=== PATIENT | male | born 1940 | race Caucasian/White ===

== ENCOUNTER 2022-10-16 10:19 | Emergency (ER) | payer MEDICARE, MEDICAID, SELFPAY ==
--- NOTE | ~2022-10-16 | XR_ITS ---
EXAMINATION: XR CHEST CLINICAL INFORMATION: Dyspnea. COMPARISON: 12/01/2019 chest radiograph. TECHNIQUE: 2 views of the chest were obtained. FINDINGS: Low lung volumes limit evaluation. There is mild elevation of the right hemidiaphragm. The lungs appear clear. The heart and mediastinal structures are unremarkable. XR/XR chest 2V IMPRESSION: Limited study without overt CHF or pneumonia.
[2022-10-16 10:31] VITALS: BP 109/81; BP 176/77; PULSE 83; PULSE 93; RESP 24; TEMP 36.8; O2SAT 91; O2SAT 94; BMI 34.2
[2022-10-16 10:36] VITALS: BP 109/61; PULSE 95; RESP 22; TEMP 36.9; O2SAT 93
--- OUTSIDE RECORDS SUMMARY | 2022-10-16 10:42 | XMS_ITS | Continuity of Care Document ---
Author Name Unknown Organization [facility] Gianna Barber [facility] Address [address] [place] [address]- Care Team Providers Care Track Grinder Name Role Phone Zhao AVENDANO, Dena Crews Primary Care Physician [phone] Encounter [facility] Date(s): 10/11/19 - 11/10/19 [facility] Gianna Barber [facility] [address] [place] [address]- [facility] Allergies, Adverse Reactions, Alerts Substance Reaction Severity Status Other Environmental Allergy Active Immunizations Given and Recorded Vaccine Date Status Refusal Reason influenza virus vaccine, inactivated 1 02/16/18 Gi rajinder influenza virus vaccine, inactivated 01/07/17 Give n influenza virus vaccine, inactivated 01/30/16 Give n pneumococcal 13-valent vaccine 05/01/15 Given pneumococcal 23-valent vaccine 2 12/17/13 Given Pneumococcal Poly (PPV23) (oldterm) 06/18/07 Given tetanus-diphtheria toxoids (Td) 06/18/07 Given 1Result Comment: [02/16/2018] [facility] [id number] 2Admin Note: VIS GIVEN Medications Alcohol Wipes See Instructions, 1 box, 8, 8, 07/03/07 16:02:50, use as instructed, Anupama VICKERS N Main Start Date: 07/03/07 Status: Ordered aspirin 81 mg oral enteric coated tablet 81, mg, 1, tablet, By Mouth, Daily, 0, 0, 10/21/05 16:51:52, Print CLADUIA Number, [id number], Constant Indicator Start Date: 10/21/05 Status: Ordered C-Pap Supplies C-Pap Supplies, See Instructions, # 1 each, Refills 11, Tot. Refills 11, Maintenance, C-Pap hose, filters and nose pillows. length of need 99 months DX: ANDRES, 08/12/17 9:05:08 EDT, Compound Start Date: 08/12/17 Status: Ordered Claritin 24 Hour Allergy 10 mg oral tablet 1 tablet = 10 mg, By Mouth, Every other day, # 15 tablet, 0 Refills, Maintenance, 06/30/18 13:39:09EDT, Tablet Start Date: 06/30/18 Status: Ordered doxazosin 8 mg oral tablet 1 tablet = 8 mg, By Mouth, Daily, # 90 tablet, 0 Refills, Maintenance, 08/05/19 13:38:00 EDT, Tablet, [facility]/pharmacy #1230, 183, cm, 04/05/19 13:05:00 EST, Height Start Date: 08/05/19 Status: Ordered enalapril 20 mg oral tablet 1 tablet = 20 mg, By Mouth, 2 times a day, # 180 tablet, 1 Refills, Maintenance, 10/19/19 15:53:00 EDT, [facility], 183, cm, 10/07/19 14:43:00 EDT, Height Start Date: 10/19/19 Status: Ordered Flovent HFA 110 mcg/inh inhalation aerosol 2 puffs, Inhalation, 2 times a day, # 1 each, 3 Refills, Maintenance, 12/17/18 18:36:48 EDT, Aerosol Start Date: 12/17/18 Stop Date: 04/16/19 Status: Ordered folic acid 1 mg oral tablet 1 mg, 1, tablet, By Mouth, Daily, # 90 tablet, Refills 5, Tot. Refills 5, Maintenance, 10/11/19 11:11:00 EDT, Route to Pharmacy Electronically, [facility]/pharmacy #1230, 183, cm, 10/07/19 14:43:00 EDT, Height Start Date: 10/11/19 Status: Ordered Glucose Monitor See Instructions, 0, 0, 07/03/07 16:02:29, use as instructed., Anupama VICKERS N Main Start Date: 07/03/07 Status: Ordered Lancets See Instructions, 1 box, 8, 8, 07/03/07 16:03:17, use as instructed, Anupama VICKERS N Main Start Date: 07/03/07 Status: Ordered loratadine 10 mg oral capsule 1 capsule = 10 mg, By Mouth, Daily, # 90 capsule, 1 Refills, Maintenance, 10/06/19 10:17:00 EDT, Capsule, [facility]/pharmacy #1230, 183, cm, 04/05/19 13:05:00 EST, Height Start Date: 10/06/19 Stop Date: 05/03/20 Status: Ordered metFORMIN 1000 mg oral tablet 1 tablet = 1,000 mg, By Mouth, 2 times a day, # 180 tablet, 1 Refills, Maintenance, 04/27/19 14:24:00 EST, [facility]/pharmacy #1230, 183, cm, 04/05/19 13:05:00 EST, Height Start Date: 04/27/19 Stop Date: 10/24/19 Status: Ordered metoprolol 50 mg oral tablet See Instructions, 0.5 tablet By Mouth 2 times a day, # 30 tablet, Refills 6, Tot. Refills 6, Maintenance, 08/11/17 15:10:38 EDT, Instructions Replace Required Details, Route to Pharmacy Electronically, [id number], [facility]/pharmac... Start Date: 08/11/17 Status: Ordered pravastatin 40 mg oral tablet 1 tablet = 40 mg, By Mouth, Daily, # 90 tablet, 1 Refills, Maintenance, 08/06/19 12:43:00 EDT, Tablet, [facility]/pharmacy #1230, 183, cm, 04/05/19 13:05:00 EST, Height Start Date: 08/06/19 Stop Date: 02/02/20 Status: Ordered ProAir HFA 90 mcg/inh inhalation aerosol with adapter 2, puffs, Inhalation, 4 times a day, PRN, # 2 each, Refills 3, Tot. Refills 3, Maintenance, 08/13/18 20:00:05 EDT, Aerosol, Route to Pharmacy Electronically, [id number], [facility]/pharmacy #1230 Start Date: 08/13/18 Stop Date: 12/11/18 Status: Ordered Test Strips See Instructions, 11, 0, 11, 08/03/07 15:08:40, Test Bid-Tid as advised., [facility] Start Date: 08/03/07 Status: Ordered Vitamin B12 2500 mcg sublingual tablet 1 tablet = 2,500 mcg, Sublingual, Daily, # 30 tablet, 5 Refills, Maintenance, 10/11/19 11:12:00 EDT, Tablet, [facility]/pharmacy #1230, 183, cm, 10/07/19 14:43:00 EDT, Height Start Date: 10/11/19 Status: Ordered Vitamin B12 with Folic Acid sublingual tablet 1 tablet, Sublingual, Daily, # 30 tablet, 5 Refills, Maintenance, 10/10/19 18:46:00 EDT, Tablet, [facility]/pharmacy #1230, 1 tablet Sublingual Daily, 183, cm, 10/07/19 14:43:00 EDT, Height Start Date: 10/10/19 Status: Ordered Vitamin D3 5000 intl units oral capsule 1 capsule = 5,000 International_Units, By Mouth, Daily, with food, # 100 capsule, 0 Refills, Maintenance, 07/18/14 10:26:47, Capsule Start Date: 07/18/14 Status: Ordered Voltaren 1% topical gel = 2 Gm, Topically, 3 times a day, To affected area., # 180 Gm, 4 Refills, Maintenance, 10/04/19 12:26:00 EDT, [facility], 2 Gm Topically 3 times a day,Instr:To affected area., 183, cm, 04/05/19 13:05:00 EST, Height Start Date: 10/04/19 Status: Ordered Problem List Condition Effective Dates Status Health Status Inform ant Administrative encounter(Confirmed) Active Arthritis(Confirmed) Active Hematuria(Confirmed) Active Cancer of prostate(Confirmed) Active CHF, chronic(Confirmed) Active 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
--- OUTSIDE RECORDS SUMMARY | 2022-10-16 10:42 | XMS_ITS | Continuity of Care Document ---
Author Name Unknown Organization [facility] Address [address] [place] [address]- Care Team Providers Care Automotive Software Engineer Name Role Phone Zhao PUBLIC WORKS COMMISSIONER, Dena Crews Primary Care Physician Encounter [facility] Date(s): 11/23/21 - 03/01/22 [facility] [address] [place] [address]- Attending Physician: Maritza Sparks MD Allergies, Adverse Reactions, Alerts No Known Medication Allergies Substance Reaction Severity Status Other Environmental Allergy Active Immunizations Given and Recorded Vaccine Date Status Refusal Reason influenza virus vaccine, inactivated 03/02/21 Jules rded influenza virus vaccine, inactivated 1 02/16/18 Gi rajinder influenza virus vaccine, inactivated 01/07/17 Give n influenza virus vaccine, inactivated 01/30/16 Give n SARS-CoV-2 (COVID-19) mRNA BNT-162b2 vac 03/02/21 Recorded SARS-CoV-2 (COVID-19) mRNA BNT-162b2 vac 05/20/20 Recorded SARS-CoV-2 (COVID-19) mRNA BNT-162b2 vac 04/27/20 Recorded pneumococcal 13-valent vaccine 05/01/15 Given pneumococcal 23-valent vaccine 2 12/17/13 Given Pneumococcal Poly (PPV23) (oldterm) 06/18/07 Given tetanus-diphtheria toxoids (Td) 06/18/07 Given 1Result Comment: [02/16/2018] [facility] [id number] 2Admin Note: VIS GIVEN Medications aspirin 81 mg oral enteric coated tablet 81, mg, 1, tablet, By Mouth, Daily, 0, 0, 10/21/05 16:51:52, Print CLAUDIA Number, [id number], Constant Indicator Start Date: 10/21/05 Status: Ordered C-Pap Supplies C-Pap Supplies, See Instructions, # 1 each, Refills 11, Tot. Refills 11, Maintenance, C-Pap hose, filters and nose pillows. length of need 99 months DX: ANDRES, 08/12/17 9:05:08 EDT, Compound Start Date: 08/12/17 Status: Ordered CPAP SUPPLIES CPAP SUPPLIES, See Instructions, # 1 each, Refills 12, Tot. Refills 12, Maintenance, CPAP Supplies,Mask & Tubing, Filters, Chin Strap, Water Chamber DX ANDRES APRIA, 01/24/22 16:59:00 EDT, Supply Start Date: 01/24/22 Status: Ordered doxazosin 8 mg oral tablet 1 tablet = 8 mg, By Mouth, Daily, # 90 tablet, 1 Refills, Maintenance, 12/18/20 8:03:00 EDT, Tablet, [facility]/pharmacy #1230, 183, cm, 07/05/20 13:14:00 EDT, Height Start Date: 12/18/20 Status: Ordered enalapril 20 mg oral tablet 1 tablet, By Mouth, Daily, # 180 tablet, 0 Refills, 12/19/21 9:26:00 EDT, [facility]/pharmacy #1230, 183, cm, 12/19/21 7:46:00 EDT, Height, 113, kg, 12/16/21 16:29:00 EDT, Dry Weight Start Date: 12/19/21 Status: Ordered Flovent HFA 220 mcg/inh inhalation aerosol 2 puffs, Inhalation, 2 times a day, rinse mouth and throat after use, # 1 each, 6 Refills, Maintenance, 11/07/21 10:56:00 EDT, Aerosol, [facility]/pharmacy #1230, Partial fill upon patient request if the prescription is for a schedule II opioid drug., 183, c... Start Date: 11/07/21 Stop Date: 06/05/22 Status: Ordered folic acid 1 mg oral tablet 1, tablet, By Mouth, Daily, # 90 tablet, Refills 1, Route to Pharmacy Electronically, [facility] STORE 63687, 183, cm, 07/05/20 13:14:00 EDT, Height Start Date: 11/12/20 Status: Ordered furosemide 20 mg oral tablet 1, tablet, By Mouth, Daily, # 90 tablet, Refills 1, Maintenance, 01/04/22 16:08:00 EDT, Route to Pharmacy Electronically, [facility] STORE 47062, 183, cm, 12/26/21 13:25:00 EDT, Height, 113, kg, 12/16/21 16:29:00 EDT, Dry Weight Start Date: 01/04/22 Status: Ordered isosorbide mononitrate 30 mg oral tablet, extended release 1 tablet, By Mouth, Daily in AM, # 90 tablet, 1 Refills, Maintenance, 12/24/21 7:28:00 EDT, [facility]/pharmacy #1230, 183, cm, 12/19/21 11:37:00 EDT, Height, 113, kg, 12/16/21 16:29:00 EDT, Dry Weight Start Date: 12/24/21 Status: Ordered metFORMIN 500 mg oral tablet 1 tablet, By Mouth, 2 times a day, # 180 tablet, 1 Refills, 06/27/21 16:01:00 EDT, [facility]/pharmacy #1230, 183, cm, 06/27/21 14:31:00 EDT, Height Start Date: 06/27/21 Status: Ordered OneTouch Verio Glucose Meter See Instructions, # 1 each, Maintenance, E11.8 Use as directed., 01/03/22 6:52:00 EDT, Supply, 183,cm, 12/26/21 13:25:00 EDT, Height, 113, kg, 12/16/21 16:29:00 EDT, Dry Weight Start Date: 01/03/22 Status: Ordered OneTouch Verio Lancets See Instructions, # 60 each, Refills 11, Tot. Refills 11, Maintenance, E11.8 Test blood glucose twice a day and as needed., 01/03/22 6:52:00 EDT, Supply, 183, cm, 12/26/21 13:25:00 EDT, Height, 113, kg, 12/16/21 16:29:00 EDT, Dry Weight Start Date: 01/03/22 Status: Ordered OneTouch Verio Test Strips See Instructions, # 60 each, Refills 11, Tot. Refills 11, Maintenance, E11.8 Check blood glucose twice a day and as needed., 01/03/22 6:52:00 EDT, Supply, 183, cm, 12/26/21 13:25:00 EDT, Height, 113,kg, 12/16/21 16:29:00 EDT, Dry Weight Start Date: 01/03/22 Status: Ordered POC EVALUATION POC EVALUATION, See Instructions, # 1 each, Refills 0, Tot. Refills 0, Maintenance, Evalualt patient for POC Dx COPD APRIA, 01/24/22 16:59:00 EDT, Supply Start Date: 01/24/22 Status: Ordered pravastatin 40 mg oral tablet 1 tablet, By Mouth, Daily, # 90 tablet, 1 Refills, [facility] STORE 79769, 183, cm, 06/27/21 14:31:00 EDT,Height Start Date: 10/13/21 Status: Ordered ProAir HFA 90 mcg/inh inhalation aerosol with adapter 2, puffs, Inhalation, 4 times a day, PRN, # 2 each, Refills 3, Tot. Refills 3, Maintenance, 11/07/21 10:57:00 EDT, Aerosol, Route to Pharmacy Electronically, [id number], [facility]/pharmacy #1230, 183, cm, 11/07/21 7:16:00 EDT, Height Start Date: 11/07/21 Stop Date: 03/07/22 Status: Ordered Vitamin D3 5000 intl units oral capsule 1 capsule = 5,000 International_Units, By Mouth, Daily, with food, # 100 capsule, 0 Refills, Maintenance, 07/18/14 10:26:47, Capsule Start Date: 07/18/14 Status: Ordered Voltaren 1% topical gel = 2 Gm, Topically, 3 times a day, To affected area., # 180 Gm, 6 Refills, Maintenance, 06/27/21 16:02:00 EDT, [facility], 2 Gm Topically 3 times a day,Instr:To affected area., 183, cm, 06/27/21 14:31:00 EDT, Height Start Date: 06/27/21 Status: Ordered Problem List Condition Confirmation Course Effective Dates Status H ealth Status Informant Administrative encounter Confirmed Active Arthritis Confirmed Active Hematuria Confirmed Active Cancer of prostate Confirmed Active CHF, chronic Confirmed Active CKD (chronic kidney disease) Confirmed Active Osteoarthritis of both shoulders Confirmed Active Diabetes mellitus type 2 in obese Confirmed Active Diverticulitis Confirmed Active Shortness of breath Confirmed Active Hip replacement left Confirmed Active Hyperlipidemia Confirmed Active Hypertension Confirmed Active Knee osteoarthritis Confirmed 07/27/12 Active Polycystic kidney disease Confirmed Active Obese class II Confirmed Active Obesity Confirmed Active Obstructive sleep apnea syndrome Confirmed Active Sinus tachycardia Confirmed Active Vertigo Confirmed Active Social History Social History Type Response Smoking Status Former smoker; Other : Quit 1989; entered on: 01/30/16 Sex Patient Care team information Care Team Personnel Name: Dena Churchill NP Position: S PCO Associate Professional Member Role: PCP Address: Address: [address] [place] [id number]- Care Team Related Persons Name: ZARIA MCKINNEY Address: home [address] [place] [address] Name: ZOHRA MCKINNEY Address: home [address] [place] [address]
--- OUTSIDE RECORDS SUMMARY | 2022-10-16 10:42 | XMS_ITS | Continuity of Care Document ---
Author Name Unknown Organization [facility] Address [address] [place] [address]- Care Team Providers Care Design Leader Name Role Phone Zhao AVENDANO, Dena Crews Primary Care Physician Encounter [facility] Date(s): 11/06/21 - 12/07/21 [facility] [address] [place], [place] [id number]- Attending Physician: Not on Staff, Attending MD Referring Physician: Dena Churchill NP Allergies, Adverse Reactions, Alerts Substance Reaction Severity [...] toxoids (Td) 06/18/07 Given 1Result Comment: [02/16/2018] [facility] [id number] 2Admin Note: VIS GIVEN Medications Alcohol Wipes See Instructions, 1 box, 8, 8, 07/03/07 16:02:50, use as instructed, [facility] Start Date: 07/03/07 Status: Ordered aspirin 81 mg oral enteric coated tablet 81, mg, 1, tablet, By Mouth, Daily, 0, 0, 10/21/05 16:51:52, Print CLAUDIA Number, [id number], Constant Indicator Start Date: 10/21/05 Status: Ordered C-Pap Supplies C-Pap Supplies, See Instructions, # 1 each, Refills 11, Tot. Refills 11, Maintenance, C-Pap hose, filters and nose pillows. length of need 99 months DX: ANDRES, 08/12/17 9:05:08 EDT, Compound Start Date: 08/12/17 Status: Ordered Docusate 0 Refills, Maintenance, 07/05/20 13:17:00 EDT, Partial fill upon patient request if the prescription is for a schedule II opioid drug. Start Date: 07/05/20 Status: Ordered doxazosin 8 mg oral tablet 1 tablet = 8 mg, By Mouth, Daily, # 90 tablet, 1 Refills, Maintenance, 12/18/20 8:03:00 EDT, Tablet, [facility], 183, cm, 07/05/20 13:14:00 EDT, Height Start Date: 12/18/20 Status: Ordered doxazosin 8 mg oral tablet 1 tablet, By Mouth, Daily, # 90 tablet, 1 Refills, [facility], 183, cm, 06/27/21 14:31:00 EDT,Height Start Date: 09/24/21 Status: Ordered enalapril 20 mg oral tablet 1 tablet, By Mouth, 2 times a day, # 180 tablet, 0 Refills, [facility], 183, cm, 10/23/21 15:45:00 EDT, Height Start Date: 10/26/21 Status: Ordered Flovent HFA 220 mcg/inh inhalation aerosol 2 puffs, Inhalation, 2 times a day, rinse mouth and throat after use, # 1 each, 6 Refills, Maintenance, 11/07/21 10:56:00 EDT, Aerosol, [facility], Partial fill upon patient request if the prescription is for a schedule II opioid drug., 183, c... Start Date: 11/07/21 Stop Date: 06/05/22 Status: Ordered folic acid 1 mg oral tablet 1, tablet, By Mouth, Daily, # 90 tablet, Refills 1, Route to Pharmacy Electronically, [facility], 183, cm, 07/05/20 13:14:00 EDT, Height Start Date: 11/12/20 Status: Ordered furosemide 20 mg oral tablet 1, tablet, By Mouth, Daily, # 90 tablet, Refills 1, Route to Pharmacy Electronically, [facility], 183, cm, 06/27/21 14:31:00 EDT, Height Start Date: 07/12/21 Status: Ordered gabapentin 100 mg oral capsule 100 mg, 1, capsule, By Mouth, 3 times a day, # 90 capsule, Refills 1, Tot. Refills 1, Maintenance, 06/27/21 16:05:00 EDT, Route to Pharmacy Electronically, [facility]/pharmacy #1230, Partial fill upon patient request if the prescription is for a schedule II... Start Date: 06/27/21 Stop Date: 08/26/21 Status: Ordered Glucose Monitor See Instructions, 0, 0, 07/03/07 16:02:29, use as instructed., Anupama VICKERS N Main Start Date: 07/03/07 Status: Ordered isosorbide mononitrate 30 mg oral tablet, extended release 1 tablet, By Mouth, Daily in AM, for 90 days, # 90 tablet, 1 Refills, Physician Stop 12/24/21 16:02:00 EDT, 06/27/21 16:02:00 EDT, [facility]/pharmacy #1230, 183, cm, 06/27/21 14:31:00 EDT, Height Start Date: 06/27/21 Stop Date: 12/24/21 Status: Ordered Lancets See Instructions, 1 box, 8, 8, 07/03/07 16:03:17, use as instructed, Anupama VICKERS N Main Start Date: 07/03/07 Status: Ordered loratadine 10 mg oral capsule 1 capsule = 10 mg, By Mouth, Daily, # 90 capsule, 1 Refills, Maintenance, 10/06/19 10:17:00 EDT, Capsule, [facility]/pharmacy #1230, 183, cm, 04/05/19 13:05:00 EST, Height Start Date: 10/06/19 Stop Date: 05/03/20 Status: Ordered magnesium oxide 400 mg oral tablet 1 tablet = 400 mg, By Mouth, Daily, # 14 tablet, 0 Refills, Maintenance, 12/31/19 14:54:00 EDT, Tablet Start Date: 12/31/19 Stop Date: 01/14/20 Status: Ordered metFORMIN 500 mg oral tablet 1 tablet, By Mouth, 2 times a day, # 180 tablet, 1 Refills, 06/27/21 16:01:00 EDT, [facility]/pharmacy #1230, 183, cm, 06/27/21 14:31:00 EDT, Height Start Date: 06/27/21 Status: Ordered metoprolol 50 mg oral tablet See Instructions, 0.5 tablet By Mouth 2 times a day, # 30 tablet, Refills 6, Tot. Refills 6, Maintenance, 08/11/17 15:10:38 EDT, Instructions Replace Required Details, Route to Pharmacy Electronically, [id number], [facility]/pharmac... Start Date: 08/11/17 Status: Ordered MiraLax = 17 Gm, By Mouth, Daily, 0 Refills, Maintenance, 07/05/20 13:17:00 EDT, Partial fill upon patient request if the prescription is for a schedule II opioid drug. Start Date: 07/05/20 Status: Ordered pravastatin 40 mg oral tablet 1 tablet, By Mouth, Daily, # 90 tablet, 1 Refills, [facility] STORE 50391, 183, cm, 06/27/21 14:31:00 EDT,Height Start Date: 10/13/21 Status: Ordered ProAir HFA 90 mcg/inh inhalation aerosol with adapter 2, puffs, Inhalation, 4 times a day, PRN, # 2 each, Refills 3, Tot. Refills 3, Maintenance, 11/07/21 10:57:00 EDT, Aerosol, Route to Pharmacy Electronically, [id number], [facility]/pharmacy #1230, 183, cm, 11/07/21 7:16:00 EDT, Height Start Date: 11/07/21 Stop Date: 03/07/22 Status: Ordered Senna By Mouth, 0 Refills, Maintenance, 12/31/19 14:55:00 EDT Start Date: 12/31/19 Status: Ordered Test Strips See Instructions, 11, 0, 11, 08/03/07 15:08:40, Test Bid-Tid as advised., [facility] Start Date: 08/03/07 Status: Ordered Vitamin B12 2500 mcg sublingual tablet 1 tablet = 2,500 mcg, Sublingual, Daily, # 30 tablet, 5 Refills, Maintenance, 10/11/19 11:12:00 EDT, Tablet, [facility]/pharmacy #1230, 183, cm, 10/07/19 14:43:00 EDT, Height Start Date: 10/11/19 Status: Ordered Vitamin B12 with Folic Acid sublingual tablet 1 tablet, Sublingual, Daily, # 30 tablet, 5 Refills, Maintenance, 10/10/19 18:46:00 EDT, Tablet, [facility]/pharmacy #1230, 1 tablet Sublingual Daily, 183, [...] Date: 06/27/21 Status: Ordered Problem List Condition Effective Dates Status Health Status Inform ant Administrative encounter(Confirmed) Active Arthritis(Confirmed) Active Hematuria(Confirmed) Active Cancer of prostate(Confirmed) Active CHF, chronic(Confirmed) Active CKD (chronic kidney disease)(Confirmed) Active 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) Active Diverticulitis(Confirmed) Active Shortness of breath(Confirmed) Active Hip replacement left(Confirmed) Active Hyperlipidemia(Confirmed) Active Hypertension(Confirmed) Active Knee osteoarthritis(Confirmed) 07/27/12 Active Polycystic kidney disease(Confirmed) Active Obesity(Confirmed) Active Obstructive sleep apnea syndrome(Confirmed) Active Sinus tachycardia(Confirmed) Active Vertigo(Confirmed) Active Vital Signs Most recent to oldest [Reference Range]: 1 Height 183 cm (11/07/21 7:16 AM) Social History Social History Type Response Smoking Status Former smoker; Other : Quit 1989; entered on: 01/30/16 Sex Care Team Personnel Name: Zhao AVENDANO, Dena Crews Address: [address] [place] [id number]
--- OUTSIDE RECORDS SUMMARY | 2022-10-16 10:42 | XMS_ITS | Continuity of Care Document ---
Author Name Unknown Organization [facility] Address [address] [place], [place] [id number]- Care Team Providers Care Project Structural Engineer Name Role Phone Zhao AVENDANO, Dena Crews Primary Care Physician Encounter [facility] NBR [id number] Date(s): 04/12/21 - 06/13/21 [facility] [address] [place], [place] [id number]- Attending Physician: Dena Churchill NP Allergies, Adverse Reactions, [...] toxoids (Td) 06/18/07 Given 1Result Comment: [02/16/2018] [facility] [id number] 2Admin Note: VIS GIVEN Medications Alcohol Wipes See Instructions, 1 box, 8, 8, 07/03/07 16:02:50, use as instructed, RANCHO,Blchrtwn,N Main Start Date: 07/03/07 Status: Ordered aspirin 81 mg oral enteric coated tablet 81, mg, 1, tablet, By Mouth, Daily, 0, 0, 10/21/05 16:51:52, Print CLAUDIA Number, [id number], Constant Indicator Start Date: 10/21/05 Status: Ordered [...] 1 Refills, Maintenance, 12/18/20 8:03:00 EDT, Tablet, [facility]/pharmacy #1230, 183, cm, 07/05/20 13:14:00 EDT, Height Start Date: 12/18/20 Status: Ordered enalapril 20 mg oral tablet 1 tablet, By Mouth, 2 times a day, # 180 tablet, 1 Refills, Maintenance, 04/12/21 12:27:00 EST, [facility]/pharmacy #1230, 183, cm, 07/05/20 13:14:00 EDT, Height Start Date: 04/12/21 Status: Ordered Flovent HFA 110 mcg/inh inhalation aerosol 2 puffs, Inhalation, 2 times a day, # 1 each, 3 Refills, Maintenance, 12/17/18 18:36:48 EDT, Aerosol Start Date: 12/17/18 Stop Date: 04/16/19 Status: Ordered folic acid 1 mg oral tablet 1, tablet, By Mouth, Daily, # 90 tablet, Refills 1, Route to Pharmacy Electronically, [facility] STORE [facility]270, 183, cm, 07/05/20 13:14:00 EDT, Height Start Date: 11/12/20 Status: Ordered furosemide 20 mg oral tablet 20 mg, 1, tablet, By Mouth, Daily, # 90 tablet, Refills 1, Tot. Refills 1, Maintenance, 01/23/21 9:34:00 EDT, Route to Pharmacy Electronically, [facility]/pharmacy #1230, 183, cm, 07/05/20 13:14:00 EDT, Height Start Date: 01/23/21 Stop Date: 07/22/21 Status: Ordered Glucose Monitor See Instructions, 0, 0, 07/03/07 16:02:29, use as instructed., [facility],Anupama,N Main Start Date: 07/03/07 Status: Ordered isosorbide mononitrate 30 mg oral tablet, extended release 1 tablet, By Mouth, Daily in AM, for 90 days, # 90 tablet, 1 Refills, Physician Stop, [facility], 183, cm, 07/05/20 13:14:00 EDT, Height Start Date: 04/12/21 Stop Date: 07/11/21 Status: Ordered Lancets See Instructions, 1 box, 8, 8, 07/03/07 16:03:17, use as instructed, RANCHO,AnupamaN Main Start Date: 07/03/07 Status: Ordered loratadine 10 mg oral capsule 1 capsule = 10 mg, By Mouth, Daily, # 90 capsule, 1 Refills, Maintenance, 10/06/19 10:17:00 EDT, Capsule, [facility]/pharmacy #1230, 183, cm, 04/05/19 13:05:00 EST, Height [...] a day, # 180 tablet, 1 Refills, [facility] 04262, 183, cm, 07/05/20 13:14:00 EDT, Height Start Date: 01/30/21 Status: Ordered metoprolol 50 mg oral tablet See Instructions, 0.5 tablet By Mouth 2 times a day, # 30 tablet, Refills 6, Tot. Refills 6, Maintenance, 08/11/17 15:10:38 EDT, Instructions Replace Required Details, Route to Pharmacy Electronically, [id number], [facility]/pharmac... Start Date: 08/11/17 Status: Ordered MiraLax = 17 Gm, By Mouth, Daily, 0 Refills, Maintenance, 07/05/20 13:17:00 EDT, Partial fill upon patient request if the prescription is for a schedule II opioid drug. Start Date: 07/05/20 Status: Ordered pravastatin 40 mg oral tablet 1 tablet, By Mouth, Daily, # 90 tablet, 1 Refills, Maintenance, 04/12/21 12:27:00 EST, [facility]/pharmacy#1230, 183, cm, 07/05/20 13:14:00 EDT, Height Start Date: 04/12/21 Status: Ordered ProAir HFA 90 mcg/inh inhalation aerosol with adapter 2, puffs, Inhalation, 4 times a day, PRN, # 2 each, Refills 3, Tot. Refills 3, Maintenance, 08/13/18 20:00:05 EDT, Aerosol, Route to Pharmacy Electronically, [id number], [facility]/pharmacy #1230 Start Date: 08/13/18 Stop Date: 12/11/18 Status: Ordered Senna By Mouth, 0 Refills, Maintenance, 12/31/19 14:55:00 EDT Start Date: 12/31/19 Status: Ordered Test Strips See Instructions, 11, 0, 11, 08/03/07 15:08:40, Test Bid-Tid as advised., RANCHO,Anupama,N Main Start Date: 08/03/07 Status: Ordered Vitamin B12 2500 mcg sublingual tablet 1 tablet = 2,500 mcg, Sublingual, Daily, # 30 tablet, 5 Refills, Maintenance, 10/11/19 11:12:00 EDT, Tablet, [facility]/pharmacy #1230, 183, cm, 10/07/19 14:43:00 EDT, Height Start Date: 10/11/19 Status: Ordered Vitamin B12 with Folic Acid sublingual tablet 1 tablet, Sublingual, Daily, # 30 tablet, 5 Refills, Maintenance, 10/10/19 18:46:00 EDT, Tablet, [facility]/pharmacy #1230, 1 tablet Sublingual Daily, 183, cm, 10/07/19 14:43:00 EDT, Height Start Date: 10/10/19 Status: Ordered Vitamin D3 5000 intl units oral capsule 1 capsule = 5,000 International_Units, By Mouth, Daily, with food, # 100 capsule, 0 Refills, Maintenance, 04/27/15 10:26:47, Capsule Start Date: 07/18/14 Status: Ordered Voltaren 1% topical gel = 2 Gm, Topically, 3 times a day, To affected area., # 180 Gm, 0 Refills, Maintenance, 11/22/20 9:19:00 EDT, [facility], 2 Gm Topically 3 times a day,Instr:To affected area., 183, cm, 07/05/20 13:14:00 EDT, Height Start Date: 11/22/20 Status: Ordered Problem List Condition Effective Dates [...] syndrome(Confirmed) Active Sinus tachycardia(Confirmed) Active Vertigo(Confirmed) Active Social History Social History Type Response Smoking Status Former smoker; Other : Quit 1989; entered on: 01/30/16 Sex
--- OUTSIDE RECORDS SUMMARY | 2022-10-16 10:42 | XMS_ITS | Continuity of Care Document ---
Author Name Unknown Organization [facility] Address [address] [place], [place] [id number]- Care Team Providers Care Replanting Machine Operator Name Role Phone Dena Churchill NP Primary Care Physician Encounter [facility] NBR [id number] Date(s): 06/18/22 - 06/25/22 [facility] [address] [place] [id number] [place] Encounter Diagnosis CKD (chronic kidney disease)(Discharge Diagnosis) - 06/24/22 Diabetes mellitus type 2 in obese(Discharge Diagnosis) - 06/24/22 Hypertension(Discharge Diagnosis) - 06/24/22 Knee osteoarthritis(Discharge Diagnosis) - 06/24/22 Attending Physician: Dena Churchill NP Allergies, Adverse Reactions, Alerts No Known Medication Allergies Substance Reaction Severity Status Other Environmental Allergy Active Immunizations Given and Recorded Vaccine Date Status Refusal Reason [id number] 12y+ bivalent booster vax 03/28/22 Recorded influenza virus vaccine, inactivated 03/02/21 Jules rded [...] (Td) 06/18/07 Given 1Result Comment: [02/16/2018] [facility] [id number] 2Admin Note: VIS GIVEN Medications aspirin 81 mg oral enteric coated tablet 81, mg, 1, tablet, By Mouth, Daily, 0, 0, 10/21/05 16:51:52, Print CLAUDIA Number, [id number], Constant Indicator Start Date: 10/21/05 Status: Ordered [...] 1 Refills, Maintenance, 12/18/20 8:03:00 EDT, Tablet, [facility]/pharmacy #1230, 183, cm, 07/05/20 13:14:00 EDT, Height Start Date: 12/18/20 Status: Ordered doxazosin 8 mg oral tablet See Instructions, TAKE 1 TABLET BY MOUTH EVERY DAY, # 90 tablet, 1 Refills, Maintenance, 05/05/22 11:22:00 EST, [facility], 183, cm, 01/24/22 15:29:00 EDT, Height, 113, kg, 12/16/21 16:29:00 EDT, Dry Weight Start Date: 05/05/22 Status: Ordered enalapril 20 mg oral tablet 1 tablet, By Mouth, Daily, # 180 tablet, 0 Refills, 12/19/21 9:26:00 EDT, [facility], 183, cm, 12/19/21 7:46:00 EDT, Height, 113, kg, 12/16/21 16:29:00 EDT, Dry Weight Start Date: 12/19/21 Status: Ordered Flovent HFA 220 mcg/inh inhalation aerosol 2 puffs, Inhalation, 2 times a day, rinse mouth and throat after use, # 1 each, 6 Refills, Maintenance, 11/07/21 10:56:00 EDT, Aerosol, [facility]/pharmacy #1230, Partial fill upon patient request if the prescription is for a schedule II opioid drug., 183, c... Start Date: 11/07/21 Stop Date: 06/05/22 Status: Ordered folic acid 1 mg oral tablet 1, tablet, By Mouth, Daily, # 90 tablet, Refills 1, Route to Pharmacy Electronically, [facility], 183, cm, 07/05/20 13:14:00 EDT, Height Start Date: 11/12/20 Status: Ordered furosemide 20 mg oral tablet 1, tablet, By Mouth, Daily, # 90 tablet, Refills 1, Maintenance, 01/04/22 16:08:00 EDT, Route to Pharmacy Electronically, [facility], 183, cm, 12/26/21 13:25:00 EDT, Height, 113, kg, 12/16/21 16:29:00 EDT, Dry Weight Start Date: 01/04/22 Status: Ordered isosorbide mononitrate 30 mg oral tablet, extended release 1 tablet, By Mouth, Daily in AM, # 90 tablet, 1 Refills, Maintenance, 12/24/21 7:28:00 EDT, [facility]/pharmacy #1230, 183, cm, 12/19/21 11:37:00 EDT, Height, 113, kg, 12/16/21 16:29:00 EDT, Dry Weight Start Date: 12/24/21 Status: Ordered metFORMIN 500 mg oral tablet 1 tablet, By Mouth, 2 times a day, # 180 tablet, 1 Refills, Maintenance, 03/29/22 14:50:00 EST, [facility], 183, cm, 01/24/22 15:29:00 EDT, Height, 113, kg, 12/16/21 16:29:00 EDT, Dry Weight Start Date: 03/29/22 Status: Ordered OneTouch Verio Glucose Meter See [...] Daily, # 90 tablet, 1 Refills, Maintenance, 05/31/22 9:21:00 EST, [facility] STORE 20856, 183, cm, 05/22/22 7:02:00 EST, Height, 113, kg, 12/16/21 16:29:00 EDT, Dry Weight Start Date: 05/31/22 Status: Ordered ProAir HFA 90 mcg/inh inhalation aerosol with adapter 2, puffs, Inhalation, 4 times a day, PRN, # 2 each, Refills 3, Tot. Refills 3, Maintenance, 11/07/21 10:57:00 EDT, Aerosol, Route to Pharmacy Electronically, [id number], [facility], 183, cm, 11/07/21 7:16:00 EDT, Height [...] Sinus tachycardia Confirmed Active Vertigo Confirmed Active Diagnosis Diagnosis Type Effective Dates Health Status Clinical Service Informant CKD (chronic kidney disease) Discharge Diagnosis 06/24/22 Diabetes mellitus type 2 in obese Discharge Diagnosis 06/24/22 Hypertension Discharge Diagnosis 06/24/22 Knee osteoarthritis Discharge Diagnosis 06/24/22 Vital Signs Most recent to oldest [Reference Range]: 1 Height 183 cm (06/18/22 7:54 AM) Oxygen Saturation [94-100 %] 98 % (06/18/22 7:54 AM) Pulse Rate [55-90 bpm] 97 bpm *H* (06/18/22 7:54 AM) Blood Pressure [90-138/55-84 mm Hg] 118/ 74mm Hg (06/18/22 7:54 AM) Temperature [96.8-100.4 DegF] 97.5 DegF (06/18/22 7:54 AM) Mode of Delivery (Oxygen) Room air (06/18/22 7:54 AM) Blood pressure sites Arm, left (06/18/22 7:54 AM) Temperature Route Temporal (06/18/22 7:54 AM) Social History Social History Type Response Smoking Status Former smoker; Other : Quit 1989; entered on: 01/30/16 Sex Note * Jennifer Maradiaga: PERFORM, SIGN, VERIFY Event Display: Patient Education/Instruction Authored Date: [id number] [employer] *[facility] Clinical Summary Name KAZ MCKINNEY Age 82 Years 1940 PCP Zhao AVENDANO, Dena Crews PCP Visit Date 06/18/2022 07:51:00 Additional Instructions: Scheduled Appointments?? Future Appointments ?*[facility] ?[address]??[place],??[address] ?Phone:??--?Fax:??-- ?Appt. Date:??06/25/2022?3:30 PM ?Scheduled Provider:??Feroz Ramos MD ?*[facility] ?[address]??[place],??[place],??[address] ?Phone:??--?Fax:??-- ?Appt. Date:??09/16/2022?10:40 AM ?Scheduled Provider:??Dena Churchill NP Follow-Up Instructions ?? Diagnosis Medications: Please continue your medications until treatment is completed or stopped by your provider. Discuss any questions related to medications with your provider. Medications to Continue with No Changes These medications were not printed or sent to your pharmacy Albuterol (ProAir HFA 90 mcg/inh inhalation aerosol with adapter) 2 puff(s) Inhalation 4 times a day as needed Wheezing/Shortness of Breath for 30 Days. Refills: 3. Next Dose: Aspirin (aspirin 81 mg oral enteric coated tablet) 1 tab(s) Oral Daily. Next Dose: Cholecalciferol (Vitamin D3 5000 intl units oral capsule) 1 capsule Oral Daily. with food. Next Dose: Diclofenac Topical (Voltaren 1% topical gel) 2 gram Topically 3 times a day. To affected area.. Refills: 6. Next Dose: Doxazosin (doxazosin 8 mg oral tablet) 1 tab(s) Oral Daily. Refills: 1. Next Dose: Doxazosin (doxazosin 8 mg oral tablet) TAKE 1 TABLET BY MOUTH EVERY DAY. Refills: 1. Next Dose: Durable Medical Equipment (C-Pap Supplies) C-Pap hose, filters and nose pillows. length of need 99 months DX: ANDRES. Refills: 11. Next Dose: Durable Medical Equipment (CPAP SUPPLIES) CPAP Supplies, Mask & Tubing, Filters, Chin Strap, Water Chamber DX ANDRES APRIA. Refills: 12. Next Dose: Durable Medical Equipment (OneTouch Verio Glucose Meter) E11.8 Use as directed.. Refills: 0. Next Dose: Durable Medical Equipment (OneTouch Verio Lancets) E11.8 Test blood glucose twice a day and as needed.. Refills: 11. Next Dose: Durable Medical Equipment (OneTouch Verio Test Strips) E11.8 Check blood glucose twice a day and as needed.. Refills: 11. Next Dose: Durable Medical Equipment (POC EVALUATION) Evalualt patient for POC Dx COPD APRIA. Refills: 0. Next Dose: Enalapril (enalapril 20 mg oral tablet) 1 tab(s) Oral Daily. Refills: 0. Next Dose: Fluticasone (Flovent HFA 220 mcg/inh inhalation aerosol) 2 puff(s) Inhalation twice a day for 30 Days. rinse mouth and throat after use. Refills: 6. Next Dose: Folic Acid (folic acid 1 mg oral tablet) 1 tab(s) Oral Daily. Refills: 1. Next Dose: Furosemide (furosemide 20 mg oral tablet) 1 tab(s) Oral Daily. Refills: 1. Next Dose: Isosorbide Mononitrate (isosorbide mononitrate 30 mg oral tablet, extended release) 1 tab(s) Oral Daily in the morning. Refills: 1. Next Dose: Metformin (metFORMIN 500 mg oral tablet) 1 tab(s) Oral twice a day. Refills: 1. Next Dose: Pravastatin (pravastatin 40 mg oral tablet) 1 tab(s) Oral Daily. Refills: 1. Next Dose: Allergy Info:?? No Known Medication Allergies; Other Environmental Allergy Medications Given This Visit Future Orders ?No future orders Vital Signs Height 183 cm Weight BMI Blood Pressure 118 mm Hg/74 mm Hg Temperature 97.5 DegF Pulse Rate 97 bpm Respiratory Rate 02 Sat Mode of Delivery 98 %/Room air You can now view a summary of your hospital visit from the comfort of your home through a free online portal called [employer]. [employer] is a website that allows you to securely view your medical information including discharge summary, medications and follow-up visits. ??You can alsosend a secure electronic message to your doctor???s office to request appointments, renew medications or just ask a question. You can enroll at [email or web address] or register during your next office visit. Disclaimer:?? The information provided is of a general nature and is intended to be used in conjunction with the recommendations and advice of your health care practitioner. ??Every effort has been made to ensure that the information provided is accurate and complete at the time it is provided to you however, as your needs change, or, as new ??information becomes available, different or additional instructions may be required. If you have questions, please consult with your primary care provider or pharmacist, as appropriate. ??This information is not intended to serve as substitution for assessment and evaluation by a qualified health care provider. If you do not have a primary care provider, you may find a [facility] provider by calling [facility] [employer] [facility] at [phone]. For information about the plan of care including goals and instructions for your diagnosis, please see the patient education orders section of this document. Patient Education Materials?? The content of this educational material or handout may have been modified, supplemented, or adapted from its original content and format to support your individualized medical care. Patient Care team information Care Team Personnel Name: Dena Churchill NP Position: [facility] PCO Associate Professional Member Role: PCP Address: Address: [address] [place] [address]- Care Team Related Persons Name: ZARIA MCKINNEY Address: home [address] [place] [address] Name: ZOHRA MCKINNEY Address: home [address] [place] [address]
--- OUTSIDE RECORDS SUMMARY | 2022-10-16 10:42 | XMS_ITS | Continuity of Care Document ---
Author Name Unknown Organization [facility] Address [address] [place] [address]- Care Team Providers Care Kardex Clerk Name Role Phone Zhao AVENDANO, Dena Crews Primary Care Physician [phone] Encounter [facility] NBR [id number] Date(s): 12/10/21 - 12/17/21 [facility] [address] [address]- Encounter Diagnosis CHF, chronic(Discharge Diagnosis) - 12/13/21 CKD (chronic kidney disease)(Discharge Diagnosis) - 12/13/21 Diabetes mellitus type 2 in obese(Discharge Diagnosis) - 12/13/21 Hypertension(Discharge Diagnosis) - 12/13/21 Hyperlipidemia(Discharge Diagnosis) - 12/13/21 Knee osteoarthritis(Discharge Diagnosis) - 12/13/21 Obstructive sleep apnea syndrome(Discharge Diagnosis) - 12/13/21 Obesity hypoventilation syndrome(Discharge Diagnosis) - 12/13/21 Attending Physician: Dena Churchill NP Referring Physician: Dena Churchill NP Allergies, Adverse [...] toxoids (Td) 06/18/07 Given 1Result Comment: [02/16/2018] [facility] [id number] 2Admin Note: VIS GIVEN Medications Alcohol Wipes See Instructions, 1 box, 8, 8, 07/03/07 16:02:50, use as instructed, Anupama VICKERS N Main Start Date: 07/03/07 Status: Ordered aspirin 81 mg oral enteric coated tablet 81, mg, 1, tablet, By Mouth, Daily, 0, 0, 10/21/05 16:51:52, Print CLAUDIA Number, [id number], Constant Indicator Start Date: 10/21/05 Status: Ordered C-Pap Supplies C-Pap Supplies, See Instructions, # 1 each, Refills 11, Tot. Refills 11, Maintenance, C-Pap hose, filters and nose pillows. length of need 99 months DX: ANDRES, 08/12/17 9:05:08 EDT, Compound Start Date: 08/12/17 Status: Ordered doxazosin 8 mg oral tablet 1 tablet = 8 mg, By Mouth, Daily, # 90 tablet, 1 Refills, Maintenance, 12/18/20 8:03:00 EDT, Tablet, [facility]/pharmacy #1230, 183, cm, 07/05/20 13:14:00 EDT, Height Start Date: 12/18/20 Status: Ordered enalapril 20 mg oral tablet 1 tablet, By Mouth, 2 times a day, # 180 tablet, 0 Refills, [facility] ST[facility] 06850, 183, cm, 10/23/21 15:45:00 EDT, Height Start Date: 10/26/21 Status: Ordered Flovent HFA 220 mcg/inh inhalation aerosol 2 puffs, Inhalation, 2 times a day, rinse mouth and throat after use, # 1 each, 6 Refills, Maintenance, 11/07/21 10:56:00 EDT, Aerosol, [facility]/pharmacy #1230, Partial fill upon patient request if the prescription is for a schedule II opioid drug., 183, c... Start Date: 11/07/21 Stop Date: 06/05/22 Status: Ordered folic acid 1 mg oral tablet 1, tablet, By Mouth, Daily, # 90 tablet, Refills 1, Route to Pharmacy Electronically, [facility], 183, cm, 07/05/20 13:14:00 EDT, Height Start Date: 11/12/20 Status: Ordered furosemide 20 mg oral tablet 1, tablet, By Mouth, Daily, # 90 tablet, Refills 1, Route to Pharmacy Electronically, [facility], 183, cm, 06/27/21 14:31:00 EDT, Height Start Date: 07/12/21 Status: Ordered Glucose Monitor See Instructions, 0, 0, 07/03/07 16:02:29, use as instructed., Anupama VICKERS N Main Start Date: 07/03/07 Status: Ordered isosorbide mononitrate 30 mg oral tablet, extended release 1 tablet, By Mouth, Daily in AM, for 90 days, # 90 tablet, 1 Refills, Physician Stop 12/24/21 16:02:00 EDT, 06/27/21 16:02:00 EDT, [facility]/pharmacy #1230, 183, cm, 06/27/21 14:31:00 EDT, Height Start Date: 06/27/21 Stop Date: 12/24/21 Status: Ordered Lancets See Instructions, 1 box, 8, 8, 07/03/07 16:03:17, use as instructed, Anupama VICKERS N Main Start Date: 07/03/07 Status: Ordered metFORMIN 500 mg oral tablet 1 tablet, By Mouth, 2 times a day, # 180 tablet, 1 Refills, 06/27/21 16:01:00 EDT, [facility], 183, cm, 06/27/21 14:31:00 EDT, Height Start Date: 06/27/21 Status: Ordered pravastatin 40 mg oral tablet 1 tablet, By Mouth, Daily, # 90 tablet, 1 Refills, [facility], 183, cm, 06/27/21 14:31:00 EDT,Height Start Date: 10/13/21 Status: Ordered ProAir HFA 90 mcg/inh inhalation aerosol with adapter 2, puffs, Inhalation, 4 times a day, PRN, # 2 each, Refills 3, Tot. Refills 3, Maintenance, 11/07/21 10:57:00 EDT, Aerosol, Route to Pharmacy Electronically, [id number], [facility], 183, cm, 11/07/21 7:16:00 EDT, Height Start Date: 11/07/21 Stop Date: 03/07/22 Status: Ordered Test Strips See Instructions, 11, 0, 11, 08/03/07 15:08:40, Test Bid-Tid as advised., RANCHO,Blchrtwn,N Main Start Date: 08/03/07 Status: Ordered Vitamin D3 5000 intl units [...] osteoarthritis(Confirmed) 07/27/12 Active Polycystic kidney disease(Confirmed) Active Obese class I(Confirmed) Active Obesity(Confirmed) Active Obstructive sleep apnea syndrome(Confirmed) Active Sinus tachycardia(Confirmed) Active Vertigo(Confirmed) Active Diagnosis Diagnosis Type Effective Dates Health Status Clinical Service Informant CHF, chronic Discharge Diagnosis 12/13/21 CKD (chronic kidney disease) Discharge Diagnosis 12/13/21 Diabetes mellitus type 2 in obese Discharge Diagnosis 12/13/21 Hypertension Discharge Diagnosis 12/13/21 Hyperlipidemia Discharge Diagnosis 12/13/21 Knee osteoarthritis Discharge Diagnosis 12/13/21 Obstructive sleep apnea syndrome Discharge Diagnosis 12/13/21 Obesity hypoventilation syndrome Discharge Diagnosis 12/13/21 Vital Signs Most recent to oldest [Reference Range]: 1 Height 183 cm (12/10/21 7:41 AM) Oxygen Saturation [94-100 %] 92 % *L* (12/10/21 7:41 AM) Pulse Rate [55-90 bpm] 90 bpm (12/10/21 7:41 AM) Blood Pressure [90-138/55-84 mm Hg] 124/ 72mm Hg (12/10/21 7:41 AM) Temperature [96.8-100.4 DegF] 97.6 DegF (12/10/21 7:41 AM) Mode of Delivery (Oxygen) Room air (12/10/21 7:41 AM) Blood pressure sites Arm, left (12/10/21 7:41 AM) Temperature Route Temporal (12/10/21 7:41 AM) Social History Social History Type Response Smoking Status Former smoker; Other : Quit 1989; entered on: 01/30/16 Sex Care Team Personnel Name: Dena Churchill NP Address: [address] [place] [address]
--- OUTSIDE RECORDS SUMMARY | 2022-10-16 10:42 | XMS_ITS | Continuity of Care Document ---
Author Name Unknown Organization [facility] Address [address] [place] [address]- Care Team Providers Care Range Manager Name Role Phone Zhao OPERATIONS OFFICER, Dena Crews Primary Care Physician Encounter [facility] NBR [id number] Date(s): 06/25/22 - 07/25/22 [facility] [address] [place] [address]- Attending Physician: Candace Wen Admitting Physician: AdmCandace buckley Referring Physician: Admtr, Ar8 Allergies, Adverse Reactions, Alerts No Known Medication Allergies Substance Reaction Severity Status Other Environmental Allergy Active Immunizations Given and Recorded Vaccine Date Status Refusal Reason [id number] 12y+ bivalent booster vax 03/28/22 Recorded influenza [...] toxoids (Td) 06/18/07 Given 1Result Comment: [02/16/2018] [facility][note 3] [id number] 2Admin Note: VIS GIVEN Medications aspirin 81 mg oral enteric coated tablet 81, mg, 1, tablet, By Mouth, Daily, 0, 0, 10/21/05 16:51:52, Print CLAUDIA Number, [id number], Constant Indicator Start Date: 10/21/05 Status: Ordered [...] 1 Refills, Maintenance, 12/18/20 8:03:00 EDT, Tablet, [facility]/pharmacy #1230, 183, cm, 07/05/20 13:14:00 EDT, Height Start Date: 12/18/20 Status: Ordered doxazosin 8 mg oral tablet See Instructions, TAKE 1 TABLET BY MOUTH EVERY DAY, # 90 tablet, 1 Refills, Maintenance, 05/05/22 11:22:00 EST, [facility], 183, cm, 01/24/22 15:29:00 EDT, Height, 113, [...] 6 Refills, Maintenance, 11/07/21 10:56:00 EDT, Aerosol, [facility]/pharmacy #1230, Partial fill upon patient request if the prescription is for a schedule II opioid drug., 183, c... Start Date: 11/07/21 Stop Date: 06/05/22 Status: Ordered folic acid 1 mg oral tablet 1, tablet, By Mouth, Daily, # 90 tablet, Refills 1, Route to Pharmacy Electronically, [facility], 183, cm, 07/05/20 13:14:00 EDT, Height Start Date: 11/12/20 Status: Ordered furosemide 20 mg oral tablet 1, tablet, By Mouth, Daily, # 90 tablet, Refills 1, Maintenance, 01/04/22 16:08:00 EDT, Route to Pharmacy Electronically, [facility], 183, cm, 12/26/21 13:25:00 EDT, Height, 113, kg, 12/16/21 16:29:00 EDT, Dry Weight Start Date: 01/04/22 Status: Ordered isosorbide mononitrate 30 mg oral tablet, extended release 1 tablet, By Mouth, Daily in AM, # 90 tablet, 1 Refills, Maintenance, 12/24/21 7:28:00 EDT, [facility]/pharmacy #1230, 183, cm, 12/19/21 11:37:00 EDT, Height, 113, kg, 12/16/21 16:29:00 EDT, Dry Weight Start Date: 12/24/21 Status: Ordered metFORMIN 500 mg oral tablet 1 tablet, By Mouth, 2 times a day, # 180 tablet, 1 Refills, Maintenance, 03/29/22 14:50:00 EST, [facility], 183, cm, 01/24/22 15:29:00 EDT, Height, 113, [...] tablet, 1 Refills, Maintenance, 05/31/22 9:21:00 EST, [facility], 183, cm, 05/22/22 7:02:00 EST, Height, 113, kg, 12/16/21 16:29:00 EDT, Dry Weight Start Date: 05/31/22 Status: Ordered ProAir HFA 90 mcg/inh inhalation aerosol with adapter 2, puffs, Inhalation, 4 times a day, PRN, # 2 each, Refills 3, Tot. Refills 3, Maintenance, 11/07/21 10:57:00 EDT, Aerosol, Route to Pharmacy Electronically, [id number], [facility]/pharmacy #1230, 183, cm, 11/07/21 7:16:00 EDT, Height [...] Associate Professional Member Role: PCP Address: Address: [address] [place] [address]- Care Team Related Persons Name: ZARIA MCKINNEY Address: home [address] [place] [address] Name: ZOHRA MCKINNEY Address: home [address] [place] [address]
--- OUTSIDE RECORDS SUMMARY | 2022-10-16 10:42 | XMS_ITS | Continuity of Care Document ---
Author Name Unknown Organization [facility] Address [address] [place] [address]- Care Team Providers Care Internal Review And Audit Compliance Name Role Phone Zhao WAREHOUSEMAN, Dena Crews Primary Care Physician Encounter [facility] Date(s): 12/26/21 - 01/02/22 [facility] [address] [place] [address]- [place] Encounter Diagnosis CHF, chronic(Discharge Diagnosis) - 12/26/21 CKD (chronic kidney disease)(Discharge Diagnosis) - 12/26/21 Arthritis(Discharge Diagnosis) - 12/26/21 Diabetes mellitus type 2 in obese(Discharge Diagnosis) - 12/26/21 Pneumonia due to COVID-19 virus(Discharge Diagnosis) - 12/26/21 Obstructive sleep apnea syndrome(Discharge Diagnosis) - 12/26/21 Hypertension(Discharge Diagnosis) - 12/26/21 Hospital discharge follow-up(Discharge Diagnosis) - 12/26/21 Attending Physician: Not on Staff, Attending MD Allergies, Adverse Reactions, Alerts No Known [...] toxoids (Td) 06/18/07 Given 1Result Comment: [02/16/2018] [facility] [place] [id number] 2Admin Note: VIS GIVEN Medications aspirin 81 mg oral enteric coated tablet 81, mg, 1, tablet, By Mouth, Daily, 0, 0, 10/21/05 16:51:52, Print CLAUDIA Number, [id number], Constant Indicator Start Date: 10/21/05 Status: Ordered [...] tablet, Refills 1, Route to Pharmacy Electronically, [facility] 138[facility], 183, cm, 07/05/20 13:14:00 EDT, Height Start Date: 11/12/20 Status: Ordered furosemide 20 mg oral tablet 40 mg, 2, tablet, By Mouth, Daily, for 30 days, # 60 tablet, Refills 1, Tot. Refills 1, Physician Stop 02/17/22 9:26:00 EST, 12/19/21 9:26:00 EDT, [facility], cm, 12/19/21 7:46:00 EDT, Height, 113, kg, 09... Start Date: 12/19/21 Stop Date: 02/17/22 Status: Ordered isosorbide mononitrate 30 mg oral tablet, extended release 1 tablet, By Mouth, Daily in AM, # 90 tablet, 1 Refills, Maintenance, 12/24/21 7:28:00 EDT[facility], cm, 12/19/21 11:37:00 EDT, Height, 113, kg, 12/16/21 16:29:00 EDT, Dry Weight Start Date: 12/24/21 Status: Ordered metFORMIN 500 mg oral tablet 1 tablet, By Mouth, 2 times a day, # 180 tablet, 1 Refills, 06/27/21 16:01:00 EDT[facility], cm, 06/27/21 14:31:00 EDT, Height Start Date: 06/27/21 Status: Ordered OneTouch Verio Glucose Meter See Instructions, # 1 each, Maintenance, E11.8 Use as directed., 12/21/21 20:09:00 EDT, Supply, 183, cm, 12/19/21 11:37:00 EDT, Height, 113, kg, 12/16/21 16:29:00 EDT, Dry Weight Start Date: 12/21/21 Status: Ordered OneTouch Verio Lancets See Instructions, # 60 each, Refills 11, Tot. Refills 11, Maintenance, E11.8 Test blood glucose twice a day and as needed., 12/21/21 20:11:00 EDT, Supply, 183, cm, 12/19/21 11:37:00 EDT, Height, 113,kg, 12/16/21 16:29:00 EDT, Dry Weight Start Date: 12/21/21 Status: Ordered OneTouch Verio Test Strips See Instructions, # 60 each, Refills 11, Tot. Refills 11, Maintenance, E11.8 Check blood glucose twice a day and as needed., 12/21/21 20:09:00 EDT, Supply, 183, cm, 12/19/21 11:37:00 EDT, Height, 113, kg, 12/16/21 16:29:00 EDT, Dry Weight Start Date: 12/21/21 Status: Ordered pravastatin 40 mg oral tablet 1 tablet, By Mouth, Daily, # 90 tablet, 1 Refills, [facility] STORE 69[facility], 183, cm, 06/27/21 14:31:00 EDT,Height Start Date: 10/13/21 Status: Ordered ProAir HFA 90 mcg/inh inhalation aerosol with adapter 2, puffs, Inhalation, 4 times a day, PRN, # 2 each, Refills 3, Tot. Refills 3, Maintenance, 11/07/21 10:57:00 EDT, Aerosol, Route to Pharmacy Electronically, [id number], [facility]/pharmacy #1230, 183, cm, 11/07/21 7:16:00 EDT, [...] Gm, 6 Refills, Maintenance, 06/27/21 16:02:00 EDT, [facility]/pharmacy #1230, 2 Gm Topically 3 times a [...] Clinical Service Informant CHF, chronic Discharge Diagnosis 12/26/21 CKD (chronic kidney disease) Discharge Diagnosis 12/26/21 Arthritis Discharge Diagnosis 12/26/21 Diabetes mellitus type 2 in obese Discharge Diagnosis 12/26/21 Pneumonia due to COVID-19 virus Discharge Diagnosis 12/26/21 Obstructive sleep apnea syndrome Discharge Diagnosis 12/26/21 Hypertension Discharge Diagnosis 12/26/21 Hospital discharge follow-up Discharge Diagnosis 12/26/21 Vital Signs Most recent to oldest [Reference Range]: 1 Height 183 cm (12/26/21 1:25 PM) Social History Social History Type Response Smoking Status Former smoker; Other : Quit 1989; entered on: 01/30/16 Sex Patient Care team information Personnel Name: Dena Churchill NP Address: Address: [address] [place] [address], [place] [address]
--- OUTSIDE RECORDS SUMMARY | 2022-10-16 10:42 | XMS_ITS | Continuity of Care Document ---
Author Name Unknown [facility] Address [address] [place] [address]- Care Team Providers Care Veneer Drier Name Role Phone Zhao FAMILY ADVOCATE, Dena M Primary Care Physician Encounter [facility] Date(s): 05/14/21 - 06/13/[facility] [address] [place] [address]- Attending Physician: Candace Wen Admitting Physician: Candace Wen Referring Physician: AdmtrCandace Allergies, Adverse Reactions, Alerts Substance Reaction Severity [...] toxoids (Td) 06/18/07 Given 1Result Comment: [02/16/2018] [facility] [id number] 2Admin Note: VIS GIVEN Medications Alcohol Wipes See Instructions, 1 box, 8, 8, 07/03/07 16:02:50, use as instructed, Anupama VICKERS N Main Start Date: 07/03/07 Status: Ordered aspirin 81 mg oral enteric coated tablet 81, mg, 1, tablet, By Mouth, Daily, 0, 0, 10/21/05 16:51:52, Print CLAUDIA Number, [id number], Constant Indicator Start Date: 10/21/05 Status: Ordered [...] Maintenance, 12/18/20 8:03:00 EDT, Tablet, [facility]/pharmacy #1230, 183, cm, 07/05/20 13:14:00 EDT, Height Start Date: 12/18/20 Status: Ordered enalapril 20 mg oral tablet 1 tablet, By Mouth, 2 times a day, # 180 tablet, 1 Refills, Maintenance, 04/12/21 12:27:00 EST, [facility]/pharmacy #1230, 183, cm, 07/05/20 13:14:00 EDT, [...] tablet, Refills 1, Route to Pharmacy Electronically, [facility] 74486, 183, cm, 07/05/20 13:14:00 EDT, Height Start Date: 11/12/20 Status: Ordered furosemide 20 mg oral tablet 20 mg, 1, tablet, By Mouth, Daily, # 90 tablet, Refills 1, Tot. Refills 1, Maintenance, 01/23/21 9:34:00 EDT, Route to Pharmacy Electronically, [facility]/pharmacy #1230, 183, cm, 07/05/20 13:14:00 EDT, Height Start Date: 01/23/21 Stop Date: 07/22/21 Status: Ordered Glucose Monitor See Instructions, 0, 0, 07/03/07 16:02:29, use as instructed., Anupama VICKERS N Main Start Date: 07/03/07 Status: Ordered isosorbide mononitrate 30 mg oral tablet, extended release 1 tablet, By Mouth, Daily in AM, for 90 days, # 90 tablet, 1 Refills, Physician Stop, [facility] 61991, 183, cm, 07/05/20 13:14:00 EDT, Height Start Date: 04/12/21 Stop Date: 07/11/21 Status: Ordered Lancets See Instructions, 1 box, 8, 8, 07/03/07 16:03:17, use as instructed, Anupama VICKERS N Main Start Date: 07/03/07 Status: Ordered loratadine 10 mg oral capsule 1 capsule = 10 mg, By Mouth, Daily, # 90 capsule, 1 Refills, Maintenance, 10/06/19 10:17:00 EDT, Capsule, [facility]/pharmacy #1230, 183, cm, 04/05/19 13:05:00 [...] a day, # 180 tablet, 1 Refills, [facility] ST[facility] 80810, 183, cm, 07/05/20 13:14:00 EDT, Height Start Date: 01/30/21 Status: Ordered metoprolol 50 mg oral tablet See Instructions, 0.5 tablet By Mouth 2 times a day, # 30 tablet, Refills 6, Tot. Refills 6, Maintenance, 08/11/17 15:10:38 EDT, Instructions Replace Required Details, Route to Pharmacy Electronically, [id number], [facility]/pharmac... Start Date: 08/11/17 Status: Ordered MiraLax = 17 Gm, By Mouth, Daily, 0 Refills, Maintenance, 07/05/20 13:17:00 EDT, Partial fill upon patient request if the prescription is for a schedule II opioid drug. Start Date: 07/05/20 Status: Ordered pravastatin 40 mg oral tablet 1 tablet, By Mouth, Daily, # 90 tablet, 1 Refills, Maintenance, 04/12/21 12:27:00 EST, [facility]/pharmacy#1230, 183, cm, 07/05/20 13:14:00 EDT, Height Start Date: 04/12/21 Status: Ordered ProAir HFA 90 mcg/inh inhalation aerosol with adapter 2, puffs, Inhalation, 4 times a day, PRN, # 2 each, Refills 3, Tot. Refills 3, Maintenance, 08/13/18 20:00:05 EDT, Aerosol, Route to Pharmacy Electronically, [id number], [facility]/pharmacy #1230 Start Date: 08/13/18 Stop Date: 12/11/18 Status: Ordered Senna By Mouth, 0 Refills, Maintenance, 12/31/19 14:55:00 EDT Start Date: 12/31/19 Status: Ordered Test Strips See Instructions, 11, 0, 11, 08/03/07 15:08:40, Test Bid-Tid as advised., Anupama VICKERS N Main Start Date: 08/03/07 Status: Ordered Vitamin B12 2500 mcg sublingual tablet 1 tablet = 2,500 mcg, Sublingual, Daily, # 30 tablet, 5 Refills, Maintenance, 10/11/19 11:12:00 EDT, Tablet, [facility]/pharmacy #1230, 183, cm, 10/07/19 14:43:00 EDT, Height Start Date: 10/11/19 Status: Ordered Vitamin B12 with Folic Acid sublingual tablet 1 tablet, Sublingual, Daily, # 30 tablet, 5 Refills, Maintenance, 10/10/19 18:46:00 EDT, Tablet, [facility]/pharmacy #1230, 1 tablet Sublingual Daily, [...] Most recent to oldest [Reference Range]: 1 Blood Pressure [90-138/55-84 mm Hg] 146/ 86mm Hg *H* (11/19/17 3:01 PM) Blood pressure sites Arm, left (11/19/17 3:01 PM) Social History Social History Type Response Smoking Status Former smoker; Other : Quit 1989; entered on: 01/30/16 Sex
--- OUTSIDE RECORDS SUMMARY | 2022-10-16 10:42 | XMS_ITS | Continuity of Care Document ---
Author Name Unknown Organization [facility] Address [address] [place] [address]- Care Team Providers Care Lead Esthetician Name Role Phone Zhao LOT ASSOCIATE, Dena Crews Primary Care Physician [phone] Encounter [facility] NBR [id number] Date(s): 07/05/20 - 07/12/20 [facility] [address] [place] [address]- Encounter Diagnosis Abdominal distention(Discharge Diagnosis) - 07/05/20 Constipation in male(Discharge Diagnosis) - 07/05/20 Diabetes mellitus type 2 in obese(Discharge Diagnosis) - 07/05/20 Attending Physician: Mikal Gold MD Allergies, Adverse Reactions, Alerts Substance Reaction Severity [...] 1Result Comment: [02/16/2018] [facility] [id number] 2Admin Note: VIS GIVEN Medications Alcohol Wipes See Instructions, 1 box, 8, 8, 07/03/07 16:02:50, use as instructed, Anupama VICKERS N Main Start Date: 07/03/07 Status: Ordered aspirin 81 mg oral enteric coated tablet 81, mg, 1, tablet, By Mouth, Daily, 0, 0, 10/21/05 16:51:52, Print CLAUDIA Number, [id number], Constant Indicator Start Date: 10/21/05 Status: Ordered [...] Daily, # 90 tablet, 1 Refills, Maintenance, 06/16/20 15:05:00 EDT, Tablet, [facility]/pharmacy #1230, 183, cm, 04/05/20 12:49:00 EST, Height Start Date: 06/16/20 Status: Ordered enalapril 20 mg oral tablet 1 tablet = 20 mg, By Mouth, 2 times a day, # 180 tablet, 1 Refills, Maintenance, 04/05/20 13:52:00 EST, [facility]/pharmacy #1230, 183, cm, 04/05/20 12:49:00 EST, Height Start Date: 04/05/20 Status: Ordered Flovent HFA 110 mcg/inh inhalation aerosol 2 puffs, Inhalation, 2 times a day, # 1 each, 3 Refills, Maintenance, 12/17/18 18:36:48 EDT, Aerosol Start Date: 12/17/18 Stop Date: 04/16/19 Status: Ordered folic acid 1 mg oral tablet 1 mg, 1, tablet, By Mouth, Daily, # 90 tablet, Refills 5, Tot. Refills 5, Maintenance, 10/11/19 11:11:00 EDT, Route to Pharmacy Electronically, [facility]/pharmacy #1230, 183, cm, 10/07/19 14:43:00 EDT, Height Start Date: 10/11/19 Status: Ordered furosemide 20 mg oral tablet 20 mg, 1, tablet, By Mouth, Daily, # 90 tablet, Refills 1, Tot. Refills 1, Maintenance, 02/24/20 12:12:00 EST, Route to Pharmacy Electronically, [facility]/pharmacy #1230, 183, cm, 12/31/19 14:42:00 EDT, Height Start Date: 02/24/20 Stop Date: 08/22/20 Status: Ordered Glucose Monitor See Instructions, 0, 0, 07/03/07 16:02:29, use as instructed., Anupama VICKERS,N Main Start Date: 07/03/07 Status: Ordered isosorbide mononitrate 30 mg oral tablet, extended release 30 mg, 1, tablet, By Mouth, Daily in AM, # 90 tablet, Refills 1, Tot. Refills 1, Maintenance, 12/31/19 15:08:00 EDT, Route to Pharmacy Electronically, [facility]/pharmacy #1230, 183, cm, 12/31/19 14:42:00 EDT, Height Start Date: 12/31/19 Stop Date: 06/28/20 Status: Ordered Lancets See Instructions, 1 box, 8, 8, 07/03/07 16:03:17, use as instructed, Anupama VICKERS,N Main Start Date: 07/03/07 Status: Ordered loratadine 10 mg oral capsule 1 capsule = 10 mg, By Mouth, Daily, # 90 capsule, 1 Refills, Maintenance, 10/06/19 10:17:00 EDT, Capsule, [facility]/pharmacy #1230, 183, cm, 04/05/19 13:05:00 EST, Height Start Date: 10/06/19 Stop Date: 05/03/20 Status: Ordered magnesium oxide 400 mg oral tablet 1 tablet = 400 mg, By Mouth, Daily, # 14 tablet, 0 Refills, Maintenance, 12/31/19 14:54:00 EDT, Tablet Start Date: 12/31/19 Stop Date: 01/14/20 Status: Ordered metFORMIN 500 mg oral tablet 1 tablet = 500 mg, By Mouth, 2 times a day, # 60 tablet, 2 Refills, Maintenance, 05/01/20 10:32:00 EST, Tablet, [facility]/pharmacy #1230, 183, cm, 04/05/20 12:49:00 EST, Height Start Date: 05/01/20 Status: Ordered metoprolol 50 mg oral tablet See Instructions, 0.5 tablet By Mouth 2 times a day, # 30 tablet, Refills 6, Tot. Refills 6, Maintenance, 08/11/17 15:10:38 EDT, Instructions Replace Required Details, Route to Pharmacy Electronically, [id number], [facility]/pharmac... Start Date: 08/11/17 Status: Ordered MiraLax = 17 Gm, By Mouth, Daily, 0 Refills, Maintenance, 07/05/20 13:17:00 EDT, Partial fill upon patient request if the prescription is for a schedule II opioid drug. Start Date: 07/05/20 Status: Ordered pravastatin 40 mg oral tablet 1 tablet = 40 mg, By Mouth, Daily, # 90 tablet, 1 Refills, Maintenance, 04/05/20 13:52:00 EST, Tablet, [facility]/pharmacy #1230, 183, cm, 04/05/20 12:49:00 EST, Height Start Date: 04/05/20 Stop Date: 10/02/20 Status: Ordered ProAir HFA 90 mcg/inh inhalation aerosol with adapter 2, puffs, Inhalation, 4 times a day, PRN, # 2 each, Refills 3, Tot. Refills 3, Maintenance, 08/13/18 20:00:05 EDT, Aerosol, Route to Pharmacy Electronically, [id number], [facility]/pharmacy #1230 Start Date: 08/13/18 Stop Date: 12/11/18 Status: Ordered Senna By Mouth, 0 Refills, Maintenance, 12/31/19 14:55:00 EDT Start Date: 12/31/19 Status: Ordered Test Strips See Instructions, 11, 0, 11, 08/03/07 15:08:40, Test Bid-Tid as advised., RANCHO,AnupamaN Main Start Date: 08/03/07 Status: Ordered Vitamin B12 2500 mcg sublingual tablet 1 tablet = 2,500 mcg, Sublingual, Daily, # 30 tablet, 5 Refills, Maintenance, 10/11/19 11:12:00 EDT, Tablet, [facility], 183, cm, 10/07/19 14:43:00 EDT, Height Start Date: 10/11/19 Status: Ordered Vitamin B12 with Folic Acid sublingual tablet 1 tablet, Sublingual, Daily, # 30 tablet, 5 Refills, Maintenance, 10/10/19 18:46:00 EDT, Tablet, [facility]/pharmacy #1230, 1 tablet Sublingual Daily, [...] Effective Dates Health Status Clinical Service Informant Abdominal distention Discharge Diagnosis 07/05/20 Constipation in male Discharge Diagnosis 07/05/20 Diabetes mellitus type 2 in obese Discharge Diagnosis 07/05/20 Vital Signs Most recent to oldest [Reference Range]: 1 Height 183 cm (07/05/20 1:14 PM) Social History Social History Type Response Smoking Status Former smoker; Other : Quit 1989; entered on: 01/30/16 Sex
--- OUTSIDE RECORDS SUMMARY | 2022-10-16 10:42 | XMS_ITS | Continuity of Care Document ---
Author Name Unknown Organization [facility] Address [address] [place] [phone]- Care Team Providers Care Testing Tech Name Role Phone Zhao ENFORCEMENT OFFICER, Dena M Primary Care Physician Encounter [facility] Date(s): 09/28/21 - 10/28/[facility] [address] [place] [phone]- Attending Physician: Candace Wen Admitting Physician: AdmCandace buckley Referring Physician: AdmtrCandace Allergies, Adverse Reactions, Alerts [...] toxoids (Td) 06/18/07 Given 1Result Comment: [02/16/2018] [facility] [id number] 2Admin Note: VIS GIVEN Medications Alcohol Wipes See Instructions, 1 box, 8, 8, 07/03/07 16:02:50, use as instructed, Anupama VICKERS N Main Start Date: 07/03/07 Status: Ordered aspirin 81 mg oral enteric coated tablet 81, mg, 1, tablet, By Mouth, Daily, 0, 0, 10/21/05 16:51:52, Print CLAUDIA Number, [id number], Constant Indicator Start Date: 10/21/05 Status: Ordered [...] Mouth, Daily, # 90 tablet, 1 Refills, [facility]42, 183, cm, 06/27/21 14:31:00 EDT,Height Start Date: 09/24/21 Status: Ordered enalapril 20 mg oral tablet 1 tablet, By Mouth, 2 times a day, # 180 tablet, 0 Refills, [facility] ST[facility] 49751, 183, cm, 10/23/21 15:45:00 EDT, Height Start Date: 10/26/21 Status: Ordered Flovent HFA 110 mcg/inh inhalation aerosol 2 puffs, Inhalation, 2 times a day, # 1 each, 3 Refills, Maintenance, 12/17/18 18:36:48 EDT, Aerosol Start Date: 12/17/18 Stop Date: 04/16/19 Status: Ordered folic acid 1 mg oral tablet 1, tablet, By Mouth, Daily, # 90 tablet, Refills 1, Route to Pharmacy Electronically, [facility] [address]76, 183, cm, 07/05/20 13:14:00 EDT, Height Start Date: 11/12/20 Status: Ordered furosemide 20 mg oral tablet 1, tablet, By Mouth, Daily, # 90 tablet, Refills 1, Route to Pharmacy Electronically, [facility] 85716, 183, cm, 06/27/21 14:31:00 EDT, Height Start Date: 07/12/21 Status: Ordered gabapentin 100 mg oral capsule 100 mg, 1, capsule, By Mouth, 3 times a day, # 90 capsule, Refills 1, Tot. Refills 1, Maintenance, 06/27/21 16:05:00 EDT, Route to Pharmacy Electronically, [facility]/pharmacy #1230, Partial fill upon patient request [...] Stop 12/24/21 16:02:00 EDT, 06/27/21 16:02:00 EDT, [facility]/pharmacy #1230, 183, cm, 06/27/21 14:31:00 EDT, Height Start Date: 06/27/21 Stop Date: 12/24/21 Status: Ordered Lancets See Instructions, 1 box, 8, 8, 07/03/07 16:03:17, use as instructed, Anupama VICKERS N Main Start Date: 07/03/07 Status: Ordered loratadine 10 mg oral capsule 1 capsule = 10 mg, By Mouth, Daily, # 90 capsule, 1 Refills, Maintenance, 10/06/19 10:17:00 EDT, Capsule, [facility]/pharmacy #1230, 183, cm, 04/05/19 13:05:00 EST, [...] 180 tablet, 1 Refills, 06/27/21 16:01:00 EDT, [facility]/pharmacy #1230, 183, cm, 06/27/21 14:31:00 EDT, Height Start Date: 06/27/21 Status: Ordered metoprolol 50 mg oral tablet See Instructions, 0.5 tablet By Mouth 2 times a day, # 30 tablet, Refills 6, Tot. Refills 6, Maintenance, 08/11/17 15:10:38 EDT, Instructions Replace Required Details, Route to Pharmacy Electronically, [id number], [facility]/pharmac... Start Date: 08/11/17 Status: Ordered MiraLax = 17 Gm, By Mouth, Daily, 0 Refills, Maintenance, 07/05/20 13:17:00 EDT, Partial fill upon patient request if the prescription is for a schedule II opioid drug. Start Date: 07/05/20 Status: Ordered pravastatin 40 mg oral tablet 1 tablet, By Mouth, Daily, # 90 tablet, 1 Refills, [facility] STORE [address]26, 183, cm, 06/27/21 14:31:00 EDT,Height Start Date: 10/13/21 Status: Ordered ProAir HFA 90 mcg/inh inhalation aerosol with adapter 2, puffs, Inhalation, 4 times a day, PRN, # 2 each, Refills 3, Tot. Refills 3, Maintenance, 08/13/18 20:00:05 EDT, Aerosol, Route to Pharmacy Electronically, [id number], [facility]/pharmacy #1230 Start Date: 08/13/18 Stop Date: 12/11/18 Status: Ordered Senna By Mouth, 0 Refills, Maintenance, 12/31/19 14:55:00 EDT Start Date: 12/31/19 Status: Ordered Test Strips See Instructions, 11, 0, 11, 08/03/07 15:08:40, Test Bid-Tid as advised., RANCHO,Chris Altman Main Start Date: 08/03/07 Status: Ordered Vitamin B12 2500 mcg sublingual tablet 1 tablet = 2,500 mcg, Sublingual, Daily, # 30 tablet, 5 Refills, Maintenance, 10/11/19 11:12:00 EDT, Tablet, [facility], 183, cm, 10/07/19 14:43:00 EDT, Height Start Date: 10/11/19 Status: Ordered Vitamin B12 with Folic Acid sublingual tablet 1 tablet, Sublingual, Daily, # 30 tablet, 5 Refills, Maintenance, 10/10/19 18:46:00 EDT, Tablet, [facility]/pharmacy #1230, 1 tablet Sublingual Daily, 183, [...]
--- OUTSIDE RECORDS SUMMARY | 2022-10-16 10:42 | XMS_ITS | Continuity of Care Document ---
Author Name Unknown Organization [facility] [employer] Adult Ms d[facility] Address [address] [place] [address]- Care Team Providers Care Activities Coordinator Name Role Phone Zhao WIRE FRAME LAMP SHADE MAKER, Dena Crews Primary Care Physician [id number] Date(s): 07/23/20 - 08/22/20 [facility] Adult Medicine [address] [place] [address]- Allergies, Adverse Reactions, Alerts Substance Reaction Severity [...] 1Result Comment: [02/16/2018] [facility] [id number] 2Admin Note: VIS GIVEN Medications Alcohol Wipes See Instructions, 1 box, 8, 8, 07/03/07 16:02:50, use as instructed, [facility] Start Date: 07/03/07 Status: Ordered aspirin 81 mg oral enteric coated tablet 81, mg, 1, tablet, By Mouth, Daily, 0, 0, 10/21/05 16:51:52, Print CLAUDIA Number, [id number], Constant Indicator Start Date: 10/21/05 Status: Ordered [...] 1 Refills, Maintenance, 06/16/20 15:05:00 EDT, Tablet, [facility]/pharmacy #1230, 183, cm, 04/05/20 12:49:00 EST, Height Start Date: 06/16/20 Status: Ordered enalapril 20 mg oral tablet 1 tablet = 20 mg, By Mouth, 2 times a day, # 180 tablet, 1 Refills, Maintenance, 04/05/20 13:52:00 EST, [facility]/pharmacy #1230, 183, cm, 04/05/20 12:49:00 [...] 10/11/19 11:11:00 EDT, Route to Pharmacy Electronically, [facility]/pharmacy #1230, 183, cm, 10/07/19 14:43:00 EDT, Height Start Date: 10/11/19 Status: Ordered furosemide 20 mg oral tablet 20 mg, 1, tablet, By Mouth, Daily, # 90 tablet, Refills 1, Tot. Refills 1, Maintenance, 08/22/20 12:12:00 EDT, Route to Pharmacy Electronically, [facility]/pharmacy #1230, 183, cm, 07/05/20 13:14:00 EDT, Height Start Date: 08/22/20 Stop Date: 02/18/21 Status: Ordered Glucose Monitor See Instructions, 0, 0, 07/03/07 16:02:29, use as instructed., Anupama VICKERS N Main Start Date: 07/03/07 Status: Ordered isosorbide mononitrate 30 mg oral tablet, extended release 30 mg, 1, tablet, By Mouth, Daily in AM, # 90 tablet, Refills 1, Tot. Refills 1, Maintenance, 12/31/19 15:08:00 EDT, Route to Pharmacy Electronically, [facility]/pharmacy #1230, 183, cm, 12/31/19 14:42:00 EDT, Height Start Date: 12/31/19 Stop Date: 06/28/20 Status: Ordered Lancets See Instructions, 1 box, 8, 8, 07/03/07 16:03:17, use as instructed, Anupama VICKERS N Main Start Date: 07/03/07 Status: Ordered loratadine 10 mg oral capsule 1 capsule = 10 mg, By Mouth, Daily, # 90 capsule, 1 Refills, Maintenance, 10/06/19 10:17:00 EDT, Capsule, [facility]/pharmacy #1230, 183, cm, 04/05/19 13:05:00 [...] 2 times a day, # 60 tablet, 6 Refills, Maintenance, 07/24/20 10:49:00 EDT, Tablet, [facility]/pharmacy #1230, 183, cm, 07/05/20 13:14:00 EDT, Height Start Date: 07/24/20 Status: Ordered metoprolol 50 mg oral tablet See Instructions, 0.5 tablet By Mouth 2 times a day, # 30 tablet, Refills 6, Tot. Refills 6, Maintenance, 08/11/17 15:10:38 EDT, Instructions Replace Required Details, Route to Pharmacy Electronically, [id number], [facility] Start Date: 08/11/17 Status: Ordered MiraLax = 17 Gm, By Mouth, Daily, 0 Refills, Maintenance, 07/05/20 13:17:00 EDT, Partial fill upon patient request if the prescription is for a schedule II opioid drug. Start Date: 07/05/20 Status: Ordered pravastatin 40 mg oral tablet 1 tablet = 40 mg, By Mouth, Daily, # 90 tablet, 1 Refills, Maintenance, 04/05/20 13:52:00 EST, Tablet, [facility]/pharmacy #1230, 183, cm, 04/05/20 12:49:00 EST, Height Start Date: 04/05/20 Stop Date: 10/02/20 Status: Ordered ProAir HFA 90 mcg/inh inhalation aerosol with adapter 2, puffs, Inhalation, 4 times a day, PRN, # 2 each, Refills 3, Tot. Refills 3, Maintenance, 08/13/18 20:00:05 EDT, Aerosol, Route to Pharmacy Electronically, [id number], [facility]/pharmacy #1230 Start Date: 08/13/18 Stop [...] 5 Refills, Maintenance, 10/11/19 11:12:00 EDT, Tablet, [facility]/pharmacy #1230, 183, cm, 10/07/19 14:43:00 EDT, Height Start Date: 10/11/19 Status: Ordered Vitamin B12 with Folic Acid sublingual tablet 1 tablet, Sublingual, Daily, # 30 tablet, 5 Refills, Maintenance, 10/10/19 18:46:00 EDT, Tablet, [facility]/pharmacy #1230, 1 tablet Sublingual Daily, [...] Gm, 4 Refills, Maintenance, 10/04/19 12:26:00 EDT, [facility]/pharmacy #1230, 2 Gm Topically 3 times [...]
--- OUTSIDE RECORDS SUMMARY | 2022-10-16 10:42 | XMS_ITS | Continuity of Care Document ---
Author Name Unknown Organization [facility] [employer] [facility] Address [address] [place] [address]- Care Team Providers Care Automatic Clipper Name Role Phone Zhao AVENDANO, Dena Crews Primary Care Physician Encounter [facility] Date(s): 10/19/19 - 11/18/19 [facility] [employer] Adult [facility] [address] [place] [address]- Allergies, Adverse Reactions, Alerts Substance Reaction Severity [...] toxoids (Td) 06/18/07 Given 1Result Comment: [02/16/2018] [facility] [id number] 2Admin Note: VIS GIVEN Medications Alcohol Wipes See Instructions, 1 box, 8, 8, 07/03/07 16:02:50, use as instructed, Anupama VICKERS N Main Start Date: 07/03/07 Status: Ordered aspirin 81 mg oral enteric coated tablet 81, mg, 1, tablet, By Mouth, Daily, 0, 0, 10/21/05 16:51:52, Print CLAUDIA Number, [id number], Constant Indicator Start Date: 10/21/05 Status: Ordered [...] Daily, # 90 tablet, 1 Refills, Maintenance, 11/17/19 12:08:00 EDT, Tablet, [facility]/pharmacy #1230, 183, cm, 10/20/19 12:44:00 EDT, Height Start Date: 11/17/19 Status: Ordered enalapril 20 mg oral tablet 1 tablet = 20 mg, By Mouth, 2 times a day, # 180 tablet, 1 Refills, Maintenance, 10/19/19 15:53:00 EDT, [facility]/pharmacy #1230, 183, cm, 10/07/19 14:43:00 [...] 10/11/19 11:11:00 EDT, Route to Pharmacy Electronically, [facility]/pharmacy #1230, 183, cm, 10/07/19 14:43:00 EDT, Height Start Date: 10/11/19 Status: Ordered Glucose Monitor See Instructions, 0, 0, 07/03/07 16:02:29, use as instructed., RANCHO,Anupama,N Main Start Date: 07/03/07 Status: Ordered Lancets See Instructions, 1 box, 8, 8, 07/03/07 16:03:17, use as instructed, RANCHO,[place],N Main Start Date: 07/03/07 Status: Ordered loratadine 10 mg oral capsule 1 capsule = 10 mg, By Mouth, Daily, # 90 capsule, 1 Refills, Maintenance, 10/06/19 10:17:00 EDT, Capsule, [facility]/pharmacy #1230, 183, cm, 04/05/19 13:05:00 EST, Height Start Date: 10/06/19 Stop Date: 05/03/20 Status: Ordered metFORMIN 1000 mg oral tablet 1 tablet = 1,000 mg, By Mouth, 2 times a day, # 180 tablet, 1 Refills, Maintenance, 11/12/19 14:25:00 EDT, [facility]/pharmacy #1230, 183, cm, 10/20/19 12:44:00 EDT, Height Start Date: 11/12/19 Stop Date: 05/10/20 Status: Ordered metoprolol 50 mg oral tablet See Instructions, 0.5 tablet By Mouth 2 times a day, # 30 tablet, Refills 6, Tot. Refills 6, Maintenance, 08/11/17 15:10:38 EDT, Instructions Replace Required Details, Route to Pharmacy Electronically, [id number], [facility]/pharmac... Start Date: 08/11/17 Status: Ordered pravastatin 40 mg oral tablet 1 tablet = 40 mg, By Mouth, Daily, # 90 tablet, 1 Refills, Maintenance, 08/06/19 12:43:00 EDT, Tablet, [facility]/pharmacy #1230, 183, cm, 04/05/19 13:05:00 EST, Height Start Date: 08/06/19 Stop Date: 02/02/20 Status: Ordered ProAir HFA 90 mcg/inh inhalation aerosol with adapter 2, puffs, Inhalation, 4 times a day, PRN, # 2 each, Refills 3, Tot. Refills 3, Maintenance, 08/13/18 20:00:05 EDT, Aerosol, Route to Pharmacy Electronically, [id number], [facility]/pharmacy #1230 Start Date: 08/13/18 Stop Date: 12/11/18 Status: Ordered Test Strips See Instructions, 11, 0, 11, 08/03/07 15:08:40, Test Bid-Tid as advised., [facility],[place] Main Start Date: 08/03/07 Status: Ordered Vitamin B12 2500 mcg sublingual tablet 1 tablet = 2,500 mcg, Sublingual, Daily, # 30 tablet, 5 Refills, Maintenance, 10/11/19 11:12:00 EDT, Tablet, [facility], 183, cm, 10/07/19 14:43:00 EDT, Height Start Date: 10/11/19 Status: Ordered Vitamin B12 with Folic Acid sublingual tablet 1 tablet, Sublingual, Daily, # 30 tablet, 5 Refills, Maintenance, 10/10/19 18:46:00 EDT, Tablet, [facility], 1 tablet Sublingual Daily, 183, cm, [...]
--- OUTSIDE RECORDS SUMMARY | 2022-10-16 10:42 | XMS_ITS | Continuity of Care Document ---
Author Name Unknown Organization [facility] [facility] Address [address] [place] [address]- Care Team Providers Care Stock Unloader Name Role Phone Zhao GRADE FOREMAN, Dena M Primary Care Physician Encounter [facility] Date(s): 12/26/21 - 01/25/22 [facility] [employer] [facility] [address] [place] [id number]- Attending Physician: Candace Wen Admitting Physician: Candace Wen Referring Physician: AdmtrCandace Allergies, Adverse Reactions, Alerts No Known Medication [...] toxoids (Td) 06/18/07 Given 1Result Comment: [02/16/2018] [facility] [id number] 2Admin Note: VIS GIVEN Medications aspirin 81 mg oral enteric coated tablet 81, mg, 1, tablet, By Mouth, Daily, 0, 0, 07/31/06 16:51:52, Print CLAUDIA Number, [id number], Constant Indicator Start Date: 10/21/05 Status: Ordered [...] Refills, Maintenance, 12/18/20 8:03:00 EDT, Tablet, [facility]/pharmacy #1230, 183, cm, 07/05/20 13:14:00 EDT, Height [...] tablet, Refills 1, Route to Pharmacy Electronically, [facility], 183, cm, 07/05/20 13:14:00 EDT, Height Start Date: 11/12/20 Status: Ordered furosemide 20 mg oral tablet 1, tablet, By Mouth, Daily, # 90 tablet, Refills 1, Maintenance, 01/04/22 16:08:00 EDT, Route to Pharmacy Electronically, [facility] STORE 15755, 183, cm, 12/26/21 13:25:00 EDT, Height, 113, kg, 12/16/21 16:29:00 EDT, Dry Weight Start Date: 01/04/22 Status: Ordered isosorbide mononitrate 30 mg oral tablet, extended release 1 tablet, By Mouth, Daily in AM, # 90 tablet, 1 Refills, Maintenance, 12/24/21 7:28:00 EDT, [facility]/pharmacy #1230, 183, cm, 12/19/21 11:37:00 EDT, Height, 113, kg, 12/16/21 16:29:00 EDT, Dry Weight Start Date: 12/24/21 Status: Ordered metFORMIN 500 mg oral tablet 1 tablet, By Mouth, 2 times a day, # 180 tablet, 1 Refills, 06/27/21 16:01:00 EDT, [facility]/pharmacy #1230, 183, cm, 06/27/21 14:31:00 EDT, Height [...] Mouth, Daily, # 90 tablet, 1 Refills, [facility] ST[facility] 94143, 183, cm, 06/27/21 14:31:00 EDT,Height Start Date: 10/13/21 Status: Ordered ProAir HFA 90 mcg/inh inhalation aerosol with adapter 2, puffs, Inhalation, 4 times a day, PRN, # 2 each, Refills 3, Tot. Refills 3, Maintenance, 11/07/21 10:57:00 EDT, Aerosol, Route to Pharmacy Electronically, [id number], [facility]/pharmacy #1230, 183, cm, 11/07/21 7:16:00 EDT, Height [...] Gm, 6 Refills, Maintenance, 06/27/21 16:02:00 EDT, [facility]/pharmacy #1230, 2 Gm Topically 3 times a [...] Sinus tachycardia Confirmed Active Vertigo Confirmed Active Vital Signs Most recent to oldest [Reference Range]: 1 Blood Pressure [90-138/55-84 mm Hg] 146/ 86mm Hg *H* (11/19/17 3:01 PM) Blood pressure sites Arm, left (11/19/17 3:01 PM) Social History Social History Type Response Smoking Status Former smoker; Other : Quit 1989; entered on: 01/30/16 Sex Patient Care team information Personnel Name: Dena Churchill NP Address: Address: [address] [place] [address] [place], [place] [address]
--- OUTSIDE RECORDS SUMMARY | 2022-10-16 10:42 | XMS_ITS | Continuity of Care Document ---
Author Name Unknown Organization [facility] Adult Ar [facility] Address [address] [place] [address]- Care Team Providers Care Business Process Expert Name Role Phone Zhao AVENDANO, Dena Crews Primary Care Physician [phone] Encounter [facility] Date(s): 12/27/19 - 01/26/20 [facility] Adult Medicine [address] [place] [address]- Allergies, Adverse Reactions, Alerts Substance Reaction Severity [...] toxoids (Td) 06/18/07 Given 1Result Comment: [02/16/2018] [facility] [id number] 2Admin Note: VIS GIVEN Medications Alcohol Wipes See Instructions, 1 box, 8, 8, 07/03/07 16:02:50, use as instructed, [facility] Start Date: 07/03/07 Status: Ordered aspirin 81 mg oral enteric coated tablet 81, mg, 1, tablet, By Mouth, Daily, 0, 0, 10/21/05 16:51:52, Print CLAUDIA Number, [id number], Constant Indicator Start Date: 10/21/05 Status: Ordered [...] 13:39:09EDT, Tablet Start Date: 06/30/18 Status: Ordered Colace Liquid By Mouth, 2 times a day, 0 Refills, Maintenance, 12/31/19 14:54:00 EDT Start Date: 12/31/19 Status: Ordered doxazosin 8 mg oral tablet 1 tablet = 8 mg, By Mouth, Daily, # 90 tablet, 1 Refills, Maintenance, 11/17/19 12:08:00 EDT, Tablet, [facility]/pharmacy #1230, 183, cm, 10/20/19 12:44:00 EDT, Height Start Date: 11/17/19 Status: Ordered enalapril 20 mg oral tablet 1 tablet = 20 mg, By Mouth, 2 times a day, # 180 tablet, 1 Refills, Maintenance, 10/19/19 15:53:00 EDT, [facility]/pharmacy #1230, 183, cm, 10/07/19 14:43:00 EDT, Height [...] 10/11/19 11:11:00 EDT, Route to Pharmacy Electronically, [facility]/pharmacy #1230, 183, cm, 10/07/19 14:43:00 EDT, Height Start Date: 10/11/19 Status: Ordered furosemide 20 mg oral tablet 20 mg, 1, tablet, By Mouth, Daily, Refills 0, Maintenance, 12/31/19 14:50:00 EDT Start Date: 12/31/19 Status: Ordered Glucose Monitor See Instructions, 0, 0, 07/03/07 16:02:29, use as instructed., Anupama VICKERS N Main Start Date: 07/03/07 Status: Ordered isosorbide mononitrate 30 mg oral tablet, extended release 30 mg, 1, tablet, By Mouth, Daily in AM, # 90 tablet, Refills 1, Tot. Refills 1, Maintenance, 12/31/19 15:08:00 EDT, Route to Pharmacy Electronically, [facility]/pharmacy #1230, 183, cm, 12/31/19 14:42:00 EDT, Height Start Date: 12/31/19 Stop Date: 06/28/20 Status: Ordered Lancets See Instructions, 1 box, 8, 8, 07/03/07 16:03:17, use as instructed, Anupama VICKERS N Main Start Date: 07/03/07 Status: Ordered loratadine 10 mg oral capsule 1 capsule = 10 mg, By Mouth, Daily, # 90 capsule, 1 Refills, Maintenance, 10/06/19 10:17:00 EDT, Capsule, [facility]/pharmacy #1230, 183, cm, 04/05/19 13:05:00 EST, Height Start Date: 10/06/19 Stop Date: 05/03/20 Status: Ordered magnesium oxide 400 mg oral tablet 1 tablet = 400 mg, By Mouth, Daily, # 14 tablet, 0 Refills, Maintenance, 12/31/19 14:54:00 EDT, Tablet Start Date: 12/31/19 Stop Date: 01/14/20 Status: Ordered metFORMIN 500 mg oral tablet 1 tablet = 500 mg, By Mouth, 2 times a day, 0 Refills, Maintenance, 12/31/19 14:50:00 EDT Start Date: 12/31/19 Status: Ordered metFORMIN 500 mg oral tablet 1 tablet = 500 mg, By Mouth, 2 times a day, # 60 tablet, 0 Refills, Maintenance, 12/31/19 15:06:00 EDT, Tablet Start Date: 12/31/19 Status: Ordered metoprolol 50 mg oral tablet See Instructions, 0.5 tablet By Mouth 2 times a day, # 30 tablet, Refills 6, Tot. Refills 6, Maintenance, 08/11/17 15:10:38 EDT, Instructions Replace Required Details, Route to Pharmacy Electronically, [id number], [facility]/pharmac... Start Date: 08/11/17 Status: Ordered pravastatin 40 mg oral tablet 1 tablet = 40 mg, By Mouth, Daily, # 90 tablet, 1 Refills, Maintenance, 08/06/19 12:43:00 EDT, Tablet, [facility]/pharmacy #1230, 183, cm, 04/05/19 13:05:00 EST, Height Start Date: 08/06/19 Stop Date: 02/02/20 Status: Ordered ProAir HFA 90 mcg/inh inhalation aerosol with adapter 2, puffs, Inhalation, 4 times a day, PRN, # 2 each, Refills 3, Tot. Refills 3, Maintenance, 08/13/18 20:00:05 EDT, Aerosol, Route to Pharmacy Electronically, [id number], [facility]/pharmacy #1230 Start Date: 08/13/18 Stop Date: 12/11/18 Status: Ordered Senna By Mouth, 0 Refills, Maintenance, 12/31/19 14:55:00 EDT Start Date: 12/31/19 Status: Ordered Test Strips See Instructions, 11, 0, 11, 08/03/07 15:08:40, Test Bid-Tid as advised., RANCHO,AnupamaN Main Start Date: 08/03/07 Status: Ordered traMADol 50 mg oral tablet 0.5 tablet = 25 mg, By Mouth, Every 12 hours, PRN Pain , Severe, for 30 days, # 15 tablet, 0 Refills, Acute 01/30/20 15:10:00 EST, 12/31/19 15:10:00 EDT, Tablet, [facility], 183, cm, 12/30/2013:42:00 EDT, Height Start Date: 12/31/19 Stop Date: 01/30/20 Status: Ordered Vitamin B12 2500 mcg sublingual tablet 1 tablet = 2,500 mcg, Sublingual, Daily, # 30 tablet, 5 Refills, Maintenance, 10/11/19 11:12:00 EDT, Tablet, [facility]/pharmacy #1230, 183, cm, 10/07/19 14:43:00 EDT, Height Start Date: 10/11/19 Status: Ordered Vitamin B12 with Folic Acid sublingual tablet 1 tablet, Sublingual, Daily, # 30 tablet, 5 Refills, Maintenance, 10/10/19 18:46:00 EDT, Tablet, [facility]/pharmacy #1230, 1 tablet Sublingual Daily, 183, cm, [...] Gm, 4 Refills, Maintenance, 10/04/19 12:26:00 EDT, [facility]/pharmacy #1230, [...]
--- OUTSIDE RECORDS SUMMARY | 2022-10-16 10:43 | XMS_ITS | Continuity of Care Document ---
Author Name Unknown Organization [facility] Address [address] [place] [address]- Care Team Providers Care Pharmacy Technology Instructor Name Role Phone Dena Churchill NP Primary Care Physician Encounter [facility] Date(s): 04/04/20 - 04/11/20 [facility] [address] [place] [phone]- Attending Physician: Dena Churchill NP Allergies, Adverse [...] Given 1Result Comment: [02/16/2018] [facility] [place] [id number] 2Admin Note: VIS GIVEN Medications Alcohol Wipes See Instructions, 1 box, 8, 8, 07/03/07 16:02:50, use as instructed, Anupama VICKERS N Main Start Date: 07/03/07 Status: Ordered aspirin 81 mg oral enteric coated tablet 81, mg, 1, tablet, By Mouth, Daily, 0, 0, 10/21/05 16:51:52, Print CLAUDIA Number, [id number], Constant Indicator Start Date: 10/21/05 Status: Ordered [...] 1 Refills, Maintenance, 11/17/19 12:08:00 EDT, Tablet, [facility]/pharmacy #1230, 183, cm, 10/20/19 12:44:00 EDT, Height Start Date: 11/17/19 Status: Ordered enalapril 20 mg oral tablet 1 tablet = 20 mg, By Mouth, 2 times a day, # 180 tablet, 1 Refills, Maintenance, 04/05/20 13:52:00 EST, [facility]/pharmacy #1230, 183, cm, 04/05/20 12:49:00 [...] 10/11/19 11:11:00 EDT, Route to Pharmacy Electronically, [facility]/pharmacy #1230, 183, cm, 10/07/19 14:43:00 EDT, Height Start Date: 10/11/19 Status: Ordered furosemide 20 mg oral tablet 20 mg, 1, tablet, By Mouth, Daily, Refills 0, Maintenance, 12/31/19 14:50:00 EDT Start Date: 12/31/19 Status: Ordered furosemide 20 mg oral tablet 20 mg, 1, tablet, By Mouth, Daily, # 90 tablet, Refills 1, Tot. Refills 1, Maintenance, 02/24/20 12:12:00 EST, Route to Pharmacy Electronically, [facility]/pharmacy #1230, 183, cm, 12/31/19 14:42:00 EDT, Height Start Date: 02/24/20 Stop Date: 08/22/20 Status: Ordered Glucose Monitor See Instructions, 0, 0, 07/03/07 16:02:29, use as instructed., Anupama VICKERSN Main Start Date: 07/03/07 Status: Ordered isosorbide mononitrate 30 mg oral tablet, extended release 30 mg, 1, tablet, By Mouth, Daily in AM, # 90 tablet, Refills 1, Tot. Refills 1, Maintenance, 12/31/19 15:08:00 EDT, Route to Pharmacy Electronically, [facility]/pharmacy #1230, 183, cm, 12/31/19 14:42:00 EDT, Height Start Date: 12/31/19 Stop Date: 06/28/20 Status: Ordered Lancets See Instructions, 1 box, 8, 8, 07/03/07 16:03:17, use as instructed, Anupama VICKERS N Main Start Date: 07/03/07 Status: Ordered loratadine 10 mg oral capsule 1 capsule = 10 mg, By Mouth, Daily, # 90 capsule, 1 Refills, Maintenance, 10/06/19 10:17:00 EDT, Capsule, [facility]/pharmacy #1230, 183, cm, 04/05/19 13:05:00 [...] Replace Required Details, Route to Pharmacy Electronically, [id number], [facility]/pharmac... Start Date: 08/11/17 Status: Ordered pravastatin 40 mg oral tablet 1 tablet = 40 mg, By Mouth, Daily, # 90 tablet, 1 Refills, Maintenance, 04/05/20 13:52:00 EST, Tablet, [facility]/pharmacy #1230, 183, cm, 04/05/20 12:49:00 EST, Height Start Date: 04/05/20 Stop Date: 10/02/20 Status: Ordered ProAir HFA 90 mcg/inh inhalation aerosol with adapter 2, puffs, Inhalation, 4 times a day, PRN, # 2 each, Refills 3, Tot. Refills 3, Maintenance, 08/13/18 20:00:05 EDT, Aerosol, Route to Pharmacy Electronically, [id number], [facility]/pharmacy #1230 Start Date: 08/13/18 Stop Date: 12/11/18 Status: Ordered Senna By Mouth, 0 Refills, Maintenance, 12/31/19 14:55:00 EDT Start Date: 12/31/19 Status: Ordered Test Strips See Instructions, 11, 0, 11, 08/03/07 15:08:40, Test Bid-Tid as advised., RANCHO,Chris Altman Main Start Date: 08/03/07 Status: Ordered traMADol 50 mg oral tablet 1 tablet = 50 mg, By Mouth, Every 12 hours, PRN Pain , Moderate, for 14 days, # 30 tablet, 0 Refills, Acute 04/19/20 13:57:00 EST, 04/05/20 13:57:00 EST, Tablet, [facility]/pharmacy #1230, Partial fill uponpatient request if the prescription is for a schedu... Start Date: 04/05/20 Stop Date: 04/19/20 Status: Ordered Vitamin B12 2500 mcg sublingual tablet 1 tablet = 2,500 mcg, Sublingual, Daily, # 30 tablet, 5 Refills, Maintenance, 10/11/19 11:12:00 EDT, Tablet, [facility]/pharmacy #1230, 183, cm, 10/07/19 14:43:00 EDT, Height Start Date: 10/11/19 Status: Ordered Vitamin B12 with Folic Acid sublingual tablet 1 tablet, Sublingual, Daily, # 30 tablet, 5 Refills, Maintenance, 10/10/19 18:46:00 EDT, Tablet, [facility]/pharmacy #1230, 1 tablet Sublingual Daily, [...]
--- OUTSIDE RECORDS SUMMARY | 2022-10-16 10:43 | XMS_ITS | Continuity of Care Document ---
Author Name Unknown Organization [facility] Address [address] [place] [address]- Care Team Providers Care Hip Hop Performers Name Role Phone Zhao CONTINUOUS IMPROVEMENT MANAGER, Dena Crews Primary Care Physician Encounter [facility] Date(s): 10/07/19 - 10/14/19 [facility] [address] [place] [phone]- Attending Physician: Mikal Gold MD Allergies, Adverse [...] toxoids (Td) 06/18/07 Given 1Result Comment: [02/16/2018] [facility] [id number] 2Admin Note: VIS GIVEN Medications Alcohol Wipes See Instructions, 1 box, 8, 8, 07/03/07 16:02:50, use as instructed, [facility] Start Date: 07/03/07 Status: Ordered aspirin 81 mg oral enteric coated tablet 81, mg, 1, tablet, By Mouth, Daily, 0, 0, 10/21/05 16:51:52, Print CLAUDIA Number, [id number], Constant Indicator Start Date: 10/21/05 Status: Ordered [...] 0 Refills, Maintenance, 08/05/19 13:38:00 EDT, Tablet, [facility]/pharmacy #1230, 183, cm, 04/05/19 13:05:00 EST, Height Start Date: 08/05/19 Status: Ordered enalapril 20 mg oral tablet 1 tablet = 20 mg, By Mouth, 2 times a day, # 180 tablet, 1 Refills, Maintenance, 03/30/19 15:53:00 EST, [facility]/pharmacy #1230, 183, cm, 12/16/18 15:25:00 EDT, Height Start Date: 03/30/19 Status: Ordered Flovent HFA 110 mcg/inh inhalation aerosol 2 puffs, Inhalation, 2 times a day, # 1 each, 3 Refills, Maintenance, 12/17/18 18:36:48 EDT, Aerosol Start Date: 12/17/18 Stop Date: 04/16/19 Status: Ordered folic acid 1 mg oral tablet 1 mg, 1, tablet, By Mouth, Daily, # 90 tablet, Refills 5, Tot. Refills 5, Maintenance, 10/11/19 11:11:00 EDT, Route to Pharmacy Electronically, [facility]/pharmacy #1230, 183, cm, 10/07/19 14:43:00 EDT, Height Start Date: 10/11/19 Status: Ordered gabapentin 100 mg oral capsule 100 mg, 1, capsule, By Mouth, 3 times a day, # 90 capsule, Refills 3, Tot. Refills 3, Maintenance, 06/01/18 17:00:30 EDT, Route to Pharmacy Electronically, [id number], [facility]/pharmacy #1230 Start Date: 06/01/18 Status: Ordered Glucose Monitor See Instructions, 0, [...] 1 Refills, Maintenance, 10/06/19 10:17:00 EDT, Capsule, [facility]/pharmacy #1230, 183, cm, 04/05/19 13:05:00 EST, Height Start Date: 10/06/19 Stop Date: 05/03/20 Status: Ordered meclizine 12.5 mg oral tablet 1 tablet = 12.5 mg, By Mouth, 3 times a day, PRN for dizziness, # 30 tablet, 0 Refills, Acute 10/06/20 15:04:00 EDT, 10/07/19 15:04:00 EDT, Tablet, [facility]/pharmacy #1230, 183, cm, 10/07/19 14:43:00 EDT,Height Start Date: 10/07/19 Stop Date: 10/06/20 Status: Ordered metFORMIN 1000 mg oral tablet 1 tablet = 1,000 mg, By Mouth, 2 times a day, # 180 tablet, 1 Refills, Maintenance, 04/27/19 14:24:00 EST, [facility]/pharmacy #1230, 183, cm, 04/05/19 13:05:00 EST, Height Start Date: 04/27/19 Stop Date: 10/24/19 Status: Ordered metoprolol 50 mg oral tablet See Instructions, 0.5 tablet By Mouth 2 times a day, # 30 tablet, Refills 6, Tot. Refills 6, Maintenance, 08/11/17 15:10:38 EDT, Instructions Replace Required Details, Route to Pharmacy Electronically, [id number], [facility]/pharmac... Start Date: 08/11/17 Status: Ordered pravastatin 40 mg oral tablet 1 tablet = 40 mg, By Mouth, Daily, # 90 tablet, 1 Refills, Maintenance, 08/06/19 12:43:00 EDT, Tablet, [facility]/pharmacy #1230, 183, cm, 04/05/19 13:05:00 EST, Height Start Date: 08/06/19 Stop Date: 02/02/20 Status: Ordered ProAir HFA 90 mcg/inh inhalation aerosol with adapter 2, puffs, Inhalation, 4 times a day, PRN, # 2 each, Refills 3, Tot. Refills 3, Maintenance, 08/13/18 20:00:05 EDT, Aerosol, Route to Pharmacy Electronically, [id number], [facility]/pharmacy #1230 Start Date: 08/13/18 Stop Date: 12/11/18 Status: Ordered Test Strips See Instructions, 11, 0, 11, 08/03/07 15:08:40, Test Bid-Tid as advised., RANCHO,AnupamaN Main Start Date: 08/03/07 Status: Ordered Vitamin B12 2500 mcg sublingual tablet 1 tablet = 2,500 mcg, Sublingual, Daily, # 30 tablet, 5 Refills, Maintenance, 10/11/19 11:12:00 EDT, Tablet, [facility]/pharmacy #1230, 183, cm, 10/07/19 14:43:00 EDT, Height Start Date: 10/11/19 Status: Ordered Vitamin B12 with Folic Acid sublingual tablet 1 tablet, Sublingual, Daily, # 30 tablet, 5 Refills, Maintenance, 10/10/19 18:46:00 EDT, Tablet, [facility]/pharmacy #1230, 1 tablet Sublingual Daily, 183, cm, [...] sleep apnea syndrome(Confirmed) Active Sinus tachycardia(Confirmed) Active Vital Signs Most recent to oldest [Reference Range]: 1 Height 183 cm (10/07/19 2:43 PM) Oxygen Saturation [94-100 %] 92 % *L* (10/07/19 2:43 PM) Pulse Rate [55-90 bpm] 50 bpm *L* (10/07/19 2:43 PM) Blood Pressure [90-138/55-84 mm Hg] 134/ 72mm Hg (10/07/19 2:43 PM) Respiratory Rate [16-30 br/min] 16 br/mi n (10/07/19 2:43 PM) Temperature [96.8-100.4 DegF] 97.6 DegF (10/07/19 2:43 PM) Blood pressure sites Arm, left (10/07/19 2:43 PM) Temperature Route Temporal (10/07/19 2:43 PM) Social History Social History Type Response Smoking Status Former smoker; Other : Quit 1989; entered on: 01/30/16 Sex
--- OUTSIDE RECORDS SUMMARY | 2022-10-16 10:43 | XMS_ITS | Continuity of Care Document ---
Author Name Unknown Organization [facility] Address [address] [place], [place] [phone]- Care Team Providers Care Broker Assistant Name Role Phone Zhao BEVERAGE MANAGER, Dena Crews Primary Care Physician [phone] Encounter [facility] [place] [facility] [id number] Date(s): 11/07/21 - 11/14/21 [facility] [address] [place] [phone]- [place] Encounter Diagnosis CHF, chronic(Discharge Diagnosis) - 11/08/21 Diabetes mellitus type 2 in obese(Discharge Diagnosis) - 11/08/21 CKD (chronic kidney disease)(Discharge Diagnosis) - 11/08/21 Obstructive sleep apnea syndrome(Discharge Diagnosis) - 11/08/21 Shortness of breath(Discharge Diagnosis) - 11/08/21 Attending Physician: Not on Staff, Attending MD Allergies, Adverse Reactions, Alerts Substance Reaction [...] toxoids (Td) 06/18/07 Given 1Result Comment: [02/16/2018] [facility] [id number] 2Admin Note: VIS GIVEN Medications Alcohol Wipes See Instructions, 1 box, 8, 8, 07/03/07 16:02:50, use as instructed, [facility] Start Date: 07/03/07 Status: Ordered aspirin 81 mg oral enteric coated tablet 81, mg, 1, tablet, By Mouth, Daily, 0, 0, 10/21/05 16:51:52, Print CLAUDIA Number, [id number], Constant Indicator Start Date: 10/21/05 Status: Ordered [...] # 90 tablet, 1 Refills, [facility], 183, cm, 06/27/21 14:31:00 EDT,Height Start Date: 09/24/21 Status: Ordered enalapril 20 mg oral tablet 1 tablet, By Mouth, 2 times a day, # 180 tablet, 0 Refills, [facility], 183, cm, 10/23/21 15:45:00 EDT, Height Start [...] tablet, Refills 1, Route to Pharmacy Electronically, [facility] 78[facility], 183, cm, 07/05/20 13:14:00 EDT, Height Start Date: 11/12/20 Status: Ordered furosemide 20 mg oral tablet 1, tablet, By Mouth, Daily, # 90 tablet, Refills 1, Route to Pharmacy Electronically, [facility]25, 183, cm, 06/27/21 14:31:00 EDT, Height Start Date: 07/12/21 Status: Ordered gabapentin 100 mg oral capsule 100 mg, 1, capsule, By Mouth, 3 times a day, # 90 capsule, Refills 1, Tot. Refills 1, Maintenance, 06/27/21 16:05:00 EDT, Route to Pharmacy Electronically, [facility]/pharmacy #1230, Partial fill upon patient request if [...] Stop 12/24/21 16:02:00 EDT, 06/27/21 16:02:00 EDT, [facility]/pharmacy #1230, 183, cm, 06/27/21 14:31:00 EDT, Height Start Date: 06/27/21 Stop Date: 12/24/21 Status: Ordered Lancets See Instructions, 1 box, 8, 8, 07/03/07 16:03:17, use as instructed, Anupama VICKERSN Main Start Date: 07/03/07 Status: Ordered loratadine 10 mg oral capsule 1 capsule = 10 mg, By Mouth, Daily, # 90 capsule, 1 Refills, Maintenance, 10/06/19 10:17:00 EDT, Capsule, [facility]/pharmacy #1230, 183, cm, 04/05/19 13:05:00 EST, Height [...] 180 tablet, 1 Refills, 06/27/21 16:01:00 EDT, [facility]/pharmacy #1230, 183, cm, 06/27/21 14:31:00 EDT, Height Start Date: 06/27/21 Status: Ordered metoprolol 50 mg oral tablet See Instructions, 0.5 tablet By Mouth 2 times a day, # 30 tablet, Refills 6, Tot. Refills 6, Maintenance, 08/11/17 15:10:38 EDT, Instructions Replace Required Details, Route to Pharmacy Electronically, [id number], [facility]/pharmac... Start Date: 08/11/17 Status: Ordered MiraLax = 17 Gm, By Mouth, Daily, 0 Refills, Maintenance, 07/05/20 13:17:00 EDT, Partial fill upon patient request if the prescription is for a schedule II opioid drug. Start Date: 07/05/20 Status: Ordered pravastatin 40 mg oral tablet 1 tablet, By Mouth, Daily, # 90 tablet, 1 Refills, [facility] 06279, 183, cm, 06/27/21 14:31:00 EDT,Height Start Date: 10/13/21 Status: Ordered ProAir HFA 90 mcg/inh inhalation aerosol with adapter 2, puffs, Inhalation, 4 times a day, PRN, # 2 each, Refills 3, Tot. Refills 3, Maintenance, 11/07/21 10:57:00 EDT, Aerosol, Route to Pharmacy Electronically, [id number], [facility]/pharmacy #1230, 183, cm, 11/07/21 7:16:00 EDT, Height Start Date: 11/07/21 Stop Date: 03/07/22 Status: Ordered Senna By Mouth, 0 Refills, Maintenance, 12/31/19 14:55:00 EDT Start Date: 12/31/19 Status: Ordered Test Strips See Instructions, 11, 0, 11, 08/03/07 15:08:40, Test Bid-Tid as advised., RANCHO,Irvingchaliyah,N Main Start Date: 08/03/07 Status: Ordered Vitamin B12 2500 mcg sublingual tablet 1 tablet = 2,500 mcg, Sublingual, Daily, # 30 tablet, 5 Refills, Maintenance, 10/11/19 11:12:00 EDT, Tablet, [facility]/pharmacy #1230, 183, cm, 10/07/19 14:43:00 EDT, Height Start Date: 10/11/19 Status: Ordered Vitamin B12 with Folic Acid sublingual tablet 1 tablet, Sublingual, Daily, # 30 tablet, 5 Refills, Maintenance, 10/10/19 18:46:00 EDT, Tablet, [facility]/pharmacy #1230, 1 tablet Sublingual Daily, 183, cm, [...] Clinical Service Informant CHF, chronic Discharge Diagnosis 11/08/21 Diabetes mellitus type 2 in obese Discharge Diagnosis 11/08/21 CKD (chronic kidney disease) Discharge Diagnosis 11/08/21 Obstructive sleep apnea syndrome Discharge Diagnosis 11/08/21 Shortness of breath Discharge Diagnosis 11/08/21 Social History Social History Type Response Smoking Status Former smoker; Other : Quit 1989; entered on: 01/30/16 Sex
--- OUTSIDE RECORDS SUMMARY | 2022-10-16 10:43 | XMS_ITS | Continuity of Care Document ---
Author Name Unknown Organization [facility] Address [address] [place] [address]- Care Team Providers Care Reefer Truck Driver Name Role Phone Zhao PAPER PRODUCTS INSPECTOR, Dena Crews Primary Care Physician [phone] Encounter [facility] Date(s): 02/23/20 - 03/24/20 [facility] [address] [place] [address]- Allergies, Adverse Reactions, Alerts Substance Reaction Severity [...] toxoids (Td) 06/18/07 Given 1Result Comment: [02/16/2018] [facility] [id number] 2Admin Note: VIS GIVEN Medications Alcohol Wipes See Instructions, 1 box, 8, 8, 07/03/07 16:02:50, use as instructed, [facility] Start Date: 07/03/07 Status: Ordered aspirin 81 mg oral enteric coated tablet 81, mg, 1, tablet, By Mouth, Daily, 0, 0, 10/21/05 16:51:52, Print CLAUDIA Number, [id number], Constant Indicator Start Date: 10/21/05 Status: Ordered [...] 1 Refills, Maintenance, 11/17/19 12:08:00 EDT, Tablet, [facility]/pharmacy #1230, 183, cm, 10/20/19 12:44:00 EDT, Height Start Date: 11/17/19 Status: Ordered enalapril 20 mg oral tablet 1 tablet = 20 mg, By Mouth, 2 times a day, # 180 tablet, 1 Refills, Maintenance, 10/19/19 15:53:00 EDT, [facility]/pharmacy #1230, 183, cm, 10/07/19 14:43:00 EDT, Height [...] 11:11:00 EDT, Route to Pharmacy Electronically, [facility]/pharmacy #1230, 183, cm, 10/07/19 14:43:00 EDT, Height Start Date: 10/11/19 Status: Ordered furosemide 20 mg oral tablet 20 mg, 1, tablet, By Mouth, Daily, Refills 0, Maintenance, 12/31/19 14:50:00 EDT Start Date: 12/31/19 Status: Ordered furosemide 20 mg oral tablet 20 mg, 1, tablet, By Mouth, Daily, # 90 tablet, Refills 1, Tot. Refills 1, Maintenance, 02/24/20 12:12:00 EST, Route to Pharmacy Electronically, [facility]/pharmacy #1230, 183, cm, 12/31/19 14:42:00 EDT, Height [...] 12/31/19 15:08:00 EDT, Route to Pharmacy Electronically, [facility]/pharmacy #1230, 183, cm, 12/31/19 14:42:00 EDT, Height Start Date: 12/31/19 Stop Date: 06/28/20 Status: Ordered Lancets See Instructions, 1 box, 8, 8, 07/03/07 16:03:17, use as instructed, Anupama VICKERS N Main Start Date: 07/03/07 Status: Ordered loratadine 10 mg oral capsule 1 capsule = 10 mg, By Mouth, Daily, # 90 capsule, 1 Refills, Maintenance, 10/06/19 10:17:00 EDT, Capsule, [facility]/pharmacy #1230, 183, cm, 04/05/19 13:05:00 EST, Height [...] Replace Required Details, Route to Pharmacy Electronically, [id number], [facility]/pharmac... Start Date: 08/11/17 Status: Ordered pravastatin 40 mg oral tablet 1 tablet = 40 mg, By Mouth, Daily, # 90 tablet, 1 Refills, Maintenance, 02/03/20 15:28:00 EST, Tablet, [facility]/pharmacy #1230, 183, cm, 12/31/19 14:42:00 EDT, Height Start Date: 02/03/20 Stop Date: 08/01/20 Status: Ordered ProAir HFA 90 mcg/inh inhalation aerosol with adapter 2, puffs, Inhalation, 4 times a day, PRN, # 2 each, Refills 3, Tot. Refills 3, Maintenance, 08/13/18 20:00:05 EDT, Aerosol, Route to Pharmacy Electronically, [id number], [facility]/pharmacy #1230 Start Date: 08/13/18 Stop Date: 12/11/18 [...]
--- OUTSIDE RECORDS SUMMARY | 2022-10-16 10:43 | XMS_ITS | Continuity of Care Document ---
Author Name Unknown Organization [facility] Address [address] [place] [address]- Care Team Providers Care Capital Markets Specialist Name Role Phone Zhao AVENDANO, Dena Crews Primary Care Physician Encounter [facility] Date(s): 10/19/19 - 11/18/19 [facility] [address] [place] [address]- Allergies, Adverse Reactions, Alerts Substance Reaction Severity [...] 1Result Comment: [02/16/2018] [facility] [id number] 2Admin Note: VIS GIVEN Medications Alcohol Wipes See Instructions, 1 box, 8, 8, 07/03/07 16:02:50, use as instructed, Anupama VICKERS N Main Start Date: 07/03/07 Status: Ordered aspirin 81 mg oral enteric coated tablet 81, mg, 1, tablet, By Mouth, Daily, 0, 0, 10/21/05 16:51:52, Print CLAUDIA Number, [id number], Constant Indicator Start Date: 10/21/05 Status: Ordered [...] 1 Refills, Maintenance, 11/17/19 12:08:00 EDT, Tablet, [facility]/pharmacy #1230, 183, cm, 10/20/19 12:44:00 EDT, Height Start Date: 11/17/19 Status: Ordered enalapril 20 mg oral tablet 1 tablet = 20 mg, By Mouth, 2 times a day, # 180 tablet, 1 Refills, Maintenance, 10/19/19 15:53:00 EDT, [facility]/pharmacy #1230, 183, cm, 10/07/19 14:43:00 [...] 10/11/19 11:11:00 EDT, Route to Pharmacy Electronically, [facility]/pharmacy #1230, 183, cm, 10/07/19 14:43:00 [...] 1 Refills, Maintenance, 10/06/19 10:17:00 EDT, Capsule, [facility]/pharmacy #1230, 183, cm, 04/05/19 13:05:00 EST, Height Start Date: 10/06/19 Stop Date: 05/03/20 Status: Ordered metFORMIN 1000 mg oral tablet 1 tablet = 1,000 mg, By Mouth, 2 times a day, # 180 tablet, 1 Refills, Maintenance, 11/12/19 14:25:00 EDT, [facility]/pharmacy #1230, 183, cm, 10/20/19 12:44:00 EDT, Height Start Date: 11/12/19 Stop Date: 05/10/20 Status: Ordered metoprolol 50 mg oral tablet See Instructions, 0.5 tablet By Mouth 2 times a day, # 30 tablet, Refills 6, Tot. Refills 6, Maintenance, 08/11/17 15:10:38 EDT, Instructions Replace Required Details, Route to Pharmacy Electronically, [id number], [facility]/pharmac... Start Date: 08/11/17 Status: Ordered pravastatin 40 mg oral tablet 1 tablet = 40 mg, By Mouth, Daily, # 90 tablet, 1 Refills, Maintenance, 08/06/19 12:43:00 EDT, Tablet, [facility]/pharmacy #1230, 183, cm, 04/05/19 13:05:00 EST, Height Start Date: 08/06/19 Stop Date: 02/02/20 Status: Ordered ProAir HFA 90 mcg/inh inhalation aerosol with adapter 2, puffs, Inhalation, 4 times a day, PRN, # 2 each, Refills 3, Tot. Refills 3, Maintenance, 08/13/18 20:00:05 EDT, Aerosol, Route to Pharmacy Electronically, [id number], [facility]/pharmacy #1230 Start Date: 08/13/18 Stop Date: 12/11/18 Status: Ordered Test Strips See Instructions, 11, 0, 11, 08/03/07 15:08:40, Test Bid-Tid as advised., [facility] Start Date: 08/03/07 Status: [...]
--- OUTSIDE RECORDS SUMMARY | 2022-10-16 10:43 | XMS_ITS | Continuity of Care Document ---
Author Name Unknown Organization [facility] Address [address] [place] [address]- Care Team Providers Care Welder Helper Name Role Phone Zhao AVENDANO, Dena Crews Primary Care Physician Encounter [facility] Date(s): 10/10/19 - 11/09/19 [facility] [employer] [facility] [address] [place] [address]- Allergies, Adverse Reactions, Alerts Substance Reaction Severity [...] toxoids (Td) 06/18/07 Given 1Result Comment: [02/16/2018] [facility] [id number] 2Admin Note: VIS GIVEN Medications Alcohol Wipes See Instructions, 1 box, 8, 8, 07/03/07 16:02:50, use as instructed, Anupama VICKERS N Main Start Date: 07/03/07 Status: Ordered aspirin 81 mg oral enteric coated tablet 81, mg, 1, tablet, By Mouth, Daily, 0, 0, 10/21/05 16:51:52, Print CLAUDIA Number, [id number], Constant Indicator Start Date: 10/21/05 Status: Ordered [...] 0 Refills, Maintenance, 08/05/19 13:38:00 EDT, Tablet, [facility]/pharmacy #1230, 183, cm, 04/05/19 13:05:00 EST, Height Start Date: 08/05/19 Status: Ordered enalapril 20 mg oral tablet 1 tablet = 20 mg, By Mouth, 2 times a day, # 180 tablet, 1 Refills, Maintenance, 10/19/19 15:53:00 EDT, [facility]/pharmacy #1230, 183, cm, 10/07/19 14:43:00 EDT, [...] 10/11/19 11:11:00 EDT, Route to Pharmacy Electronically, [facility]/pharmacy #1230, 183, cm, 10/07/19 14:43:00 EDT, Height Start Date: 10/11/19 Status: Ordered Glucose Monitor See Instructions, 0, 0, 07/03/07 16:02:29, use as instructed., Anupama VICKERS,N Main Start Date: 07/03/07 Status: Ordered Lancets See Instructions, 1 box, 8, 8, 07/03/07 16:03:17, use as instructed, Anupama VICKERS,N Main Start Date: 07/03/07 Status: Ordered loratadine 10 mg oral capsule 1 capsule = 10 mg, By Mouth, Daily, # 90 capsule, 1 Refills, Maintenance, 10/06/19 10:17:00 EDT, Capsule, [facility]/pharmacy #1230, 183, cm, 04/05/19 13:05:00 EST, Height Start Date: 10/06/19 Stop Date: 05/03/20 Status: Ordered metFORMIN 1000 mg oral tablet 1 tablet = 1,000 mg, By Mouth, 2 times a day, # 180 tablet, 1 Refills, Maintenance, 04/27/19 14:24:00 EST, [facility]/pharmacy #1230, 183, cm, 04/05/19 13:05:00 EST, Height Start Date: 04/27/19 Stop Date: 10/24/19 Status: Ordered metoprolol 50 mg oral tablet See Instructions, 0.5 tablet By Mouth 2 times a day, # 30 tablet, Refills 6, Tot. Refills 6, Maintenance, 08/11/17 15:10:38 EDT, Instructions Replace Required Details, Route to Pharmacy Electronically, [id number], [facility]/pharmac... Start Date: 08/11/17 Status: Ordered pravastatin 40 mg oral tablet 1 tablet = 40 mg, By Mouth, Daily, # 90 tablet, 1 Refills, Maintenance, 08/06/19 12:43:00 EDT, Tablet, [facility]/pharmacy #1230, 183, cm, 04/05/19 13:05:00 EST, Height Start Date: 08/06/19 Stop Date: 02/02/20 Status: Ordered ProAir HFA 90 mcg/inh inhalation aerosol with adapter 2, puffs, Inhalation, 4 times a day, PRN, # 2 each, Refills 3, Tot. Refills 3, Maintenance, 08/13/18 20:00:05 EDT, Aerosol, Route to Pharmacy Electronically, [id number], [facility]/pharmacy #1230 Start Date: 08/13/18 Stop Date: 12/11/18 Status: Ordered Test Strips See Instructions, 11, 0, 11, 08/03/07 15:08:40, Test Bid-Tid as advised., [facility],[place],N Main Start Date: 08/03/07 Status: Ordered Vitamin [...]
--- OUTSIDE RECORDS SUMMARY | 2022-10-16 10:43 | XMS_ITS | Continuity of Care Document ---
Author Name Unknown Organization [facility] Address [address] [place] [address]- Care Team Providers Care Vp Software Engineering Name Role Phone Zhao CRIME VICTIM SPECIALIST, Dena Crews Primary Care Physician Encounter [facility] Date(s): 02/08/20 - 03/09/20 [facility] [address] [place] [address]- Allergies, Adverse Reactions, Alerts Substance Reaction Severity [...] toxoids (Td) 06/18/07 Given 1Result Comment: [02/16/2018] [facility] [id number] 2Admin Note: VIS GIVEN Medications Alcohol Wipes See Instructions, 1 box, 8, 8, 07/03/07 16:02:50, use as instructed, [facility] Main Start Date: 07/03/07 Status: Ordered aspirin 81 mg oral enteric coated tablet 81, mg, 1, tablet, By Mouth, Daily, 0, 0, 10/21/05 16:51:52, Print CLAUDIA Number, [id number], Constant Indicator Start Date: 10/21/05 Status: Ordered [...] Refills, Maintenance, 11/17/19 12:08:00 EDT, Tablet, [facility]/pharmacy #1230, 183, cm, 10/20/19 12:44:00 EDT, Height Start Date: 11/17/19 Status: Ordered enalapril 20 mg oral tablet 1 tablet = 20 mg, By Mouth, 2 times a day, # 180 tablet, 1 Refills, Maintenance, 10/19/19 15:53:00 EDT, [facility]/pharmacy #1230, 183, cm, 10/07/19 14:43:00 EDT, Height [...] 11:11:00 EDT, Route to Pharmacy Electronically, [facility]/pharmacy #1230, 183, cm, 10/07/19 14:43:00 EDT, Height Start Date: 10/11/19 Status: Ordered furosemide 20 mg oral tablet 20 mg, 1, tablet, By Mouth, Daily, Refills 0, Maintenance, 12/31/19 14:50:00 EDT Start Date: 12/31/19 Status: Ordered furosemide 20 mg oral tablet 20 mg, 1, tablet, By Mouth, Daily, # 90 tablet, Refills 1, Tot. Refills 1, Maintenance, 02/24/20 12:12:00 EST, Route to Pharmacy Electronically, [facility]/pharmacy #1230, 183, cm, 12/31/19 14:42:00 EDT, Height [...] 15:08:00 EDT, Route to Pharmacy Electronically, [facility]/pharmacy #1230, 183, cm, 12/31/19 14:42:00 EDT, Height Start Date: 12/31/19 Stop Date: 06/28/20 Status: Ordered Lancets See Instructions, 1 box, 8, 8, 07/03/07 16:03:17, use as instructed, Anupama VICKERS N Main Start Date: 07/03/07 Status: Ordered loratadine 10 mg oral capsule 1 capsule = 10 mg, By Mouth, Daily, # 90 capsule, 1 Refills, Maintenance, 10/06/19 10:17:00 EDT, Capsule, [facility]/pharmacy #1230, 183, cm, 04/05/19 13:05:00 EST, Height [...] Replace Required Details, Route to Pharmacy Electronically, [id number], [facility]/pharmac... Start Date: 08/11/17 Status: Ordered pravastatin 40 mg oral tablet 1 tablet = 40 mg, By Mouth, Daily, # 90 tablet, 1 Refills, Maintenance, 02/03/20 15:28:00 EST, Tablet, [facility]/pharmacy #1230, 183, cm, 12/31/19 14:42:00 EDT, Height Start Date: 02/03/20 Stop Date: 08/01/20 Status: Ordered ProAir HFA 90 mcg/inh inhalation aerosol with adapter 2, puffs, Inhalation, 4 times a day, PRN, # 2 each, Refills 3, Tot. Refills 3, Maintenance, 08/13/18 20:00:05 EDT, Aerosol, Route to Pharmacy Electronically, [id number], [facility]/pharmacy #1230 Start Date: 08/13/18 Stop Date: 12/11/18 [...]
--- OUTSIDE RECORDS SUMMARY | 2022-10-16 10:43 | XMS_ITS | Continuity of Care Document ---
Author Name Unknown Organization [facility] Address [address] [place] [phone]- Care Team Providers Care Lean Manufacturing Engineer Name Role Phone Dena Churchill NP Primary Care Physician Encounter [facility] [id number] Date(s): 06/27/21 - 07/04/21 [facility] [address] [place] [phone]- [place] Encounter Diagnosis Diabetes mellitus type 2 in obese(Discharge Diagnosis) - 06/27/21 CHF, chronic(Discharge Diagnosis) - 06/27/21 Hypertension(Discharge Diagnosis) - 06/27/21 Knee osteoarthritis(Discharge Diagnosis) - 06/27/21 Obstructive sleep apnea syndrome(Discharge Diagnosis) - 06/27/21 CKD (chronic kidney disease)(Discharge Diagnosis) - 06/27/21 Attending Physician: Dena Churchill NP Allergies, Adverse [...] toxoids (Td) 06/18/07 Given 1Result Comment: [02/16/2018] [facility] [id number] 2Admin Note: VIS GIVEN Medications Alcohol Wipes See Instructions, 1 robert, 8, 8, 07/03/07 16:02:50, use as instructed, Anupama VICKERS N Main Start Date: 4/11/08 Status: Ordered aspirin 81 mg oral enteric coated tablet 81, mg, 1, tablet, By Mouth, Daily, 0, 0, 10/21/05 16:51:52, Print CLAUDIA Number, [id number], Constant Indicator Start Date: 10/21/05 Status: Ordered C-Pap Supplies C-Pap Supplies, See Instructions, # 1 each, Refills 11, Tot. Refills 11, Maintenance, C-Pap hose, filters and nose pillows. length of need 99 months [facility] [id number] DX: ANDRES, 08/12/17 9:05:08 EDT, Compound Start Date: 08/12/17 Status: Ordered Docusate 0 Refills, Maintenance, 07/05/20 13:17:00 EDT, Partial fill upon patient request if the prescription is for a schedule II opioid drug. Start Date: 07/05/20 Status: Ordered doxazosin 8 mg oral tablet 1 tablet, By Mouth, Daily, # 90 tablet, 0 Refills, [facility], 183, cm, 07/05/20 13:14:00 EDT,Height Start Date: 06/18/21 Status: Ordered doxazosin 8 mg oral tablet 1 tablet = 8 mg, By Mouth, Daily, # 90 tablet, 1 Refills, Maintenance, 12/18/20 8:03:00 EDT, Tablet, [facility]/pharmacy #1230, 183, cm, 07/05/20 13:14:00 EDT, Height Start Date: 12/18/20 Status: Ordered enalapril 20 mg oral tablet 1 tablet, By Mouth, 2 times a day, # 180 tablet, 1 Refills, Maintenance, 04/12/21 12:27:00 EST, [facility], 183, cm, 07/05/20 13:14:00 EDT, [...] tablet, Refills 1, Route to Pharmacy Electronically, [facility] STORE [facility], 183, cm, 04/14/21 13:14:00 EDT, Height Start Date: 11/12/20 Status: Ordered furosemide 20 mg oral tablet 20 mg, 1, tablet, By Mouth, Daily, # 90 tablet, Refills 1, Tot. Refills 1, Maintenance, 01/23/21 9:34:00 EDT, Route to Pharmacy Electronically, [facility]/pharmacy #1230, 183, cm, 07/05/20 13:14:00 EDT, Height Start Date: 01/23/21 Stop Date: 07/22/21 Status: Ordered gabapentin 100 mg oral capsule 100 mg, 1, capsule, By Mouth, 3 times a day, # 90 capsule, Refills 1, Tot. Refills 1, Maintenance, 06/27/21 16:05:00 EDT, Route to Pharmacy Electronically, [facility]/pharmacy #1230, Partial fill upon patient request if [...] Stop 12/24/21 16:02:00 EDT, 06/27/21 16:02:00 EDT, [facility]/pharmacy #1230, 183, cm, 06/27/21 14:31:00 EDT, Height Start Date: 06/27/21 Stop Date: 12/24/21 Status: Ordered Lancets See Instructions, 1 box, 8, 8, 07/03/07 16:03:17, use as instructed, [place] VICKERSrtjoryn,N Main Start Date: 07/03/07 Status: Ordered loratadine 10 mg oral capsule 1 capsule = 10 mg, By Mouth, Daily, # 90 capsule, 1 Refills, Maintenance, 10/06/19 10:17:00 EDT, Capsule, [facility]/pharmacy #1230, 183, cm, 04/05/19 13:05:00 EST, Height [...] 180 tablet, 1 Refills, 06/27/21 16:01:00 EDT, [facility]/pharmacy #1230, 183, cm, 06/27/21 14:31:00 EDT, Height Start Date: 06/27/21 Status: Ordered metoprolol 50 mg oral tablet See Instructions, 0.5 tablet By Mouth 2 times a day, # 30 tablet, Refills 6, Tot. Refills 6, Maintenance, 08/11/17 15:10:38 EDT, Instructions Replace Required Details, Route to Pharmacy Electronically, [id number], [facility]/pharmac... Start Date: 08/11/17 Status: Ordered MiraLax = 17 Gm, By Mouth, Daily, 0 Refills, Maintenance, 07/05/20 13:17:00 EDT, Partial fill upon patient request if the prescription is for a schedule II opioid drug. Start Date: 07/05/20 Status: Ordered pravastatin 40 mg oral tablet 1 tablet, By Mouth, Daily, # 90 tablet, 1 Refills, Maintenance, 04/12/21 12:27:00 EST, [facility], 183, cm, 07/05/20 13:14:00 EDT, Height Start Date: 04/12/21 Status: Ordered ProAir HFA 90 mcg/inh inhalation aerosol with adapter 2, puffs, Inhalation, 4 times a day, PRN, # 2 each, Refills 3, Tot. Refills 3, Maintenance, 08/13/18 20:00:05 EDT, Aerosol, Route to Pharmacy Electronically, [id number], [facility]/pharmacy #1230 Start Date: 08/13/18 Stop Date: 12/11/18 [...] 5 Refills, Maintenance, 10/11/19 11:12:00 EDT, Tablet, [facility]/pharmacy #1230, 183, cm, 10/07/19 14:43:00 EDT, Height Start Date: 10/11/19 Status: Ordered Vitamin B12 with Folic Acid sublingual tablet 1 tablet, Sublingual, Daily, # 30 tablet, 5 Refills, Maintenance, 10/10/19 18:46:00 EDT, Tablet, [facility]/pharmacy #1230, 1 tablet Sublingual Daily, 183, cm, [...] Effective Dates Health Status Clinical Service Informant Diabetes mellitus type 2 in obese Discharge Diagnosis 06/27/21 CHF, chronic Discharge Diagnosis 06/27/21 Hypertension Discharge Diagnosis 06/27/21 Knee osteoarthritis Discharge Diagnosis 06/27/21 Obstructive sleep apnea syndrome Discharge Diagnosis 06/27/21 CKD (chronic kidney disease) Discharge Diagnosis 06/27/21 Vital Signs Most recent to oldest [Reference Range]: 1 Height 183 cm (06/27/21 2:31 PM) Social History Social History Type Response Smoking Status Former smoker; Other : Quit 1989; entered on: 01/30/16 Sex
--- OUTSIDE RECORDS SUMMARY | 2022-10-16 10:43 | XMS_ITS | Continuity of Care Document ---
Author Name Unknown Organization [facility] Address [address] [place] [address]- Care Team Providers Care Gold Nib Grinder Name Role Phone Zhao AVENDANO, Dena Crews Primary Care Physician [phone] Encounter [facility] Date(s): 11/17/19 - 12/17/19 [facility] [address] [place] [phone]- Allergies, Adverse Reactions, Alerts Substance Reaction Severity [...] toxoids (Td) 06/18/07 Given 1Result Comment: [02/16/2018] [facility] [id number] 2Admin Note: VIS GIVEN Medications Alcohol Wipes See Instructions, 1 box, 8, 8, 07/03/07 16:02:50, use as instructed, Anupama VICKERS N Main Start Date: 07/03/07 Status: Ordered aspirin 81 mg oral enteric coated tablet 81, mg, 1, tablet, By Mouth, Daily, 0, 0, 10/21/05 16:51:52, Print CLAUDIA Number, [id number], Constant Indicator Start Date: 10/21/05 Status: Ordered [...] 1 Refills, Maintenance, 11/17/19 12:08:00 EDT, Tablet, [facility]/pharmacy #1230, 183, cm, 10/20/19 12:44:00 EDT, Height Start Date: 11/17/19 Status: Ordered enalapril 20 mg oral tablet 1 tablet = 20 mg, By Mouth, 2 times a day, # 180 tablet, 1 Refills, Maintenance, 10/19/19 15:53:00 EDT, [facility]/pharmacy #1230, 183, cm, 10/07/19 14:43:00 EDT, [...] 10/11/19 11:11:00 EDT, Route to Pharmacy Electronically, [facility]/pharmacy #1230, 183, cm, 10/07/19 14:43:00 EDT, [...] 1 Refills, Maintenance, 10/06/19 10:17:00 EDT, Capsule, [facility]/pharmacy #1230, 183, cm, 04/05/19 13:05:00 EST, Height Start Date: 10/06/19 Stop Date: 05/03/20 Status: Ordered metFORMIN 1000 mg oral tablet 1 tablet = 1,000 mg, By Mouth, 2 times a day, # 180 tablet, 1 Refills, Maintenance, 11/12/19 14:25:00 EDT, [facility]/pharmacy #1230, 183, cm, 10/20/19 12:44:00 EDT, Height Start Date: 11/12/19 Stop Date: 05/10/20 Status: Ordered metoprolol 50 mg oral tablet See Instructions, 0.5 tablet By Mouth 2 times a day, # 30 tablet, Refills 6, Tot. Refills 6, Maintenance, 08/11/17 15:10:38 EDT, Instructions Replace Required Details, Route to Pharmacy Electronically, [id number], [facility]/pharmac... Start Date: 08/11/17 Status: Ordered pravastatin 40 mg oral tablet 1 tablet = 40 mg, By Mouth, Daily, # 90 tablet, 1 Refills, Maintenance, 08/06/19 12:43:00 EDT, Tablet, [facility]/pharmacy #1230, 183, cm, 04/05/19 13:05:00 EST, Height Start Date: 08/06/19 Stop Date: 02/02/20 Status: Ordered ProAir HFA 90 mcg/inh inhalation aerosol with adapter 2, puffs, Inhalation, 4 times a day, PRN, # 2 each, Refills 3, Tot. Refills 3, Maintenance, 08/13/18 20:00:05 EDT, Aerosol, Route to Pharmacy Electronically, [id number], [facility]/pharmacy #1230 Start Date: 08/13/18 Stop Date: 12/11/18 Status: Ordered Test Strips See Instructions, 11, 0, 11, 08/03/07 15:08:40, Test Bid-Tid as advised., [facility],[place],N Main Start Date: 08/03/07 Status: Ordered [...]
--- OUTSIDE RECORDS SUMMARY | 2022-10-16 10:43 | XMS_ITS | Continuity of Care Document ---
Author Name Unknown Organization [facility] Address [address] [place] [address]- Care Team Providers Care Wash Plant Operator Name Role Phone Dena Churchill NP Primary Care Physician Encounter [facility] Date(s): 04/05/20 - 04/12/20 [facility] [address] [place] [phone]- Attending Physician: Dena Churchill NP Allergies, Adverse [...] toxoids (Td) 06/18/07 Given 1Result Comment: [02/16/2018] [facility] [id number] 2Admin Note: VIS GIVEN Medications Alcohol Wipes See Instructions, 1 box, 8, 8, 07/03/07 16:02:50, use as instructed, Anupama VICKERS N Main Start Date: 07/03/07 Status: Ordered aspirin 81 mg oral enteric coated tablet 81, mg, 1, tablet, By Mouth, Daily, 0, 0, 10/21/05 16:51:52, Print CLAUDIA Number, [id number], Constant Indicator Start Date: 10/21/05 Status: Ordered [...] 1 Refills, Maintenance, 11/17/19 12:08:00 EDT, Tablet, [facility]/pharmacy #1230, 183, cm, 10/20/19 12:44:00 EDT, Height Start Date: 11/17/19 Status: Ordered enalapril 20 mg oral tablet 1 tablet = 20 mg, By Mouth, 2 times a day, # 180 tablet, 1 Refills, Maintenance, 04/05/20 13:52:00 EST, [facility]/pharmacy #1230, 183, cm, 04/05/20 12:49:00 EST, [...] 10/11/19 11:11:00 EDT, Route to Pharmacy Electronically, [facility]/pharmacy #1230, 183, cm, 10/07/19 14:43:00 [...] 02/24/20 12:12:00 EST, Route to Pharmacy Electronically, [facility]/pharmacy #1230, 183, cm, 12/31/19 14:42:00 EDT, [...] 12/31/19 15:08:00 EDT, Route to Pharmacy Electronically, [facility]/pharmacy #1230, 183, cm, 12/31/19 14:42:00 EDT, Height Start Date: 12/31/19 Stop Date: 06/28/20 Status: Ordered Lancets See Instructions, 1 box, 8, 8, 07/03/07 16:03:17, use as instructed, Anupama VICKERS N Main Start Date: 07/03/07 Status: Ordered loratadine 10 mg oral capsule 1 capsule = 10 mg, By Mouth, Daily, # 90 capsule, 1 Refills, Maintenance, 10/06/19 10:17:00 EDT, Capsule, [facility]/pharmacy #1230, 183, cm, 04/05/19 13:05:00 [...] Replace Required Details, Route to Pharmacy Electronically, [id number], [facility]/pharmac... Start Date: 08/11/17 Status: Ordered pravastatin 40 mg oral tablet 1 tablet = 40 mg, By Mouth, Daily, # 90 tablet, 1 Refills, Maintenance, 04/05/20 13:52:00 EST, Tablet, [facility]/pharmacy #1230, 183, cm, 04/05/20 12:49:00 EST, Height Start Date: 04/05/20 Stop Date: 10/02/20 Status: Ordered ProAir HFA 90 mcg/inh inhalation aerosol with adapter 2, puffs, Inhalation, 4 times a day, PRN, # 2 each, Refills 3, Tot. Refills 3, Maintenance, 08/13/18 20:00:05 EDT, Aerosol, Route to Pharmacy Electronically, [id number], [facility]/pharmacy #1230 Start Date: 08/13/18 Stop [...] 04/19/20 13:57:00 EST, 04/05/20 13:57:00 EST, Tablet, [facility]/pharmacy #1230, Partial fill uponpatient request if [...] 5 Refills, Maintenance, 10/10/19 18:46:00 EDT, Tablet, [facility]/pharmacy #1230, 1 tablet Sublingual Daily, [...] oldest [Reference Range]: 1 Height 183 cm (04/05/20 12:49 PM) Social History Social History Type Response Smoking Status Former smoker; Other : Quit 1989; entered on: 01/30/16 Sex
--- OUTSIDE RECORDS SUMMARY | 2022-10-16 10:43 | XMS_ITS | Continuity of Care Document ---
Author Name Unknown Organization [facility] Address [address] [place] [address]- Care Team Providers Care Oil Laboratory Analyst Name Role Phone Zhao AVENDANO, Dena Crews Primary Care Physician Encounter [facility] Date(s): 11/17/19 - 12/17/19 [facility] [address] [place] [address]- Allergies, Adverse Reactions, Alerts Substance Reaction Severity [...] (Td) 06/18/07 Given 1Result Comment: [02/16/2018] [facility] [id number] 2Admin Note: VIS GIVEN Medications Alcohol Wipes See Instructions, 1 box, 8, 8, 07/03/07 16:02:50, use as instructed, Anupama VICKERS N Main Start Date: 07/03/07 Status: Ordered aspirin 81 mg oral enteric coated tablet 81, mg, 1, tablet, By Mouth, Daily, 0, 0, 10/21/05 16:51:52, Print CLAUDIA Number, [id number], Constant Indicator Start Date: 10/21/05 Status: Ordered [...] Refills, Maintenance, 11/17/19 12:08:00 EDT, Tablet, [facility]/pharmacy #1230, 183, cm, 10/20/19 12:44:00 EDT, Height Start Date: 11/17/19 Status: Ordered enalapril 20 mg oral tablet 1 tablet = 20 mg, By Mouth, 2 times a day, # 180 tablet, 1 Refills, Maintenance, 10/19/19 15:53:00 EDT, [facility]/pharmacy #1230, 183, cm, 10/07/19 14:43:00 EDT, [...] 11:11:00 EDT, Route to Pharmacy Electronically, [facility]/pharmacy #1230, 183, cm, 10/07/19 14:43:00 EDT, [...] Refills, Maintenance, 10/06/19 10:17:00 EDT, Capsule, [facility]/pharmacy #1230, 183, cm, 04/05/19 13:05:00 EST, Height Start Date: 10/06/19 Stop Date: 05/03/20 Status: Ordered metFORMIN 1000 mg oral tablet 1 tablet = 1,000 mg, By Mouth, 2 times a day, # 180 tablet, 1 Refills, Maintenance, 11/12/19 14:25:00 EDT, [facility]/pharmacy #1230, 183, cm, 10/20/19 12:44:00 EDT, Height Start Date: 11/12/19 Stop Date: 05/10/20 Status: Ordered metoprolol 50 mg oral tablet See Instructions, 0.5 tablet By Mouth 2 times a day, # 30 tablet, Refills 6, Tot. Refills 6, Maintenance, 08/11/17 15:10:38 EDT, Instructions Replace Required Details, Route to Pharmacy Electronically, [id number], [facility]/pharmac... Start Date: 08/11/17 Status: Ordered pravastatin 40 mg oral tablet 1 tablet = 40 mg, By Mouth, Daily, # 90 tablet, 1 Refills, Maintenance, 08/06/19 12:43:00 EDT, Tablet, [facility]/pharmacy #1230, 183, cm, 04/05/19 13:05:00 EST, Height Start Date: 08/06/19 Stop Date: 02/02/20 Status: Ordered ProAir HFA 90 mcg/inh inhalation aerosol with adapter 2, puffs, Inhalation, 4 times a day, PRN, # 2 each, Refills 3, Tot. Refills 3, Maintenance, 08/13/18 20:00:05 EDT, Aerosol, Route to Pharmacy Electronically, [id number], [facility]/pharmacy #1230 Start Date: 08/13/18 Stop Date: 12/11/18 Status: Ordered Test Strips See Instructions, 11, 0, 11, 08/03/07 15:08:40, Test Bid-Tid as advised., [facility],N Main Start Date: 08/03/07 Status: Ordered Vitamin [...]
--- OUTSIDE RECORDS SUMMARY | 2022-10-16 10:43 | XMS_ITS | Continuity of Care Document ---
Author Name Unknown Organization [facility] ter Address [address] [place] [address]- Care Team Providers Care User Support Analyst Supervisor Name Role Phone Zhao AVENDANO, Dena Crews Primary Care Physician Encounter [facility] Date(s): 02/04/20 - 03/05/[address] [id number] Attending Physician: AdmCandace buckley Admitting Physician: AdmtrCandace Referring Physician: AdmtrCandace Allergies, Adverse Reactions, Alerts [...] (Td) 06/18/07 Given 1Result Comment: [02/16/2018] [facility] [id number] 2Admin Note: VIS GIVEN Medications Alcohol Wipes See Instructions, 1 box, 8, 8, 07/03/07 16:02:50, use as instructed, Anupama VICKERS N Main Start Date: 07/03/07 Status: Ordered aspirin 81 mg oral enteric coated tablet 81, mg, 1, tablet, By Mouth, Daily, 0, 0, 10/21/05 16:51:52, Print CLAUDIA Number, [id number], Constant Indicator Start Date: 10/21/05 Status: Ordered [...] 1 Refills, Maintenance, 11/17/19 12:08:00 EDT, Tablet, [facility]/pharmacy #1230, 183, cm, 10/20/19 12:44:00 EDT, Height Start Date: 11/17/19 Status: Ordered enalapril 20 mg oral tablet 1 tablet = 20 mg, By Mouth, 2 times a day, # 180 tablet, 1 Refills, Maintenance, 10/19/19 15:53:00 EDT, [facility]/pharmacy #1230, 183, cm, 10/07/19 [...] 10/11/19 11:11:00 EDT, Route to Pharmacy Electronically, [facility]/pharmacy #1230, 183, cm, 10/07/19 [...] 02/24/20 12:12:00 EST, Route to Pharmacy Electronically, [facility]/pharmacy #1230, 183, cm, 12/31/19 14:42:00 EDT, Height [...] 12/31/19 15:08:00 EDT, Route to Pharmacy Electronically, [facility]/pharmacy #1230, 183, cm, 12/31/19 14:42:00 EDT, Height Start Date: 12/31/19 Stop Date: 06/28/20 Status: Ordered Lancets See Instructions, 1 box, 8, 8, 07/03/07 16:03:17, use as instructed, Anupama VICKERS N Main Start Date: 07/03/07 Status: Ordered loratadine 10 mg oral capsule 1 capsule = 10 mg, By Mouth, Daily, # 90 capsule, 1 Refills, Maintenance, 10/06/19 10:17:00 EDT, Capsule, [facility]/pharmacy #1230, 183, cm, 04/05/19 [...] Replace Required Details, Route to Pharmacy Electronically, [id number], [facility]/pharmac... Start Date: 08/11/17 Status: Ordered pravastatin 40 mg oral tablet 1 tablet = 40 mg, By Mouth, Daily, # 90 tablet, 1 Refills, Maintenance, 02/03/20 15:28:00 EST, Tablet, [facility]/pharmacy #1230, 183, cm, 12/31/19 14:42:00 EDT, Height Start Date: 02/03/20 Stop Date: 08/01/20 Status: Ordered ProAir HFA 90 mcg/inh inhalation aerosol with adapter 2, puffs, Inhalation, 4 times a day, PRN, # 2 each, Refills 3, Tot. Refills 3, Maintenance, 08/13/18 20:00:05 EDT, Aerosol, Route to Pharmacy Electronically, [id number], [facility]/pharmacy #1230 Start Date: 08/13/18 [...] 5 Refills, Maintenance, 10/11/19 11:12:00 EDT, Tablet, [facility]/pharmacy #1230, 183, cm, 10/07/19 [...] Gm, 4 Refills, Maintenance, 10/04/19 12:26:00 EDT, [facility]/pharmacy #1230, 2 Gm Topically 3 times a [...]
--- OUTSIDE RECORDS SUMMARY | 2022-10-16 10:43 | XMS_ITS | Continuity of Care Document ---
Author Name Unknown Organization [facility] Address [address] [place] [address]- Care Team Providers Care Dry Box Tender Name Role Phone Zhao AVENDANO, Dena Crews Primary Care Physician Encounter [facility] Date(s): 12/31/19 - 01/07/20 [facility] [address] [place] [address]- Attending Physician: Mikal Gold MD Allergies, Adverse [...] Comment: [02/16/2018] [facility] [id number] 2Admin Note: VIS GIVEN Medications Alcohol Wipes See Instructions, 1 box, 8, 8, 07/03/07 16:02:50, use as instructed, Anupama VICKERS N Main Start Date: 07/03/07 Status: Ordered aspirin 81 mg oral enteric coated tablet 81, mg, 1, tablet, By Mouth, Daily, 0, 0, 10/21/05 16:51:52, Print CLAUDIA Number, [id number], Constant Indicator Start Date: 10/21/05 Status: Ordered [...] Replace Required Details, Route to Pharmacy Electronically, [id number], [facility]/pharmac... Start Date: 08/11/17 Status: Ordered pravastatin 40 mg oral tablet 1 tablet = 40 mg, By Mouth, Daily, # 90 tablet, 1 Refills, Maintenance, 08/06/19 12:43:00 EDT, Tablet, [facility]/pharmacy #1230, 183, cm, 04/05/19 13:05:00 EST, Height Start Date: 08/06/19 Stop Date: 02/02/20 Status: Ordered ProAir HFA 90 mcg/inh inhalation aerosol with adapter 2, puffs, Inhalation, 4 times a day, PRN, # 2 each, Refills 3, Tot. Refills 3, Maintenance, 08/13/18 20:00:05 EDT, Aerosol, Route to Pharmacy Electronically, [id number], [facility]/pharmacy #1230 Start [...] 01/30/20 15:10:00 EST, 12/31/19 15:10:00 EDT, Tablet, [facility]/pharmacy #1230, 183, cm, 12/30/2013:42:00 EDT, Height Start Date: 12/31/19 Stop Date: 01/30/20 Status: Ordered Vitamin B12 2500 mcg sublingual tablet 1 tablet = 2,500 mcg, Sublingual, Daily, # 30 tablet, 5 Refills, Maintenance, 10/11/19 11:12:00 EDT, Tablet, [facility]/pharmacy #1230, 183, cm, 10/07/19 14:43:00 EDT, Height Start Date: 10/11/19 Status: Ordered Vitamin B12 with Folic Acid sublingual tablet 1 tablet, Sublingual, Daily, # 30 tablet, 5 Refills, Maintenance, 10/10/19 18:46:00 EDT, Tablet, [facility]/pharmacy #1230, 1 tablet Sublingual Daily, 183, cm, [...] 4 Refills, Maintenance, 10/04/19 12:26:00 EDT, [facility]/pharmacy #1230, 2 Gm Topically 3 times a [...] oldest [Reference Range]: 1 Height 183 cm (12/31/19 2:42 PM) Oxygen Saturation [94-100 %] 95 % (12/31/19 2:42 PM) Pulse Rate [55-90 bpm] 102 bpm *H* (12/31/19 2:42 PM) Blood Pressure [90-138/55-84 mm Hg] 136/ 84mm Hg (12/31/19 2:42 PM) Temperature [96.8-100.4 DegF] 97.7 DegF (12/31/19 2:42 PM) Mode of Delivery (Oxygen) Room air (12/31/19 2:42 PM) Blood pressure sites Arm, left (12/31/19 2:42 PM) Temperature Route Temporal (12/31/19 2:42 PM) Social History Social History Type Response Smoking Status Former smoker; Other : Quit 1989; entered on: 01/30/16 Sex
--- OUTSIDE RECORDS SUMMARY | 2022-10-16 10:43 | XMS_ITS | Continuity of Care Document ---
Author Name Unknown Organization [facility] Address [address] [place] [address]- Care Team Providers Care Consulting Solution Manager Name Role Phone Zhao CANDLE WICKER, Dena M Primary Care Physician Encounter [facility] Date(s): 11/07/21 - 12/07/21 [facility] [address] [place] [address]- Attending Physician: Candace Wen Admitting Physician: AdmCandace [...] toxoids (Td) 06/18/07 Given 1Result Comment: [02/16/2018] [facility] [id number] 2Admin Note: VIS GIVEN Medications Alcohol Wipes See Instructions, 1 box, 8, 8, 07/03/07 16:02:50, use as instructed, Anupama VICKERS N Main Start Date: 07/03/07 Status: Ordered aspirin 81 mg oral enteric coated tablet 81, mg, 1, tablet, By Mouth, Daily, 0, 0, 10/21/05 16:51:52, Print CLAUDIA Number, [id number], Constant Indicator Start Date: 10/21/05 Status: Ordered [...] # 90 tablet, 1 Refills, [facility], 183, cm, 06/27/21 14:31:00 EDT,Height Start Date: 09/24/21 Status: Ordered enalapril 20 mg oral tablet 1 tablet, By Mouth, 2 times a day, # 180 tablet, 0 Refills, [facility], 183, cm, 10/23/21 15:45:00 EDT, Height Start Date: 10/26/21 Status: Ordered Flovent HFA 220 mcg/inh inhalation aerosol 2 puffs, Inhalation, 2 times a day, rinse mouth and throat after use, # 1 each, 6 Refills, Maintenance, 11/07/21 10:56:00 EDT, Aerosol, [facility]/pharmacy #1230, Partial fill upon patient request if the prescription is for a schedule II opioid drug., 183, c... Start Date: 11/07/21 Stop Date: 06/05/22 Status: Ordered folic acid 1 mg oral tablet 1, tablet, By Mouth, Daily, # 90 tablet, Refills 1, Route to Pharmacy Electronically, [facility], 183, cm, 07/05/20 13:14:00 EDT, Height Start Date: 11/12/20 Status: Ordered furosemide 20 mg oral tablet 1, tablet, By Mouth, Daily, # 90 tablet, Refills 1, Route to Pharmacy Electronically, [facility] 94[facility], 183, cm, 06/27/21 14:31:00 EDT, Height Start Date: 07/12/21 Status: Ordered gabapentin 100 mg oral capsule 100 mg, 1, capsule, By Mouth, 3 times a day, # 90 capsule, Refills 1, Tot. Refills 1, Maintenance, 06/27/21 16:05:00 EDT, Route to Pharmacy Electronically, [facility]/pharmacy #1230, Partial fill upon patient request [...] Stop 12/24/21 16:02:00 EDT, 06/27/21 16:02:00 EDT, [facility]/pharmacy #1230, 183, cm, 06/27/21 14:31:00 EDT, [...] 180 tablet, 1 Refills, 06/27/21 16:01:00 EDT, [facility]/pharmacy #1230, 183, cm, 06/27/21 14:31:00 EDT, Height Start Date: 06/27/21 Status: Ordered metoprolol 50 mg oral tablet See Instructions, 0.5 tablet By Mouth 2 times a day, # 30 tablet, Refills 6, Tot. Refills 6, Maintenance, 08/11/17 15:10:38 EDT, Instructions Replace Required Details, Route to Pharmacy Electronically, [id number], [facility]/pharmac... Start Date: 08/11/17 Status: Ordered MiraLax = 17 Gm, By Mouth, Daily, 0 Refills, Maintenance, 07/05/20 13:17:00 EDT, Partial fill upon patient request if the prescription is for a schedule II opioid drug. Start Date: 07/05/20 Status: Ordered pravastatin 40 mg oral tablet 1 tablet, By Mouth, Daily, # 90 tablet, 1 Refills, [facility] 04159, 183, cm, 06/27/21 14:31:00 EDT,Height Start Date: 10/13/21 Status: Ordered ProAir HFA 90 mcg/inh inhalation aerosol with adapter 2, puffs, Inhalation, 4 times a day, PRN, # 2 each, Refills 3, Tot. Refills 3, Maintenance, 11/07/21 10:57:00 EDT, Aerosol, Route to Pharmacy Electronically, [id number], [facility]/pharmacy #1230, 183, cm, 11/07/21 7:16:00 EDT, Height Start Date: 11/07/21 Stop Date: 03/07/22 Status: Ordered Senna By Mouth, 0 Refills, Maintenance, 12/31/19 14:55:00 EDT Start Date: 12/31/19 Status: Ordered Test Strips See Instructions, 11, 0, 11, 08/03/07 15:08:40, Test Bid-Tid as advised., [facility] Start Date: 08/03/07 Status: Ordered Vitamin [...] Team Personnel Name: Dena Churchill NP Address: [address] [place] [address]
--- OUTSIDE RECORDS SUMMARY | 2022-10-16 10:43 | XMS_ITS | Continuity of Care Document ---
Author Name Unknown Organization [facility] Address [address] [place] [address]- Care Team Providers Care Sleep Medicine Physician Name Role Phone Dena Churchill NP Primary Care Physician Encounter [facility] Date(s): 10/20/19 - 10/27/19 [facility] [address] [place] [address]- Attending Physician: Dena Churchill NP Allergies, Adverse [...] toxoids (Td) 06/18/07 Given 1Result Comment: [02/16/2018] [facility] [id number] 2Admin Note: VIS GIVEN Medications Alcohol Wipes See Instructions, 1 box, 8, 8, 07/03/07 16:02:50, use as instructed, [facility],N Main Start Date: 07/03/07 Status: Ordered aspirin 81 mg oral enteric coated tablet 81, mg, 1, tablet, By Mouth, Daily, 0, 0, 10/21/05 16:51:52, Print CLAUDIA Number, [id number], Constant Indicator Start Date: 10/21/05 Status: Ordered [...] 0 Refills, Maintenance, 08/05/19 13:38:00 EDT, Tablet, [facility]/pharmacy #1230, 183, cm, 04/05/19 13:05:00 EST, [...] 10/11/19 11:11:00 EDT, Route to Pharmacy Electronically, [facility], 183, cm, 10/07/19 14:43:00 EDT, Height Start Date: 10/11/19 Status: Ordered Glucose Monitor See Instructions, 0, 0, 07/03/07 16:02:29, use as instructed., [facility] Start Date: 07/03/07 Status: Ordered Lancets See Instructions, 1 box, 8, 8, 07/03/07 16:03:17, use as instructed, [facility] Start Date: 07/03/07 Status: Ordered loratadine 10 mg oral capsule 1 capsule = 10 mg, By Mouth, Daily, # 90 capsule, 1 Refills, Maintenance, 10/06/19 10:17:00 EDT, Capsule, [facility]/pharmacy #1230, 183, cm, 04/05/19 13:05:00 EST, Height Start Date: 10/06/19 Stop Date: 05/03/20 Status: Ordered metFORMIN 1000 mg oral tablet 1 tablet = 1,000 mg, By Mouth, 2 times a day, # 180 tablet, 1 Refills, Maintenance, 04/27/19 14:24:00 EST, [facility]/pharmacy #1230, 183, cm, 04/05/19 13:05:00 EST, Height Start Date: 04/27/19 Stop Date: 10/24/19 Status: Ordered metoprolol 50 mg oral tablet See Instructions, 0.5 tablet By Mouth 2 times a day, # 30 tablet, Refills 6, Tot. Refills 6, Maintenance, 08/11/17 15:10:38 EDT, Instructions Replace Required Details, Route to Pharmacy Electronically, [id number], [facility]/pharmac... Start Date: 08/11/17 Status: Ordered pravastatin 40 mg oral tablet 1 tablet = 40 mg, By Mouth, Daily, # 90 tablet, 1 Refills, Maintenance, 08/06/19 12:43:00 EDT, Tablet, [facility]/pharmacy #1230, 183, cm, 04/05/19 13:05:00 EST, Height Start Date: 08/06/19 Stop Date: 02/02/20 Status: Ordered ProAir HFA 90 mcg/inh inhalation aerosol with adapter 2, puffs, Inhalation, 4 times a day, PRN, # 2 each, Refills 3, Tot. Refills 3, Maintenance, 08/13/18 20:00:05 EDT, Aerosol, Route to Pharmacy Electronically, [id number], [facility]/pharmacy #1230 Start Date: 08/13/18 Stop Date: [...] oldest [Reference Range]: 1 Height 183 cm (10/20/19 12:44 PM) Social History Social History Type Response Smoking Status Former smoker; Other : Quit 1989; entered on: 01/30/16 Sex
--- OUTSIDE RECORDS SUMMARY | 2022-10-16 10:43 | XMS_ITS | Continuity of Care Document ---
Author Name Unknown Organization [facility] Address [address] [place] [address]- Care Team Providers Care Cell Tender Helper Name Role Phone Zhao ASSISTANT PROFESSOR OF ENGLISH, Dena Crews Primary Care Physician Encounter [facility] [id number] Date(s): 03/27/22 - 07/25/22 [facility] [address] [place] [address]- Attending Physician: Feroz Ramos MD Allergies, Adverse Reactions, Alerts No Known Medication Allergies Substance Reaction Severity Status Other Environmental Allergy Active Immunizations Given and Recorded Vaccine Date Status Refusal Reason [id number] 12y+ bivalent booster vax 03/28/22 Recorded influenza [...] toxoids (Td) 06/18/07 Given 1Result Comment: [02/16/2018] [facility] [id number] 2Admin Note: VIS GIVEN Medications aspirin 81 mg oral enteric coated tablet 81, mg, 1, tablet, By Mouth, Daily, 0, 0, 10/21/05 16:51:52, Print CLAUDIA Number, [id number], Constant Indicator Start Date: 10/21/05 Status: Ordered [...] 1 Refills, Maintenance, 12/18/20 8:03:00 EDT, Tablet, [facility]/pharmacy #1230, 183, cm, 07/05/20 13:14:00 EDT, Height Start Date: 12/18/20 Status: Ordered doxazosin 8 mg oral tablet See Instructions, TAKE 1 TABLET BY MOUTH EVERY DAY, # 90 tablet, 1 Refills, Maintenance, 05/05/22 11:22:00 EST, [facility], 183, cm, 01/24/22 15:29:00 EDT, Height, 113, [...] 6 Refills, Maintenance, 11/07/21 10:56:00 EDT, Aerosol, [facility]/pharmacy #1230, Partial fill upon patient request if the prescription is for a schedule II opioid drug., 183, c... Start Date: 11/07/21 Stop Date: 06/05/22 Status: Ordered folic acid 1 mg oral tablet 1, tablet, By Mouth, Daily, # 90 tablet, Refills 1, Route to Pharmacy Electronically, [facility], 183, cm, 07/05/20 13:14:00 EDT, Height Start Date: 11/12/20 Status: Ordered furosemide 20 mg oral tablet 1, tablet, By Mouth, Daily, # 90 tablet, Refills 1, Maintenance, 01/04/22 16:08:00 EDT, Route to Pharmacy Electronically, [facility], 183, cm, 12/26/21 13:25:00 EDT, Height, 113, kg, 12/16/21 16:29:00 EDT, Dry Weight Start Date: 01/04/22 Status: Ordered isosorbide mononitrate 30 mg oral tablet, extended release 1 tablet, By Mouth, Daily in AM, # 90 tablet, 1 Refills, Maintenance, 12/24/21 7:28:00 EDT, [facility]/pharmacy #1230, 183, cm, 12/19/21 11:37:00 EDT, Height, 113, kg, 12/16/21 16:29:00 EDT, Dry Weight Start Date: 12/24/21 Status: Ordered metFORMIN 500 mg oral tablet 1 tablet, By Mouth, 2 times a day, # 180 tablet, 1 Refills, Maintenance, 03/29/22 14:50:00 EST, [facility], 183, cm, 01/24/22 15:29:00 EDT, Height, 113, [...] tablet, 1 Refills, Maintenance, 05/31/22 9:21:00 EST, [facility], 183, cm, 05/22/22 7:02:00 EST, Height, 113, kg, 12/16/21 16:29:00 EDT, Dry Weight Start Date: 05/31/22 Status: Ordered ProAir HFA 90 mcg/inh inhalation aerosol with adapter 2, puffs, Inhalation, 4 times a day, PRN, # 2 each, Refills 3, Tot. Refills 3, Maintenance, 11/07/21 10:57:00 EDT, Aerosol, Route to Pharmacy Electronically, [id number], [facility]/pharmacy #1230, 183, cm, 11/07/21 7:16:00 EDT, Height [...] Associate Professional Member Role: PCP Address: Address: [address] [place] [address]- Care Team Related Persons Name: ZARIA MCKINNEY Address: home [address] [place] [address] Name: ZOHRA MCKINNEY Address: home [address] [place] [address]
--- OUTSIDE RECORDS SUMMARY | 2022-10-16 10:43 | XMS_ITS | Continuity of Care Document ---
Author Name Unknown Organization [facility] ter Address [address] [place] [address]- Care Team Providers Care Advertising Agency Manager Name Role Phone Zhao AVENDANO, Dena Crews Primary Care Physician [phone] Encounter [facility] Date(s): 12/19/21 - 01/18/[address] [address] Attending Physician: Not on Staff, Attending MD Admitting Physician: Not on Staff, Admitting MD Referring Physician: Not on Staff, Referring MD Allergies, Adverse Reactions, Alerts No Known [...] 1Result Comment: [02/16/2018] [facility] [id number] 2Admin Note: VIS GIVEN Medications aspirin 81 mg oral enteric coated tablet 81, mg, 1, tablet, By Mouth, Daily, 0, 0, 10/21/05 16:51:52, Print CLAUDIA Number, [id number], Constant Indicator Start Date: 10/21/05 Status: Ordered [...] tablet, Refills 1, Route to Pharmacy Electronically, [facility], 183, cm, 07/05/20 13:14:00 EDT, Height Start Date: 11/12/20 Status: Ordered furosemide 20 mg oral tablet 1, tablet, By Mouth, Daily, # 90 tablet, Refills 1, Maintenance, 01/04/22 16:08:00 EDT, Route to Pharmacy Electronically, [facility], 183, cm, 12/26/21 13:25:00 EDT, Height, 113, kg, 12/16/21 16:29:00 EDT, Dry Weight Start Date: 01/04/22 Status: Ordered isosorbide mononitrate 30 mg oral tablet, extended release 1 tablet, By Mouth, Daily in AM, # 90 tablet, 1 Refills, Maintenance, 12/24/21 7:28:00 EDT, [facility]/pharmacy #1230, 183, cm, 12/19/21 11:37:00 EDT, Height, 113, kg, 12/16/21 16:29:00 EDT, Dry Weight Start Date: 12/24/21 Status: Ordered metFORMIN 500 mg oral tablet 1 tablet, By Mouth, 2 times a day, # 180 tablet, 1 Refills, 06/27/21 16:01:00 EDT, [facility]/pharmacy #1230, 183, cm, 06/27/21 [...] Dry Weight Start Date: 01/03/22 Status: Ordered pravastatin 40 mg oral tablet 1 tablet, By Mouth, Daily, # 90 tablet, 1 Refills, [facility] 524[facility], 183, cm, 06/27/21 14:31:00 EDT,Height Start Date: 10/13/21 Status: Ordered ProAir HFA 90 mcg/inh inhalation aerosol with adapter 2, puffs, Inhalation, 4 times a day, PRN, # 2 each, Refills 3, Tot. Refills 3, Maintenance, 11/07/21 10:57:00 EDT, Aerosol, Route to Pharmacy Electronically, [id number], [facility]/pharmacy #1230, 183, cm, 11/07/21 [...] Gm, 6 Refills, Maintenance, 06/27/21 16:02:00 EDT, [facility]/pharmacy #1230, 2 [...] Sex Patient Care team information Personnel Name: Zhao AVENDANO, Dena Crews Address: Address: [address] [place], [place] [address] [address]
--- OUTSIDE RECORDS SUMMARY | 2022-10-16 10:43 | XMS_ITS | Continuity of Care Document ---
Author Name Unknown Organization [facility] Address [address] [place] [address]- Care Team Providers Care Supervisor Major Appliance Assembly Name Role Phone Zhao FILER AND SANDER, Dena Crews Primary Care Physician [phone] Encounter [facility] Date(s): 07/05/20 - 08/04/20 [facility] [address] [place] [address]- Attending Physician: Candace Wen Admitting Physician: AdmCandace [...] toxoids (Td) 06/18/07 Given 1Result Comment: [02/16/2018] [facility] [id number] 2Admin Note: VIS GIVEN Medications Alcohol Wipes See Instructions, 1 box, 8, 8, 07/03/07 16:02:50, use as instructed, Anupama VICKERS N Main Start Date: 07/03/07 Status: Ordered aspirin 81 mg oral enteric coated tablet 81, mg, 1, tablet, By Mouth, Daily, 0, 0, 10/21/05 16:51:52, Print CLAUDIA Number, [id number], Constant Indicator Start Date: 10/21/05 Status: Ordered [...] 1 Refills, Maintenance, 06/16/20 15:05:00 EDT, Tablet, [facility]/pharmacy #1230, 183, cm, 04/05/20 12:49:00 EST, Height Start Date: 06/16/20 Status: Ordered enalapril 20 mg oral tablet 1 tablet = 20 mg, By Mouth, 2 times a day, # 180 tablet, 1 Refills, Maintenance, 04/05/20 13:52:00 EST, [facility], 183, cm, 04/05/20 12:49:00 EST, Height [...] 10/11/19 11:11:00 EDT, Route to Pharmacy Electronically, [facility]/pharmacy #1230, 183, cm, 10/07/19 14:43:00 EDT, Height Start Date: 10/11/19 Status: Ordered furosemide 20 mg oral tablet 20 mg, 1, tablet, By Mouth, Daily, # 90 tablet, Refills 1, Tot. Refills 1, Maintenance, 08/22/20 12:12:00 EDT, Route to Pharmacy Electronically, [facility]/pharmacy #1230, 183, cm, 07/05/20 13:14:00 EDT, Height Start Date: 08/22/20 Stop Date: 02/18/21 Status: Ordered furosemide 20 mg oral tablet 20 mg, 1, tablet, By Mouth, Daily, for 90 days, # 90 tablet, Refills 1, Tot. Refills 1, Hard Stop 08/22/20 12:12:00 EDT, 02/24/20 12:12:00 EST, Route to Pharmacy Electronically, [facility]/pharmacy #1230, 183, cm, 12/31/19 [...] 12/31/19 15:08:00 EDT, Route to Pharmacy Electronically, [facility]/pharmacy #1230, 183, cm, 12/31/19 14:42:00 EDT, Height Start Date: 12/31/19 Stop Date: 06/28/20 Status: Ordered Lancets See Instructions, 1 box, 8, 8, 07/03/07 16:03:17, use as instructed, Anupama VICKERS,N Main Start Date: 07/03/07 Status: Ordered loratadine 10 mg oral capsule 1 capsule = 10 mg, By Mouth, Daily, # 90 capsule, 1 Refills, Maintenance, 10/06/19 10:17:00 EDT, Capsule, [facility]/pharmacy #1230, 183, cm, 04/05/19 [...] 6 Refills, Maintenance, 07/24/20 10:49:00 EDT, Tablet, [facility]/pharmacy #1230, 183, cm, 07/05/20 13:14:00 EDT, Height Start Date: 07/24/20 Status: Ordered metoprolol 50 mg oral tablet See Instructions, 0.5 tablet By Mouth 2 times a day, # 30 tablet, Refills 6, Tot. Refills 6, Maintenance, 08/11/17 15:10:38 EDT, Instructions Replace Required Details, Route to Pharmacy Electronically, [id number], [facility] Start Date: 08/11/17 Status: Ordered MiraLax = 17 Gm, By Mouth, Daily, 0 Refills, Maintenance, 07/05/20 13:17:00 EDT, Partial fill upon patient request if the prescription is for a schedule II opioid drug. Start Date: 07/05/20 Status: Ordered pravastatin 40 mg oral tablet 1 tablet = 40 mg, By Mouth, Daily, # 90 tablet, 1 Refills, Maintenance, 04/05/20 13:52:00 EST, Tablet, [facility]/pharmacy #1230, 183, cm, 04/05/20 12:49:00 EST, Height Start Date: 04/05/20 Stop Date: 10/02/20 Status: Ordered ProAir HFA 90 mcg/inh inhalation aerosol with adapter 2, puffs, Inhalation, 4 times a day, PRN, # 2 each, Refills 3, Tot. Refills 3, Maintenance, 08/13/18 20:00:05 EDT, Aerosol, Route to Pharmacy Electronically, [id number], [facility]/pharmacy #1230 Start Date: 08/13/18 [...] 5 Refills, Maintenance, 10/11/19 11:12:00 EDT, Tablet, [facility]/pharmacy #1230, 183, cm, 10/07/19 14:43:00 EDT, Height Start Date: 10/11/19 Status: Ordered Vitamin B12 with Folic Acid sublingual tablet 1 tablet, Sublingual, Daily, # 30 tablet, 5 Refills, Maintenance, 10/10/19 18:46:00 EDT, Tablet, [facility]/pharmacy #1230, 1 tablet Sublingual [...]
--- OUTSIDE RECORDS SUMMARY | 2022-10-16 10:43 | XMS_ITS | Continuity of Care Document ---
Author Name Unknown Organization [facility] Address [address] [place] [address]- Care Team Providers Care Canal Boat Captain Name Role Phone Zhao PROFESSOR OF COMMUNICATION AND WRITING, Dena Crews Primary Care Physician [phone] Encounter [facility] Date(s): 02/10/20 - 03/11/20 [facility] [address] [place] [address]- Allergies, Adverse Reactions, Alerts Substance Reaction Severity [...] toxoids (Td) 06/18/07 Given 1Result Comment: [02/16/2018] [facility] [id number] 2Admin Note: VIS GIVEN Medications Alcohol Wipes See Instructions, 1 box, 8, 8, 07/03/07 16:02:50, use as instructed, [facility] Start Date: 07/03/07 Status: Ordered aspirin 81 mg oral enteric coated tablet 81, mg, 1, tablet, By Mouth, Daily, 0, 0, 10/21/05 16:51:52, Print CLAUDIA Number, [id number], Constant Indicator Start Date: 10/21/05 Status: Ordered [...] Refills, Maintenance, 11/17/19 12:08:00 EDT, Tablet, [facility]/pharmacy #1230, 183, cm, 10/20/19 12:44:00 EDT, Height Start Date: 11/17/19 Status: Ordered enalapril 20 mg oral tablet 1 tablet = 20 mg, By Mouth, 2 times a day, # 180 tablet, 1 Refills, Maintenance, 10/19/19 15:53:00 EDT, [facility]/pharmacy #1230, 183, cm, 10/07/19 14:43:00 EDT, [...] 11:11:00 EDT, Route to Pharmacy Electronically, [facility]/pharmacy #1230, 183, cm, 10/07/19 14:43:00 EDT, [...] 12:12:00 EST, Route to Pharmacy Electronically, [facility]/pharmacy #1230, 183, cm, 12/31/19 14:42:00 EDT, [...] 15:08:00 EDT, Route to Pharmacy Electronically, [facility]/pharmacy #1230, 183, cm, 12/31/19 14:42:00 EDT, Height Start Date: 12/31/19 Stop Date: 06/28/20 Status: Ordered Lancets See Instructions, 1 box, 8, 8, 07/03/07 16:03:17, use as instructed, Anupama VICKERS N Main Start Date: 07/03/07 Status: Ordered loratadine 10 mg oral capsule 1 capsule = 10 mg, By Mouth, Daily, # 90 capsule, 1 Refills, Maintenance, 10/06/19 10:17:00 EDT, Capsule, [facility]/pharmacy #1230, 183, cm, 04/05/19 13:05:00 EST, [...] Replace Required Details, Route to Pharmacy Electronically, [id number], [facility]/pharmac... Start Date: 08/11/17 Status: Ordered pravastatin 40 mg oral tablet 1 tablet = 40 mg, By Mouth, Daily, # 90 tablet, 1 Refills, Maintenance, 02/03/20 15:28:00 EST, Tablet, [facility]/pharmacy #1230, 183, cm, 12/31/19 14:42:00 EDT, Height Start Date: 02/03/20 Stop Date: 08/01/20 Status: Ordered ProAir HFA 90 mcg/inh inhalation aerosol with adapter 2, puffs, Inhalation, 4 times a day, PRN, # 2 each, Refills 3, Tot. Refills 3, Maintenance, 08/13/18 20:00:05 EDT, Aerosol, Route to Pharmacy Electronically, [id number], [facility]/pharmacy #1230 Start Date: 08/13/18 Stop Date: [...]
--- OUTSIDE RECORDS SUMMARY | 2022-10-16 10:43 | XMS_ITS | Continuity of Care Document ---
Author Name Unknown Organization [facility] Address [address] [place] [address]- Care Team Providers Care Marketing Operations Consultant Name Role Phone Zhao TIP SCOURER, Dena Crews Primary Care Physician Encounter [facility] Date(s): 02/24/20 - 03/25/20 [facility] [facility] [address] [place] [id number]- Allergies, Adverse Reactions, Alerts Substance Reaction Severity [...] (Td) 06/18/07 Given 1Result Comment: [02/16/2018] [facility] [id number] 2Admin Note: VIS GIVEN Medications Alcohol Wipes See Instructions, 1 box, 8, 8, 07/03/07 16:02:50, use as instructed, [facility] Start Date: 07/03/07 Status: Ordered aspirin 81 mg oral enteric coated tablet 81, mg, 1, tablet, By Mouth, Daily, 0, 0, 10/21/05 16:51:52, Print CLAUDIA Number, [id number], Constant Indicator Start Date: 10/21/05 Status: Ordered [...] Replace Required Details, Route to Pharmacy Electronically, [id number], [facility]/pharmac... Start Date: [...] 20:00:05 EDT, Aerosol, Route to Pharmacy Electronically, [id number], [facility]/pharmacy #1230 Start [...]
--- OUTSIDE RECORDS SUMMARY | 2022-10-16 10:43 | XMS_ITS | Continuity of Care Document ---
Author Name Unknown Organization [facility] Address [address] [place] [address]- Care Team Providers Care Monotype Machinist Name Role Phone Zhao ELECTRICAL APPLIANCE MECHANIC, Dena Crews Primary Care Physician Encounter 12/20/21 - 02/12/22 [facility] [address] [place] [address]- Discharge Disposition: GOALS MET Allergies, Adverse Reactions, Alerts No Known Medication [...] (Td) 06/18/07 Given 1Result Comment: [02/16/2018] [facility][note 2] [id number] 2Admin Note: VIS GIVEN Medications aspirin 81 mg oral enteric coated tablet 81, mg, 1, tablet, By Mouth, Daily, 0, 0, 10/21/05 16:51:52, Print CLAUDIA Number, [id number], Constant Indicator Start Date: 10/21/05 Status: Ordered [...] 1 Refills, Maintenance, 12/18/20 8:03:00 EDT, Tablet, [facility]/pharmacy #1230, 183, cm, 07/05/20 13:14:00 EDT, Height Start Date: 12/18/20 Status: Ordered enalapril 20 mg oral tablet 1 tablet, By Mouth, Daily, # 180 tablet, 0 Refills, 12/19/21 9:26:00 EDT, [facility]/pharmacy #1230, 183, cm, 12/19/21 7:46:00 EDT, Height, [...] tablet, Refills 1, Route to Pharmacy Electronically, [id number], 183, cm, 07/05/20 13:14:00 EDT, Height Start Date: 11/12/20 Status: Ordered furosemide 20 mg oral tablet 1, tablet, By Mouth, Daily, # 90 tablet, Refills 1, Maintenance, 01/04/22 16:08:00 EDT, Route to Pharmacy Electronically, [facility], 183, cm, 12/26/21 13:25:00 EDT, Height, 113, [...] 180 tablet, 1 Refills, 06/27/21 16:01:00 EDT, [facility]/pharmacy #1230, 183, cm, 06/27/21 14:31:00 EDT, [...] Mouth, Daily, # 90 tablet, 1 Refills, [facility], 183, cm, 06/27/21 14:31:00 EDT,Height Start Date: 10/13/21 Status: Ordered ProAir HFA 90 mcg/inh inhalation aerosol with adapter 2, puffs, Inhalation, 4 times a day, PRN, # 2 each, Refills 3, Tot. Refills 3, Maintenance, 11/07/21 10:57:00 EDT, Aerosol, Route to Pharmacy Electronically, [id number], [facility]/pharmacy #1230, 183, cm, 11/07/21 7:16:00 EDT, [...] Team Personnel Name: Dena Churchill NP Position: [facility] PCO Associate Professional Member Role: PCP Address: Address: [address] [place] [id number]- Care Team Related Persons Name: ZARIA MCKINNEY Address: home [address] [place] [address] Name: ZOHRA MCKINNEY Address: home [address] [place] [address]
--- OUTSIDE RECORDS SUMMARY | 2022-10-16 10:43 | XMS_ITS | Continuity of Care Document ---
Author Name Unknown Organization [facility] Address [address] [place] [address]- Care Team Providers Care Housekeeping Laundry Worker Name Role Phone Zhao AVENDANO, Dena Crews Primary Care Physician Encounter [facility] Date(s): 04/05/20 - [facility]05/[facility] [address] [place] [id number] Attending Physician: Candace Wen Admitting Physician: Candace [...] (Td) 06/18/07 Given 1Result Comment: [02/16/2018] [facility] [id number] 2Admin Note: VIS GIVEN Medications Alcohol Wipes See Instructions, 1 box, 8, 8, 07/03/07 16:02:50, use as instructed, Anupama VICKERS N Main Start Date: 07/03/07 Status: Ordered aspirin 81 mg oral enteric coated tablet 81, mg, 1, tablet, By Mouth, Daily, 0, 0, 10/21/05 16:51:52, Print CLAUDIA Number, [id number], Constant Indicator Start Date: 10/21/05 Status: Ordered [...] 1 Refills, Maintenance, 11/17/19 12:08:00 EDT, Tablet, [facility]/pharmacy #1230, 183, cm, 10/20/19 12:44:00 EDT, Height Start Date: 11/17/19 Status: Ordered enalapril 20 mg oral tablet 1 tablet = 20 mg, By Mouth, 2 times a day, # 180 tablet, 1 Refills, Maintenance, 04/05/20 13:52:00 EST, [facility]/pharmacy #1230, 183, cm, 04/05/20 12:49:00 [...] 10/11/19 11:11:00 EDT, Route to Pharmacy Electronically, [facility]/pharmacy #1230, 183, cm, 10/07/19 [...] 02/24/20 12:12:00 EST, Route to Pharmacy Electronically, [facility]/pharmacy #1230, 183, cm, 12/31/19 14:42:00 [...] 12/31/19 15:08:00 EDT, Route to Pharmacy Electronically, [facility]/pharmacy #1230, 183, cm, 12/31/19 14:42:00 EDT, Height Start Date: 12/31/19 Stop Date: 06/28/20 Status: Ordered Lancets See Instructions, 1 box, 8, 8, 07/03/07 16:03:17, use as instructed, Anupama VICKERS N Main Start Date: 07/03/07 Status: Ordered loratadine 10 mg oral capsule 1 capsule = 10 mg, By Mouth, Daily, # 90 capsule, 1 Refills, Maintenance, 10/06/19 10:17:00 EDT, Capsule, [facility]/pharmacy #1230, 183, cm, 04/05/19 [...] 2 Refills, Maintenance, 05/01/20 10:32:00 EST, Tablet, [facility]/pharmacy #1230, 183, cm, 04/05/20 12:49:00 EST, Height Start Date: 05/01/20 Status: Ordered metoprolol 50 mg oral tablet See Instructions, 0.5 tablet By Mouth 2 times a day, # 30 tablet, Refills 6, Tot. Refills 6, Maintenance, 08/11/17 15:10:38 EDT, Instructions Replace Required Details, Route to Pharmacy Electronically, [id number], [facility]/pharmac... Start Date: 08/11/17 Status: Ordered pravastatin 40 mg oral tablet 1 tablet = 40 mg, By Mouth, Daily, # 90 tablet, 1 Refills, Maintenance, 04/05/20 13:52:00 EST, Tablet, [facility]/pharmacy #1230, 183, cm, 04/05/20 12:49:00 EST, Height Start Date: 04/05/20 Stop Date: 10/02/20 Status: Ordered ProAir HFA 90 mcg/inh inhalation aerosol with adapter 2, puffs, Inhalation, 4 times a day, PRN, # 2 each, Refills 3, Tot. Refills 3, Maintenance, 08/13/18 20:00:05 EDT, Aerosol, Route to Pharmacy Electronically, [id number], [facility]/pharmacy #1230 Start Date: 08/13/18 [...] 5 Refills, Maintenance, 10/11/19 11:12:00 EDT, Tablet, [facility]/pharmacy #1230, 183, cm, 10/07/19 14:43:00 EDT, Height Start Date: 10/11/19 Status: Ordered Vitamin B12 with Folic Acid sublingual tablet 1 tablet, Sublingual, Daily, # 30 tablet, 5 Refills, Maintenance, 10/10/19 18:46:00 EDT, Tablet, [facility]/pharmacy #1230, 1 tablet Sublingual [...]
--- OUTSIDE RECORDS SUMMARY | 2022-10-16 10:44 | XMS_ITS | Continuity of Care Document ---
Author Name Unknown Organization [facility] Address [address] [place] [address]- Care Team Providers Care Heater Operator Name Role Phone Zhao AVENDANO, Dena Crews Primary Care Physician [phone] Encounter [facility] Date(s): 10/04/19 - 11/03/19 [facility] [address] [place] [address]- Allergies, Adverse Reactions, Alerts Substance Reaction Severity [...] Comment: [02/16/2018] [facility] [id number] 2Admin Note: VIS GIVEN Medications Alcohol Wipes See Instructions, 1 box, 8, 8, 07/03/07 16:02:50, use as instructed, Anupama VICKERS N Main Start Date: 07/03/07 Status: Ordered aspirin 81 mg oral enteric coated tablet 81, mg, 1, tablet, By Mouth, Daily, 0, 0, 10/21/05 16:51:52, Print CLAUDIA Number, [id number], Constant Indicator Start Date: 10/21/05 Status: Ordered [...] 0 Refills, Maintenance, 08/05/19 13:38:00 EDT, Tablet, [facility]/pharmacy #1230, 183, cm, 04/05/19 13:05:00 EST, Height Start Date: 08/05/19 Status: Ordered enalapril 20 mg oral tablet 1 tablet = 20 mg, By Mouth, 2 times a day, # 180 tablet, 1 Refills, Maintenance, 10/19/19 15:53:00 EDT, [facility]/pharmacy #1230, 183, cm, 10/07/19 [...] 11:11:00 EDT, Route to Pharmacy Electronically, [facility]/pharmacy #1230, 183, cm, 10/07/19 [...] Refills, Maintenance, 10/06/19 10:17:00 EDT, Capsule, [facility]/pharmacy #1230, 183, cm, 04/05/19 13:05:00 EST, Height Start Date: 10/06/19 Stop Date: 05/03/20 Status: Ordered metFORMIN 1000 mg oral tablet 1 tablet = 1,000 mg, By Mouth, 2 times a day, # 180 tablet, 1 Refills, Maintenance, 04/27/19 14:24:00 EST, [facility]/pharmacy #1230, 183, cm, 04/05/19 13:05:00 EST, Height Start Date: 04/27/19 Stop Date: 10/24/19 Status: Ordered metoprolol 50 mg oral tablet See Instructions, 0.5 tablet By Mouth 2 times a day, # 30 tablet, Refills 6, Tot. Refills 6, Maintenance, 08/11/17 15:10:38 EDT, Instructions Replace Required Details, Route to Pharmacy Electronically, [id number], [facility]/pharmac... Start Date: 08/11/17 Status: Ordered pravastatin 40 mg oral tablet 1 tablet = 40 mg, By Mouth, Daily, # 90 tablet, 1 Refills, Maintenance, 08/06/19 12:43:00 EDT, Tablet, [facility]/pharmacy #1230, 183, cm, 04/05/19 13:05:00 EST, Height Start Date: 08/06/19 Stop Date: 02/02/20 Status: Ordered ProAir HFA 90 mcg/inh inhalation aerosol with adapter 2, puffs, Inhalation, 4 times a day, PRN, # 2 each, Refills 3, Tot. Refills 3, Maintenance, 08/13/18 20:00:05 EDT, Aerosol, Route to Pharmacy Electronically, [id number], [facility]/pharmacy #1230 Start Date: 08/13/18 Stop Date: 12/11/18 Status: Ordered Test Strips See Instructions, 11, 0, 11, 08/03/07 15:08:40, Test Bid-Tid as advised., [facility],[place] Start Date: 08/03/07 Status: Ordered Vitamin [...]
--- OUTSIDE RECORDS SUMMARY | 2022-10-16 10:44 | XMS_ITS | Continuity of Care Document ---
Author Name Unknown Organization [facility] Address [address] [place] [address]- Care Team Providers Care Electrical Power Engineer Name Role Phone Zhao BULLET MAKER, Dena Crews Primary Care Physician [id number] Date(s): 05/02/20 - 06/01/20 [facility] [address] [place], [place] [address] Attending Physician: Candace Wen Admitting Physician: AdmCandace [...] toxoids (Td) 06/18/07 Given 1Result Comment: [02/16/2018] [facility] [id number] 2Admin Note: VIS GIVEN Medications Alcohol Wipes See Instructions, 1 box, 8, 8, 07/03/07 16:02:50, use as instructed, Anup[facility] VICKERS N Main Start Date: 07/03/07 Status: Ordered aspirin 81 mg oral enteric coated tablet 81, mg, 1, tablet, By Mouth, Daily, 0, 0, 10/21/05 16:51:52, Print CLAUDIA Number, [id number], Constant Indicator Start Date: 7/31/06 Status: Ordered C-Pap Supplies C-Pap Supplies, See [...] 1 Refills, Maintenance, 11/17/19 12:08:00 EDT, Tablet, [facility]/pharmacy #1230, 183, cm, 10/20/19 12:44:00 EDT, Height Start Date: 11/17/19 Status: Ordered enalapril 20 mg oral tablet 1 tablet = 20 mg, By Mouth, 2 times a day, # 180 tablet, 1 Refills, Maintenance, 04/05/20 13:52:00 EST, [facility]/pharmacy #1230, 183, cm, 04/05/20 12:49:00 EST, Height [...] 10/11/19 11:11:00 EDT, Route to Pharmacy Electronically, [facility]/pharmacy #1230, 183, cm, 10/07/19 14:43:00 EDT, Height Start Date: 10/11/19 Status: Ordered furosemide 20 mg oral tablet 20 mg, 1, tablet, By Mouth, Daily, Refills 0, Maintenance, 12/31/19 14:50:00 EDT Start Date: 12/31/19 Status: Ordered furosemide 20 mg oral tablet 20 mg, 1, tablet, By Mouth, Daily, # 90 tablet, Refills 1, Tot. Refills 1, Maintenance, 02/24/20 12:12:00 EST, Route to Pharmacy Electronically, [facility]/pharmacy #1230, 183, cm, 12/31/19 14:42:00 EDT, Height [...] 12/31/19 15:08:00 EDT, Route to Pharmacy Electronically, [facility]/pharmacy #1230, 183, cm, 12/31/19 14:42:00 EDT, Height Start Date: 12/31/19 Stop Date: 06/28/20 Status: Ordered Lancets See Instructions, 1 box, 8, 8, 07/03/07 16:03:17, use as instructed, Anupama VICKERS N Main Start Date: 07/03/07 Status: Ordered loratadine 10 mg oral capsule 1 capsule = 10 mg, By Mouth, Daily, # 90 capsule, 1 Refills, Maintenance, 10/06/19 10:17:00 EDT, Capsule, [facility]/pharmacy #1230, 183, cm, 04/05/19 13:05:00 EST, Height [...] 2 Refills, Maintenance, 05/01/20 10:32:00 EST, Tablet, [facility]/pharmacy #1230, 183, cm, 04/05/20 12:49:00 EST, Height Start Date: 05/01/20 Status: Ordered metoprolol 50 mg oral tablet See Instructions, 0.5 tablet By Mouth 2 times a day, # 30 tablet, Refills 6, Tot. Refills 6, Maintenance, 08/11/17 15:10:38 EDT, Instructions Replace Required Details, Route to Pharmacy Electronically, [id number], [facility]/pharmac... Start Date: 08/11/17 Status: Ordered pravastatin 40 mg oral tablet 1 tablet = 40 mg, By Mouth, Daily, # 90 tablet, 1 Refills, Maintenance, 04/05/20 13:52:00 EST, Tablet, [facility]/pharmacy #1230, 183, cm, 04/05/20 12:49:00 EST, Height Start Date: 04/05/20 Stop Date: 10/02/20 Status: Ordered ProAir HFA 90 mcg/inh inhalation aerosol with adapter 2, puffs, Inhalation, 4 times a day, PRN, # 2 each, Refills 3, Tot. Refills 3, Maintenance, 08/13/18 20:00:05 EDT, Aerosol, Route to Pharmacy Electronically, [id number], [facility]/pharmacy #1230 Start Date: 08/13/18 Stop Date: 12/11/18 [...] 5 Refills, Maintenance, 10/11/19 11:12:00 EDT, Tablet, [facility]/pharmacy #1230, 183, cm, 10/07/19 14:43:00 EDT, Height Start Date: 10/11/19 Status: Ordered Vitamin B12 with Folic Acid sublingual tablet 1 tablet, Sublingual, Daily, # 30 tablet, 5 Refills, Maintenance, 10/10/19 18:46:00 EDT, Tablet, [facility]/pharmacy #1230, 1 tablet Sublingual Daily, 183, cm, [...]
--- OUTSIDE RECORDS SUMMARY | 2022-10-16 10:44 | XMS_ITS | Continuity of Care Document ---
Author Name Unknown Organization [facility] Address [address] [place] [address]- Care Team Providers Care Nuclear Fuels Reclamation Engineer Name Role Phone Zhao DIABETOLOGIST, Dena Crews Primary Care Physician Encounter [facility] Date(s): 10/20/19 [facility] [address] [place] [address]- Attending Physician: Admtr, [id number] Admitting Physician: AdmtrCandace Referring Physician: Admtr, Ar8 Allergies, Adverse Reactions, Alerts Substance Reaction Severity [...] toxoids (Td) 06/18/07 Given 1Result Comment: [02/16/2018] [facility] [id number] 2Admin Note: VIS GIVEN Medications Alcohol Wipes See Instructions, 1 box, 8, 8, 07/03/07 16:02:50, use as instructed, Anupaam VICKERS N Main Start Date: 07/03/07 Status: Ordered aspirin 81 mg oral enteric coated tablet 81, mg, 1, tablet, By Mouth, Daily, 0, 0, 10/21/05 16:51:52, Print CLAUDIA Number, [id number], Constant Indicator Start Date: 10/21/05 Status: Ordered [...] 1 Refills, Maintenance, 11/17/19 12:08:00 EDT, Tablet, [facility]/pharmacy #1230, 183, cm, 10/20/19 12:44:00 EDT, [...] 10/11/19 11:11:00 EDT, Route to Pharmacy Electronically, [facility]/pharmacy #1230, 183, cm, 10/07/19 14:43:00 EDT, Height Start Date: 10/11/19 Status: Ordered Glucose Monitor See Instructions, 0, 0, 07/03/07 16:02:29, use as instructed., [facility],[place],N Main Start Date: 07/03/07 Status: Ordered Lancets See Instructions, 1 box, 8, 8, 07/03/07 16:03:17, use as instructed, [facility],[place],N Main Start Date: 07/03/07 Status: Ordered loratadine 10 mg oral capsule 1 capsule = 10 mg, By Mouth, Daily, # 90 capsule, 1 Refills, Maintenance, 10/06/19 10:17:00 EDT, Capsule, [facility]/pharmacy #1230, 183, cm, 04/05/19 13:05:00 EST, Height Start Date: 10/06/19 Stop Date: 05/03/20 Status: Ordered metFORMIN 1000 mg oral tablet 1 tablet = 1,000 mg, By Mouth, 2 times a day, # 180 tablet, 1 Refills, Maintenance, 11/12/19 14:25:00 EDT, [facility], 183, cm, 10/20/19 12:44:00 EDT, Height Start Date: 11/12/19 Stop Date: 05/10/20 Status: Ordered metoprolol 50 mg oral tablet See Instructions, 0.5 tablet By Mouth 2 times a day, # 30 tablet, Refills 6, Tot. Refills 6, Maintenance, 08/11/17 15:10:38 EDT, Instructions Replace Required Details, Route to Pharmacy Electronically, [id number], [facility]/pharmac... Start Date: 08/11/17 Status: Ordered pravastatin 40 mg oral tablet 1 tablet = 40 mg, By Mouth, Daily, # 90 tablet, 1 Refills, Maintenance, 08/06/19 12:43:00 EDT, Tablet, [facility]/pharmacy #1230, 183, cm, 04/05/19 13:05:00 EST, Height Start Date: 08/06/19 Stop Date: 02/02/20 Status: Ordered ProAir HFA 90 mcg/inh inhalation aerosol with adapter 2, puffs, Inhalation, 4 times a day, PRN, # 2 each, Refills 3, Tot. Refills 3, Maintenance, 08/13/18 20:00:05 EDT, Aerosol, Route to Pharmacy Electronically, [id number], [facility]/pharmacy #1230 Start Date: 08/13/18 Stop Date: 12/11/18 Status: Ordered Test Strips See Instructions, 11, 0, 11, 08/03/07 15:08:40, Test Bid-Tid as advised., [facility],[place]ama,N Main Start Date: 08/03/07 Status: Ordered Vitamin B12 2500 mcg sublingual tablet 1 tablet = 2,500 mcg, Sublingual, Daily, # 30 tablet, 5 Refills, Maintenance, 10/11/19 11:12:00 EDT, Tablet, [facility]/pharmacy #1230, 183, cm, 10/07/19 14:43:00 EDT, Height Start Date: 10/11/19 Status: Ordered Vitamin B12 with Folic Acid sublingual tablet 1 tablet, Sublingual, Daily, # 30 tablet, 5 Refills, Maintenance, 10/10/19 18:46:00 EDT, Tablet, [facility]/pharmacy #1230, 1 tablet Sublingual Daily, 183, [...]
--- OUTSIDE RECORDS SUMMARY | 2022-10-16 10:44 | XMS_ITS | Continuity of Care Document ---
Author Name Unknown Organization [facility] Address [address] [place] [address]- Care Team Providers Care Experimental Preflight Mechanic Name Role Phone Zhao AVENDANO, Dena Crews Primary Care Physician Encounter [facility] Date(s): 06/28/21 - [facility]28/[facility] [address] [place] [address]- [place] Allergies, Adverse Reactions, Alerts Substance Reaction Severity Status Other Environmental Allergy Active Immunizations Given and Recorded Vaccine Date Status Refusal Reason influenza virus vaccine, inactivated 1 02/16/18 Gi rajidner influenza virus vaccine, inactivated 01/07/17 Give n influenza virus vaccine, inactivated 01/30/16 Give n pneumococcal 13-valent vaccine 05/01/15 Given pneumococcal 23-valent vaccine 2 12/17/13 Given Pneumococcal Poly (PPV23) (oldterm) 06/18/07 Given tetanus-diphtheria toxoids (Td) 06/18/07 Given 1Result Comment: [02/16/2018] [facility] [id number] 2Admin Note: VIS GIVEN Medications Alcohol Wipes See Instructions, 1 box, 8, 8, 07/03/07 16:02:50, use as instructed, Anupama VICKERS N Main Start Date: 07/03/07 Status: Ordered aspirin 81 mg oral enteric coated tablet 81, mg, 1, tablet, By Mouth, Daily, 0, 0, 10/21/05 16:51:52, Print CLAUDIA Number, [id number], Constant Indicator Start Date: 10/21/05 Status: Ordered [...] Mouth, Daily, # 90 tablet, 0 Refills, [facility], [facility], cm, 07/05/20 13:14:00 EDT,Height Start Date: 06/18/21 Status: Ordered doxazosin 8 mg oral tablet 1 tablet = 8 mg, By Mouth, Daily, # 90 tablet, 1 Refills, Maintenance, 12/18/20 8:03:00 EDT, Tablet, [facility]/pharmacy #1230, 183, cm, 07/05/20 13:14:00 EDT, [...] tablet, Refills 1, Route to Pharmacy Electronically, [facility], 183, cm, 07/05/20 13:14:00 EDT, Height Start Date: 11/12/20 Status: Ordered furosemide 20 mg oral tablet 1, tablet, By Mouth, Daily, # 90 tablet, Refills 1, Route to Pharmacy Electronically, [facility] 99249, 183, cm, 06/27/21 14:31:00 EDT, Height Start Date: 07/12/21 Status: Ordered gabapentin 100 mg oral capsule 100 mg, 1, capsule, By Mouth, 3 times a day, # 90 capsule, Refills 1, Tot. Refills 1, Maintenance, 06/27/21 16:05:00 EDT, Route to Pharmacy Electronically, [facility]/pharmacy #1230, Partial fill upon patient request [...] Stop 12/24/21 16:02:00 EDT, 06/27/21 16:02:00 EDT, [facility]/pharmacy #1230, 183, cm, 06/27/21 14:31:00 EDT, [...] 180 tablet, 1 Refills, 06/27/21 16:01:00 EDT, [facility]/pharmacy #1230, 183, cm, 06/27/21 14:31:00 EDT, Height Start Date: 06/27/21 Status: Ordered metoprolol 50 mg oral tablet See Instructions, 0.5 tablet By Mouth 2 times a day, # 30 tablet, Refills 6, Tot. Refills 6, Maintenance, 08/11/17 15:10:38 EDT, Instructions Replace Required Details, Route to Pharmacy Electronically, [id number], [facility]/pharmac... Start Date: 08/11/17 Status: Ordered MiraLax = 17 Gm, By Mouth, Daily, 0 Refills, Maintenance, 07/05/20 13:17:00 EDT, Partial fill upon patient request if the prescription is for a schedule II opioid drug. Start Date: 07/05/20 Status: Ordered pravastatin 40 mg oral tablet 1 tablet, By Mouth, Daily, # 90 tablet, 1 Refills, Maintenance, 04/12/21 12:27:00 EST, [facility]/pharmacy#1230, 183, cm, 07/05/20 13:14:00 EDT, Height Start Date: 04/12/21 Status: Ordered ProAir HFA 90 mcg/inh inhalation aerosol with adapter 2, puffs, Inhalation, 4 times a day, PRN, # 2 each, Refills 3, Tot. Refills 3, Maintenance, 08/13/18 20:00:05 EDT, Aerosol, Route to Pharmacy Electronically, [id number], [facility]/pharmacy #1230 Start Date: 08/13/18 [...] 5 Refills, Maintenance, 10/10/19 18:46:00 EDT, Tablet, [facility]/pharmacy #1230, 1 tablet Sublingual Daily, 183, [...]
--- OUTSIDE RECORDS SUMMARY | 2022-10-16 10:44 | XMS_ITS | Continuity of Care Document ---
Author Name Unknown Organization [facility] Address [address] [place] [address]- Care Team Providers Care Auto Body Mechanic Name Role Phone Zhao MANAGER ELIGIBILITY, Dena M Primary Care Physician [phone] [id number] Date(s): 12/16/21 - 12/19/[address] [address] Discharge Disposition: A-Transfer VNA/Home Health Attending Physician: Nati NOBLES, Darien Hardy Admitting Physician: Ashley Lange MD Referring Physician: Dillon Palma MD Allergies, Adverse Reactions, Alerts No Known [...] toxoids (Td) 06/18/07 Given 1Result Comment: [02/16/2018] [facility] [id number] 2Admin Note: VIS GIVEN Medications Alcohol Wipes See Instructions, 1 box, 8, 8, 04/11/08 16:02:50, use as instructed, [facility],[place],N Main Start Date: 07/03/07 Status: Ordered aspirin 81 mg oral enteric coated tablet 81, mg, 1, tablet, By Mouth, Daily, 0, 0, 10/21/05 16:51:52, Print CLAUDIA Number, [id number], Constant Indicator Start Date: 10/21/05 Status: Ordered C-Pap Supplies C-Pap Supplies, See Instructions, # 1 each, Refills 11, Tot. Refills 11, Maintenance, C-Pap hose, filters and nose pillows. length of need 99 months DX: ANDRES, 08/12/17 9:05:08 EDT, Compound Start Date: 08/12/17 Status: Ordered dexamethasone 6 mg oral tablet 1 tablet = 6 mg, By Mouth, Daily, for 7 days, # 7 tablet, 0 Refills, Acute 12/26/21 9:27:00 EDT, 12/19/21 9:27:00 EDT, Tablet, [facility]/pharmacy #1230, Partial fill upon patient request if the prescription is for a schedule II opioid drug., 183, cm, 12/19/... Start Date: 12/19/21 Stop Date: 12/26/21 Status: Ordered doxazosin 8 mg oral tablet 1 tablet = 8 mg, By Mouth, Daily, # 90 tablet, 1 Refills, Maintenance, 12/18/20 8:03:00 EDT, Tablet, [facility]/pharmacy #1230, 183, cm, 07/05/20 13:14:00 EDT, Height Start Date: 12/18/20 Status: Ordered enalapril 20 mg oral tablet 1 tablet, By Mouth, Daily, # 180 tablet, 0 Refills, 12/19/21 9:26:00 EDT, [facility]/pharmacy #1230, 183, cm, 12/19/21 7:46:00 EDT, Height, [...] tablet, Refills 1, Route to Pharmacy Electronically, [facility] STORE [facility]92, 183, cm, 07/05/20 13:14:00 EDT, Height Start Date: 11/12/20 Status: Ordered furosemide 20 mg oral tablet 40 mg, 2, tablet, By Mouth, Daily, for 30 days, # 60 tablet, Refills 1, Tot. Refills 1, Physician Stop 02/17/22 9:26:00 EST, 12/19/21 9:26:00 EDT, Route to Pharmacy Electronically, [facility]/pharmacy #1230, 183, cm, 12/19/21 7:46:00 EDT, Height, 113, kg, 09... Start Date: 12/19/21 Stop Date: 02/17/22 Status: Ordered Glucose Monitor See Instructions, 0, 0, 07/03/07 16:02:29, use as instructed., Anupama VICKERS N Main Start Date: 07/03/07 Status: Ordered isosorbide mononitrate 30 mg oral tablet, extended release 1 tablet, By Mouth, Daily in AM, for 90 days, # 90 tablet, 1 Refills, Physician Stop 12/24/21 16:02:00 EDT, 06/27/21 16:02:00 EDT, [facility]/pharmacy #1230, 183, cm, 06/27/21 14:31:00 EDT, Height [...] Mouth, Daily, # 90 tablet, 1 Refills, [facility] STORE 22895, 183, cm, 06/27/21 14:31:00 EDT,Height Start Date: 10/13/21 Status: Ordered ProAir HFA 90 mcg/inh inhalation aerosol with adapter 2, puffs, Inhalation, 4 times a day, PRN, # 2 each, Refills 3, Tot. Refills 3, Maintenance, 11/07/21 10:57:00 EDT, Aerosol, Route to Pharmacy Electronically, [id number], [facility]/pharmacy #1230, 183, cm, 11/07/21 7:16:00 EDT, Height Start Date: 11/07/21 Stop Date: 03/07/22 Status: Ordered Test Strips See Instructions, 11, 0, 11, 08/03/07 15:08:40, Test Bid-Tid as advised., [facility],[place],N Main Start Date: 08/03/07 Status: Ordered Vitamin D3 5000 intl units oral capsule 1 capsule = 5,000 International_Units, By Mouth, Daily, with food, # 100 capsule, 0 Refills, Maintenance, 07/18/14 10:26:47, Capsule Start Date: 07/18/14 Status: Ordered Voltaren 1% topical gel = 2 Gm, Topically, 3 times a day, To affected area., # 180 Gm, 6 Refills, Maintenance, 06/27/21 16:02:00 EDT, [facility]/pharmacy #1230, 2 Gm Topically 3 times a [...] Sinus tachycardia Confirmed Active Vertigo Confirmed Active Results Orders for Microbiology Reports Name Date Blood Culture 12/16/21 Blood Culture #2 12/16/21 Microbiology Reports TEST:Blood Culture STATUS:Unauthenticated BODY SITE: SOURCE:Blood COLLECTED DATE/TIME:12/16/21 11:54 AM Blood Culture SPECIMEN DESCRIPTION : BLOOD L AC SPECIAL REQUESTS : NONE CULTURE : NO GROWTH 3 DAYS REPORT STATUS : PRELIMINARY REPORT TEST:Blood Culture, Second Order STATUS:Unauthenticated BODY SITE: SOURCE:Blood COLLECTED DATE/TIME:12/16/21 11:54 AM Blood Culture, Second Order SPECIMEN DESCRIPTION : BLOOD R AC SPECIAL REQUESTS : NONE CULTURE : NO GROWTH 3 DAYS REPORT STATUS : PRELIMINARY REPORT Radiology Reports * Exam Date Time Procedure Performing Provider Status 12/16/21 12:15 PM Chest Portable Hernan Velasquez; Aut h (Verified) Notes: (Chest Portable) Reason For Exam: Shortness of Breath RESULT: Chest Portable Chest Portable , portable AP upright view 11:52 AM Reason: Shortness of Breath; Clinical Question(s): CHF COMPARISON: 12/16/2018. FINDINGS: LINES AND TUBES: None. LUNGS AND PLEURA: Low lung volumes with central bronchovascular crowding and bibasilar atelectasis with the low lung volumes, it is difficult to exclude mild bilateral perihilar edema versus bronchovascular crowding. No pleural effusion. No pneumothorax. HEART, MEDIASTINUM AND CHANDLER: Heart is normal in size. Normal mediastinal and hilar contour. BONES AND SOFT TISSUES: No acute abnormality. IMPRESSION: Limited by low lung volumes. Central bronchovascular crowding with basilar atelectasis versus mild pulmonary edema. WSN: [id number] Ordering Physician: Halina Ball Dictated By: Rosalee Siegel MD Dictated Date/Time: 12/16/21 2:34 pm Reviewed By: Rosalee Siegel MD Signed By: Rosalee Siegel MD Signed Date/Time: 12/16/21 2:34 pm Transcribed By: LISA Transcribed Date/Time: 12/16/21 2:32 pm Vital Signs Most recent to oldest [Reference Range]: 1 2 3 Height 183 cm (9/28/22 11:37 AM) 183 cm (12/19/21 7:46 AM) 183 cm (12/19/21 4:40 AM) Weight 130.9 kg (12/19/21 4:40 AM) 131.1 kg (12/18/21 7:29 AM) 113 kg (12/16/21 4:29 PM) Oxygen Saturation [94-100 %] 93 % *L* (12/19/21 11:37 AM) 96 % (12/19/21 7:46 AM) 92 % *L* (12/19/21 4:40 AM) Pulse Rate [55-90 bpm] 81 bpm (12/19/21 11:37 AM) 75 bpm (12/19/21 7:46 AM) 83 bpm (12/19/21 4:40 AM) Body Mass Index [18.5-24.99 kg/m2] 39.09 kg/m2 *>HHI* (12/19/21 4:40 AM) 33.74 kg/m2 *>HHI* (12/16/21 4:29 PM) 33.74 kg/m2 *>HHI* (12/16/21 1:32 PM) Blood Pressure [90-138/55-84 mm Hg] 148/84mm Hg *H* (12/19/21 11:37 AM) 155/71mm Hg *H* (12/19/21 7:46 AM) 147/82mm Hg *H* (12/19/21 4:40 AM) Respiratory Rate [16-30 br/min] 20 br/min (12/19/21 11:37 AM) 18 br/min (12/19/21 7:46 AM) 18 br/min (12/19/21 4:40 AM) Temperature [96.8-100.4 DegF] 98.2 DegF (12/19/21 11:37 AM) 98 DegF (12/19/21 7:46 AM) 97.9 DegF (12/19/21 4:40 AM) Liters per Minute 3 L/min (12/19/21 7:46 AM) 1 L/min (12/18/21 8:26 PM) 2 L/min (12/18/21 4:20 PM) Mode of Delivery (Oxygen) CPAP (12/19/21 11:37 AM) CPAP (12/19/21 7:46 AM) BiPAP (12/19/21 4:40 AM) Blood pressure sites Arm, right (12/19/21 11:37 AM) Arm, right (12/19/21 7:46 AM) Arm, right (12/19/21 4:40 AM) Temperature Route Oral (12/19/21 11:37 AM) Oral (12/19/21 7:46 AM) Oral (12/19/21 4:40 AM) Dry Weight 113 kg (12/16/21 4:29 PM) 113 kg (12/16/21 1:32 PM) 113 kg (12/16/21 12:17 PM) Weight Obtained Via Bed scale (12/19/21 4:40 AM) Bed scale (12/18/21 7:29 AM) Patient/family stated (12/16/21 11:21 AM) Dry Weight Obtained Via Patient/family stated (12/16/21 11:21 AM) Social History Social History Type Response Smoking Status Former smoker; Other : Quit 1989; entered on: 01/30/16 Sex Portable XR Chest Views * BHSPowerscribe , CIS S: TRANSCRIBE Rosalee Siegel MD: VERIFY Event Display: Result: Authored Date: [id number] Chest Portable , portable AP upright view 11:52 AM Reason: Shortness of Breath; Clinical Question(s): CHF COMPARISON: 12/16/2018. FINDINGS: LINES AND TUBES: None. LUNGS AND PLEURA: Low lung volumes with central bronchovascular crowding and bibasilar atelectasis with the low lung volumes, it is difficult to exclude mild bilateral perihilar edema versus bronchovascular crowding. No pleural effusion. No pneumothorax. HEART, MEDIASTINUM AND CHANDLER: Heart is normal in size. Normal mediastinal and hilar contour. BONES AND SOFT TISSUES: No acute abnormality. IMPRESSION: Limited by low lung volumes. Central bronchovascular crowding with basilar atelectasis versus mild pulmonary edema. WSN: [id number] Ordering Physician: Halina Ball Dictated By: Rosalee Siegel MD Dictated Date/Time: 12/16/21 2:34 pm Reviewed By: Rsoalee Siegel MD Signed By: Rosalee Siegel MD Signed Date/Time: 12/16/21 2:34 pm Transcribed By: LISA Transcribed Date/Time: 12/16/21 2:32 pm Patient Care team information Personnel Name: Zhao AVENDANO, Dena Crews Address: Address: [address] [place] [id number]
--- OUTSIDE RECORDS SUMMARY | 2022-10-16 10:44 | XMS_ITS | Continuity of Care Document ---
Author Name Unknown Organization [facility] Address [address] [place] [address]- Care Team Providers Care Groundhand Name Role Phone Zhao AVENDANO, Dena Crews Primary Care Physician [phone] Encounter [facility] Date(s): 04/04/21 - [facility]04[facility] [address] [place], [place] [id number]- [place] Allergies, Adverse Reactions, Alerts Substance Reaction [...] Given 1Result Comment: [02/16/2018] [facility] [id number] 2Admin Note: VIS GIVEN Medications Alcohol Wipes See Instructions, 1 box, 8, 8, 07/03/07 16:02:50, use as instructed, Anupama VICKERS N Main Start Date: 07/03/07 Status: Ordered aspirin 81 mg oral enteric coated tablet 81, mg, 1, tablet, By Mouth, Daily, 0, 0, 10/21/05 16:51:52, Print CLAUDIA Number, [id number], Constant Indicator Start Date: 10/21/05 Status: Ordered [...] tablet, 1 Refills, Maintenance, 04/12/21 12:27:00 EST, [facility]/pharmacy #1230, 183, [...] tablet, Refills 1, Route to Pharmacy Electronically, [facility] STORE 64042, 183, cm, 07/05/20 13:14:00 EDT, Height Start Date: 11/12/20 Status: Ordered furosemide 20 mg oral tablet 20 mg, 1, tablet, By Mouth, Daily, # 90 tablet, Refills 1, Tot. Refills 1, Maintenance, 01/23/21 9:34:00 EDT, Route to Pharmacy Electronically, [facility]/pharmacy #1230, 183, [...] # 90 tablet, 1 Refills, Physician Stop, [facility] ST[facility] 97463, 183, cm, 07/05/20 13:14:00 EDT, Height Start Date: 04/12/21 Stop Date: 07/11/21 Status: Ordered Lancets See Instructions, 1 box, 8, 8, 07/03/07 16:03:17, use as instructed, [facility] Start Date: 07/03/07 Status: Ordered loratadine 10 mg oral capsule 1 capsule = 10 mg, By Mouth, Daily, # 90 capsule, 1 Refills, Maintenance, 10/06/19 10:17:00 EDT, Capsule, [facility]/pharmacy #1230, 183, cm, 04/05/19 13:05:00 [...] a day, # 180 tablet, 1 Refills, [facility] ST[facility] 85779, 183, cm, 07/05/20 13:14:00 EDT, Height Start Date: 01/30/21 Status: Ordered metoprolol 50 mg oral tablet See Instructions, 0.5 tablet By Mouth 2 times a day, # 30 tablet, Refills 6, Tot. Refills 6, Maintenance, 08/11/17 15:10:38 EDT, Instructions Replace Required Details, Route to Pharmacy Electronically, [id number], [facility]/pharmac... Start Date: 08/11/17 Status: Ordered MiraLax = 17 Gm, By Mouth, Daily, 0 Refills, Maintenance, 07/05/20 13:17:00 EDT, Partial fill upon patient request if the prescription is for a schedule II opioid drug. Start Date: 07/05/20 Status: Ordered pravastatin 40 mg oral tablet 1 tablet, By Mouth, Daily, # 90 tablet, 1 Refills, Maintenance, 04/12/21 12:27:00 EST, [facility]/pharmacy#1230, 183, cm, 07/05/20 13:14:00 EDT, Height Start Date: 04/12/21 Status: Ordered ProAir HFA 90 mcg/inh inhalation aerosol with adapter 2, puffs, Inhalation, 4 times a day, PRN, # 2 each, Refills 3, Tot. Refills 3, Maintenance, 08/13/18 20:00:05 EDT, Aerosol, Route to Pharmacy Electronically, [id number], [facility]/pharmacy #1230 Start Date: 08/13/18 Stop [...] 5 Refills, Maintenance, 10/11/19 11:12:00 EDT, Tablet, [facility]/pharmacy #1230, 183, cm, 10/07/19 14:43:00 EDT, Height Start Date: 10/11/19 Status: Ordered Vitamin B12 with Folic Acid sublingual tablet 1 tablet, Sublingual, Daily, # 30 tablet, 5 Refills, Maintenance, 10/10/19 18:46:00 EDT, Tablet, [facility]/pharmacy #1230, 1 tablet Sublingual Daily, 183, [...] Gm, 0 Refills, Maintenance, 11/22/20 9:19:00 EDT, [facility]/pharmacy #1230, 2 Gm Topically 3 times [...]
--- OUTSIDE RECORDS SUMMARY | 2022-10-16 10:44 | XMS_ITS | Continuity of Care Document ---
Author Name [facility] Address [address] [place] [address]- Care Team Providers Care Sandblasting Supervisor Name Role Phone Zhao AVENDANO, Dena Crews Primary Care Physician Encounter [facility] Date(s): 06/30/21 - 10/28/21 [facility] [address] [place], [place] [id number]- Attending Physician: Not on Staff, Attending MD [...] toxoids (Td) 06/18/07 Given 1Result Comment: [02/16/2018] [facility] [id number] 2Admin Note: VIS GIVEN Medications Alcohol Wipes See Instructions, 1 box, 8, 8, 07/03/07 16:02:50, use as instructed, [facility],[place],N Main Start Date: 07/03/07 Status: Ordered aspirin 81 mg oral enteric coated tablet 81, mg, 1, tablet, By Mouth, Daily, 0, 0, 10/21/05 16:51:52, Print CLAUDIA Number, [id number], Constant Indicator Start Date: 10/21/05 Status: Ordered [...] Mouth, Daily, # 90 tablet, 1 Refills, [facility]93, 183, cm, 06/27/21 14:31:00 EDT,Height Start Date: 09/24/21 Status: Ordered enalapril 20 mg oral tablet 1 tablet, By Mouth, 2 times a day, # 180 tablet, 0 Refills, [facility] 90995, 183, cm, 10/23/21 15:45:00 EDT, Height Start Date: 10/26/21 Status: Ordered Flovent HFA 110 mcg/inh inhalation aerosol 2 puffs, Inhalation, 2 times a day, # 1 each, 3 Refills, Maintenance, 12/17/18 18:36:48 EDT, Aerosol Start Date: 12/17/18 Stop Date: 04/16/19 Status: Ordered folic acid 1 mg oral tablet 1, tablet, By Mouth, Daily, # 90 tablet, Refills 1, Route to Pharmacy Electronically, [facility], 183, cm, 07/05/20 13:14:00 EDT, Height Start Date: 11/12/20 Status: Ordered furosemide 20 mg oral tablet 1, tablet, By Mouth, Daily, # 90 tablet, Refills 1, Route to Pharmacy Electronically, [facility] 92284, 183, cm, 06/27/21 14:31:00 EDT, Height Start Date: 07/12/21 Status: Ordered gabapentin 100 mg oral capsule 100 mg, 1, capsule, By Mouth, 3 times a day, # 90 capsule, Refills 1, Tot. Refills 1, Maintenance, 06/27/21 16:05:00 EDT, Route to Pharmacy Electronically, [facility]/pharmacy #1230, Partial fill upon patient request if [...] 12/24/21 16:02:00 EDT, 06/27/21 16:02:00 EDT, [facility]/pharmacy #1230, 183, cm, 06/27/21 14:31:00 EDT, Height Start Date: 06/27/21 Stop Date: 12/24/21 Status: Ordered Lancets See Instructions, 1 box, 8, 8, 07/03/07 16:03:17, use as instructed, Anupama VICKERSN Main Start Date: 07/03/07 Status: Ordered loratadine 10 mg oral capsule 1 capsule = 10 mg, By Mouth, Daily, # 90 capsule, 1 Refills, Maintenance, 10/06/19 10:17:00 EDT, Capsule, [facility]/pharmacy #1230, 183, cm, 04/05/19 13:05:00 EST, Height [...] 1 Refills, 06/27/21 16:01:00 EDT, [facility]/pharmacy #1230, 183, cm, 06/27/21 14:31:00 EDT, Height Start Date: 06/27/21 Status: Ordered metoprolol 50 mg oral tablet See Instructions, 0.5 tablet By Mouth 2 times a day, # 30 tablet, Refills 6, Tot. Refills 6, Maintenance, 08/11/17 15:10:38 EDT, Instructions Replace Required Details, Route to Pharmacy Electronically, [id number], [facility]/pharmac... Start Date: 08/11/17 Status: Ordered MiraLax = 17 Gm, By Mouth, Daily, 0 Refills, Maintenance, 07/05/20 13:17:00 EDT, Partial fill upon patient request if the prescription is for a schedule II opioid drug. Start Date: 07/05/20 Status: Ordered pravastatin 40 mg oral tablet 1 tablet, By Mouth, Daily, # 90 tablet, 1 Refills, [facility] STORE [facility]1129, 183, cm, 06/27/21 14:31:00 EDT,Height Start Date: 10/13/21 Status: Ordered ProAir HFA 90 mcg/inh inhalation aerosol with adapter 2, puffs, Inhalation, 4 times a day, PRN, # 2 each, Refills 3, Tot. Refills 3, Maintenance, 08/13/18 20:00:05 EDT, Aerosol, Route to Pharmacy Electronically, [id number], [facility]/pharmacy #1230 Start Date: 08/13/18 Stop Date: 12/11/18 Status: Ordered Senna By Mouth, 0 Refills, Maintenance, 12/31/19 14:55:00 EDT Start Date: 12/31/19 Status: Ordered Test Strips See Instructions, 11, 0, 11, 08/03/07 15:08:40, Test Bid-Tid as advised., [facility] Main Start Date: 08/03/07 Status: Ordered Vitamin [...] Maintenance, 10/10/19 18:46:00 EDT, Tablet, [facility]/pharmacy #1230, 1 tablet Sublingual Daily, 183, cm, [...]
--- OUTSIDE RECORDS SUMMARY | 2022-10-16 10:44 | XMS_ITS | Continuity of Care Document ---
Author Name Unknown Organization [facility] Address [address] [place] [address]- Care Team Providers Care Market Research Lead Name Role Phone Zhao AVENDANO, Dena Crews Primary Care Physician [phone] Encounter [facility] Date(s): 11/12/19 - 12/12/19 [facility] [address] [place] [address]- Allergies, Adverse Reactions, Alerts Substance Reaction Severity [...] toxoids (Td) 06/18/07 Given 1Result Comment: [02/16/2018] [facility] [id number] 2Admin Note: VIS GIVEN Medications Alcohol Wipes See Instructions, 1 box, 8, 8, 07/03/07 16:02:50, use as instructed, Anupama VICKERS N Main Start Date: 07/03/07 Status: Ordered aspirin 81 mg oral enteric coated tablet 81, mg, 1, tablet, By Mouth, Daily, 0, 0, 10/21/05 16:51:52, Print CLAUDIA Number, [id number], Constant Indicator Start Date: 10/21/05 Status: Ordered [...] 11/17/19 12:08:00 EDT, Tablet, [facility]/pharmacy #1230, 183, cm, 10/20/19 12:44:00 EDT, Height Start Date: 11/17/19 Status: Ordered enalapril 20 mg oral tablet 1 tablet = 20 mg, By Mouth, 2 times a day, # 180 tablet, 1 Refills, Maintenance, 10/19/19 15:53:00 EDT, [facility]/pharmacy #1230, 183, cm, 10/07/19 14:43:00 EDT, Height [...] Route to Pharmacy Electronically, [facility]/pharmacy #1230, 183, cm, 10/07/19 14:43:00 EDT, Height [...] 10/06/19 10:17:00 EDT, Capsule, [facility]/pharmacy #1230, 183, cm, 04/05/19 13:05:00 EST, Height Start Date: 10/06/19 Stop Date: 05/03/20 Status: Ordered metFORMIN 1000 mg oral tablet 1 tablet = 1,000 mg, By Mouth, 2 times a day, # 180 tablet, 1 Refills, Maintenance, 11/12/19 14:25:00 EDT, [facility]/pharmacy #1230, 183, cm, 10/20/19 12:44:00 EDT, Height Start Date: 11/12/19 Stop Date: 05/10/20 Status: Ordered metoprolol 50 mg oral tablet See Instructions, 0.5 tablet By Mouth 2 times a day, # 30 tablet, Refills 6, Tot. Refills 6, Maintenance, 08/11/17 15:10:38 EDT, Instructions Replace Required Details, Route to Pharmacy Electronically, [id number], [facility]/pharmac... Start Date: 08/11/17 Status: Ordered pravastatin 40 mg oral tablet 1 tablet = 40 mg, By Mouth, Daily, # 90 tablet, 1 Refills, Maintenance, 08/06/19 12:43:00 EDT, Tablet, [facility]/pharmacy #1230, 183, cm, 04/05/19 13:05:00 EST, Height Start Date: 08/06/19 Stop Date: 02/02/20 Status: Ordered ProAir HFA 90 mcg/inh inhalation aerosol with adapter 2, puffs, Inhalation, 4 times a day, PRN, # 2 each, Refills 3, Tot. Refills 3, Maintenance, 08/13/18 20:00:05 EDT, Aerosol, Route to Pharmacy Electronically, [id number], [facility]/pharmacy #1230 Start Date: 08/13/18 Stop Date: 12/11/18 Status: Ordered Test Strips See Instructions, 11, 0, 11, 08/03/07 15:08:40, Test Bid-Tid as advised., [facility],[place],N Main Start Date: 08/03/07 Status: Ordered Vitamin [...]
--- OUTSIDE RECORDS SUMMARY | 2022-10-16 10:44 | XMS_ITS | Continuity of Care Document ---
Author Name Unknown Organization [email or web address] Address [address] [place] [address]- Care Team Providers Care Occupational Health And Safety Officer Name Role Phone Zhao AVENDANO, Dena Crews Primary Care Physician Encounter [facility] Date(s): 10/04/19 - 11/03/19 [email or web address] [address] [place] [address]- Allergies, Adverse Reactions, Alerts Substance Reaction Severity [...] (Td) 06/18/07 Given 1Result Comment: [02/16/2018] [facility] [id number] 2Admin Note: VIS GIVEN Medications Alcohol Wipes See Instructions, 1 box, 8, 8, 07/03/07 16:02:50, use as instructed, Anupama VICKERS N Main Start Date: 07/03/07 Status: Ordered aspirin 81 mg oral enteric coated tablet 81, mg, 1, tablet, By Mouth, Daily, 0, 0, 10/21/05 16:51:52, Print CLAUDIA Number, [id number], Constant Indicator Start Date: 10/21/05 Status: Ordered [...] 0 Refills, Maintenance, 08/05/19 13:38:00 EDT, Tablet, [facility]/pharmacy #1230, 183, cm, 04/05/19 13:05:00 EST, Height Start Date: 08/05/19 Status: Ordered enalapril 20 mg oral tablet 1 tablet = 20 mg, By Mouth, 2 times a day, # 180 tablet, 1 Refills, Maintenance, 10/19/19 15:53:00 EDT, [facility]/pharmacy #1230, 183, cm, 10/07/19 14:43:00 EDT, [...] 10/11/19 11:11:00 EDT, Route to Pharmacy Electronically, [facility]/pharmacy #1230, 183, cm, 10/07/19 14:43:00 EDT, [...] 1 Refills, Maintenance, 10/06/19 10:17:00 EDT, Capsule, [facility]/pharmacy #1230, 183, cm, 04/05/19 13:05:00 EST, Height Start Date: 10/06/19 Stop Date: 05/03/20 Status: Ordered metFORMIN 1000 mg oral tablet 1 tablet = 1,000 mg, By Mouth, 2 times a day, # 180 tablet, 1 Refills, Maintenance, 04/27/19 14:24:00 EST, [facility]/pharmacy #1230, 183, cm, 04/05/19 13:05:00 EST, Height Start Date: 04/27/19 Stop Date: 10/24/19 Status: Ordered metoprolol 50 mg oral tablet See Instructions, 0.5 tablet By Mouth 2 times a day, # 30 tablet, Refills 6, Tot. Refills 6, Maintenance, 08/11/17 15:10:38 EDT, Instructions Replace Required Details, Route to Pharmacy Electronically, [id number], [facility]/pharmac... Start Date: 08/11/17 Status: Ordered pravastatin 40 mg oral tablet 1 tablet = 40 mg, By Mouth, Daily, # 90 tablet, 1 Refills, Maintenance, 08/06/19 12:43:00 EDT, Tablet, [facility]/pharmacy #1230, 183, cm, 04/05/19 13:05:00 EST, Height Start Date: 08/06/19 Stop Date: 02/02/20 Status: Ordered ProAir HFA 90 mcg/inh inhalation aerosol with adapter 2, puffs, Inhalation, 4 times a day, PRN, # 2 each, Refills 3, Tot. Refills 3, Maintenance, 08/13/18 20:00:05 EDT, Aerosol, Route to Pharmacy Electronically, [id number], [facility]/pharmacy #1230 Start Date: 08/13/18 Stop Date: 12/11/18 Status: Ordered Test Strips See Instructions, 11, 0, 11, 08/03/07 15:08:40, Test Bid-Tid as advised., [facility],[place],N Main Start Date: 08/03/07 Status: Ordered [...]
--- NOTE | 2022-10-16 11:04 | ED_ITS ---
HPI - General Adult General Chief complaint: Dyspnea Stated complaint: SOB, WT GAIN Time Seen by Provider: 10/16/22 10:33 Source: patient, family (son), EMS and RN notes reviewed Mode of arrival: EMS Limitations: no limitations History of Present Illness HPI narrative: Patient is an 82-year-old male with history of CHF, arthritis presenting the emergency department with complaint of worsening shortness of breath, lower extremity edema and 7 lb weight gain over the past week. Son states they had slightly increased his Lasix dosage with little change. Patient complains of pain to lower extremities. Denies any chest pain. Son reports patient has a CPAP machine with oxygen concentrator at home has been on 2-3 liters/minute with continued shortness of breath. MD complaint: Shortness of breath Onset (ago): day(s) Relieving factors: rest Exacerbating factors: movement Associated symptoms: other (Weight gain, lower extremity edema) Treatments prior to arrival: other (Increase Lasix) Related Data Allergies Allergy/AdvReac Type Severity Reaction Status Date / Time No Known Allergies Allergy Unverified 12/09/19 15:05 [No Known Allergies*] Review of Systems Review of Systems: As per HPI. Yes all other systems are reviewed and are negative Constitutional: Constitutional: Reports as per HPI PMF Social History Social History Smoked in Last 30 Days: No Use of substances other than those prescribed or required for medical reasons: No Advance Directives: No Physical Exam ED Vital Signs: Vital Signs - 24 hr 10/16/22 10:31 10/16/22 10:36 10/16/22 14:28 Temperature 98.3 F 98.5 F Pulse Rate 93 95 82 Respiratory Rate 24 H 22 H 19 Blood Pressure 109/81 109/61 Pulse Oximetry 94 93 Oxygen Delivery Method Nasal Cannula Nasal Cannula Oxygen Flow Rate 2 10/16/22 15:16 Temperature 98.7 F Pulse Rate 87 Respiratory Rate 16 Blood Pressure 126/68 Pulse Oximetry 96 Oxygen Delivery Method Nasal Cannula Oxygen Flow Rate BMI result Body Mass Index 34.2 Vital signs have been reviewed and appear to be correct. Blood pressure normal. Heart rate normal. Respiratory rate slightly elevated. Temperature normal. Oxygen saturation low. Const General: cooperative and no acute distress Orientation/consciousness: oriented to person, oriented to place, oriented to time and patient oriented x3 Limitations: no limitations HENMT Head: Yes normocephalic and Yes atraumatic Ears: external ears normal General nose exam: Normal external nose present Face and sinus: Yes face symmetric Mouth: oropharynx normal and moist mucous membranes Throat: Yes uvula midline Eyes Pupils: Equal, round and reactive pupils present Neck Neck: Yes normal visual inspection and Yes supple Chest Chest palpation & inspection: normal inspection of the chest and normal palpation of entire chest wall Resp Effort & Inspection: normal respiratory effort and able to speak in complete sentences Auscultation: diminished lung sounds diffuse Cardio Rate: regular rate Rhythm: regular rhythm Heart sounds: S1 normal heart sound present and S2 normal heart sound present GI Inspection: Yes normal to inspection and Yes obesity Palpation (GI): Soft to palpation, nontender, no guarding and No Rebound tenderness present Auscultation: normoactive bowel sounds General: Yes no CVA tenderness Back/Spine/Pelvis Back: no CVA tenderness Skin General skin exam: elasticity normal and turgor normal Neuro General: oriented to person, oriented to place, oriented to time, patient oriented x3, moves all extremities, no focal motor deficits and CN's II-XI intact bilaterally Cranial nerves: Yes Equal, round and reactive pupils present Cognition (Neuro): normal cognition Extrem General: Yes full ROM and Yes no calf tenderness Right lower extremity: edema Details: non-pitting Left lower extremity: edema Details: non-pitting Psych Mental Status: mental status grossly normal Affect: normal affect Thought process: Normal thought process present Medications Administered Discontinued Medications Generic Name Dose Route Start Last Admin Trade Name Freq PRN Reason Stop Dose Admin Albuterol/Ipratropium 3 ml 10/16/22 13:29 10/16/22 14:27 Albuterol/Iprat 2.5/0.5mg 3 Ml Ampul.Neb INHALE 10/16/22 13:30 3 ml ONCE ONE Administration Methylprednisolone Sodium Succinate 125 mg 10/16/22 13:29 10/16/22 15:01 Methylprednisolone Sod Succ 125 Mg/2 Ml Vial IVPUSH 10/16/22 13:30 Not Given ONCE ONE Medical Decision Making Medical Decision Making [facility] Narrative: Patient is an 82-year-old male with history of CHF, arthritis presenting the emergency department with complaint of worsening shortness of breath, lower extremity edema and 7 lb weight gain over the past week. On exam patient is awake, A+Ox3, RR elevated with increased WOB, decreased LS throughout, afebrile, normal neurological exam without focal deficits, abdomen soft, nontender, bilateral non-pitting lower extremity edema. Given reported symptoms and physical exam findings, initial differential includes CHF exacerbation, ACS, pneumonia. Less likely pneumothorax. Unlikely PE based on Wells score. 13:30 Labs notable for mild leukocytosis, elevated BUN, lactic WNL, troponin elevated, will obtain repeat troponin. X-ray notable for limited exam, no CHF or pneumonia. My interpretation is in agreement with the radiologist's interpretation. Patient does not meet sepsis criteria at this time. 16:03 No delta on repeat trop. O2 sat 96% on 2lpm, patient has home O2. 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 Will give additional dose here. Son states that patient drinks water continuously throughout the day, so patient advised to monitor fluid intake and attempt to decrease somewhat. Feel patient is stable for discharge home. Instructed patient and son to follow up with PCP this week. Return precautions discussed at bedside with patient and son. All results discussed and questions answered. Differential Diagnosis Differential Diagnoses: The differential diagnosis associated with the presentation includes As per MDM. Admission/Observation Consideration of admission/observation: Escalation of care including admission/observation considered Lab Data [facility] Lab Attestation statement: I reviewed the patient's lab results. As per [facility]. 10/16/22 12:05 10/16/22 12:05 Labs: Lab Results 10/16/22 10/16/22 10/16/22 Range/Units 12:05 12:05 12:05 WBC 11.3 H (4.8-10.8) X10*3/uL RBC 5.87 H (4.60-5.80) X10*6/uL Hgb 16.2 (14.0-18.0) g/dl Hct 51.3 (42.0-52.0) % MCV 87.4 (80.0-98.0) fL MCH 27.6 (27.0-33.0) pg MCHC 31.6 (31.0-36.0) g/dl RDW 15.1 (11.0-16.0) % Plt Count 216 (160-400) X10*3/uL MPV 11.1 (9.4-12.4) fL Immature Gran % (Auto) 0.4 (0.0-0.4) % Neut % (Auto) 81.1 H (45-73) % Lymph % (Auto) 9.5 L (20-40) % Graham % (Auto) 7.6 (2-11) % Eos % (Auto) 1.0 (0-4) % Baso % (Auto) 0.4 (0-2) % Lymph # (Auto) 1.1 L (1.2-4.9) X10*3/uL Graham # (Auto) 0.9 (0.1-1.2) X10*3/uL Eos # (Auto) 0.1 (0.0-0.4) X10*3/uL Baso # (Auto) 0.0 (0.0-0.2) X10*3/uL Abs Immat Gran (auto) 0.05 H (0.00-0.03) X10*3/uL Absolute Neuts (auto) 9.1 H (2.0-8.3) x10*3/uL Absolute Nucleated RBC 0.000 (0.0-0.012) X10*3/uL Nucleated RBC % (auto) 0.0 (0.0-0.2) /100WBC Sodium 140 (135-145) mmol/L Potassium 4.4 (3.3-5.1) mmol/L Chloride 103 (96-108) mmol/L Carbon Dioxide 28 (22-29) mmol/L Anion Gap 13 (12-20) BUN 23 H (9-16) mg/dL Creatinine 1.28 (0.5-1.4) mg/dL Estim Creat Clear Calc 53.2 Estimated GFR 54 Random Glucose 179 H (60-115) mg/dL Lactic Acid (0.5-2.0) mmol/L Calcium 10.3 H (8.4-10.2) mg/dL Total Bilirubin 0.7 (0.0-1.0) mg/dL AST 11 (5-37) U/L ALT 14 (0-40) U/L Alkaline Phosphatase 79 (39-117) U/L Troponin I High Sens 10.3 (<3.5-35.0) ng/L B-Natriuretic Peptide (<100) pg/mL Total Protein 7.1 (6.5-8.0) g/dL Albumin 4.0 (3.5-5.0) g/dL COVID-19 (SILVIA) (Negative) COVID-19 Clin Com Influenza Type A (ZACKARY) (Negative) Influenza Type B (ZACKARY) (Negative) Influenza A & B Note 10/16/22 10/16/22 10/16/22 Range/Units 12:05 12:05 12:41 WBC (4.8-10.8) X10*3/uL RBC (4.60-5.80) X10*6/uL Hgb (14.0-18.0) g/dl Hct (42.0-52.0) % MCV (80.0-98.0) fL MCH (27.0-33.0) pg MCHC (31.0-36.0) g/dl RDW (11.0-16.0) % Plt Count (160-400) X10*3/uL MPV (9.4-12.4) fL Immature Gran % (Auto) (0.0-0.4) % Neut % (Auto) (45-73) % Lymph % (Auto) (20-40) % Graham % (Auto) (2-11) % Eos % (Auto) (0-4) % Baso % (Auto) (0-2) % Lymph # (Auto) (1.2-4.9) X10*3/uL Graham # (Auto) (0.1-1.2) X10*3/uL Eos # (Auto) (0.0-0.4) X10*3/uL Baso # (Auto) (0.0-0.2) X10*3/uL Abs Immat Gran (auto) (0.00-0.03) X10*3/uL Absolute Neuts (auto) (2.0-8.3) x10*3/uL Absolute Nucleated RBC (0.0-0.012) X10*3/uL Nucleated RBC % (auto) (0.0-0.2) /100WBC Sodium (135-145) mmol/L Potassium (3.3-5.1) mmol/L Chloride (96-108) mmol/L Carbon Dioxide (22-29) mmol/L Anion Gap (12-20) BUN (9-16) mg/dL Creatinine (0.5-1.4) mg/dL Estim Creat Clear Calc Estimated GFR Random Glucose (60-115) mg/dL Lactic Acid 1.7 (0.5-2.0) mmol/L Calcium (8.4-10.2) mg/dL Total Bilirubin (0.0-1.0) mg/dL AST (5-37) U/L ALT (0-40) U/L Alkaline Phosphatase (39-117) U/L Troponin I High Sens (<3.5-35.0) ng/L B-Natriuretic Peptide (<100) pg/mL Total Protein (6.5-8.0) g/dL Albumin (3.5-5.0) g/dL COVID-19 (SILVIA) Negative (Negative) COVID-19 Clin Com See Note Influenza Type A (ZACKARY) Negative (Negative) Influenza Type B (ZACKARY) Negative (Negative) Influenza A & B Note See Note 10/16/22 10/16/22 Range/Units 12:42 15:28 WBC (4.8-10.8) X10*3/uL RBC (4.60-5.80) X10*6/uL Hgb (14.0-18.0) g/dl Hct (42.0-52.0) % MCV (80.0-98.0) fL MCH (27.0-33.0) pg MCHC (31.0-36.0) g/dl RDW (11.0-16.0) % Plt Count (160-400) X10*3/uL MPV (9.4-12.4) fL Immature Gran % (Auto) (0.0-0.4) % Neut % (Auto) (45-73) % Lymph % (Auto) (20-40) % Graham % (Auto) (2-11) % Eos % (Auto) (0-4) % Baso % (Auto) (0-2) % Lymph # (Auto) (1.2-4.9) X10*3/uL Graham # (Auto) (0.1-1.2) X10*3/uL Eos # (Auto) (0.0-0.4) X10*3/uL Baso # (Auto) (0.0-0.2) X10*3/uL Abs Immat Gran (auto) (0.00-0.03) X10*3/uL Absolute Neuts (auto) (2.0-8.3) x10*3/uL Absolute Nucleated RBC (0.0-0.012) X10*3/uL Nucleated RBC % (auto) (0.0-0.2) /100WBC Sodium (135-145) mmol/L Potassium (3.3-5.1) mmol/L Chloride (96-108) mmol/L Carbon Dioxide (22-29) mmol/L Anion Gap (12-20) BUN (9-16) mg/dL Creatinine (0.5-1.4) mg/dL Estim Creat Clear Calc Estimated GFR Random Glucose (60-115) mg/dL Lactic Acid (0.5-2.0) mmol/L Calcium (8.4-10.2) mg/dL Total Bilirubin (0.0-1.0) mg/dL AST (5-37) U/L ALT (0-40) U/L Alkaline Phosphatase (39-117) U/L Troponin I High Sens 11.4 (<3.5-35.0) ng/L B-Natriuretic Peptide 128 H (<100) pg/mL Total Protein (6.5-8.0) g/dL Albumin (3.5-5.0) g/dL COVID-19 (SILVIA) (Negative) COVID-19 Clin Com Influenza Type A (ZACKARY) (Negative) Influenza Type B (ZACKARY) (Negative) Influenza A & B Note Independent Interpretation I performed an independent interpretation of an: EKG and Plain X-Ray Interpretation: EKG: sinus rhythm with first degree AV block, RBBB, rate 79 bpm, T wave inversion CXR: limited, no obvious CHF/pna Radiology Impression Discussion of test interpretation with radiology: I have reviewed the radiologist's reading. Radiologist Impression: FINDINGS: Low lung volumes limit evaluation. There is mild elevation of the right hemidiaphragm. The lungs appear clear. The heart and mediastinal structures are unremarkable. XR/XR chest 2V IMPRESSION: Limited study without overt CHF or pneumonia. Independent Historian Clinical information obtained from an independent historian. History obtained from or confirmed by: Other ( son) External Record Review External record reviewed: Inpatient record, Office record and Outpatient record Scores Wells PE Immobilization or surgery within 4 weeks: 1.5 Score: 1.5 2-tier Risk: unlikely risk (5%) 3-tier Risk: low risk (3.4%) Discharge Plan Discharge Clinical Impression: Shortness of breath at rest Patient Disposition: Home, Self-Care Instructions: Heart Failure (DC), Low-Sodium Diet (ED) Additional Instructions: You were evaluated in the emergency department today for shortness of breath. Your chest x-ray did not show evidence of a pneumonia or CHF exacerbation. Your labs were reassuring. Please schedule an appointment for follow-up with your primary care physician within 2 days. Return to the emergency department if you experience worsening cough, fever 100.4? F or greater, recurrent vomiting, chest pain, shortness of breath, or any other concerning symptoms.
--- NOTE | 2022-10-16 11:07 | ECG_ITS ---
Test Reason : DYSPNEA Blood Pressure : / mmHG Vent. 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
[2022-10-16 12:09] LABS: MANUAL DIFF FLAG NO
[2022-10-16 12:14] LABS: Basophils Percent Auto 0.4 % (0-2); Eosinophils Absolute Auto 0.1 X10*3/uL (0.0-0.4); Hematocrit 51.3 % (42.0-52.0); Hemoglobin 16.2 g/dl (14.0-18.0); Imm Gran Abs Auto 0.05 X10*3/uL (0.00-0.03); Imm Gran Pct Auto 0.4 % (0.0-0.4); Lymphocytes Absolute Auto 1.1 X10*3/uL (1.2-4.9); Lymphocytes Percent Auto 9.5 % (20-40); Mean Corpuscular HGB Conc 31.6 g/dl (31.0-36.0); Mean Corpuscular Hemoglobin 27.6 pg (27.0-33.0); Mean Corpuscular Volume 87.4 fL (80.0-98.0); Mean Platelet Volume 11.1 fL (9.4-12.4); Monocytes Absolute Auto 0.9 X10*3/uL (0.1-1.2); Monocytes Percent Auto 7.6 % (2-11); Neutrophils Absolute Auto 9.1 x10*3/uL (2.0-8.3); Neutrophils Percent Auto 81.1 % (45-73); Platelet Count 216 X10*3/uL (160-400); Red Blood Count 5.87 X10*6/uL (4.60-5.80); Red Cell Distribution Width 15.1 % (11.0-16.0); White Blood Count 11.3 X10*3/uL (4.8-10.8)
[2022-10-16 12:24] LABS: Alanine Aminotransferase 14 U/L (0-40); Alkaline Phosphatase 79 U/L (39-117); Anion Gap 13 (12-20); Aspartate Amino Transferase 11 U/L (5-37); Bilirubin Total 0.7 mg/dL (0.0-1.0); Blood Urea Nitrogen 23 mg/dL (9-16); Calcium 10.3 mg/dL (8.4-10.2); Carbon Dioxide 28 mmol/L (22-29); Chloride 103 mmol/L (96-108); Creatinine Clr Calc Pharmacy 53.2; Estimated Glomerular Filt Rate 54; Glucose Random 179 mg/dL (60-115); Potassium 4.4 mmol/L (3.3-5.1); Sodium 140 mmol/L (135-145); Total Protein 7.1 g/dL (6.5-8.0)
[2022-10-16 12:31] LABS: Troponin-I High Sensitivity 10.3 ng/L (<3.5-35.0)
[2022-10-16 12:48] LABS: COVID-19 Test Negative (Negative); IDNOW Serial# BCCEAD1C
[2022-10-16 12:52] LABS: IDNOW Serial# 08D9AD1C; Influenza A Negative (Negative); Influenza B2 Negative (Negative)
[2022-10-16 12:57] LABS: Lactic Acid 1.7 mmol/L (0.5-2.0)
[2022-10-16 13:47] LABS: B Type Natriuretic Peptide 128 pg/mL (<100)
[2022-10-16] MEDS: Albuterol/Iprat 2.5/0.5MG 3 ML AMPUL.NEB INHALE (14:27)
[2022-10-16 14:28] VITALS: PULSE 82; RESP 19; O2SAT 95
[2022-10-16 15:16] VITALS: BP 126/68; PULSE 87; RESP 16; TEMP 37.1; O2SAT 96
[2022-10-16 16:01] LABS: Troponin-I High Sensitivity 11.4 ng/L (<3.5-35.0)
[2022-10-16] MEDS: Furosemide 40 MG TABLET PO (17:09)
== END 2022-10-16 17:14 | disposition home or self-care (01) ==
PROVIDERS: Registered Nurse Emergency; Emergency Provider Emergency Medicine
DX: R06.02 Shortness of breath (principal); R60.0 Localized edema; Z20.822 Contact with and (suspected) exposure to COVID-19; J96.21 Acute and chronic respiratory failure with hypoxia; I50.9 Heart failure, unspecified; Z86.711 Personal history of pulmonary embolism; Z99.81 Dependence on supplemental oxygen; Z99.89 Dependence on other enabling machines and devices; Z87.891 Personal history of nicotine dependence
CPT/HCPCS: 71046; 80053; 83605; 83880; 84484; 85025; 87040; 87502; 87635; 93005; 94640; 99284; 99285

== ENCOUNTER → 2022-10-16 11:07 | Outpatient (BNV) | payer MEDICARE, SELFPAY | PROVIDERS: Emergency Provider Emergency Medicine; Visit Provider Internal Medicine Cardiovascular Disease | DX: R06.00 Dyspnea, unspecified (principal) | CPT/HCPCS: 93010 ==

== ENCOUNTER 2022-10-22 14:28 | Inpatient (IN) | payer MEDICARE, MEDICAID, SELFPAY ==
[2022-10-22] VITALS (10 sets, daily range): BP systolic 74–121; BP diastolic 51–73; PULSE 88–99; RESP 18–30; TEMP 36–36.9; O2SAT 86–95; BMI 42.0
--- NOTE | ~2022-10-22 | US_ITS ---
EXAMINATION: US RETROPERITONEAL LIMITED (RENAL ONLY) CLINICAL INFORMATION: Acute kidney injury. COMPARISON: Renal ultrasound 07/19/2015. TECHNIQUE: Real-time imaging of the kidneys. FINDINGS: Examination is limited secondary to patient body habitus and shadowing from overlying bowel gas. RIGHT KIDNEY: 14.3 x 7 x 6 cm (SAG x AP x TRV). The kidney is normal in size, contour, and echogenicity. Renal cortical thickness is normal. No renal calculi or hydronephrosis. Multiple simple cysts largest measuring 4.6 cm in the mid pole for which no imaging follow-up is recommended. LEFT KIDNEY: 15 x 6.5 x 6.6 cm (SAG x AP x TRV). The kidney is normal in size, contour, and echogenicity. Renal cortical thickness is normal. No renal calculi or hydronephrosis. Multiple simple cysts largest measuring 9 cm in the mid to lower pole, for which no imaging follow-up is recommended. US/US renal BI IMPRESSION: No hydronephrosis or nephrolithiasis.
--- NOTE | ~2022-10-22 | US_ITS ---
EXAMINATION: US VENOUS ULTRASOUND WITH DOPPLER LOWER EXTREMITY, BILATERAL CLINICAL INFORMATION: Elevated d-dimer COMPARISON: None available. TECHNIQUE: Ultrasound of the deep veins is performed from the hip to the calf with compression sonography and color and pulse Doppler assessment. Spectral analysis with color-flow imaging is performed. FINDINGS: RIGHT: There is normal venous compression and respiratory variation and augmented flow. The visualized common femoral vein, superficial femoral vein, profunda femoral vein, and popliteal vein show no evidence of deep venous thrombosis. There is thrombus identified within the mid aspect of the posterior tibial vein, within the calf. There is no significant popliteal fossa cyst. LEFT: There is normal venous compression and respiratory variation and augmented flow. The visualized common femoral vein, superficial femoral vein, profunda femoral vein, popliteal vein, and the trifurcation region shows no evidence of deep venous thrombosis. There is no significant popliteal fossa cyst. US/US venous duplex LE BI IMPRESSION: 1. No DVT demonstrated in the bilateral lower extremity. 2. There is thrombus identified within the mid aspect of the right posterior tibial vein, within the calf.
--- NOTE | ~2022-10-22 | XR_ITS ---
EXAMINATION: XR CHEST CLINICAL INFORMATION: Shortness of breath. COMPARISON: 10/16/2022 chest radiographs. TECHNIQUE: Frontal view of the chest was obtained. FINDINGS: There is mild elevation of the right hemidiaphragm. The lungs are clear. No pleural effusions. The heart and mediastinal structures are unremarkable. Moderate to severe bilateral glenohumeral degenerative joint changes are seen. XR/XR chest 1V IMPRESSION: No acute cardiopulmonary process.
--- NOTE | ~2022-10-22 | CT_ITS ---
EXAMINATION: CT ANGIOGRAM OF THE CHEST WITH AND WITHOUT CONTRAST (CT PULMONARY ANGIOGRAM FOR PE) CLINICAL INFORMATION: Reason for Exam hypoxia, elevated D Dimer COMPARISON: None available. TECHNIQUE: Prior to contrast administration, noncontrast localization images were obtained. Subsequently, multidetector volumetric imaging was performed from the thoracic inlet to below the diaphragms following the administration of 80 mL Omnipaque 350 intravenous contrast. No contrast reaction reported Sagittal, coronal, and MIP oblique sagittal reformatted images were obtained on the CT workstation, uploaded to PACS, and reviewed. This CT examination was performed using dose optimization techniques as appropriate, variously including the following: *Automated exposure control *Adjustment of mA and/or kV according to patient size (this includes techniques or standardized protocols for targeted exams where dose is matched to indication/reason for exam; i.e. extremities or head) *Use of iterative reconstruction technique Total exam dose-length product 340 mGy-cm FINDINGS: QUALITY OF STUDY/CONTRAST BOLUS: Satisfactory. PULMONARY ARTERIES: There are bilateral large emboli in both upper and lower lobes branches. THORACIC AORTA: No aneurysm. LUNG: The lungs are well expanded with right lower lobe patchy atelectasis or infiltrate with air bronchogram. Rest of lungs are expanded and clear. There is a 7 mm focal nodular thickening right superior major fissure. PLEURA: No pleural effusion or pneumothorax. MEDIASTINUM: Normal heart size. No pericardial effusion. No hilar or mediastinal lymphadenopathy. No evidence of septal bowing or right heart strain. CORONARY ARTERY CALCIFICATION: Mild coronary artery calcifications are noted.. CHEST WALL/AXILLA: No aggressive lytic or sclerotic process. OSSEOUS STRUCTURES: No aggressive lytic or sclerotic process seen UPPER ABDOMEN: Visualized liver, spleen and pancreas unremarkable. There are bilateral renal cysts and dystrophic calcification question polycystic kidney disease. No reflux of contrast into the hepatic veins to suggest elevated right heart pressures. CT/CT angio chest PE protocol IMPRESSION: Bilateral PE. No saddle embolus. Right lower lobe infiltrate/atelectasis. Results were immediately called directly by phone to Dr. Dimitrios Nuñez at 4:30 PM. VTE: positive
--- NOTE | 2022-10-22 14:53 | ECG_ITS ---
Test Reason : SOB Blood Pressure : / mmHG Vent. Rate : 097 BPM Atrial Rate : 000 BPM P-R Int : 000 ms QRS Dur : 144 ms QT Int : 398 ms P-R-T Axes : 000 -35 -36 degrees QTc Int : 505 ms Undetermined rhythm sinus with long W[place]? Left axis deviation Right bundle branch block Inferior infarct , age undetermined Anterior infarct , age undetermined T wave abnormality, consider lateral ischemia Abnormal ECG When compared with ECG of 16-OCT-2022 11:28, No significant changes seen Referred By: Sheri Mckinney Electronically Signed By:BARI PARTIDA
--- NOTE | 2022-10-22 14:54 | ED_ITS ---
HPI - SOB/Dyspnea General Chief Complaint: Dyspnea Stated Complaint: DIFF BREATHING,ON CPAP PER EMS Time Seen by Provider: 10/22/22 14:48 Source: patient and EMS Mode of arrival: EMS History of Present Illness HPI Narrative: 82-year-old male with history of COPD, atrial fibrillation, and CHF presents via EMS with shortness of breath and chest tightness patient otherwise denies any GI or symptoms and was recently seen here for same symptoms. Related Data Home Medications Medication Instructions Recorded Confirmed acetaminophen 325 mg tablet 650 mg PO Q6H PRN Pain 10/22/22 10/22/22 doxazosin 8 mg tablet 8 mg PO DAILY 10/22/22 10/22/22 furosemide 40 mg tablet 40 mg PO BID 10/22/22 10/22/22 isosorbide mononitrate 30 mg 30 mg PO QAM 10/22/22 10/22/22 tablet,extended release 24 hr metformin 500 mg tablet 500 mg PO BID 10/22/22 10/22/22 pravastatin 40 mg tablet 40 mg PO DAILY 10/22/22 10/22/22 Allergies Allergy/AdvReac Type Severity Reaction Status Date / Time No Known Allergies Allergy Unverified 12/09/19 15:05 [No Known Allergies*] Review of Systems Review of Systems: Pertinent positives and negatives as stated in HPI PMFSH Past Medical History Source: nursing notes reviewed Social History Social History Alcohol intake: never Smoked in Last 30 Days: No Use of substances other than those prescribed or required for medical reasons: No Advance Directives: No Advance Directives Information Provided: No Physical Exam Vital Signs: Vital Signs: Last Vital Signs Temp 97.2 F 10/22/22 14:35 Pulse 95 10/22/22 16:25 Resp 18 10/22/22 16:25 BP 108/51 L 10/22/22 16:25 Pulse Ox 92 10/22/22 16:25 O2 Del Method Nasal Cannula wit h Capnography 10/22/22 16:25 Oxygen Flow Rate 30 10/22/22 14:35 BMI result Body Mass Index 42.0 VITAL SIGNS: Reviewed. GENERAL: Elevated BMI, Well developed, well nourished, in no acute distress. HEAD: Normocephalic/atraumatic EYES: PERRLA, EOMI EARS: Ext canals without abnormality NOSE: Nares patent bilateral OROPHARYNX: no oral lesions noted, posterior pharynx clear NECK: Supple, no adenopathy LUNGS: Bibasilar rales noted, tachypnea present, no expiratory or wheeze. SpO2<92> on CPAP by EMS CARDIOVASCULAR: Regular rate and rhythm without noted murmurs, no JVD but bilateral 2+ ankle/foot edema ABDOMEN: Soft, non-tender, non-distended with bowel sounds. MUSCULOSKELETAL: No tenderness, deformities, or effusions noted on gross insp ection. EXTREMITIES: No cyanosis, clubbing or edema. SKIN: Inspection of the skin reveals no rashes NEUROLOGIC: Alert and oriented x 3. Strength and sensation to light touch were grossly intact x 4. Medications Administered Discontinued Medications Generic Name Dose Route Start Last Admin Trade Name Freq PRN Reason Stop Dose Admin Furosemide 80 mg 10/22/22 14:53 10/22/22 15:33 Furosemide 100 Mg/10 Ml Vial IVPUSH 10/22/22 14:54 80 mg ONCE ONE Administration Protocol Sodium Chloride 500 mls @ 999 mls/hr 10/22/22 15:15 10/22/22 15:07 Ns IV 10/22/22 15:45 999 mls/hr .Q31M WILBERTO Administration Piperacillin Sod/Tazobactam 50 mls @ 100 mls/hr 10/22/22 15:56 10/22/22 16:28 Sod 3.375 gm/ Sodium Chloride IV 10/22/22 16:25 100 mls/hr ONCE ONE Administration Medical Decision Making Medical Decision Making MDM Narrative: Patient was switched over from CPAP by EMS to BiPAP and based on clinical exam suspect that this is CHF exacerbation as opposed to chronic lung disease. 1445: Notified by nursing that patient was hypotensive in suspect this may be due to PEEP settings on the BiPAP machine, transferred him over to 4 L via nasal cannula, he is on 3 L at home at baseline. Repeat blood pressure appears to have improved. 82-year-old male with history and clinical presentation, DDX: CHF exacerbation, less likely felt to be chronic lung disease/pneumonia/ACS. INTERVENTION: 80 mg Lasix - labs, UA, lactic acid, blood cultures, chest x-ray, EKG, troponin and coagulation studies. 1559: Nursing informed me that BP has improved but appears pt is in CHF so will not give additional IVF and does not meet criteria for sepsis fluids. I reviewed all investigations and hematologic indices are significant for leukocytosis and left shift and taken in to context with the urinalysis results suspect that patient may have a UTI and received antibiotics as well as 500 cc of IV fluid. Coagulation studies are grossly within normal limits. ABG does not demonstrate evidence to suggest exacerbation of underlying chronic lung disease. On review of chemistry indices electrolytes are within normal limits there is an COLETTE and elevated BNP which is consistent with clinical findings that further support CHF exacerbation. Patient received 80 mg of Lasix for this, the noted lactic acidosis of 2.2 is likely secondary to patient's noted hypoxemia home. Troponin is noted to be elevated at 73.3 and once again suspect that this is a type 2 ischemia from the hypoxemia but will trend and there are no gross findings on EKG to suggest acute ischemic etiology. 1710: I discussed case with inpatient hospitalist who accepts admission. Differential Diagnosis Differential Diagnoses: The differential diagnosis associated with the presentation includes Please see discussion above Admission/Observation Consideration of admission/observation: Escalation of care including admission/observation considered Please see the discussion above Consult Healthcare Provider Management of the patient was discussed with: Hospitalist Please see the discussion above Lab Data MDM Lab Attestation statement: I reviewed the patient's lab results. Please see the discussion above 10/22/22 14:57 10/22/22 14:57 Labs: Lab Results 10/22/22 10/22/22 10/22/22 Range/Units 14:57 14:57 14:57 WBC 13.3 H (4.8-10.8) X10*3/uL RBC 5.40 (4.60-5.80) X10*6/uL Hgb 14.8 (14.0-18.0) g/dl Hct 45.8 (42.0-52.0) % MCV 84.8 (80.0-98.0) fL MCH 27.4 (27.0-33.0) pg MCHC 32.3 (31.0-36.0) g/dl RDW 15.2 (11.0-16.0) % Plt Count 178 (160-400) X10*3/uL MPV 11.8 (9.4-12.4) fL Immature Gran % (Auto) 0.5 H (0.0-0.4) % Neut % (Auto) 85.2 H (45-73) % Lymph % (Auto) 7.2 L (20-40) % [place] % (Auto) 6.4 (2-11) % Eos % (Auto) 0.5 (0-4) % Baso % (Auto) 0.2 (0-2) % Lymph # (Auto) 1.0 L (1.2-4.9) X10*3/uL [place] # (Auto) 0.9 (0.1-1.2) X10*3/uL Eos # (Auto) 0.1 (0.0-0.4) X10*3/uL Baso # (Auto) 0.0 (0.0-0.2) X10*3/uL Abs Immat Gran (auto) 0.07 H (0.00-0.03) X10*3/uL Absolute Neuts (auto) 11.4 H (2.0-8.3) x10*3/uL Absolute Nucleated RBC 0.000 (0.0-0.012) X10*3/uL Nucleated RBC % (auto) 0.0 (0.0-0.2) /100WBC PT 13.9 H (11.1-13.3) SEC INR 1.1 (0.9-1.1) VBG pH (7.32-7.43) VBG pCO2 mmHg VBG pO2 mmHg VBG HCO3 (22-26) mmol/L VBG O2 Saturation % VBG Base Excess mmol/L Sodium 138 (135-145) mmol/L Potassium 4.7 (3.3-5.1) mmol/L Chloride 104 (96-108) mmol/L Carbon Dioxide 19 L (22-29) mmol/L Anion Gap 20 (12-20) BUN 45 H (9-16) mg/dL Creatinine 1.97 H (0.5-1.4) mg/dL Estim Creat Clear Calc 43.4 Estimated GFR 33 Random Glucose 228 H (60-115) mg/dL Lactic Acid (0.5-2.0) mmol/L Calcium 9.6 D (8.4-10.2) mg/dL Total Bilirubin 0.9 (0.0-1.0) mg/dL AST 25 (5-37) U/L ALT 28 (0-40) U/L Alkaline Phosphatase 70 (39-117) U/L Troponin I High Sens (<3.5-35.0) ng/L B-Natriuretic Peptide (<100) pg/mL Total Protein 6.9 (6.5-8.0) g/dL Albumin 3.5 (3.5-5.0) g/dL Urine Color Urine Appearance Urine pH (5.0-9.0) Ur Specific [place] (1.005-1.025) Urine Protein (Neg-Trace) mg/dL Urine Glucose (UA) (Negative) mg/dL Urine Ketones (Negative) mg/dL Urine Blood (Negative) Urine Nitrite (Negative) Ur Leukocyte Esterase (Negative) Urine RBC (0-2) /HPF Urine WBC (0-5) /HPF Ur Squamous Epith Cells (0-2) /HPF Urine Bacteria (None Seen) Hyaline Casts (0-2) /LPF RBC Casts 10/22/22 10/22/22 10/22/22 Range/Units 14:57 14:57 14:57 WBC (4.8-10.8) X10*3/uL RBC (4.60-5.80) X10*6/uL Hgb (14.0-18.0) g/dl Hct (42.0-52.0) % MCV (80.0-98.0) fL MCH (27.0-33.0) pg MCHC (31.0-36.0) g/dl RDW (11.0-16.0) % Plt Count (160-400) X10*3/uL MPV (9.4-12.4) fL Immature Gran % (Auto) (0.0-0.4) % Neut % (Auto) (45-73) % Lymph % (Auto) (20-40) % [place] % (Auto) (2-11) % Eos % (Auto) (0-4) % Baso % (Auto) (0-2) % Lymph # (Auto) (1.2-4.9) X10*3/uL [place] # (Auto) (0.1-1.2) X10*3/uL Eos # (Auto) (0.0-0.4) X10*3/uL Baso # (Auto) (0.0-0.2) X10*3/uL Abs Immat Gran (auto) (0.00-0.03) X10*3/uL Absolute Neuts (auto) (2.0-8.3) x10*3/uL Absolute Nucleated RBC (0.0-0.012) X10*3/uL Nucleated RBC % (auto) (0.0-0.2) /100WBC PT (11.1-13.3) SEC INR (0.9-1.1) VBG pH (7.32-7.43) VBG pCO2 mmHg VBG pO2 mmHg VBG HCO3 (22-26) mmol/L VBG O2 Saturation % VBG Base Excess mmol/L Sodium (135-145) mmol/L Potassium (3.3-5.1) mmol/L Chloride (96-108) mmol/L Carbon Dioxide (22-29) mmol/L Anion Gap (12-20) BUN (9-16) mg/dL Creatinine (0.5-1.4) mg/dL Estim Creat Clear Calc Estimated GFR Random Glucose (60-115) mg/dL Lactic Acid 2.2 H* (0.5-2.0) mmol/L Calcium (8.4-10.2) mg/dL Total Bilirubin (0.0-1.0) mg/dL AST (5-37) U/L ALT (0-40) U/L Alkaline Phosphatase (39-117) U/L Troponin I High Sens 73.3 H D (<3.5-35.0) ng/L B-Natriuretic Peptide 523 H (<100) pg/mL Total Protein (6.5-8.0) g/dL Albumin (3.5-5.0) g/dL Urine Color Urine Appearance Urine pH (5.0-9.0) Ur Specific [place] (1.005-1.025) Urine Protein (Neg-Trace) mg/dL Urine Glucose (UA) (Negative) mg/dL Urine Ketones (Negative) mg/dL Urine Blood (Negative) Urine Nitrite (Negative) Ur Leukocyte Esterase (Negative) Urine RBC (0-2) /HPF Urine WBC (0-5) /HPF Ur Squamous Epith Cells (0-2) /HPF Urine Bacteria (None Seen) Hyaline Casts (0-2) /LPF RBC Casts 10/22/22 10/22/22 Range/Units 15:03 16:28 WBC (4.8-10.8) X10*3/uL RBC (4.60-5.80) X10*6/uL Hgb (14.0-18.0) g/dl Hct (42.0-52.0) % MCV (80.0-98.0) fL MCH (27.0-33.0) pg MCHC (31.0-36.0) g/dl RDW (11.0-16.0) % Plt Count (160-400) X10*3/uL MPV (9.4-12.4) fL Immature Gran % (Auto) (0.0-0.4) % Neut % (Auto) (45-73) % Lymph % (Auto) (20-40) % [place] % (Auto) (2-11) % Eos % (Auto) (0-4) % Baso % (Auto) (0-2) % Lymph # (Auto) (1.2-4.9) X10*3/uL [place] # (Auto) (0.1-1.2) X10*3/uL Eos # (Auto) (0.0-0.4) X10*3/uL Baso # (Auto) (0.0-0.2) X10*3/uL Abs Immat Gran (auto) (0.00-0.03) X10*3/uL Absolute Neuts (auto) (2.0-8.3) x10*3/uL Absolute Nucleated RBC (0.0-0.012) X10*3/uL Nucleated RBC % (auto) (0.0-0.2) /100WBC PT (11.1-13.3) SEC INR (0.9-1.1) VBG pH 7.43 (7.32-7.43) VBG pCO2 33 mmHg VBG pO2 69 mmHg VBG HCO3 22 (22-26) mmol/L VBG O2 Saturation 92.0 % VBG Base Excess -0.9 mmol/L Sodium (135-145) mmol/L Potassium (3.3-5.1) mmol/L Chloride (96-108) mmol/L Carbon Dioxide (22-29) mmol/L Anion Gap (12-20) BUN (9-16) mg/dL Creatinine (0.5-1.4) mg/dL Estim Creat Clear Calc Estimated GFR Random Glucose (60-115) mg/dL Lactic Acid (0.5-2.0) mmol/L Calcium (8.4-10.2) mg/dL Total Bilirubin (0.0-1.0) mg/dL AST (5-37) U/L ALT (0-40) U/L Alkaline Phosphatase (39-117) U/L Troponin I High Sens (<3.5-35.0) ng/L B-Natriuretic Peptide (<100) pg/mL Total Protein (6.5-8.0) g/dL Albumin (3.5-5.0) g/dL Urine Color Dark Yellow Urine Appearance Cloudy Urine pH 5.0 (5.0-9.0) Ur Specific [place] 1.020 (1.005-1.025) Urine Protein 100 (2+) H (Neg-Trace) mg/dL Urine Glucose (UA) Negative (Negative) mg/dL Urine Ketones Trace (Negative) mg/dL Urine Blood Large (3+) H (Negative) Urine Nitrite Negative (Negative) Ur Leukocyte Esterase Moderate (2+) H (Negative) Urine RBC >20 H (0-2) /HPF Urine WBC 6-10 H (0-5) /HPF Ur Squamous Epith Cells 11-20 (0-2) /HPF Urine Bacteria None Seen (None Seen) Hyaline Casts 6-10 (0-2) /LPF RBC Casts Present Independent Interpretation I performed an independent interpretation of an: EKG Interpretation: Right bundle branch block at baseline, atrial fibrillation, HR-97, no STEMI, QRS is chronically stable at 144, QTC is noted to be mildly prolonged. I compared the EKG to 10/16/2022 and there are no significant changes. Radiology Impression Radiologist Impression: No pneumonia, otherwise my interpretation is in agreement with radiology's impression. External Record Review External record reviewed: Outpatient record and Prior outpatient labs Chronic Conditions Patient?s care impacted by: Diabetes and Hypertension Critical Care Time Critical Care Time Critical Care Time: Yes Total Critical Care Time: 45 Attestation: I personally attest to this time spent taking care of the patient. Discharge Plan Discharge Clinical Impression: CHF exacerbation, Acute on chronic respiratory failure with hypoxemia, COLETTE (acute kidney injury), Acute UTI Patient Disposition: Admitted As Inpatient
[2022-10-22 15:06] LABS: MANUAL DIFF FLAG NO
[2022-10-22] MEDS: 0.9 % Sodium Chloride 500 ML 999 ML IV (15:07)
[2022-10-22 15:08] LABS: Basophils Percent Auto 0.2 % (0-2); Eosinophils Absolute Auto 0.1 X10*3/uL (0.0-0.4); Eosinophils Percent Auto 0.5 % (0-4); Hematocrit 45.8 % (42.0-52.0); Hemoglobin 14.8 g/dl (14.0-18.0); Imm Gran Abs Auto 0.07 X10*3/uL (0.00-0.03); Imm Gran Pct Auto 0.5 % (0.0-0.4); Lymphocytes Percent Auto 7.2 % (20-40); Mean Corpuscular HGB Conc 32.3 g/dl (31.0-36.0); Mean Corpuscular Hemoglobin 27.4 pg (27.0-33.0); Mean Corpuscular Volume 84.8 fL (80.0-98.0); Mean Platelet Volume 11.8 fL (9.4-12.4); Monocytes Absolute Auto 0.9 X10*3/uL (0.1-1.2); Monocytes Percent Auto 6.4 % (2-11); Neutrophils Absolute Auto 11.4 x10*3/uL (2.0-8.3); Neutrophils Percent Auto 85.2 % (45-73); Platelet Count 178 X10*3/uL (160-400); Red Cell Distribution Width 15.2 % (11.0-16.0); Venous Blood Gas Refer to POC result; White Blood Count 13.3 X10*3/uL (4.8-10.8)
[2022-10-22 15:11] LABS: VBG Base Excess -0.9 mmol/L; VBG HCO3 22 mmol/L (22-26); VBG pCO2 33 mmHg; VBG pH 7.43 (7.32-7.43); VBG pO2 69 mmHg
[2022-10-22 15:23] LABS: Lactic Acid 2.2 mmol/L (0.5-2.0)
[2022-10-22 15:24] LABS: INTERNATIONAL NORM RATIO 1.1 (0.9-1.1); Prothrombin Time 13.9 SEC (11.1-13.3)
[2022-10-22 15:27] LABS: Alanine Aminotransferase 28 U/L (0-40); Albumin Level 3.5 g/dL (3.5-5.0); Alkaline Phosphatase 70 U/L (39-117); Anion Gap 20 (12-20); Aspartate Amino Transferase 25 U/L (5-37); Bilirubin Total 0.9 mg/dL (0.0-1.0); Blood Urea Nitrogen 45 mg/dL (9-16); Calcium 9.6 mg/dL (8.4-10.2); Carbon Dioxide 19 mmol/L (22-29); Chloride 104 mmol/L (96-108); Creatinine Clr Calc Pharmacy 43.4; Estimated Glomerular Filt Rate 33; Glucose Random 228 mg/dL (60-115); Potassium 4.7 mmol/L (3.3-5.1); Sodium 138 mmol/L (135-145); Total Protein 6.9 g/dL (6.5-8.0)
[2022-10-22 15:31] LABS: B Type Natriuretic Peptide 523 pg/mL (<100)
[2022-10-22 15:32] LABS: Troponin-I High Sensitivity 73.3 ng/L (<3.5-35.0)
[2022-10-22] MEDS: Furosemide 100 MG/10 ML VIAL 80 MG IVPUSH (15:33)
--- NOTE | 2022-10-22 16:20 | PC.NURSE ---
pt BIBA from home where pt c/o diff breathing, SOB - brought in on C-PAP for SaO2 86% on room air. pt with hx COPD and CHF, recently admitted to the hospital for same. pt changed to nasal cannula at 4L and improved to 90%. pt A&Ox3, lungs with JAGDISH rales. lips cyanotic, however, pts son at bedside reports this is normal for him. pt with JAGDISH shoulder pain, difficulty with ROM... BP soft with low MAPs, MD Mckinney made aware, due to CHF hx 500cc bolus of fluids ordered.
[2022-10-22] MEDS: Piperacillin Sodium/Tazobactam 3.375 GM in 0.9 % Sodium Chloride 50 ML IV (16:28)
--- NOTE | 2022-10-22 16:31 | PHA.MEDREC ---
Pharmacy Consult ? Medication Reconciliation Pharmacy has completed the medication reconciliation. Patient's son confirmed medications. Reports he has been giving a extra dose for furosemide the past few days. Lavonne Ryder, MichelleD
[2022-10-22 16:58] LABS: Appearance Urine Cloudy; Color Urine Dark Yellow; Glucose Urine UA Negative (Negative); Leukocyte Esterase Urine Moderate (2+) (Negative); Nitrite Urine Negative (Negative); UMIC TRIGGER UACC YES; Urine Blood Large (3+) (Negative); Urine Ketones Trace mg/dL (Negative); Urine Protein 100 (2+) mg/dL (Neg-Trace)
[2022-10-22 17:04] LABS: Reflex Lactate? Lactic Acid Added
[2022-10-22 17:15] LABS: Bacteria Urine None Seen (None Seen); RBC Urine >20 /HPF (0-2); Red Blood Cell Casts Urine Present; UACC Culture Trigger YES
[2022-10-22 18:16] LABS: Troponin-I High Sensitivity 68.8 ng/L (<3.5-35.0)
--- NOTE | 2022-10-22 18:22 | PC.NURSE ---
pt with ?abscess to L upper rib area near axilla. photographed and sent to Md Mckinney
--- NOTE | 2022-10-22 18:44 | PM.IMHP ---
History of Present Illness Date of Service: 10/22/22 Chief Complaint: SOB, edema An 82 years old male with PMH of PAF, chronic resp failure on 2L O2, ANDRES on CPAP, Hx CHF presenting to the hospital with worsening SOB and Edema over the last week. The patient reports that he noticed increase edema over the last few weeks which becaume more concerning the last 7 dsays as he noted not making as much urine as before with increase SOB and dyspnea with exertion until it go to the level of getting dyspneic with standing up from his recliner this morning when he decided to come to the hospital for further evaluation. he had to use O2 supplement everyday for the last week while he was using O2 only at night before. 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 Placed on CPAP in ED with good response. Admitted for further eval and management. Review of Systems Review of Systems: No fever, chills but has generalized weakness No chest pain, palpitation having shortness of breath but no coughing No abdominal pain, nausea or vomiting No urinary symptoms No any rash or wounds PMFSH Social History Alcohol intake: never Smoked in Last 30 Days: No Use of substances other than those prescribed or required for medical reasons: No Advance Directives: No Advance Directives Information Provided: No Meds Allergies Allergy/AdvReac Type Severity Reaction Status Date / Time No Known Allergies Allergy Unverified 12/09/19 15:05 [No Known Allergies*] Home Medications Medication Instructions Recorded Confirmed Last Taken Type acetaminophen 325 mg tablet 650 mg PO Q6H PRN Pain 10/22/22 10/22/22 Unknown History doxazosin 8 mg tablet 8 mg PO DAILY 10/22/22 10/22/22 Unknown History furosemide 40 mg tablet 40 mg PO BID 10/22/22 10/22/22 Unknown History isosorbide mononitrate 30 mg 30 mg PO QAM 10/22/22 10/22/22 Unknown History tablet,extended release 24 hr metformin 500 mg tablet 500 mg PO BID 10/22/22 10/22/22 Unknown History pravastatin 40 mg tablet 40 mg PO DAILY 10/22/22 10/22/22 Unknown History Physical Exam Vital Signs and Narrative: Vital Signs: Last Vital Signs Temp 97.2 F 10/22/22 14:35 Pulse 95 08/01/23 16:25 Resp 18 10/22/22 16:25 BP 108/51 L 10/22/22 16:25 Pulse Ox 92 10/22/22 16:25 O2 Del Method Nasal Cannula wit h Capnography 10/22/22 16:25 Oxygen Flow Rate 30 10/22/22 14:35 BMI result Body Mass Index 42.0 Const: Other: Constitutional : Awake, interactive, not in distress Neck : Normal inspection, Supple Cardiovascular : RRR, no JVP, +1 lower extremity edema Respiratory : good bilateral air entry, basal fine crackles, no wheezes or rhonchi Gastrointestinal: soft, lax, Normal bowel sounds, Non tender Skin : Warm, Dry Neurological : Alert & oriented x3, No focal deficit Results Labs 10/22/22 14:57 10/22/22 14:57 Labs: Laboratory Results - last 24 hr 10/22/22 10/22/22 10/22/22 14:57 14:57 14:57 MCV 84.8 MCH 27.4 MCHC 32.3 RDW 15.2 Plt Count 178 MPV 11.8 Immature Gran % (Auto) 0.5 H Neut % (Auto) 85.2 H Lymph % (Auto) 7.2 L [place] % (Auto) 6.4 Eos % (Auto) 0.5 Baso % (Auto) 0.2 Lymph # (Auto) 1.0 L [place] # (Auto) 0.9 Eos # (Auto) 0.1 Baso # (Auto) 0.0 Abs Immat Gran (auto) 0.07 H Absolute Neuts (auto) 11.4 H Absolute Nucleated RBC 0.000 Nucleated RBC % (auto) 0.0 PT 13.9 H INR 1.1 VBG pH VBG pCO2 VBG pO2 VBG HCO3 VBG O2 Saturation VBG Base Excess Anion Gap 20 Estim Creat Clear Calc 43.4 Estimated GFR 33 Random Glucose 228 H Lactic Acid Calcium 9.6 D Total Bilirubin 0.9 AST 25 ALT 28 Alkaline Phosphatase 70 B-Natriuretic Peptide Total Protein 6.9 Albumin 3.5 Urine Color Urine Appearance Urine pH Ur Specific [place] Urine Protein Urine Glucose (UA) Urine Ketones Urine Blood Urine Nitrite Ur Leukocyte Esterase Urine RBC Urine WBC Ur Squamous Epith Cells Urine Bacteria Hyaline Casts RBC Casts 10/22/22 10/22/22 10/22/22 14:57 14:57 15:03 MCV MCH MCHC RDW Plt Count MPV Immature Gran % (Auto) Neut % (Auto) Lymph % (Auto) [place] % (Auto) Eos % (Auto) Baso % (Auto) Lymph # (Auto) [place] # (Auto) Eos # (Auto) Baso # (Auto) Abs Immat Gran (auto) Absolute Neuts (auto) Absolute Nucleated RBC Nucleated RBC % (auto) PT INR VBG pH 7.43 VBG pCO2 33 VBG pO2 69 VBG HCO3 22 VBG O2 Saturation 92.0 VBG Base Excess -0.9 Anion Gap Estim Creat Clear Calc Estimated GFR Random Glucose Lactic Acid 2.2 H* Calcium Total Bilirubin AST ALT Alkaline Phosphatase B-Natriuretic Peptide 523 H Total Protein Albumin Urine Color Urine Appearance Urine pH Ur Specific [place] Urine Protein Urine Glucose (UA) Urine Ketones Urine Blood Urine Nitrite Ur Leukocyte Esterase Urine RBC Urine WBC Ur Squamous Epith Cells Urine Bacteria Hyaline Casts RBC Casts 10/22/22 16:28 MCV MCH MCHC RDW Plt Count MPV Immature Gran % (Auto) Neut % (Auto) Lymph % (Auto) [place] % (Auto) Eos % (Auto) Baso % (Auto) Lymph # (Auto) [place] # (Auto) Eos # (Auto) Baso # (Auto) Abs Immat Gran (auto) Absolute Neuts (auto) Absolute Nucleated RBC Nucleated RBC % (auto) PT INR VBG pH VBG pCO2 VBG pO2 VBG HCO3 VBG O2 Saturation VBG Base Excess Anion Gap Estim Creat Clear Calc Estimated GFR Random Glucose Lactic Acid Calcium Total Bilirubin AST ALT Alkaline Phosphatase B-Natriuretic Peptide Total Protein Albumin Urine Color Dark Yellow Urine Appearance Cloudy Urine pH 5.0 Ur Specific [place] 1.020 Urine Protein 100 (2+) H Urine Glucose (UA) Negative Urine Ketones Trace Urine Blood Large (3+) H Urine Nitrite Negative Ur Leukocyte Esterase Moderate (2+) H Urine RBC >20 H Urine WBC 6-10 H Ur Squamous Epith Cells 11-20 Urine Bacteria None Seen Hyaline Casts 6-10 RBC Casts Present Imaging Radiologist's Impressions: Impressions Chest X-Ray 10/22/22 15:48 IMPRESSION: No acute cardiopulmonary process. Assessment and Plan (1) CHF exacerbation: Status: Acute (2) Acute on chronic respiratory failure with hypoxemia: Status: Acute (3) COLETTE (acute kidney injury): Status: Acute (4) Acute UTI: Status: Acute Plan An 82 years old male with PMH of chronic resp failure on 2L O2, ANDRES on CPAP, Hx CHF presenting to the hospital with worsening SOB and Edema over the last week. Acute on chronic hypoxic respiratory failure 2/2 CHF exacerbation Needed CPAP in ED On O2 supplement, wean as tolerated Elevated BNP CXR reporting no acute illness but patient might have Pulm HTN Continue Lasix IV Continue Isosorbide follow I\O and BNP ECHO CArdiology eval COLETTE could be cardiorenal given less urine and picture of fluid overload continue with lasix and monitor response now check renal US follow BMP Possible UTI empirical Ceftriaxone Lactic acidosis likely 2/2 Metformin Elevated Trop Trop 73 >> 68 No EKG changes to suggest ACS likely 2/2 hypoxemia repeat EKG for chest pain BPH 'Doxazosin DVT PPx Heparin Patient needs 2 overnight hospital stay for treatment of hypoxic failure pending further testing and specialist opinion Time Spent With Patient Time: Total time managing care of this patient today ____ minutes. Quality Stroke Does the patient have a stroke diagnosis?: No VTE Prior VTE?: No VTE Risk Level:: Medical - moderate - high VTE Device Contraindication: Treatment Not Indicated VTE Drug Contraindication: N/A - Med Ordered
[2022-10-22 19:07] LABS: ~Lactic Acid-LAB USE ONLY 1.7 mmol/L (0.5-2.0)
[2022-10-22] MEDS: Heparin Sodium,Porcine 5,000 UNIT/ML VIAL 5000 UNIT SUBCUT (19:54)
[2022-10-22] MEDS: cefTRIAXone sodium 1 GM in 0.9 % Sodium Chloride 50 ML IV (19:54)
--- NOTE | 2022-10-22 20:08 | PC.NURSE ---
this news writer assumed care of this pt at 1900. Pt a&o to self and place, pt denies pain. pt currently on 2.5 L via NC, Spo2 95, RR 18-20, no apparent distress. 2 oval shaped pressure injuries to coccyx redness noted, pt report pressure to bottom. VSS. wctm
--- NOTE | 2022-10-22 20:40 | PC.NURSE ---
RN to RN report given to Ana M. Pt will be transported to room 459. Pt and son aware of plan.
[2022-10-23] VITALS (7 sets, daily range): BP systolic 115–143; BP diastolic 60–81; PULSE 73–98; RESP 16–20; TEMP 35.8–37; O2SAT 87–95
[2022-10-23] MEDS: 0.9 % Sodium Chloride Flush 3 ML SYRINGE IVFLUSH ×4 (00:27→20:20)
[2022-10-23] MEDS: Heparin Sodium,Porcine 5,000 UNIT/ML VIAL 5000 UNIT SUBCUT ×2 (05:58→17:38)
--- NOTE | 2022-10-23 07:00 | CA_ITS ---
Transthoracic Echocardiogram Patient (Last, First, Middle): Quentin Goodwin L Gender: Male Date of : 1940 Age: 82 Procedure Date: 10/23/2022 Procedure Type: Transthoracic Echocardiogram [place] [facility] [place] Height: 182.88 cm Weight: 140.16 kg BSA: 2.56 m2 Heart Rate: 95 bpm BP: 132 / 63 mmHg Surveillance Monitor: SB Referring MD: Kathy Myles MD Symptoms: Acute CHF exacerbation Study Quality: Technically Difficult/Contrast ECG Rhythm: Undetermined Conclusions: - Difficult to assess LVEF in spite of contrast use; probably > 50%. - There is moderately decreased right ventricular systolic function. - Mild pulmonary hypertension is present. Findings Procedure Information Contrast agent, definity, is being given per protocol without apparent complications. The quality of the study was despite the use of contrast, endocardial definition remains poor, and apical images are suboptimal for definitive comment. The study quality is limited by the patients inability to tolerate the test, patients body habitus, and lung artifact. Left Ventricle Normal left ventricular cavity size. There is moderately increased left ventricular wall thickness. Regional wall motion abnormalities can not be excluded due to suboptimal endocardial definition. Diastolic function is indeterminate on the basis of available data. Difficult to assess LVEF in spite of contrast use; probably > 50%. Right Ventricle The right ventricle was not well visualized. Mildly increased right ventricular cavity size. There is moderately decreased right ventricular systolic function. Atria The left atrium is normal in size. The right atrium was not well visualized. Aortic Valve The aortic valve was not well visualized. There is no aortic valve stenosis. There is trace (trivial) aortic valve regurgitation. Mitral Valve The mitral valve appears normal. There is no mitral valve regurgitation. There is no mitral valve stenosis. Pulmonic Valve The pulmonic valve was not well visualized. Tricuspid Valve Normal tricuspid valve structure. There is mild tricuspid valve regurgitation. Mild pulmonary hypertension is present. Great Vessels The aorta was not well visualized. Venous The inferior vena cava was not well visualized. Pericardium/Pleural There is no evidence of pericardial effusion. Prior Study Comparison No prior study available for comparison. Measurements 2D Linear Measurements IVSd: 1.60 0.6-0.9/0.6-1.0 cm LVIDd: 5.13 3.9-5.3/4.2-5.9 cm LVIDd Index: 2.00 2.4-3.2/2.2-3.1 cm/m2 LVIDs: 3.17 2.0-3.6 cm LVPWd: 1.29 0.7-1.1 cm LA Diam: 4.20 2.7-3.8/3.0-4.0 cm LAIDs Index: 1.64 1.5-2.3 cm/m2 LV Mass: 396.08 67-162/88-224 g LV Mass Index: 154.72 43-95/49-115 g/m2 LVOT Diam: 2.00 3.0+(-)1.3 cm Mitral Valve MV Pk E: 1.28 E'Lateral: 16.30 E/E' Lat: 7.90 Aortic Valve AoV Pk Urban: 1.20 AoV Pk Grad: 6.00 KATLIN: 2.38 LVOT LVOT Pk Urban: 0.91 LVOT Mn Urban: 0.66 LVOT VTI: 0.15 LVOT Pk Grad: 3.00 LVOT Mn Grad: 2.00 LVOT Diam: 2.00 LVOT Area: 3.14 Diastolic Function MV Pk E: 1.28 E' Laterial: 16.30 E/E' Lat: 7.90 Right Ventricle TAPSE (mm): 12.60 TVS' Urban: 9.14 Tricuspid Valve TR Pk Urban: 2.96 TR Pk Grad: 35.00 RA Press: 3.00 RVSP: 38.00 Great Vessels Aorta Sinus of Valsalva: 3.90 2.0-3.5 cm Pulmonary Valve PV Pk Urban: 1.13 Peak PV Grad: 5.00 Updated in Other Vendor System with Status of Final Pranav Fragoso MD electronically signed on 10/23/2022 10:54:25 AM with status of Final
[2022-10-23 07:37] LABS: Anion Gap 19 (12-20); Blood Urea Nitrogen 41 mg/dL (9-16); Calcium 9.5 mg/dL (8.4-10.2); Carbon Dioxide 21 mmol/L (22-29); Chloride 105 mmol/L (96-108); Creatinine Clr Calc Pharmacy 52.5; Estimated Glomerular Filt Rate 41; Glucose Random 149 mg/dL (60-115); Potassium 4.1 mmol/L (3.3-5.1); Sodium 141 mmol/L (135-145)
[2022-10-23 07:44] LABS: B Type Natriuretic Peptide 494 pg/mL (<100)
[2022-10-23 07:54] LABS: Glucose, Whole Blood 156 mg/dL (60-115)
[2022-10-23] MEDS: Insulin Lispro 100 UNIT/ML 3 ML VIAL SUBCUT ×4 (09:33→20:18)
[2022-10-23] MEDS: Isosorbide Mononitrate 30 MG TAB.ER.24H PO (09:34)
[2022-10-23] MEDS: Furosemide 40 MG/4 ML VIAL IVPUSH (09:34)
[2022-10-23] MEDS: Doxazosin Mesylate 2 MG TABLET 8 MG PO (09:34)
[2022-10-23] MEDS: Pravastatin Sodium 40 MG TABLET PO (09:34)
--- NOTE | 2022-10-23 09:45 | P.CONCA_ITS ---
History of Present Illness History of Present Illness Date of Service: 10/23/22 Chief complaint: SOB, edema Narrative: This is a cardiology consultation regarding congestive heart failure. Patient goes to [facility]. Multiple comorbidities. Essentially, some combination of congestive heart failure/COPD and obstructive sleep apnea on CPAP. Last office note reviewed. Reported to have poor quality echo images but normal LV but no further information. There is mention of coronary disease as well with a history of LAD 50-60% stenosis but no further information on that regard. Otherwise, hypertension, varicose veins, lower extremity vein ablation. He has minimal ambulation at baseline and gets frequently short of breath. He is also on supplemental oxygen. Apparently recently getting worse from symptoms standpoint including shortness of breath and leg swelling. Then diuretic dosing has been increased as an outpatient but that did not help and hence he is ad mitted. Review of Systems Review of Systems: Yes all other systems are reviewed and are negative Constitutional: Constitutional: Reports as per HPI and Reports no additional constitutional complaints Eyes: Eyes: Reports as per HPI and Denies no additional eye complaints ENT: Denies system reviewed and no additional complaints, except as documented and Reports as per HPI Cardiovascular: Cardiovascular: Reports as per HPI, Reports no additional cardiovascular complaints, Denies acrocyanosis, Denies cool extremities, Denies chest pain, Reports leg edema, Denies lightheadedness, Denies palpitations and Reports dyspnea Respiratory: Respiratory: Reports as per HPI, Denies no additional respiratory complaints and Reports dyspnea Gastrointestinal: Gastrointestinal: Reports as per HPI and Denies no additional gastrointestinal complaints Genitourinary: Genitourinary: Reports no additional male genitourinary complaints and Reports as per HPI Musculoskeletal: Musculoskeletal: Reports no additional musculoskeletal complaints and Reports as per HPI Integumentary/Breasts: Skin/Breast: Reports system reviewed and no additional complaints, except as docu Neurologic: Reports system reviewed and no additional complaints, except as documented and Reports as per HPI Psychiatric: Psychiatric: Reports no additional psychiatric complaints and Reports as per HPI Endocrine: Endocrine: Reports no additional endocrine complaints, Reports as per HPI and Denies palpitations Hematologic/Lymphatic: Hematologic/Lymphatic: Reports no additional hematologic/lymphatic complaints and Reports as per HPI Allergic/Immunologic: Allergic/Immunologic: Reports no additional allergic/immunologic complaints and Reports as per HPI [facility] Past Medical History Medical History (Updated 10/23/22 @ 09:51 by Pranav Fragoso MD) Chronic respiratory failure Congestive heart failure Morbid obesity ANDRES on CPAP Family History Family History Unknown No problems noted. Social History Social History Household Members: Family Household Members Other:: 3 Housing: House Do you presently have visiting nurse or other home services: No Alcohol intake: never Patient Tobacco Use Status: Former Tobacco user Tobacco use type: Cigarette Second Hand Smoke Exposure: No Meds Allergies Allergy/AdvReac Type Severity Reaction Status Date / Time No Known Allergies Allergy Unverified 12/09/19 15:05 [No Known Allergies*] Active Medications: Current Medications Acetaminophen (Acetaminophen 325 Mg Tablet) 650 mg PO Q6H PRN PRN Reason: Pain, Mild (Pain Scale 1-3) Doxazosin Mesylate (Doxazosin Mesylate 2 Mg Tablet) 8 mg PO DAILY [facility]; Protocol Last Admin: 10/23/22 09:34 Dose: 8 mg Furosemide (Furosemide 40 Mg/4 Ml Vial) 40 mg IVPUSH BID@0900,1800 [facility]; Protocol Last Admin: 10/23/22 09:34 Dose: 40 mg Heparin Sodium (Porcine) (Heparin Sodium,Porcine 5,000 Unit/Ml Vial) 5,000 unit SUBCUT Q12H [facility] Last Admin: 10/23/22 05:58 Dose: 5,000 unit Ceftriaxone Sodium 1 gm/ (Sodium Chloride) 50 mls @ 100 mls/hr IV Q24H [facility] Last Infusion: 10/22/22 21:57 Dose: Infused Insulin Human Lispro (Insulin Lispro 100 Unit/Ml 3 Ml Vial) 0 unit SUBCUT QIDACHS [facility]; Protocol Last Admin: 10/23/22 09:33 Dose: 2 unit Isosorbide Mononitrate (Isosorbide Mononitrate 30 Mg Tab.Er.24h) 30 mg PO DAILY [facility]; Protocol Last Admin: 10/23/22 09:34 Dose: 30 mg Ondansetron HCl (Ondansetron Hcl 4 Mg/2 Ml Vial) 4 mg IVPUSH Q8H PRN PRN Reason: Nausea and Vomiting Pravastatin Sodium (Pravastatin Sodium 40 Mg Tablet) 40 mg PO DAILY [facility] Last Admin: 10/23/22 09:34 Dose: 40 mg Sodium Chloride (0.9 % Sodium Chloride Flush 3 Ml Syringe) 3 ml IVFLUSH QSHIFT [facility] Last Admin: 10/23/22 09:33 Dose: 3 ml Home Medications Medication Instructions Recorded Confirmed Last Taken Type acetaminophen 325 mg tablet 650 mg PO Q6H PRN Pain 10/22/22 10/22/22 Unknown History doxazosin 8 mg tablet 8 mg PO DAILY 10/22/22 10/22/22 Unknown History furosemide 40 mg tablet 40 mg PO BID 10/22/22 10/22/22 Unknown History isosorbide mononitrate 30 mg 30 mg PO QAM 10/22/22 10/22/22 Unknown History tablet,extended release 24 hr metformin 500 mg tablet 500 mg PO BID 10/22/22 10/22/22 Unknown History pravastatin 40 mg tablet 40 mg PO DAILY 10/22/22 10/22/22 Unknown History Physical Exam Vital Signs: Vital Signs: Last Vital Signs Temp 97.8 F 10/23/22 07:47 Pulse 86 10/23/22 07:47 Resp 18 10/23/22 07:47 BP 132/69 10/23/22 07:47 Pulse Ox 91 L 10/23/22 07:47 O2 Del Method Nasal Cannula 10/23/22 07:47 O2 Flow Rate 2 10/23/22 07:47 Oxygen Flow Rate 30 10/22/22 14:35 BMI result Body Mass Index 42.0 Const: General: comfortable, no acute distress, ill appearing and tired appearing Orientation/consciousness: patient oriented x3 HEENT: Other: Unremarkable Head: Yes normal to inspection Neck: Neck: Yes normal visual inspection Chest: Chest palpation & inspection: normal inspection of the chest Resp: Auscultation: crackles and diminished lung sounds Cardio: Palpation: normal PMI Heart sounds: S1 normal heart sound present, S2 normal heart sound present, no gallops, no murmurs and no rubs GI: Palpation (GI): Soft to palpation Back/Spine/Pelvis: Other: unremarkable Skin: General skin exam: no rashes or lesions noted Neuro: General: patient oriented x3 Extrem: Other: 1+ edema. General: Yes normal to inspection Psych: Mental Status: mental status grossly normal Objective Labs and Meds 10/22/22 14:57 10/23/22 07:07 Lab results: Laboratory Results - last 24 hr 10/22/22 10/22/22 10/22/22 14:57 14:57 14:57 WBC 13.3 H RBC 5.40 Hgb 14.8 Hct 45.8 MCV 84.8 MCH 27.4 MCHC 32.3 RDW 15.2 Plt Count 178 MPV 11.8 Immature Gran % (Auto) 0.5 H Neut % (Auto) 85.2 H Lymph % (Auto) 7.2 L Bland % (Auto) 6.4 Eos % (Auto) 0.5 Baso % (Auto) 0.2 Lymph # (Auto) 1.0 L Bland # (Auto) 0.9 Eos # (Auto) 0.1 Baso # (Auto) 0.0 Abs Immat Gran (auto) 0.07 H Absolute Neuts (auto) 11.4 H Absolute Nucleated RBC 0.000 Nucleated RBC % (auto) 0.0 PT 13.9 H INR 1.1 VBG pH VBG pCO2 VBG pO2 VBG HCO3 VBG O2 Saturation VBG Base Excess Sodium 138 Potassium 4.7 Chloride 104 Carbon Dioxide 19 L Anion Gap 20 BUN 45 H Creatinine 1.97 H Estim Creat Clear Calc 43.4 Estimated GFR 33 POC Glucose Random Glucose 228 H Lactic Acid Lactic Acid F/U @ 2Hr Calcium 9.6 D Total Bilirubin 0.9 AST 25 ALT 28 Alkaline Phosphatase 70 Troponin I High Sens B-Natriuretic Peptide Total Protein 6.9 Albumin 3.5 Urine Color Urine Appearance Urine pH Ur Specific [place] Urine Protein Urine Glucose (UA) Urine Ketones Urine Blood Urine Nitrite Ur Leukocyte Esterase Urine RBC Urine WBC Ur Squamous Epith Cells Urine Bacteria Hyaline Casts RBC Casts 10/22/22 10/22/22 10/22/22 14:57 14:57 14:57 WBC RBC Hgb Hct MCV MCH MCHC RDW Plt Count MPV Immature Gran % (Auto) Neut % (Auto) Lymph % (Auto) Bland % (Auto) Eos % (Auto) Baso % (Auto) Lymph # (Auto) Bland # (Auto) Eos # (Auto) Baso # (Auto) Abs Immat Gran (auto) Absolute Neuts (auto) Absolute Nucleated RBC Nucleated RBC % (auto) PT INR VBG pH VBG pCO2 VBG pO2 VBG HCO3 VBG O2 Saturation VBG Base Excess Sodium Potassium Chloride Carbon Dioxide Anion Gap BUN Creatinine Estim Creat Clear Calc Estimated GFR POC Glucose Random Glucose Lactic Acid 2.2 H* Lactic Acid F/U @ 2Hr Calcium Total Bilirubin AST ALT Alkaline Phosphatase Troponin I High Sens 73.3 H D B-Natriuretic Peptide 523 H Total Protein Albumin Urine Color Urine Appearance Urine pH Ur Specific [place] Urine Protein Urine Glucose (UA) Urine Ketones Urine Blood Urine Nitrite Ur Leukocyte Esterase Urine RBC Urine WBC Ur Squamous Epith Cells Urine Bacteria Hyaline Casts RBC Casts 10/22/22 10/22/22 10/22/22 15:03 16:28 17:52 WBC RBC Hgb Hct MCV MCH MCHC RDW Plt Count MPV Immature Gran % (Auto) Neut % (Auto) Lymph % (Auto) Bland % (Auto) Eos % (Auto) Baso % (Auto) Lymph # (Auto) Bland # (Auto) Eos # (Auto) Baso # (Auto) Abs Immat Gran (auto) Absolute Neuts (auto) Absolute Nucleated RBC Nucleated RBC % (auto) PT INR VBG pH 7.43 VBG pCO2 33 VBG pO2 69 VBG HCO3 22 VBG O2 Saturation 92.0 VBG Base Excess -0.9 Sodium Potassium Chloride Carbon Dioxide Anion Gap BUN Creatinine Estim Creat Clear Calc Estimated GFR POC Glucose Random Glucose Lactic Acid Lactic Acid F/U @ 2Hr Calcium Total Bilirubin AST ALT Alkaline Phosphatase Troponin I High Sens 68.8 H B-Natriuretic Peptide Total Protein Albumin Urine Color Dark Yellow Urine Appearance Cloudy Urine pH 5.0 Ur Specific [place] 1.020 Urine Protein 100 (2+) H Urine Glucose (UA) Negative Urine Ketones Trace Urine Blood Large (3+) H Urine Nitrite Negative Ur Leukocyte Esterase Moderate (2+) H Urine RBC >20 H Urine WBC 6-10 H Ur Squamous Epith Cells 11-20 Urine Bacteria None Seen Hyaline Casts 6-10 RBC Casts Present 10/22/22 10/23/22 10/23/22 18:38 07:07 07:07 WBC RBC Hgb Hct MCV MCH MCHC RDW Plt Count MPV Immature Gran % (Auto) Neut % (Auto) Lymph % (Auto) Bland % (Auto) Eos % (Auto) Baso % (Auto) Lymph # (Auto) Bland # (Auto) Eos # (Auto) Baso # (Auto) Abs Immat Gran (auto) Absolute Neuts (auto) Absolute Nucleated RBC Nucleated RBC % (auto) PT INR VBG pH VBG pCO2 VBG pO2 VBG HCO3 VBG O2 Saturation VBG Base Excess Sodium 141 Potassium 4.1 Chloride 105 Carbon Dioxide 21 L Anion Gap 19 BUN 41 H Creatinine 1.63 H Estim Creat Clear Calc 52.5 Estimated GFR 41 POC Glucose Random Glucose 149 H Lactic Acid Lactic Acid F/U @ 2Hr 1.7 Calcium 9.5 Total Bilirubin AST ALT Alkaline Phosphatase Troponin I High Sens B-Natriuretic Peptide 494 H Total Protein Albumin Urine Color Urine Appearance Urine pH Ur Specific [place] Urine Protein Urine Glucose (UA) Urine Ketones Urine Blood Urine Nitrite Ur Leukocyte Esterase Urine RBC Urine WBC Ur Squamous Epith Cells Urine Bacteria Hyaline Casts RBC Casts 10/23/22 07:51 WBC RBC Hgb Hct MCV MCH MCHC RDW Plt Count MPV Immature Gran % (Auto) Neut % (Auto) Lymph % (Auto) Bland % (Auto) Eos % (Auto) Baso % (Auto) Lymph # (Auto) Bland # (Auto) Eos # (Auto) Baso # (Auto) Abs Immat Gran (auto) Absolute Neuts (auto) Absolute Nucleated RBC Nucleated RBC % (auto) PT INR VBG pH VBG pCO2 VBG pO2 VBG HCO3 VBG O2 Saturation VBG Base Excess Sodium Potassium Chloride Carbon Dioxide Anion Gap BUN Creatinine Estim Creat Clear Calc Estimated GFR POC Glucose 156 H Random Glucose Lactic Acid Lactic Acid F/U @ 2Hr Calcium Total Bilirubin AST ALT Alkaline Phosphatase Troponin I High Sens B-Natriuretic Peptide Total Protein Albumin Urine Color Urine Appearance Urine pH Ur Specific [place] Urine Protein Urine Glucose (UA) Urine Ketones Urine Blood Urine Nitrite Ur Leukocyte Esterase Urine RBC Urine WBC Ur Squamous Epith Cells Urine Bacteria Hyaline Casts RBC Casts ECG Interpretation: EKG with wide complex rhythm at 97/Min. Could be sinus with a very long WI interval. Less likely junctional. Imaging Radiologist's impression: Impressions Chest X-Ray 10/22/22 15:48 IMPRESSION: No acute cardiopulmonary process. Renal Ultrasound 10/22/22 19:33 IMPRESSION: No hydronephrosis or nephrolithiasis. Assessment and Plan (1) Acute on chronic respiratory failure with hypoxemia: Status: Acute (2) CHF exacerbation: Status: Acute Plan High sensitivity troponins are 73 and 68. Last month, they were 10 and 11. Cardiac BNP 523 and 494. Last month, 128. In 2020, 627. Chest x-ray with no acute process. Not clear how much cardiac component is in this. This could all be primarily from obesity, obstructive sleep apnea/hypoventilation leading to secondary right heart failure. Empiric diuretics as tolerated. Monitor renal function. With regard to the EKG, probably rate long first-degree heart block and that will need to be monitored. If it gets worse, will need to be considered for permanent pacemaker. Echocardiogram. Discussed with son at the bedside. He agrees with plan. Overall, guarded prognosis. Time Spent With Patient Time: Total time managing care of this patient today ____ minutes. Procedures Date of Service Date of Service: 10/23/22
--- NOTE | 2022-10-23 11:03 | MHC.CM.PN ---
CM met with Patient at bedside and addressed IMM with him, providing Patient with the original and a copy has been placed on the chart. Patient lives in a house with his Granddaughter and he uses a w/c and walker to assist with mobility. Patient is working with [facility] toward securing a AUTOMATION TECH and Patient is open to new VNA ([facility] OR [facility]). Patient may benefit from a PT eval to assist with disposition(2 assist). CM has initiated and will follow for dc planning. Patient is abby mondragon and his PCP is presently Dr. Dena Churchill, who is retiring. New PCP is trough [facility] in [place] on 11/11/2022.Patient's Father is the HCP.
[2022-10-23 11:35] LABS: Glucose, Whole Blood 171 mg/dL (60-115)
--- NOTE | 2022-10-23 11:55 | P.PNIM_ITS ---
Subjective Subjective Date of Service: 10/23/22 Interval History: sob Physical Exam Vital Signs: Vital Signs: Last Vital Signs Temp 97.6 F 10/23/22 11:27 Pulse 92 10/23/22 11:27 Resp 18 10/23/22 11:27 BP 143/64 H 10/23/22 11:27 Pulse Ox 91 L 10/23/22 11:27 O2 Del Method Nasal Cannula 10/23/22 11:27 O2 Flow Rate 2 10/23/22 11:27 Oxygen Flow Rate 30 10/22/22 14:35 BMI result Body Mass Index 42.0 General: AO X 3,dyspneic, ill appearing Resp: diminished bilateral, no accessory muscles used CVS: S1,S2,RRR GI: soft, non tender, non distended Neuro: motor grossly intact, alert Psych: appropriate affect, appropriate insight Objective Data Active Medications Acetaminophen (Acetaminophen 325 Mg Tablet) 650 mg PO Q6H PRN PRN Reason: Pain, Mild (Pain Scale 1-3) Bumetanide (Bumetanide 1 Mg/4 Ml Vial) 1 mg IVPUSH BID@0900,1700 [facility]; Protocol Doxazosin Mesylate (Doxazosin Mesylate 2 Mg Tablet) 8 mg PO DAILY [facility]; Protocol Last Admin: 10/23/22 09:34 Dose: 8 mg Documented By: DERICK Heparin Sodium (Porcine) (Heparin Sodium,Porcine 5,000 Unit/Ml Vial) 5,000 unit SUBCUT Q12H [facility] Last Admin: 10/23/22 05:58 Dose: 5,000 unit Documented By: MARJORIE Ceftriaxone Sodium 1 gm/ (Sodium Chloride) 50 mls @ 100 mls/hr IV Q24H [facility] Last Infusion: 10/22/22 21:57 Dose: 0 mls/hr Documented By: JENS Insulin Human Lispro (Insulin Lispro 100 Unit/Ml 3 Ml Vial) 0 unit SUBCUT QIDACHS [facility]; Protocol Last Admin: 10/23/22 09:33 Dose: 2 unit Documented By: DERICK Isosorbide Mononitrate (Isosorbide Mononitrate 30 Mg Tab.Er.24h) 30 mg PO DAILY [facility]; Protocol Last Admin: 10/23/22 09:34 Dose: 30 mg Documented By: DERICK Ondansetron HCl (Ondansetron Hcl 4 Mg/2 Ml Vial) 4 mg IVPUSH Q8H PRN PRN Reason: Nausea and Vomiting Pravastatin Sodium (Pravastatin Sodium 40 Mg Tablet) 40 mg PO DAILY [facility] Last Admin: 10/23/22 09:34 Dose: 40 mg Documented By: DERICK Sodium Chloride (0.9 % Sodium Chloride Flush 3 Ml Syringe) 3 ml IVFLUSH QSHIFT [facility] Last Admin: 10/23/22 09:33 Dose: 3 ml Documented By: DERICK Labs 10/22/22 14:57 10/23/22 07:07 Labs: Laboratory Results - last 24 hr 10/22/22 10/22/22 10/22/22 14:57 14:57 14:57 MCV 84.8 MCH 27.4 MCHC 32.3 RDW 15.2 Plt Count 178 MPV 11.8 Immature Gran % (Auto) 0.5 H Neut % (Auto) 85.2 H Lymph % (Auto) 7.2 L [place] % (Auto) 6.4 Eos % (Auto) 0.5 Baso % (Auto) 0.2 Lymph # (Auto) 1.0 L [place] # (Auto) 0.9 Eos # (Auto) 0.1 Baso # (Auto) 0.0 Abs Immat Gran (auto) 0.07 H Absolute Neuts (auto) 11.4 H Absolute Nucleated RBC 0.000 Nucleated RBC % (auto) 0.0 PT 13.9 H INR 1.1 VBG pH VBG pCO2 VBG pO2 VBG HCO3 VBG O2 Saturation VBG Base Excess Anion Gap 20 Estim Creat Clear Calc 43.4 Estimated GFR 33 POC Glucose Random Glucose 228 H Lactic Acid Lactic Acid F/U @ 2Hr Calcium 9.6 D Total Bilirubin 0.9 AST 25 ALT 28 Alkaline Phosphatase 70 B-Natriuretic Peptide Total Protein 6.9 Albumin 3.5 Urine Color Urine Appearance Urine pH Ur Specific [place] Urine Protein Urine Glucose (UA) Urine Ketones Urine Blood Urine Nitrite Ur Leukocyte Esterase Urine RBC Urine WBC Ur Squamous Epith Cells Urine Bacteria Hyaline Casts RBC Casts 10/22/22 10/22/22 10/22/22 14:57 14:57 15:03 MCV MCH MCHC RDW Plt Count MPV Immature Gran % (Auto) Neut % (Auto) Lymph % (Auto) [place] % (Auto) Eos % (Auto) Baso % (Auto) Lymph # (Auto) [place] # (Auto) Eos # (Auto) Baso # (Auto) Abs Immat Gran (auto) Absolute Neuts (auto) Absolute Nucleated RBC Nucleated RBC % (auto) PT INR VBG pH 7.43 VBG pCO2 33 VBG pO2 69 VBG HCO3 22 VBG O2 Saturation 92.0 VBG Base Excess -0.9 Anion Gap Estim Creat Clear Calc Estimated GFR POC Glucose Random Glucose Lactic Acid 2.2 H* Lactic Acid F/U @ 2Hr Calcium Total Bilirubin AST ALT Alkaline Phosphatase B-Natriuretic Peptide 523 H Total Protein Albumin Urine Color Urine Appearance Urine pH Ur Specific [place] Urine Protein Urine Glucose (UA) Urine Ketones Urine Blood Urine Nitrite Ur Leukocyte Esterase Urine RBC Urine WBC Ur Squamous Epith Cells Urine Bacteria Hyaline Casts RBC Casts 10/22/22 10/22/22 10/23/22 16:28 18:38 07:07 MCV MCH MCHC RDW Plt Count MPV Immature Gran % (Auto) Neut % (Auto) Lymph % (Auto) [place] % (Auto) Eos % (Auto) Baso % (Auto) Lymph # (Auto) [place] # (Auto) Eos # (Auto) Baso # (Auto) Abs Immat Gran (auto) Absolute Neuts (auto) Absolute Nucleated RBC Nucleated RBC % (auto) PT INR VBG pH VBG pCO2 VBG pO2 VBG HCO3 VBG O2 Saturation VBG Base Excess Anion Gap Estim Creat Clear Calc Estimated GFR POC Glucose Random Glucose Lactic Acid Lactic Acid F/U @ 2Hr 1.7 Calcium Total Bilirubin AST ALT Alkaline Phosphatase B-Natriuretic Peptide 494 H Total Protein Albumin Urine Color Dark Yellow Urine Appearance Cloudy Urine pH 5.0 Ur Specific [place] 1.020 Urine Protein 100 (2+) H Urine Glucose (UA) Negative Urine Ketones Trace Urine Blood Large (3+) H Urine Nitrite Negative Ur Leukocyte Esterase Moderate (2+) H Urine RBC >20 H Urine WBC 6-10 H Ur Squamous Epith Cells 11-20 Urine Bacteria None Seen Hyaline Casts 6-10 RBC Casts Present 10/23/22 10/23/22 10/23/22 07:07 07:51 11:31 MCV MCH MCHC RDW Plt Count MPV Immature Gran % (Auto) Neut % (Auto) Lymph % (Auto) [place] % (Auto) Eos % (Auto) Baso % (Auto) Lymph # (Auto) [place] # (Auto) Eos # (Auto) Baso # (Auto) Abs Immat Gran (auto) Absolute Neuts (auto) Absolute Nucleated RBC Nucleated RBC % (auto) PT INR VBG pH VBG pCO2 VBG pO2 VBG HCO3 VBG O2 Saturation VBG Base Excess Anion Gap 19 Estim Creat Clear Calc 52.5 Estimated GFR 41 POC Glucose 156 H 171 H Random Glucose 149 H Lactic Acid Lactic Acid F/U @ 2Hr Calcium 9.5 Total Bilirubin AST ALT Alkaline Phosphatase B-Natriuretic Peptide Total Protein Albumin Urine Color Urine Appearance Urine pH Ur Specific [place] Urine Protein Urine Glucose (UA) Urine Ketones Urine Blood Urine Nitrite Ur Leukocyte Esterase Urine RBC Urine WBC Ur Squamous Epith Cells Urine Bacteria Hyaline Casts RBC Casts Microbiology Microbiology Results: Microbiology 10/22/22 Unknown Urine Culture - Preliminary Urine Catheterized - Pitts Catheter No growth to date. Assessment and Plan (1) CHF exacerbation: Status: Acute Plan 82M PMH of chronic resp failure on 2L O2, ANDRES on CPAP, DM, 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, chronic CHF with preserved EF, presented with sob and worsening SOB and Edema Acute on chronic hypoxic respiratory failure 2/2 acute on chronic CHF with preserved EF changed to iv bumex Continue Imdur ECHO - poor imaging, showing right sided dysfunction Cardio appreciated 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 weight loss COLETTE on CKD III baseline creatinine around 1.3 cardirenal monitor no evidence of UTI dc Ceftriaxone Lactic acidosis likely 2/2 Metformin, no sepsis DM insulin BPH Doxazosin ANDRES cpap at night DVT PPx Heparin full code reason for continued hospitalization:hypoxia, sob ongoing, iv diuresis Time Spent With Patient Time: Total time managing care of this patient today ____ minutes. Quality Stroke Does the patient have a stroke diagnosis?: No VTE Prior VTE?: No VTE Risk Level:: Medical - moderate - high VTE Device Contraindication: Treatment Not Indicated VTE Drug Contraindication: N/A - Med Ordered
[2022-10-23 16:33] LABS: Glucose, Whole Blood 200 mg/dL (60-115)
[2022-10-23] MEDS: Bumetanide 1 MG/4 ML VIAL IVPUSH (17:38)
[2022-10-23 20:15] LABS: Glucose, Whole Blood 155 mg/dL (60-115)
[2022-10-24] VITALS (7 sets, daily range): BP systolic 138–166; BP diastolic 66–74; PULSE 75–97; RESP 18–22; TEMP 36.1–36.7; O2SAT 92–95; BMI 42.3
[2022-10-24] MEDS: Heparin Sodium,Porcine 5,000 UNIT/ML VIAL 5000 UNIT SUBCUT (06:05)
[2022-10-24 07:18] LABS: Glucose, Whole Blood 151 mg/dL (60-115)
[2022-10-24] MEDS: 0.9 % Sodium Chloride Flush 3 ML SYRINGE IVFLUSH ×2 (08:40→17:11)
[2022-10-24] MEDS: Insulin Lispro 100 UNIT/ML 3 ML VIAL SUBCUT ×4 (08:40→20:48)
[2022-10-24] MEDS: Pravastatin Sodium 40 MG TABLET PO (08:41)
[2022-10-24] MEDS: Bumetanide 1 MG/4 ML VIAL IVPUSH (08:41)
[2022-10-24] MEDS: Doxazosin Mesylate 2 MG TABLET 8 MG PO (08:41)
[2022-10-24] MEDS: Isosorbide Mononitrate 30 MG TAB.ER.24H PO (08:41)
[2022-10-24 09:23] LABS: Hematocrit 47.1 % (42.0-52.0); Hemoglobin 14.9 g/dl (14.0-18.0); Mean Corpuscular HGB Conc 31.6 g/dl (31.0-36.0); Mean Corpuscular Hemoglobin 27.3 pg (27.0-33.0); Mean Corpuscular Volume 86.4 fL (80.0-98.0); Mean Platelet Volume 12.1 fL (9.4-12.4); Platelet Count 182 X10*3/uL (160-400); Red Blood Count 5.45 X10*6/uL (4.60-5.80); Red Cell Distribution Width 15.2 % (11.0-16.0); White Blood Count 10.5 X10*3/uL (4.8-10.8)
[2022-10-24 09:41] LABS: D Dimer High Sensitivity 5527 NG/ML
[2022-10-24 09:42] LABS: Anion Gap 19 (12-20); Blood Urea Nitrogen 47 mg/dL (9-16); Calcium 9.8 mg/dL (8.4-10.2); Carbon Dioxide 23 mmol/L (22-29); Chloride 102 mmol/L (96-108); Creatinine Clr Calc Pharmacy 56.3; Estimated Glomerular Filt Rate 44; Glucose Fasting 184 mg/dL (60-99); Potassium 4.5 mmol/L (3.3-5.1); Sodium 139 mmol/L (135-145)
[2022-10-24] MEDS: Bumetanide 25 MG in Container,Empty 0 ML IVCONT (11:14)
[2022-10-24 11:19] LABS: Glucose, Whole Blood 190 mg/dL (60-115)
--- NOTE | 2022-10-24 12:05 | HO.PM.IMPN ---
Subjective Subjective Date of Service: 10/24/22 Interval History: unchanged Physical Exam Vital Signs: Vital Signs: Last Vital Signs Temp 97.4 F 10/24/22 11:08 Pulse 97 10/24/22 11:08 Resp 22 H 10/24/22 11:08 BP 143/71 H 10/24/22 11:08 Pulse Ox 92 10/24/22 11:08 O2 Del Method Nasal Cannula 10/24/22 11:08 O2 Flow Rate 2 10/24/22 11:08 Oxygen Flow Rate 30 10/22/22 14:35 BMI result Body Mass Index 42.0 General: AO X 3,dyspneic, ill appearing (cyanotic appearing - chronic per family) Resp: diminished bilateral, no accessory muscles used CVS: S1,S2,RRR GI: soft, non tender, non distended Neuro: motor grossly intact, alert Psych: appropriate affect, appropriate insight Objective Data Active Medications Acetaminophen (Acetaminophen 325 Mg Tablet) 650 mg PO Q6H PRN PRN Reason: Pain, Mild (Pain Scale 1-3) Doxazosin Mesylate (Doxazosin Mesylate 2 Mg Tablet) 8 mg PO DAILY [facility]; Protocol Last Admin: 10/24/22 08:41 Dose: 8 mg Documented By: DERICK Heparin Sodium (Porcine) (Heparin Sodium,Porcine 5,000 Unit/Ml Vial) 5,000 unit SUBCUT Q12H [facility] Last Admin: 10/24/22 06:05 Dose: 5,000 unit Documented By: DEBO Bumetanide 25 mg/ IV (Miscellaneous Supplies) 100 mls @ 2 mls/hr IVCONT .Q24H [facility] Last Admin: 10/24/22 11:14 Dose: 0.5 mg/hr, 2 mls/hr Documented By: DERICK Insulin Human Lispro (Insulin Lispro 100 Unit/Ml 3 Ml Vial) 0 unit SUBCUT QIDACHS [facility]; Protocol Last Admin: 10/24/22 11:49 Dose: 2 unit Documented By: DERICK Isosorbide Mononitrate (Isosorbide Mononitrate 30 Mg Tab.Er.24h) 30 mg PO DAILY [facility]; Protocol Last Admin: 10/24/22 08:41 Dose: 30 mg Documented By: DERICK Ondansetron HCl (Ondansetron Hcl 4 Mg/2 Ml Vial) 4 mg IVPUSH Q8H PRN PRN Reason: Nausea and Vomiting Pravastatin Sodium (Pravastatin Sodium 40 Mg Tablet) 40 mg PO DAILY [facility] Last Admin: 10/24/22 08:41 Dose: 40 mg Documented By: DERICK Sodium Chloride (0.9 % Sodium Chloride Flush 3 Ml Syringe) 3 ml IVFLUSH QSHIFT [facility] Last Admin: 10/24/22 08:40 Dose: 3 ml Documented By: DERICK Labs 10/24/22 08:55 10/24/22 08:55 Labs: Laboratory Results - last 24 hr 10/23/22 10/23/22 10/24/22 16:26 20:10 07:14 MCV MCH MCHC RDW Plt Count MPV Absolute Nucleated RBC Nucleated RBC % (auto) D-Dimer High Sensitivty Anion Gap Estim Creat Clear Calc Estimated GFR POC Glucose 200 H 155 H 151 H Fasting Glucose Calcium 10/24/22 10/24/22 10/24/22 08:55 08:55 08:55 MCV 86.4 MCH 27.3 MCHC 31.6 RDW 15.2 Plt Count 182 MPV 12.1 Absolute Nucleated RBC 0.000 Nucleated RBC % (auto) 0.0 D-Dimer High Sensitivty 5527 Anion Gap 19 Estim Creat Clear Calc 56.3 Estimated GFR 44 POC Glucose Fasting Glucose 184 H Calcium 9.8 10/24/22 11:09 MCV MCH MCHC RDW Plt Count MPV Absolute Nucleated RBC Nucleated RBC % (auto) D-Dimer High Sensitivty Anion Gap Estim Creat Clear Calc Estimated GFR POC Glucose 190 H Fasting Glucose Calcium Microbiology Microbiology Results: Microbiology 10/22/22 Unknown Urine Culture - Final Urine Catheterized - Pitts Catheter No growth. 10/22/22 15:02 Blood Culture - Preliminary Blood - Venous No growth after 24 hours. 10/22/22 15:00 Blood Culture - Preliminary Blood - Venous No growth after 24 hours. Assessment and Plan (1) CHF exacerbation: Status: Acute Plan 82M PMH of chronic resp failure on 2L O2, ANDRES on CPAP, DM, 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, chronic CHF with preserved EF, presented with sob and worsening SOB and Edema Acute on chronic hypoxic respiratory failure 2/2 acute on chronic CHF with preserved EF changed to iv bumex drip Continue Imdur ECHO - poor imaging, showing right sided dysfunction Cardio appreciated elevated ddimer CTPA 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 weight loss COLETTE on CKD III baseline creatinine around 1.3 cardirenal monitor improving, close to baseline no evidence of UTI dc Ceftriaxone Lactic acidosis likely 2/2 Metformin, no sepsis DM insulin BPH Doxazosin ANDRES cpap at night DVT PPx Heparin full code reason for continued hospitalization:hypoxia, sob ongoing, iv diuresis Time Spent With Patient Time: Total time managing care of this patient today ____ minutes. Quality Stroke Does the patient have a stroke diagnosis?: No VTE Prior VTE?: No VTE Risk Level:: Medical - moderate - high VTE Device Contraindication: Treatment Not Indicated VTE Drug Contraindication: N/A - Med Ordered
--- NOTE | 2022-10-24 12:16 | P.PNCA_ITS ---
Subjective Subjective Date of Service: 10/24/22 Interval history: He states that he is feeling slightly better. Review of Systems Review of Systems Yes all other systems are reviewed and are negative Constitutional: Reports as per HPI and Reports no additional constitutional complaints Eyes: Reports as per HPI and Denies no additional eye complaints Denies system reviewed and no additional complaints, except as documented and Reports as per HPI Cardiovascular: Reports as per HPI, Reports no additional cardiovascular complaints, Denies acrocyanosis, Denies cool extremities, Denies chest pain, Denies leg edema, Denies lightheadedness, Denies palpitations and Reports dyspnea Respiratory: Reports as per HPI, Denies no additional respiratory complaints and Reports dyspnea Gastrointestinal: Reports as per HPI and Denies no additional gastrointestinal complaints Genitourinary: Reports no additional male genitourinary complaints and Reports as per HPI Musculoskeletal: Reports no additional musculoskeletal complaints and Reports as per HPI Skin/Breast: Reports system reviewed and no additional complaints, except as docu Reports system reviewed and no additional complaints, except as documented and Reports as per HPI Psychiatric: Reports no additional psychiatric complaints and Reports as per HPI Endocrine: Reports no additional endocrine complaints, Reports as per HPI and Denies palpitations Hematologic/Lymphatic: Reports no additional hematologic/lymphatic complaints and Reports as per HPI Allergic/Immunologic: Reports no additional allergic/immunologic complaints and Reports as per HPI Physical Exam Vital Signs: Last Vital Signs Temp 97.4 F 10/24/22 11:08 Pulse 97 10/24/22 11:08 Resp 22 H 10/24/22 11:08 BP 143/71 H 10/24/22 11:08 Pulse Ox 92 10/24/22 11:08 O2 Del Method Nasal Cannula 10/24/22 11:08 O2 Flow Rate 2 10/24/22 11:08 Oxygen Flow Rate 30 10/22/22 14:35 BMI result Body Mass Index 42.0 Const General: comfortable, no acute distress, ill appearing and tired appearing Orientation/consciousness: patient oriented x3 HEENT Other: Unremarkable Head: Yes normal to inspection Neck Neck: Yes normal visual inspection Chest Chest palpation & inspection: normal inspection of the chest Resp Auscultation: crackles and diminished lung sounds Cardio Palpation: normal PMI Heart sounds: S1 normal heart sound present, S2 normal heart sound present, no gallops, no murmurs and no rubs GI Palpation (GI): Soft to palpation Back/Spine/Pelvis Other: unremarkable Skin General skin exam: no rashes or lesions noted Neuro General: patient oriented x3 Extrem Other: 1+ edema. General: Yes normal to inspection Psych Mental Status: mental status grossly normal Objective Labs and Meds 10/24/22 08:55 10/24/22 08:55 Lab results: Laboratory Results - last 24 hr 10/23/22 10/23/22 10/24/22 16:26 20:10 07:14 WBC RBC Hgb Hct MCV MCH MCHC RDW Plt Count MPV Absolute Nucleated RBC Nucleated RBC % (auto) D-Dimer High Sensitivty Sodium Potassium Chloride Carbon Dioxide Anion Gap BUN Creatinine Estim Creat Clear Calc Estimated GFR POC Glucose 200 H 155 H 151 H Fasting Glucose Calcium 10/24/22 10/24/22 10/24/22 08:55 08:55 08:55 WBC 10.5 RBC 5.45 Hgb 14.9 Hct 47.1 MCV 86.4 MCH 27.3 MCHC 31.6 RDW 15.2 Plt Count 182 MPV 12.1 Absolute Nucleated RBC 0.000 Nucleated RBC % (auto) 0.0 D-Dimer High Sensitivty 5527 Sodium 139 Potassium 4.5 Chloride 102 Carbon Dioxide 23 Anion Gap 19 BUN 47 H Creatinine 1.52 H Estim Creat Clear Calc 56.3 Estimated GFR 44 POC Glucose Fasting Glucose 184 H Calcium 9.8 10/24/22 11:09 WBC RBC Hgb Hct MCV MCH MCHC RDW Plt Count MPV Absolute Nucleated RBC Nucleated RBC % (auto) D-Dimer High Sensitivty Sodium Potassium Chloride Carbon Dioxide Anion Gap BUN Creatinine Estim Creat Clear Calc Estimated GFR POC Glucose 190 H Fasting Glucose Calcium Progress Note: A&P Assessment and plan (1) Acute on chronic respiratory failure with hypoxemia: Status: Acute (2) CHF exacerbation: Status: Acute Plan High sensitivity troponins are 73 and 68. Last month, they were 10 and 11. Cardiac BNP 523 and 494. Last month, 128. In 2020, 627. Chest x-ray with no acute process. Echo is a very difficult quality. Probably preserved LVEF but difficult to say. Wall motion could not be assessed. Decreased right ventricular function. Mild pulmonary hypertension. Overall, limited study. Difficult to say how much is cardiac and how much is noncardiac including obesity/ANDRES/hypoventilation. Can just treat conservatively with diuretics as much tolerated. He also has elevated creatinine and hence will need to monitor that. With regard to the EKG, probably rate long first-degree heart block and that will need to be monitored. Do not see any obvious high-grade heart block on telemetry. Of note, there is a prior EKG from [facility] in 2021 and that also looks very similar. Hence that change seems chronic. Will need to be monitored for progressive heart blocks. Discussed with son as today at the bedside. Discussed with Dr. Plunkett today. Time Spent With Patient Time: Total time managing care of this patient today ____ minutes. Progress Note: Quality Stroke Does the patient have a stroke diagnosis?: No Procedures Date of Service Date of Service: 10/24/22
--- NOTE | 2022-10-24 12:18 | HO.SKINPHOTO ---
Location: left axilla Category: Stage: Length: Width: Depth: cm Location: Buttocks Category: Stage: Length: Width: Depth: cm Location: Category: Stage: Length: Width: Depth: cm Location: Category: Stage: Length: Width: Depth: cm Location: Category: Stage: Length: Width: Depth: cm Location: Category: Stage: Length: Width: Depth: cm
--- NOTE | 2022-10-24 15:49 | HO.WOUND ---
Wound Care Consult Reason for consult: open wounds to axilla and coccyx Patient was in the bed at the time of consult. Patient was complaining of a lot of soreness all over and did not want to be turned at this time. He had stated he was turned all day and didn't want to be turned again. There was a photo taken of the buttocks and that was looked at. Discussed with the family in the room regarding the areas on the buttocks. From the picture, there was a couple very small superficial areas on either side of the buttocks. The way the skin presented, looked like shear/friction causing these recurrent areas. Family had agreed. Stated that little tears open every once in a while and they apply barrier cream or dressings depending. They heal and come back. Discussed incontinence issues, but the patient and according to the family, this doesn't seem to be an issue. Patient does wear depends while at home and also uses the urinal. Patient also is in his chair most of the time when at home. His recliner is one that raises for him to stand. This could be what is giving him an issue when he slides out of the recliner. Family seems very on top of these issues. There is also an open area on his left lateral chest/torso. Area was open to air when consulted. Moderate purulent drainage on the skin. No odor. Tender when cleansed. Wound bed appearance was large pink with some slough/fibrin. Wound edges were not attached. There was some undermining from 4 to 6 o'clock of 0.3cm. Wound measured 0.4cm x 1.5cm x 0.2cm. Patient unsure of when or how this occurred. There is a lot of air in this area, could of been an abscess. Wound cleansed with normal saline, cut alginate ag to wound size and applied to wound bed. Skin prepped periwound. Covered with gauze and tape. Recommendation: For the buttock area, would just use a barrier cream daily and prn. Avoid shearing of the skin when moving or boosting patient. Frequent repositioning if patient is unable to do so on his own and make sure nutrition is adequate. For the left lateral chest, cleanse wound with normal saline or sea cleanse wound cleanser. Cut alginate ag to wound size and apply to wound bed. Skin prep periwound. Cover with gauze and secure with tape. Change daily. If wound seems to be dry, may change it every other day. If there are any questions or concerns regarding these areas, please feel free and reconsult wound care.
[2022-10-24] MEDS: iohexoL 350 MG/ML 100 ML INFUS..BTL 98 ML IV (15:50)
[2022-10-24 16:14] LABS: Glucose, Whole Blood 197 mg/dL (60-115)
[2022-10-24] MEDS: Furosemide 40 MG TABLET PO (17:12)
[2022-10-24 17:34] LABS: INTERNATIONAL NORM RATIO 1.1 (0.9-1.1); Prothrombin Time 13.6 SEC (11.1-13.3)
[2022-10-24 17:37] LABS: PTT Heparin Drip 30.1 SEC (53-77.9)
[2022-10-24] MEDS: Heparin Sodium,Porcine/1/2NS 25,000 UNIT/250 ML IV.SOLN 19.82 UNIT IVCONT (18:04)
[2022-10-24 18:23] LABS: Hematocrit 47.2 % (42.0-52.0); Mean Corpuscular HGB Conc 31.8 g/dl (31.0-36.0); Mean Corpuscular Hemoglobin 27.6 pg (27.0-33.0); Mean Corpuscular Volume 86.8 fL (80.0-98.0); Mean Platelet Volume 12.3 fL (9.4-12.4); Platelet Count 164 X10*3/uL (160-400); Red Blood Count 5.44 X10*6/uL (4.60-5.80); Red Cell Distribution Width 15.1 % (11.0-16.0); White Blood Count 10.9 X10*3/uL (4.8-10.8)
[2022-10-24 20:06] LABS: Glucose, Whole Blood 168 mg/dL (60-115)
--- NOTE | 2022-10-24 23:52 | PC.NURSE ---
nelson cath was removed by previous RN at 19:30 today
[2022-10-25] VITALS (8 sets, daily range): BP systolic 107–142; BP diastolic 64–82; PULSE 67–97; RESP 15–22; TEMP 35.9–36.6; O2SAT 89–97; BMI 42.0
[2022-10-25 00:34] LABS: PTT Heparin Drip 79.6 SEC (53-77.9)
[2022-10-25 07:07] LABS: Hemoglobin 14.3 g/dl (14.0-18.0); Mean Corpuscular HGB Conc 32.5 g/dl (31.0-36.0); Mean Corpuscular Hemoglobin 27.6 pg (27.0-33.0); Mean Corpuscular Volume 84.8 fL (80.0-98.0); Mean Platelet Volume 11.9 fL (9.4-12.4); Platelet Count 187 X10*3/uL (160-400); Red Blood Count 5.19 X10*6/uL (4.60-5.80); Red Cell Distribution Width 14.8 % (11.0-16.0); White Blood Count 10.4 X10*3/uL (4.8-10.8)
[2022-10-25 07:11] LABS: INTERNATIONAL NORM RATIO 1.1 (0.9-1.1); Prothrombin Time 13.6 SEC (11.1-13.3)
[2022-10-25 07:14] LABS: PTT Heparin Drip 62.6 SEC (53-77.9)
[2022-10-25 07:27] LABS: Anion Gap 17 (12-20); Blood Urea Nitrogen 41 mg/dL (9-16); Calcium 9.3 mg/dL (8.4-10.2); Carbon Dioxide 24 mmol/L (22-29); Chloride 102 mmol/L (96-108); Creatinine Clr Calc Pharmacy 61.1; Estimated Glomerular Filt Rate 49; Glucose Fasting 146 mg/dL (60-99); Sodium 139 mmol/L (135-145)
[2022-10-25 07:28] LABS: Glucose, Whole Blood 155 mg/dL (60-115)
[2022-10-25] MEDS: Heparin Sodium,Porcine/1/2NS 25,000 UNIT/250 ML IV.SOLN 16.99 UNIT IVCONT ×2 (07:38→21:34)
[2022-10-25] MEDS: 0.9 % Sodium Chloride Flush 3 ML SYRINGE IVFLUSH ×2 (07:42→20:08)
[2022-10-25] MEDS: Insulin Lispro 100 UNIT/ML 3 ML VIAL SUBCUT ×4 (07:42→20:04)
[2022-10-25] MEDS: Isosorbide Mononitrate 30 MG TAB.ER.24H PO (08:10)
[2022-10-25] MEDS: Pravastatin Sodium 40 MG TABLET PO (08:11)
[2022-10-25] MEDS: Furosemide 40 MG TABLET PO ×2 (08:11→17:11)
[2022-10-25] MEDS: Doxazosin Mesylate 2 MG TABLET 8 MG PO (08:11)
--- NOTE | 2022-10-25 09:16 | P.CDIM_ITS ---
PROVIDER RESPONSE TEXT: To clarify, the appropriate diagnosis supported by the clinical indicators: Acute QUERY TEXT: PHYSICIAN'S DOCUMENTATION REQUEST Date of Query: 10/25/2022 09:07 AM EDT Patient Name: Quentin Goodwin Admit Date: 10/22/2022 Dear Joaquin Plunkett, A review of the medical record indicates additional documentation may be needed. Please review below and update the documentation accordingly. Clinical Indicators: PN: lactic acidosis likely 2/2 Metformin LA: 2.2 H Clarify which of the following accurately represents the acuity of the lactic acidosis: Acute Acute on chronic Chronic stable condition Other Other (explain)Clinically unable to determine (explain)Thank you, Deidre Brooks, CCS, CDIS Use of terms such as suspected, likely, concern for, or probable (associated with a specific diagnosi s that is being evaluated, monitored, or treated as if it exists) are acceptable and can be coded in the inpatient se tting, when documented at the time of discharge. Please use your independent medical judgment in providing your response. THIS QUERY IS PART OF THE PERMANENT MEDICAL RECORD
--- NOTE | 2022-10-25 09:34 | P.PNIM_ITS ---
Subjective Subjective Date of Service: 10/25/22 Interval History: a little better Physical Exam Vital Signs: Vital Signs: Last Vital Signs Temp 97.3 F 10/25/22 07:27 Pulse 71 10/25/22 07:27 Resp 22 H 10/25/22 07:27 BP 142/71 H 10/25/22 07:27 Pulse Ox 93 10/25/22 07:27 O2 Del Method CPAP 10/25/22 07:27 O2 Flow Rate 2 10/24/22 19:26 Oxygen Flow Rate 30 10/22/22 14:35 BMI result Body Mass Index 42.0 Const: General: comfortable, no acute distress, ill appearing and tired appearing Orientation/consciousness: patient oriented x3 HEENT: Other: Unremarkable Head: Yes normal to inspection Neck: Neck: Yes normal visual inspection Chest: Chest palpation & inspection: normal inspection of the chest Resp: Auscultation: crackles and diminished lung sounds Cardio: Palpation: normal PMI Heart sounds: S1 normal heart sound present, S2 normal heart sound present, no gallops, no murmurs and no rubs GI: Palpation (GI): Soft to palpation Back/Spine/Pelvis: Other: unremarkable Skin: General skin exam: no rashes or lesions noted Neuro: General: patient oriented x3 Extrem: Other: 1+ edema. General: Yes normal to inspection Psych: Mental Status: mental status grossly normal Objective Data Active Medications Acetaminophen (Acetaminophen 325 Mg Tablet) 650 mg PO Q6H PRN PRN Reason: Pain, Mild (Pain Scale 1-3) Doxazosin Mesylate (Doxazosin Mesylate 2 Mg Tablet) 8 mg PO DAILY [facility]; Protocol Last Admin: 10/25/22 08:11 Dose: 8 mg Documented By: KIERAN Furosemide (Furosemide 40 Mg Tablet) 40 mg PO BID@0900,1800 [facility]; Protocol Last Admin: 10/25/22 08:11 Dose: 40 mg Documented By: KIERAN Heparin Sodium (Porcine) (Heparin Sodium,Porcine 5,000 Unit/Ml Vial) 5,700 unit 40 unit/kg (5700 unit) IVPUSH PROTOCOL BOLUS PRN; Protocol PRN Reason: 40 unit/kg - Heparin Protocol Heparin Sodium (Porcine) (Heparin Sodium,Porcine 5,000 Unit/Ml Vial) 10,000 unit IVPUSH PROTOCOL BOLUS PRN; Protocol PRN Reason: 80 unit/kg - Heparin Protocol Heparin Sodium/Sodium Chloride (Heparin Sodium,Porcine/1/2ns) 25,000 unit in 250 mls @ 0 mls/hr IVCONT .Q0M [facility]; Protocol Last Admin: 10/25/22 07:38 Dose: 12 units/kg/hr, 16.99 mls/hr Documented By: KIERAN Co-signed By: KYRA Insulin Human Lispro (Insulin Lispro 100 Unit/Ml 3 Ml Vial) 0 unit SUBCUT QIDACHS [facility]; Protocol Last Admin: 10/25/22 07:42 Dose: 2 unit Documented By: KIERAN Isosorbide Mononitrate (Isosorbide Mononitrate 30 Mg Tab.Er.24h) 30 mg PO DAILY [facility]; Protocol Last Admin: 10/25/22 08:10 Dose: 30 mg Documented By: KIERAN Ondansetron HCl (Ondansetron Hcl 4 Mg/2 Ml Vial) 4 mg IVPUSH Q8H PRN PRN Reason: Nausea and Vomiting Pravastatin Sodium (Pravastatin Sodium 40 Mg Tablet) 40 mg PO DAILY [facility] Last Admin: 10/25/22 08:11 Dose: 40 mg Documented By: KIERAN Sodium Chloride (0.9 % Sodium Chloride Flush 3 Ml Syringe) 3 ml IVFLUSH QSHIFT [facility] Last Admin: 10/25/22 07:42 Dose: 3 ml Documented By: KIERAN Labs 10/25/22 06:54 10/25/22 06:54 Labs: Laboratory Results - last 24 hr 10/24/22 10/24/22 10/24/22 08:55 08:55 11:09 MCV MCH MCHC RDW Plt Count MPV Absolute Nucleated RBC Nucleated RBC % (auto) PT INR aPTT Heparin Protocol D-Dimer High Sensitivty 5527 Anion Gap 19 Estim Creat Clear Calc 56.3 Estimated GFR 44 POC Glucose 190 H Fasting Glucose 184 H Calcium 9.8 Magnesium 10/24/22 10/24/22 10/24/22 16:06 17:20 17:20 MCV 86.8 MCH 27.6 MCHC 31.8 RDW 15.1 Plt Count 164 MPV 12.3 Absolute Nucleated RBC 0.000 Nucleated RBC % (auto) 0.0 PT 13.6 H INR 1.1 aPTT Heparin Protocol 30.1 L D-Dimer High Sensitivty Anion Gap Estim Creat Clear Calc Estimated GFR POC Glucose 197 H Fasting Glucose Calcium Magnesium 10/24/22 10/25/22 10/25/22 19:59 00:20 06:54 MCV MCH MCHC RDW Plt Count MPV Absolute Nucleated RBC Nucleated RBC % (auto) PT INR aPTT Heparin Protocol 79.6 H D D-Dimer High Sensitivty Anion Gap 17 Estim Creat Clear Calc 61.1 Estimated GFR 49 POC Glucose 168 H Fasting Glucose 146 H Calcium 9.3 Magnesium 2.0 10/25/22 10/25/22 10/25/22 06:54 06:54 07:24 MCV 84.8 MCH 27.6 MCHC 32.5 RDW 14.8 Plt Count 187 MPV 11.9 Absolute Nucleated RBC 0.000 Nucleated RBC % (auto) 0.0 PT 13.6 H INR 1.1 aPTT Heparin Protocol 62.6 D D-Dimer High Sensitivty Anion Gap Estim Creat Clear Calc Estimated GFR POC Glucose 155 H Fasting Glucose Calcium Magnesium Microbiology Microbiology Results: Microbiology 10/22/22 15:02 Blood Culture - Preliminary Blood - Venous No growth after 48 hours. 10/22/22 15:00 Blood Culture - Preliminary Blood - Venous No growth after 48 hours. 10/22/22 Unknown Urine Culture - Final Urine Catheterized - Pitts Catheter No growth. Assessment and Plan (1) CHF exacerbation: Status: Acute Plan 82M PMH of chronic resp failure on 2L O2, ANDRES on CPAP, DM, 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, chronic CHF with preserved EF, presented with sob and worsening SOB and Edema Acute on chronic hypoxic respiratory failure due to acute bilateral massive pulmonary embolism with right heart strain and acute on chronic chf with preserved EF changed to po lasix started on IV heparin, LE doppler with small superficial clot ECHO - poor imaging, showing right sided dysfunction 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 weight loss COLETTE on CKD III baseline creatinine around 1.3 cardirenal monitor improving, close to baseline acute Lactic acidosis likely 2/2 Metformin, no sepsis DM insulin BPH Doxazosin ANDRES cpap at night DVT PPx Heparin full code reason for continued hospitalization:hypoxia, sob ongoing Time Spent With Patient Time: Total time managing care of this patient today ____ minutes. Quality Stroke Does the patient have a stroke diagnosis?: No VTE Prior VTE?: No VTE Risk Level:: Medical - moderate - high VTE Device Contraindication: Treatment Not Indicated VTE Drug Contraindication: N/A - Med Ordered
[2022-10-25 10:55] LABS: Glucose, Whole Blood 176 mg/dL (60-115)
[2022-10-25 13:03] LABS: PTT Heparin Drip 58.9 SEC (53-77.9)
[2022-10-25] MEDS: Acetaminophen 325 MG TABLET 650 MG PO ×2 (15:53→20:03)
[2022-10-25 16:43] LABS: Glucose, Whole Blood 170 mg/dL (60-115)
--- NOTE | 2022-10-25 18:50 | PC.NURSE ---
Patient had 2 episodes of v-tach,13 beats and 12 beats.Patient states he did not feel any different from previous,BP 135/79 pulse 95, notified,will monitor
[2022-10-25 19:58] LABS: Glucose, Whole Blood 200 mg/dL (60-115)
[2022-10-26 04:00] VITALS: BP 156/73; PULSE 63; RESP 16; TEMP 36.6; O2SAT 94
[2022-10-26 06:00] VITALS: BMI 42.0
[2022-10-26 06:27] LABS: Hematocrit 45.2 % (42.0-52.0); Hemoglobin 14.3 g/dl (14.0-18.0); Mean Corpuscular HGB Conc 31.6 g/dl (31.0-36.0); Mean Corpuscular Hemoglobin 27.6 pg (27.0-33.0); Mean Corpuscular Volume 87.3 fL (80.0-98.0); Mean Platelet Volume 11.9 fL (9.4-12.4); Platelet Count 164 X10*3/uL (160-400); Red Blood Count 5.18 X10*6/uL (4.60-5.80); Red Cell Distribution Width 14.8 % (11.0-16.0); White Blood Count 8.4 X10*3/uL (4.8-10.8)
[2022-10-26 06:35] LABS: PTT Heparin Drip 60.3 SEC (53-77.9)
[2022-10-26 06:50] LABS: Anion Gap 17 (12-20); Blood Urea Nitrogen 41 mg/dL (9-16); Calcium 9.3 mg/dL (8.4-10.2); Carbon Dioxide 22 mmol/L (22-29); Chloride 103 mmol/L (96-108); Estimated Glomerular Filt Rate 45; Glucose Fasting 132 mg/dL (60-99); Magnesium 2.2 mg/dL (1.6-2.6); Potassium 3.9 mmol/L (3.3-5.1); Sodium 138 mmol/L (135-145)
[2022-10-26 07:27] VITALS: BP 164/75; PULSE 65; RESP 18; TEMP 36.3; O2SAT 95
[2022-10-26 07:47] LABS: Glucose, Whole Blood 135 mg/dL (60-115)
[2022-10-26] MEDS: Acetaminophen 325 MG TABLET 650 MG PO ×2 (08:32→20:20)
[2022-10-26] MEDS: Doxazosin Mesylate 2 MG TABLET 8 MG PO (08:34)
[2022-10-26] MEDS: Isosorbide Mononitrate 30 MG TAB.ER.24H PO (08:34)
[2022-10-26] MEDS: Heparin Sodium,Porcine/1/2NS 25,000 UNIT/250 ML IV.SOLN 16.99 UNIT IVCONT (08:35)
[2022-10-26] MEDS: Furosemide 40 MG TABLET PO ×2 (08:35→16:38)
[2022-10-26] MEDS: Pravastatin Sodium 40 MG TABLET PO (08:35)
[2022-10-26] MEDS: 0.9 % Sodium Chloride Flush 3 ML SYRINGE IVFLUSH ×3 (08:37→20:08)
[2022-10-26] MEDS: Apixaban 5 MG TABLET 10 MG PO ×2 (10:08→20:07)
--- NOTE | 2022-10-26 10:19 | P.PNIM_ITS ---
Subjective Subjective Date of Service: 10/26/22 Interval History: weakness Physical Exam Vital Signs: Vital Signs: Last Vital Signs Temp 97.3 F 10/26/22 07:27 Pulse 65 10/26/22 07:27 Resp 18 10/26/22 07:27 BP 164/75 H 10/26/22 07:27 Pulse Ox 95 10/26/22 07:27 O2 Del Method Nasal Cannula 10/26/22 07:27 O2 Flow Rate 2 10/26/22 07:27 Oxygen Flow Rate 30 10/22/22 14:35 BMI result Body Mass Index 42.0 Const: General: comfortable, no acute distress, ill appearing and tired appearing Orientation/consciousness: patient oriented x3 HEENT: Other: Unremarkable Head: Yes normal to inspection Neck: Neck: Yes normal visual inspection Chest: Chest palpation & inspection: normal inspection of the chest Resp: Auscultation: crackles and diminished lung sounds Cardio: Palpation: normal PMI Heart sounds: S1 normal heart sound present, S2 normal heart sound present, no gallops, no murmurs and no rubs GI: Palpation (GI): Soft to palpation Back/Spine/Pelvis: Other: unremarkable Skin: General skin exam: no rashes or lesions noted Neuro: General: patient oriented x3 Extrem: Other: 1+ edema. General: Yes normal to inspection Psych: Mental Status: mental status grossly normal Objective Data Active Medications Acetaminophen (Acetaminophen 325 Mg Tablet) 650 mg PO Q4H PRN PRN Reason: Pain, Mild (Pain Scale 1-3) Last Admin: 10/26/22 08:32 Dose: 650 mg Documented By: MICA Apixaban (Apixaban 5 Mg Tablet) 10 mg PO BID [facility] Stop: 11/01/22 21:01 Last Admin: 10/26/22 10:08 Dose: 10 mg Documented By: MICA Doxazosin Mesylate (Doxazosin Mesylate 2 Mg Tablet) 8 mg PO DAILY [facility]; Protocol Last Admin: 10/26/22 08:34 Dose: 8 mg Documented By: MICA Furosemide (Furosemide 40 Mg Tablet) 40 mg PO BID@0900,1800 [facility]; Protocol Last Admin: 10/26/22 08:35 Dose: 40 mg Documented By: MICA Insulin Human Lispro (Insulin Lispro 100 Unit/Ml 3 Ml Vial) 0 unit SUBCUT QIDACHS [facility]; Protocol Last Admin: 10/26/22 07:51 Dose: Not Given Documented By: MICA Non-Admin Reason: No Insulin Coverage Isosorbide Mononitrate (Isosorbide Mononitrate 30 Mg Tab.Er.24h) 30 mg PO DAILY [facility]; Protocol Last Admin: 10/26/22 08:34 Dose: 30 mg Documented By: MICA Ondansetron HCl (Ondansetron Hcl 4 Mg/2 Ml Vial) 4 mg IVPUSH Q8H PRN PRN Reason: Nausea and Vomiting Pravastatin Sodium (Pravastatin Sodium 40 Mg Tablet) 40 mg PO DAILY [facility] Last Admin: 10/26/22 08:35 Dose: 40 mg Documented By: MICA Sodium Chloride (0.9 % Sodium Chloride Flush 3 Ml Syringe) 3 ml IVFLUSH QSHIFT [facility] Last Admin: 10/26/22 08:37 Dose: 3 ml Documented By: MICA Labs 10/26/22 06:13 10/26/22 06:13 Labs: Laboratory Results - last 24 hr 10/25/22 10/25/22 10/25/22 10:52 12:44 16:34 MCV MCH MCHC RDW Plt Count MPV Absolute Nucleated RBC Nucleated RBC % (auto) aPTT Heparin Protocol 58.9 Anion Gap Estim Creat Clear Calc Estimated GFR POC Glucose 176 H 170 H Fasting Glucose Calcium Magnesium 10/25/22 10/26/22 10/26/22 19:50 06:13 06:13 MCV 87.3 MCH 27.6 MCHC 31.6 RDW 14.8 Plt Count 164 MPV 11.9 Absolute Nucleated RBC 0.000 Nucleated RBC % (auto) 0.0 aPTT Heparin Protocol Anion Gap 17 Estim Creat Clear Calc 57.0 Estimated GFR 45 POC Glucose 200 H Fasting Glucose 132 H Calcium 9.3 Magnesium 2.2 10/26/22 10/26/22 06:13 07:30 MCV MCH MCHC RDW Plt Count MPV Absolute Nucleated RBC Nucleated RBC % (auto) aPTT Heparin Protocol 60.3 Anion Gap Estim Creat Clear Calc Estimated GFR POC Glucose 135 H Fasting Glucose Calcium Magnesium Assessment and Plan (1) CHF exacerbation: Status: Acute Plan 82M PMH of chronic resp failure on 2L O2, ANDRES on CPAP, DM, 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, 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, presented with sob and worsening SOB and Edema Acute on chronic hypoxic respiratory failure due to acute bilateral massive pulmonary embolism with right heart strain and acute on chronic chf with preserved EF changed to po lasix started on IV heparin, LE doppler with small superficial clot will change to po eliquis 10mg bid for 5 more days, then decrease to 5mg bid ECHO - poor imaging, showing right sided dysfunction 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 weight loss COLETTE on CKD III baseline creatinine around 1.3 cardirenal monitor close to baseline acute Lactic acidosis likely 2/2 Metformin, no sepsis DM insulin BPH Doxazosin ANDRES cpap at night DVT PPx Heparin full code reason for continued hospitalization:hypoxia, sob ongoing Time Spent With Patient Time: Total time managing care of this patient today ____ minutes. Quality Stroke Does the patient have a stroke diagnosis?: No VTE Prior VTE?: No VTE Risk Level:: Medical - moderate - high VTE Device Contraindication: Treatment Not Indicated VTE Drug Contraindication: N/A - Med Ordered
[2022-10-26 11:05] VITALS: BP 129/60; PULSE 97; RESP 18; TEMP 36.4; O2SAT 92
[2022-10-26 11:31] LABS: Glucose, Whole Blood 180 mg/dL (60-115)
[2022-10-26] MEDS: Insulin Lispro 100 UNIT/ML 3 ML VIAL SUBCUT ×3 (11:40→20:07)
[2022-10-26 15:42] VITALS: BP 142/80; PULSE 82; RESP 15; TEMP 35.9; O2SAT 92
[2022-10-26 16:04] LABS: Glucose, Whole Blood 157 mg/dL (60-115)
[2022-10-26 19:28] VITALS: BP 138/89; PULSE 81; RESP 14; TEMP 35.9; O2SAT 93
[2022-10-26 19:36] LABS: Glucose, Whole Blood 181 mg/dL (60-115)
[2022-10-26 23:42] VITALS: BP 142/70; PULSE 76; RESP 20; TEMP 36.1; O2SAT 96
[2022-10-27 03:38] VITALS: BP 148/70; PULSE 85; RESP 18; TEMP 35.8; O2SAT 95
[2022-10-27 05:40] VITALS: BMI 42.4
[2022-10-27 06:25] LABS: Hematocrit 44.5 % (42.0-52.0); Hemoglobin 14.3 g/dl (14.0-18.0); Mean Corpuscular HGB Conc 32.1 g/dl (31.0-36.0); Mean Corpuscular Hemoglobin 27.9 pg (27.0-33.0); Mean Corpuscular Volume 86.7 fL (80.0-98.0); Mean Platelet Volume 11.4 fL (9.4-12.4); Platelet Count 203 X10*3/uL (160-400); Red Blood Count 5.13 X10*6/uL (4.60-5.80); Red Cell Distribution Width 14.8 % (11.0-16.0); White Blood Count 9.1 X10*3/uL (4.8-10.8)
[2022-10-27 06:34] LABS: PTT Heparin Drip 32.7 SEC (53-77.9)
[2022-10-27 06:37] LABS: Anion Gap 18 (12-20); Blood Urea Nitrogen 35 mg/dL (9-16); Calcium 9.5 mg/dL (8.4-10.2); Carbon Dioxide 23 mmol/L (22-29); Chloride 103 mmol/L (96-108); Creatinine Clr Calc Pharmacy 60.1; Estimated Glomerular Filt Rate 48; Glucose Fasting 137 mg/dL (60-99); Potassium 4.2 mmol/L (3.3-5.1); Sodium 140 mmol/L (135-145)
[2022-10-27 07:10] VITALS: BP 179/78; PULSE 65; RESP 18; TEMP 36.2; O2SAT 98
--- NOTE | 2022-10-27 07:44 | PC.NURSE ---
pt reporting pain to coccyx/buttocks r/t pressure. skin assessed and there are no open wounds noted at this time, but there is nonblanchable redness to coccyx and blanchable redness to bilateral buttocks. barrier cream has been applied to all reddened areas and a foam dsg has been applied to coccx. Patient was repositioned onto L side to relieve pressure areas. Will continue to monitor skin integrity and reposition patient.
[2022-10-27 07:49] LABS: Glucose, Whole Blood 139 mg/dL (60-115)
--- NOTE | 2022-10-27 08:08 | HO.PM.IMPN ---
Subjective Subjective Date of Service: 10/27/22 Interval History: arthralgias sob improved Physical Exam Vital Signs: Vital Signs: Last Vital Signs Temp 97.1 F 10/27/22 07:10 Pulse 65 10/27/22 07:10 Resp 18 10/27/22 07:10 BP 179/78 H 10/27/22 07:10 Pulse Ox 98 10/27/22 07:10 O2 Del Method CPAP 10/27/22 07:10 O2 Flow Rate 2 10/27/22 03:38 Oxygen Flow Rate 30 10/22/22 14:35 BMI result Body Mass Index 42.4 Const: General: comfortable, no acute distress, ill appearing and tired appearing Orientation/consciousness: patient oriented x3 HEENT: Other: Unremarkable Head: Yes normal to inspection Neck: Neck: Yes normal visual inspection Chest: Chest palpation & inspection: normal inspection of the chest Resp: Auscultation: crackles and diminished lung sounds Cardio: Palpation: normal PMI Heart sounds: S1 normal heart sound present, S2 normal heart sound present, no gallops, no murmurs and no rubs GI: Palpation (GI): Soft to palpation Back/Spine/Pelvis: Other: unremarkable Skin: General skin exam: no rashes or lesions noted Neuro: General: patient oriented x3 Extrem: Other: 1+ edema. General: Yes normal to inspection Psych: Mental Status: mental status grossly normal Objective Data Active Medications Acetaminophen (Acetaminophen 325 Mg Tablet) 650 mg PO Q4H PRN PRN Reason: Pain, Mild (Pain Scale 1-3) Last Admin: 10/26/22 20:20 Dose: 650 mg Documented By: ROCIO Apixaban (Apixaban 5 Mg Tablet) 10 mg PO BID [facility] Stop: 11/01/22 21:01 Last Admin: 10/26/22 20:07 Dose: 10 mg Documented By: ROCIO Doxazosin Mesylate (Doxazosin Mesylate 2 Mg Tablet) 8 mg PO DAILY [facility]; Protocol Last Admin: 10/26/22 08:34 Dose: 8 mg Documented By: MICA Furosemide (Furosemide 40 Mg Tablet) 40 mg PO BID@0900,1800 [facility]; Protocol Last Admin: 10/26/22 16:38 Dose: 40 mg Documented By: MICA Insulin Human Lispro (Insulin Lispro 100 Unit/Ml 3 Ml Vial) 0 unit SUBCUT QIDACHS [facility]; Protocol Last Admin: 10/27/22 07:42 Dose: Not Given Documented By: MICA Non-Admin Reason: Medication Discontinued Isosorbide Mononitrate (Isosorbide Mononitrate 30 Mg Tab.Er.24h) 30 mg PO DAILY [facility]; Protocol Last Admin: 10/26/22 08:34 Dose: 30 mg Documented By: MICA Ondansetron HCl (Ondansetron Hcl 4 Mg/2 Ml Vial) 4 mg IVPUSH Q8H PRN PRN Reason: Nausea and Vomiting Pravastatin Sodium (Pravastatin Sodium 40 Mg Tablet) 40 mg PO DAILY [facility] Last Admin: 10/26/22 08:35 Dose: 40 mg Documented By: MICA Sodium Chloride (0.9 % Sodium Chloride Flush 3 Ml Syringe) 3 ml IVFLUSH QSHIFT [facility] Last Admin: 10/26/22 20:08 Dose: 3 ml Documented By: ROCIO Labs 10/27/22 05:49 10/27/22 05:49 Labs: Laboratory Results - last 24 hr 10/26/22 10/26/22 10/26/22 11:07 16:00 19:30 MCV MCH MCHC RDW Plt Count MPV Absolute Nucleated RBC Nucleated RBC % (auto) aPTT Heparin Protocol Anion Gap Estim Creat Clear Calc Estimated GFR POC Glucose 180 H 157 H 181 H Fasting Glucose Calcium 10/27/22 10/27/22 10/27/22 05:49 05:49 05:49 MCV 86.7 MCH 27.9 MCHC 32.1 RDW 14.8 Plt Count 203 MPV 11.4 Absolute Nucleated RBC 0.000 Nucleated RBC % (auto) 0.0 aPTT Heparin Protocol 32.7 L D Anion Gap 18 Estim Creat Clear Calc 60.1 Estimated GFR 48 POC Glucose Fasting Glucose 137 H Calcium 9.5 10/27/22 07:14 MCV MCH MCHC RDW Plt Count MPV Absolute Nucleated RBC Nucleated RBC % (auto) aPTT Heparin Protocol Anion Gap Estim Creat Clear Calc Estimated GFR POC Glucose 139 H Fasting Glucose Calcium Assessment and Plan (1) CHF exacerbation: Status: Acute Plan 82M PMH of chronic resp failure on 2L O2, ANDRES on CPAP, DM, 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, chronic CHF with preserved EF, presented with sob and worsening SOB and Edema Acute on chronic hypoxic respiratory failure due to acute bilateral massive pulmonary embolism with right heart strain and acute on chronic chf with preserved EF changed to po lasix eliquis 10mg bid, then decrease to 5mg bid on 10/31/22 ECHO - poor imaging, showing right sided dysfunction 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 weight loss COLETTE on CKD III baseline creatinine around 1.3 cardirenal monitor close to baseline acute Lactic acidosis likely 2/2 Metformin, no sepsis DM insulin BPH Doxazosin ANDRES cpap at night full code reason for continued hospitalization:sob ongoing Time Spent With Patient Time: Total time managing care of this patient today ____ minutes. Quality Stroke Does the patient have a stroke diagnosis?: No VTE Prior VTE?: No VTE Risk Level:: Medical - moderate - high VTE Device Contraindication: Treatment Not Indicated VTE Drug Contraindication: N/A - Med Ordered
[2022-10-27] MEDS: Doxazosin Mesylate 2 MG TABLET 8 MG PO (09:55)
[2022-10-27] MEDS: Apixaban 5 MG TABLET 10 MG PO ×2 (09:55→20:55)
[2022-10-27] MEDS: Furosemide 40 MG TABLET PO ×2 (09:55→18:14)
[2022-10-27] MEDS: Isosorbide Mononitrate 30 MG TAB.ER.24H PO (09:55)
[2022-10-27] MEDS: Pravastatin Sodium 40 MG TABLET PO (09:55)
[2022-10-27] MEDS: Acetaminophen 325 MG TABLET 650 MG PO ×2 (09:55→20:57)
[2022-10-27] MEDS: 0.9 % Sodium Chloride Flush 3 ML SYRINGE IVFLUSH ×3 (09:56→20:56)
[2022-10-27 11:08] VITALS: BP 142/65; PULSE 66; RESP 18; TEMP 36.3; O2SAT 95
[2022-10-27 11:44] LABS: Glucose, Whole Blood 161 mg/dL (60-115)
[2022-10-27] MEDS: Insulin Lispro 100 UNIT/ML 3 ML VIAL SUBCUT ×2 (12:15→20:55)
--- NOTE | 2022-10-27 12:54 | PM.PNCARD ---
Subjective Subjective Date of Service: 10/27/22 Interval history: Seen and evaluated patient. Also discussed with family at the bedside. Review of Systems Review of Systems Yes all other systems are reviewed and are negative Constitutional: Reports as per HPI and Reports no additional constitutional complaints Eyes: Reports as per HPI and Denies no additional eye complaints Denies system reviewed and no additional complaints, except as documented and Reports as per HPI Cardiovascular: Reports as per HPI, Reports no additional cardiovascular complaints, Denies acrocyanosis, Denies cool extremities, Denies chest pain, Denies leg edema, Denies lightheadedness, Denies palpitations and Reports dyspnea Respiratory: Reports as per HPI, Denies no additional respiratory complaints and Reports dyspnea Gastrointestinal: Reports as per HPI and Denies no additional gastrointestinal complaints Genitourinary: Reports no additional male genitourinary complaints and Reports as per HPI Musculoskeletal: Reports no additional musculoskeletal complaints and Reports as per HPI Skin/Breast: Reports system reviewed and no additional complaints, except as docu Reports system reviewed and no additional complaints, except as documented and Reports as per HPI Psychiatric: Reports no additional psychiatric complaints and Reports as per HPI Endocrine: Reports no additional endocrine complaints, Reports as per HPI and Denies palpitations Hematologic/Lymphatic: Reports no additional hematologic/lymphatic complaints and Reports as per HPI Allergic/Immunologic: Reports no additional allergic/immunologic complaints and Reports as per HPI Physical Exam Vital Signs: Last Vital Signs Temp 97.3 F 10/27/22 11:08 Pulse 66 10/27/22 11:08 Resp 18 10/27/22 11:08 BP 142/65 H 10/27/22 11:08 Pulse Ox 95 10/27/22 11:08 O2 Del Method Room Air 10/27/22 11:08 O2 Flow Rate 2 10/27/22 03:38 Oxygen Flow Rate 30 10/22/22 14:35 BMI result Body Mass Index 42.4 Const General: comfortable, no acute distress, ill appearing and tired appearing Orientation/consciousness: patient oriented x3 HEENT Other: Unremarkable Head: Yes normal to inspection Neck Neck: Yes normal visual inspection Chest Chest palpation & inspection: normal inspection of the chest Resp Auscultation: crackles and diminished lung sounds Cardio Palpation: normal PMI Heart sounds: S1 normal heart sound present, S2 normal heart sound present, no gallops, no murmurs and no rubs GI Palpation (GI): Soft to palpation Back/Spine/Pelvis Other: unremarkable Skin General skin exam: no rashes or lesions noted Neuro General: patient oriented x3 Extrem Other: 1+ edema. General: Yes normal to inspection Psych Mental Status: mental status grossly normal Objective Labs and Meds 10/27/22 05:49 10/27/22 05:49 Lab results: Laboratory Results - last 24 hr 10/26/22 10/26/22 10/27/22 16:00 19:30 05:49 WBC 9.1 RBC 5.13 Hgb 14.3 Hct 44.5 MCV 86.7 MCH 27.9 MCHC 32.1 RDW 14.8 Plt Count 203 MPV 11.4 Absolute Nucleated RBC 0.000 Nucleated RBC % (auto) 0.0 aPTT Heparin Protocol Sodium Potassium Chloride Carbon Dioxide Anion Gap BUN Creatinine Estim Creat Clear Calc Estimated GFR POC Glucose 157 H 181 H Fasting Glucose Calcium 10/27/22 10/27/22 10/27/22 05:49 05:49 07:14 WBC RBC Hgb Hct MCV MCH MCHC RDW Plt Count MPV Absolute Nucleated RBC Nucleated RBC % (auto) aPTT Heparin Protocol 32.7 L D Sodium 140 Potassium 4.2 Chloride 103 Carbon Dioxide 23 Anion Gap 18 BUN 35 H Creatinine 1.43 H Estim Creat Clear Calc 60.1 Estimated GFR 48 POC Glucose 139 H Fasting Glucose 137 H Calcium 9.5 10/27/22 11:13 WBC RBC Hgb Hct MCV MCH MCHC RDW Plt Count MPV Absolute Nucleated RBC Nucleated RBC % (auto) aPTT Heparin Protocol Sodium Potassium Chloride Carbon Dioxide Anion Gap BUN Creatinine Estim Creat Clear Calc Estimated GFR POC Glucose 161 H Fasting Glucose Calcium Progress Note: A&P Assessment and plan (1) Acute on chronic respiratory failure with hypoxemia: Status: Acute (2) CHF exacerbation: Status: Acute (3) Pulmonary embolism: Status: Acute Plan Pertinent studies reviewed. Echo is a very difficult quality. Probably preserved LVEF but difficult to say. Wall motion could not be assessed. Decreased right ventricular function. Mild pulmonary hypertension. Overall, limited study. In the chest CTA, bilateral pulmonary embolism. No saddle embolus. Right lower lobe infiltrate/atelectasis. He is being appropriately treated for the pulmonary embolism. On Eliquis. Empiric oral diuretics. He does have some first-degree heart block and overnight sleep time Wenckebach but nothing high grade. Baseline EKG is similar to prior EKG from [facility] from last year. That can be followed up as an outpatient. 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 Extensively discussed with son at the bedside. Due to many comorbidities and frailty, lack of mobility, guarded prognosis. Discussed with Dr. Plunkett today. Time Spent With Patient Time: Total time managing care of this patient today 45 minutes. This includes time spent in review of chart, laboratory data, imaging studies, review of telemetry, counseling patient, family, discussion with hospitalist, RN, documentation, coordination of care. Progress Note: Quality Stroke Does the patient have a stroke diagnosis?: No Procedures Date of Service Date of Service: 10/27/22
[2022-10-27 15:52] VITALS: BP 133/61; PULSE 67; RESP 15; TEMP 36.1; O2SAT 94
[2022-10-27 16:14] LABS: Glucose, Whole Blood 125 mg/dL (60-115)
[2022-10-27 19:28] VITALS: BP 140/80; PULSE 73; RESP 15; TEMP 35.9; O2SAT 96
[2022-10-27 19:43] LABS: Glucose, Whole Blood 157 mg/dL (60-115)
[2022-10-27 23:41] VITALS: BP 159/70; PULSE 62; RESP 18; TEMP 36.2; O2SAT 95
[2022-10-28 03:38] VITALS: BP 154/67; PULSE 59; RESP 18; TEMP 36.5; O2SAT 96
[2022-10-28 04:03] VITALS: RESP 18; O2SAT 96
[2022-10-28 06:00] VITALS: BMI 42.8
[2022-10-28 07:02] LABS: Hematocrit 46.9 % (42.0-52.0); Hemoglobin 14.8 g/dl (14.0-18.0); Mean Corpuscular HGB Conc 31.6 g/dl (31.0-36.0); Mean Corpuscular Hemoglobin 27.7 pg (27.0-33.0); Mean Corpuscular Volume 87.8 fL (80.0-98.0); Platelet Count 231 X10*3/uL (160-400); Red Blood Count 5.34 X10*6/uL (4.60-5.80); Red Cell Distribution Width 15.1 % (11.0-16.0); White Blood Count 8.6 X10*3/uL (4.8-10.8)
[2022-10-28 07:07] LABS: Anion Gap 17 (12-20); Blood Urea Nitrogen 28 mg/dL (9-16); Calcium 9.7 mg/dL (8.4-10.2); Carbon Dioxide 26 mmol/L (22-29); Chloride 102 mmol/L (96-108); Creatinine Clr Calc Pharmacy 71.5; Estimated Glomerular Filt Rate 58; Glucose Fasting 129 mg/dL (60-99); Potassium 4.2 mmol/L (3.3-5.1); Sodium 141 mmol/L (135-145)
[2022-10-28 07:20] LABS: Glucose, Whole Blood 113 mg/dL (60-115)
[2022-10-28 07:36] VITALS: BP 160/71; PULSE 65; RESP 20; TEMP 36.6; O2SAT 98
[2022-10-28 08:23] VITALS: BP 160/71; PULSE 65; O2SAT 98
[2022-10-28] MEDS: Isosorbide Mononitrate 30 MG TAB.ER.24H PO (08:30)
[2022-10-28] MEDS: Apixaban 5 MG TABLET 10 MG PO (08:30)
[2022-10-28] MEDS: Doxazosin Mesylate 2 MG TABLET 8 MG PO (08:30)
[2022-10-28] MEDS: Furosemide 40 MG TABLET PO (08:31)
[2022-10-28] MEDS: 0.9 % Sodium Chloride Flush 3 ML SYRINGE IVFLUSH (08:31)
[2022-10-28] MEDS: Pravastatin Sodium 40 MG TABLET PO (08:31)
--- NOTE | 2022-10-28 08:54 | HO.PM.IMPN ---
Subjective Subjective Date of Service: 10/28/22 Interval History: arthralgias sob improved Physical Exam Vital Signs: Vital Signs: Last Vital Signs Temp 97.8 F 10/28/22 07:36 Pulse 65 10/28/22 07:36 Resp 20 10/28/22 07:36 BP 160/71 H 10/28/22 07:36 Pulse Ox 98 10/28/22 07:36 O2 Del Method Room Air 10/28/22 07:36 O2 Flow Rate 3 10/28/22 03:38 Oxygen Flow Rate 30 10/22/22 14:35 BMI result Body Mass Index 42.8 Const: General: comfortable, no acute distress, ill appearing and tired appearing Orientation/consciousness: patient oriented x3 HEENT: Other: Unremarkable Head: Yes normal to inspection Neck: Neck: Yes normal visual inspection Chest: Chest palpation & inspection: normal inspection of the chest Resp: Auscultation: crackles and diminished lung sounds Cardio: Palpation: normal PMI Heart sounds: S1 normal heart sound present, S2 normal heart sound present, no gallops, no murmurs and no rubs GI: Palpation (GI): Soft to palpation Back/Spine/Pelvis: Other: unremarkable Skin: General skin exam: no rashes or lesions noted Neuro: General: patient oriented x3 Extrem: Other: 1+ edema. General: Yes normal to inspection Psych: Mental Status: mental status grossly normal Objective Data Active Medications Acetaminophen (Acetaminophen 325 Mg Tablet) 650 mg PO Q4H PRN PRN Reason: Pain, Mild (Pain Scale 1-3) Last Admin: 10/27/22 20:57 Dose: 650 mg Documented By: GUS Apixaban (Apixaban 5 Mg Tablet) 10 mg PO BID [facility] Stop: 11/01/22 21:01 Last Admin: 10/28/22 08:30 Dose: 10 mg Documented By: MARIA ELENA Doxazosin Mesylate (Doxazosin Mesylate 2 Mg Tablet) 8 mg PO DAILY [facility]; Protocol Last Admin: 10/28/22 08:30 Dose: 8 mg Documented By: MARIA ELENA Furosemide (Furosemide 40 Mg Tablet) 40 mg PO BID@0900,1800 [facility]; Protocol Last Admin: 10/28/22 08:31 Dose: 40 mg Documented By: MARIA ELENA Insulin Human Lispro (Insulin Lispro 100 Unit/Ml 3 Ml Vial) 0 unit SUBCUT QIDACHS [facility]; Protocol Last Admin: 10/28/22 07:21 Dose: Not Given Documented By: MARIA ELENA Non-Admin Reason: No Insulin Coverage Isosorbide Mononitrate (Isosorbide Mononitrate 30 Mg Tab.Er.24h) 30 mg PO DAILY [facility]; Protocol Last Admin: 10/28/22 08:30 Dose: 30 mg Documented By: MARIA ELENA Ondansetron HCl (Ondansetron Hcl 4 Mg/2 Ml Vial) 4 mg IVPUSH Q8H PRN PRN Reason: Nausea and Vomiting Pravastatin Sodium (Pravastatin Sodium 40 Mg Tablet) 40 mg PO DAILY [facility] Last Admin: 10/28/22 08:31 Dose: 40 mg Documented By: MARIA ELENA Sodium Chloride (0.9 % Sodium Chloride Flush 3 Ml Syringe) 3 ml IVFLUSH QSHIFT [facility] Last Admin: 10/28/22 08:31 Dose: 3 ml Documented By: MARIA ELENA Labs 10/28/22 06:41 10/28/22 06:41 Labs: Laboratory Results - last 24 hr 10/27/22 10/27/22 10/27/22 11:13 15:56 19:35 MCV MCH MCHC RDW Plt Count MPV Absolute Nucleated RBC Nucleated RBC % (auto) Anion Gap Estim Creat Clear Calc Estimated GFR POC Glucose 161 H 125 H 157 H Fasting Glucose Calcium 10/28/22 10/28/22 10/28/22 06:41 06:41 07:02 MCV 87.8 MCH 27.7 MCHC 31.6 RDW 15.1 Plt Count 231 MPV 11.0 Absolute Nucleated RBC 0.000 Nucleated RBC % (auto) 0.0 Anion Gap 17 Estim Creat Clear Calc 71.5 Estimated GFR 58 POC Glucose 113 Fasting Glucose 129 H Calcium 9.7 Microbiology Microbiology Results: Microbiology 10/22/22 15:02 Blood Culture - Final Blood - Venous No growth after 5 days. 10/22/22 15:00 Blood Culture - Final Blood - Venous No growth after 5 days. Assessment and Plan (1) CHF exacerbation: Status: Acute Plan 82M PMH of chronic resp failure on 2L O2, ANDRES on CPAP, DM, 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, chronic CHF with preserved EF, presented with sob and worsening SOB and Edema Acute on chronic hypoxic respiratory failure due to acute bilateral massive pulmonary embolism with right heart strain and acute on chronic chf with preserved EF changed to po lasix eliquis 10mg bid, then decrease to 5mg bid on 10/31/22 ECHO - poor imaging, showing right sided dysfunction deconditioning PT eval 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 weight loss COLETTE on CKD III baseline creatinine around 1.3 cardirenal monitor close to baseline acute Lactic acidosis likely 2/2 Metformin, no sepsis DM insulin BPH Doxazosin ANDRES cpap at night full code reason for continued hospitalization:sob ongoing Time Spent With Patient Time: Total time managing care of this patient today ____ minutes. Quality Stroke Does the patient have a stroke diagnosis?: No VTE Prior VTE?: No VTE Risk Level:: Medical - moderate - high VTE Device Contraindication: Treatment Not Indicated VTE Drug Contraindication: N/A - Med Ordered
[2022-10-28 11:14] LABS: Glucose, Whole Blood 158 mg/dL (60-115)
[2022-10-28 11:20] VITALS: BP 121/56; PULSE 65; RESP 18; TEMP 36.6; O2SAT 94
[2022-10-28] MEDS: Insulin Lispro 100 UNIT/ML 3 ML VIAL SUBCUT (11:40)
--- NOTE | 2022-10-28 13:30 | MHC.CM.PN ---
CM met with Patient at bedside and addressed IMM with him (original was given to Patient and a copy has been placed on the chart). Per Patient's request, CM spoke with Patient's Granddaughter/Shanta at [phone], to obtain SNF choices. [facility] choice, [facility] and then [facility]. CM awaits bed offers and will continue to follow.
--- NOTE | 2022-10-28 14:08 | MHC.CM.PN ---
Patient has been medically cleared for dc to SNF/STR today. Patient will dc to [facility] today at 4:30 PM, via [facility]. Patient and his Granddaughter/Shanta at [phone] are aware of and pleased with the dc plan.
--- NOTE | 2022-10-28 14:10 | PM.DS ---
DS: Providers Provider Date of Service: 10/28/22 Date of admission: 10/22/22 18:40 Primary care physician: Dena Churchill NP Consults: 10/22/22 18:40 Consult to Cardiology Routine Consulting Provider: [facility] Cardiovascular Services Reason for consultation: acute CHF exacerbation for eval and rec. 10/24/22 12:34 Consult to Wound Care Routine Consulting Provider: [facility] Wound Care Management Reason for consultation: open wound to axilla and coccyx Has provider been notified: Yes DS: Diagnosis Discharge Diagnosis (1) CHF exacerbation: Status: Acute DS: Summary Hospital Course Hospital Course: from initial hpi: 82 years old male with PMH of PAF, chronic resp failure on 2L O2, ANDRES on CPAP, Hx CHF presenting to the hospital with worsening SOB and Edema over the last week. The patient reports that he noticed increase edema over the last few weeks which becaume more concerning the last 7 dsays as he noted not making as much urine as before with increase SOB and dyspnea with exertion until it go to the level of getting dyspneic with standing up from his recliner this morning when he decided to come to the hospital for further evaluation. he had to use O2 supplement everyday for the last week while he was using O2 only at night before. He was seen few days ago in urgent care and asked to follow with his feed research technician. Placed on CPAP in ED with good response. Admitted for further eval and management. hospital course: patient was admitted for acute on chronic hypoxic respiratory failure due to acute bilateral pulmonary embolism with right heart strain and acute on chronic chf with preserved EF. initially, jose luis was treated for chf with iv diureses, do to persistent hypoxia and lack of pulmonary edema CTA was done which revealed large bilateral pe. patient was started on iv heparing then transition to high dose eliquis, will decrase to 5mg bid on 10/31/22. doppler only showed small supergicial thrombus in LE. he was seen by PT who recommended str at snf. for 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 weight loss is recommended. for frederic on CKDIII, returned to baseline after diuresis. for DM was given insulin. for bph doxazosin. for andres uses cpap at night. patient is medically stable, will be discharged to snf. Time Spent with Patient Time attestation: Total time managing care of this patient today ____ minutes. Discharge coordination time: Greater than 30 minutes Quality: Safe Use of Opioids Does Pt have an Active Cancer Diagnosis on the Problem List?: No Quality: Stroke Does the patient have a stroke diagnosis?: No Physical Exam Vital Signs: Vital Signs: Last Vital Signs Temp 97.8 F 10/28/22 11:20 Pulse 65 10/28/22 11:20 Resp 18 10/28/22 11:20 BP 121/56 L 10/28/22 11:20 Pulse Ox 94 10/28/22 11:20 O2 Del Method Nasal Cannula 10/28/22 11:20 O2 Flow Rate 3 10/28/22 11:20 Oxygen Flow Rate 30 10/22/22 14:35 BMI result Body Mass Index 42.8 Const: General: comfortable, no acute distress, ill appearing and tired appearing Orientation/consciousness: patient oriented x3 HEENT: Other: Unremarkable Head: Yes normal to inspection Neck: Neck: Yes normal visual inspection Chest: Chest palpation & inspection: normal inspection of the chest Resp: Auscultation: crackles and diminished lung sounds Cardio: Palpation: normal PMI Heart sounds: S1 normal heart sound present, S2 normal heart sound present, no gallops, no murmurs and no rubs GI: Palpation (GI): Soft to palpation Back/Spine/Pelvis: Other: unremarkable Skin: General skin exam: no rashes or lesions noted Neuro: General: patient oriented x3 Extrem: Other: 1+ edema. General: Yes normal to inspection Psych: Mental Status: mental status grossly normal DS: Data Data Completed and Pending Labs on day of discharge: Laboratory Results - last 24 hr 10/27/22 10/27/22 10/28/22 15:56 19:35 06:41 WBC 8.6 RBC 5.34 Hgb 14.8 Hct 46.9 MCV 87.8 MCH 27.7 MCHC 31.6 RDW 15.1 Plt Count 231 MPV 11.0 Absolute Nucleated RBC 0.000 Nucleated RBC % (auto) 0.0 Sodium Potassium Chloride Carbon Dioxide Anion Gap BUN Creatinine Estim Creat Clear Calc Estimated GFR POC Glucose 125 H 157 H Fasting Glucose Calcium 10/28/22 10/28/22 10/28/22 06:41 07:02 11:06 WBC RBC Hgb Hct MCV MCH MCHC RDW Plt Count MPV Absolute Nucleated RBC Nucleated RBC % (auto) Sodium 141 Potassium 4.2 Chloride 102 Carbon Dioxide 26 Anion Gap 17 BUN 28 H Creatinine 1.21 Estim Creat Clear Calc 71.5 Estimated GFR 58 POC Glucose 113 158 H Fasting Glucose 129 H Calcium 9.7 Discharge Plan Discharge Anticipated Discharge Date/Time: 10/28/22 14:08 Patient Disposition: Xfer SNF Discharge Diagnosis: pe Referrals: [facility] [Outside] - 1 Week Dena Churchill NP [Primary Care Provider] - 1 Week Discharge Medications: New Eliquis 5 mg Tablet 10 mg PO BID Qty: 0 0RF Continued furosemide 40 mg tablet 40 mg PO BID metformin 500 mg tablet 500 mg PO BID acetaminophen 325 mg Tablet 650 mg PO Q6H PRN (Reason: Pain) pravastatin 40 mg tablet 40 mg PO DAILY isosorbide mononitrate 30 mg tablet extended release 24 hr 30 mg PO QAM doxazosin 8 mg tablet 8 mg PO DAILY Discharge Orders: Discharge Order (Routine); Ordered 10/28/22 Ordered By: Joaquin Plunkett Diet: Advance to usual diet Activity on Discharge: As tolerated Stand Alone Forms: Patient Portal Discharge page Care Plan Goals: recovery Health Concerns: PE Plan of Treatment: eliquis, change to 5mg bid on 10/31/22 Assessment: see above
--- NOTE | 2022-10-29 09:06 | P.CDIM_ITS ---
PROVIDER RESPONSE TEXT: To clarify, the appropriate diagnosis supported by the clinical indicators: Pressure (decubitus) ulcer/injury Stage II coccyx QUERY TEXT: PHYSICIAN'S DOCUMENTATION REQUEST Date of Query: 10/28/2022 11:57 AM EDT Patient Name: Quentin Goodwin Admit Date: 10/22/2022 Dear Joaquin Plunkett, A review of the medical record indicates additional documentation may be needed. Please review below and update the documentation accordingly. Clinical Indicators: Wound assessment nursing 10/26 - Pressure injury coccyx Stage II Beefy red foam dressing/cdi Based on the above, could you please provide further information regarding the ulcer/wound if known: Pressure (decubitus) ulcer/injury Stage II coccyx Other please specify Other (explain)Clinically unable to determine (explain)Thank you, Deidre Brooks, CCS, CDIS Use of terms such as suspected, likely, concern for, or probable (associated with a specific diagnosi s that is being evaluated, monitored, or treated as if it exists) are acceptable and can be coded in the inpatient se tting, when documented at the time of discharge. Please use your independent medical judgment in providing your response. THIS QUERY IS PART OF THE PERMANENT MEDICAL RECORD
== END 2022-10-28 17:15 | disposition skilled nursing facility (03) | DRG 175 ==
LOC: HO.ED 17:22 → HO.EDOVER 18:46 → HO.IMC 19:25
PROVIDERS: Admitting Provider Student in an Organized Health Care Education/Training Program; Emergency Provider Student in an Organized Health Care Education/Training Program; PCP Nurse Practitioner Family; Visit Provider Internal Medicine
DX: I26.09 Other pulmonary embolism with acute cor pulmonale (principal); I50.33 Acute on chronic diastolic (congestive) heart failure; J96.21 Acute and chronic respiratory failure with hypoxia; N17.9 Acute kidney failure, unspecified; E87.21 Acute metabolic acidosis; Z68.41 Body mass index [BMI] 40.0-44.9, adult; I95.9 Hypotension, unspecified; L89.152 Pressure ulcer of sacral region, stage 2; N40.0 Benign prostatic hyperplasia without lower urinary tract symptoms; E66.01 Morbid (severe) obesity due to excess calories; I27.20 Pulmonary hypertension, unspecified; J44.9 Chronic obstructive pulmonary disease, unspecified; N18.30 Chronic kidney disease, stage 3 unspecified; E11.22 Type 2 diabetes mellitus with diabetic chronic kidney disease; G47.33 Obstructive sleep apnea (adult) (pediatric); Z79.84 Long term (current) use of oral hypoglycemic drugs; Z79.899 Other long term (current) drug therapy
CPT/HCPCS: 36415; 71045; 71275; 76775; 80048; 80053; 81001; 82803; 82947; 83605; 83735; 83880; 84484; 85025; 85027; 85379; 85610; 85730; 87040; 87086; 93005; 93306; 93970; 94660; 97162; 99285; C1758; J0696; J1643; J1940; J2543; Q9957; Q9967

== ENCOUNTER 2022-10-22 18:40 | Outpatient (BNV) | payer MEDICARE, SELFPAY | END 2022-10-23 07:00 | PROVIDERS: Admitting Provider Student in an Organized Health Care Education/Training Program; Emergency Provider Student in an Organized Health Care Education/Training Program; Visit Provider Internal Medicine | DX: I50.9 Heart failure, unspecified (principal) | CPT/HCPCS: 93306 ==

== ENCOUNTER → 2022-10-22 18:40 | Outpatient (BNV) | payer MEDICARE, SELFPAY | PROVIDERS: Admitting Provider Student in an Organized Health Care Education/Training Program; Emergency Provider Student in an Organized Health Care Education/Training Program; Visit Provider Student in an Organized Health Care Education/Training Program | DX: I50.9 Heart failure, unspecified (principal) | CPT/HCPCS: 99223; 99233; 99239 ==

== ENCOUNTER → 2022-10-22 18:40 | Outpatient (BNV) | payer MEDICARE, SELFPAY | PROVIDERS: Admitting Provider Student in an Organized Health Care Education/Training Program; Emergency Provider Student in an Organized Health Care Education/Training Program; Visit Provider Internal Medicine | DX: J96.21 Acute and chronic respiratory failure with hypoxia (principal); I50.9 Heart failure, unspecified; I26.99 Other pulmonary embolism without acute cor pulmonale | CPT/HCPCS: 93010; 99223; 99232; 99233 ==

== ENCOUNTER 2023-04-03 09:22 | Observation (INO) | payer MEDICARE, MEDICAID, SELFPAY ==
[2023-04-03] VITALS (8 sets, daily range): BP systolic 140–150; BP diastolic 65–91; PULSE 87–97; RESP 14–25; TEMP 36.4–36.6; O2SAT 85–98; BMI 42.0
--- NOTE | ~2023-04-03 | XR_ITS ---
EXAMINATION: XR CHEST CLINICAL INFORMATION: Shortness of breath COMPARISON: CT angiogram chest from 10/24/2022, chest radiograph from 10/22/2022 TECHNIQUE: Frontal view of the chest was obtained. FINDINGS: Bilateral low lung volumes. Elevation the right hemidiaphragm, stable. Prominence of the pulmonary vasculature. Bibasilar atelectasis, right greater than left. No pneumothorax. Trachea is midline. Cardiac mediastinal silhouette is stable. Aorta demonstrates atherosclerotic calcifications. No large pleural effusion. Degenerative changes of the thoracolumbar spine and bilateral glenohumeral joints. Soft tissues are unremarkable. XR/XR chest 1V IMPRESSION: 1. Bilateral low lung volumes. 2. Elevation the right hemidiaphragm, stable. 3. Prominence of the pulmonary vasculature. 4. Bibasilar atelectasis, right greater than left.
--- NOTE | 2023-04-03 09:36 | ECG_ITS ---
Test Reason : SOB Blood Pressure : / mmHG Vent. Rate : 102 BPM Atrial Rate : 097 BPM P-R Int : 000 ms QRS Dur : 152 ms QT Int : 392 ms P-R-T Axes : 000 -65 030 degrees QTc Int : 510 ms Possible Atrial tachycardia with Premature ventricular complexes and then NSR with Wenkebach noted on last 2 beats on the trasing Left axis deviation Right bundle branch block Inferior infarct (cited on or before 01-DEC-2019) Anterolateral infarct (cited on or before 16-OCT-2022) Abnormal ECG When compared with ECG of 22-OCT-2022 14:41, Possible Atrial tachycardia Referred By: Generic ED Physician Electronically Signed By:SYEDA AGUILAR MD
--- NOTE | 2023-04-03 10:09 | ED_ITS ---
HPI - General Adult General Chief complaint: General Medical Stated complaint: swelling of feet and kidneys Time Seen by Provider: 04/03/23 10:09 Source: patient and family ([id number]) Mode of arrival: ambulatory Limitations: no limitations History of Present Illness HPI narrative: 82 year-old male with a history of congestive heart failure arrives to emergency department with a complaint of shortness of breath, bilateral leg swelling, and 20 lbs weight gain. He states that this started 2 months ago and worsened significantly starting on 03/28/2023. He went to his PCP's office for labs and his PCP stated he needed to come to ED for further management. The patient's home treatment regimen has not alleviated his symptoms. He reports that ambulation aggravates his symptoms significantly. Patient states that he uses CPAP at night. Onset (ago): day(s) Relieving factors: none Exacerbating factors: other (walking) Associated symptoms: shortness of breath Treatments prior to arrival: none Related Data Home Medications Medication Instructions Recorded Confirmed acetaminophen 325 mg tablet 650 mg PO Q6H PRN Pain 10/22/22 10/22/22 doxazosin 8 mg tablet 8 mg PO DAILY 10/22/22 10/22/22 furosemide 40 mg tablet 40 mg PO BID 10/22/22 10/22/22 isosorbide mononitrate 30 mg 30 mg PO QAM 10/22/22 10/22/22 tablet,extended release 24 hr metformin 500 mg tablet 500 mg PO BID 10/22/22 10/22/22 pravastatin 40 mg tablet 40 mg PO DAILY 10/22/22 10/22/22 Previous Rx's Medication Instructions Recorded apixaban 5 mg tablet (Eliquis) 10 mg (2 x 5 mg) PO BID #0 tabs 10/28/22 Allergies Allergy/AdvReac Type Severity Reaction Status Date / Time No Known Allergies Allergy Verified 04/03/23 09:27 [No Known Allergies*] Review of Systems 2 Constitutional: Constitutional: Reports no additional constitutional complaints, Denies chills, Denies fever(s) and Denies night sweats Eyes: Eyes: Reports no additional eye complaints, Denies blurry vision, Denies change in vision, Denies diplopia, Denies eye discharge, Denies loss of vision and Denies eye pain ENT: Denies dizziness Cardiovascular: Cardiovascular: Reports no additional cardiovascular complaints, Denies chest pain, Reports leg edema, Denies lightheadedness, Denies Loss of Consciousness, Reports dyspnea and Reports dyspnea on exertion Respiratory: Respiratory: Reports no additional respiratory complaints, Reports dyspnea and Reports dyspnea on exertion Gastrointestinal: Gastrointestinal: Reports no additional gastrointestinal complaints, Denies abdominal pain, Denies melena, Denies hematochezia, Denies change in bowel habits and Denies change in stool character Genitourinary: Genitourinary: Reports no additional male genitourinary complaints, Denies hematuria, Denies oliguria, Denies difficulty urinating, Denies dysuria, Denies urinary frequency, Denies urinary hesitancy, Denies urinary incontinence and Denies urinary urgency Musculoskeletal: Musculoskeletal: Reports no additional musculoskeletal complaints, Denies numbness and Denies tingling Neurologic: Denies dizziness, Denies loss of vision, Denies numbness and Denies tingling Psychiatric: Psychiatric: Reports no additional psychiatric complaints Endocrine: Endocrine: Reports no additional endocrine complaints Hematologic/Lymphatic: Hematologic/Lymphatic: Reports no additional hematologic/lymphatic complaints Allergic/Immunologic: Allergic/Immunologic: Reports no additional allergic/immunologic complaints PMFSH Past Medical History Attestation statement: The following information was validated with the patient. (patient's daughter in law validated all information) Source: old records reviewed, obtained from family (patient's daughter in law provided additional history and confirmed the history provided by the patient.) and nursing notes reviewed Onset Date is defined in the Problem List Problems that require an onset date and time if occurred within 24 hrs of arrival to the ED Aortic Dissection and Rupture; Neurologic impairment; Cardiopulmonary Arrest; Endotracheal Intubation; Insertion or Replacement of Mechanical Circulatory Assist Device Medical History ANDRES on CPAP Chronic respiratory failure Morbid obesity Congestive heart failure Family History Family History Unknown No problems noted. Social History Social History Household Members: Family Household Members Other:: 3 Housing: House Do you presently have visiting nurse or other home services: No Alcohol intake: never Patient Tobacco Use Status: Former Tobacco user Tobacco use type: Cigarette Second Hand Smoke Exposure: No Advance Directives: No Advance Directives Information Provided: Yes service: No Physical Exam ED Vital Signs: Vital Signs - 24 hr 04/03/23 09:27 04/03/23 10:48 04/03/23 10:56 Temperature 98 F Pulse Rate 90 87 Respiratory Rate 20 25 H 19 Blood Pressure 147/91 H Pulse Oximetry 90 L Oxygen Delivery Method Room Air BMI result Body Mass Index 42.0 Const General: cooperative, no acute distress, alert and awake Nutritional Appearance: well nourished Orientation/consciousness: patient oriented x3 Limitations: no limitations HENMT Head: Yes normal to inspection and Yes atraumatic Ears: hearing grossly normal bilaterally and external ears normal General nose exam: Normal external nose present, no nasal discharge noted and no epistaxis Face and sinus: Yes normal facial exam, No abrasion and No laceration Mouth: Normal oral and palatal mucosa present, no drooling and no muffled voice Eyes General: appearance normal, both eyes and all related structures Periorbital: periorbital findings normal Eyelids: Yes eyelids normal Conjunctivae: conjunctivae normal Pupils: Equal, round and reactive pupils present EOM: EOMs intact bilaterally Neck Neck: Yes normal visual inspection, Yes full ROM and Yes no lymphadenopathy Chest Chest palpation & inspection: normal inspection of the chest Resp Effort & Inspection: able to speak in complete sentences and labored Auscultation: diminished lung sounds diffuse Cardio Rate: regular rate Rhythm: regular rhythm GI Inspection: Yes normal to inspection Neuro General: patient oriented x3 and moves all extremities Cranial nerves: Yes Equal, round and reactive pupils present Cognition (Neuro): normal cognition Motor exam (neuro): 5/5 motor strength present throughout Sensory Exam: Normal double simultaneous stimulation for sensation Coordination: [id number] test normal Extrem General: Yes full ROM and Yes capillary refill normal Right lower extremity: edema Details: pitting and 3+ Left lower extremity: edema Details: pitting and 3+ Psych Appearance: grossly normal Mental Status: mental status grossly normal Affect: normal affect Attitude: cooperative Thought process: Normal thought process present Thought content: Normal thought content present Insight: Good insight present (Psych) Medications Administered Discontinued Medications Generic Name Dose Route Start Last Admin Trade Name Freq PRN Reason Stop Dose Admin Albuterol Sulfate 2.5 mg/ 0 mg 04/03/23 10:50 04/03/23 10:55 Albuterol/Ipratropium 3 ml INHALE 04/03/23 10:51 5 dose ONCE ONE Administration Medical Decision Making Medical Decision Making MDM Narrative: Patient is an 82 year old assigned male at with a history of CHF presenting to the emergency department today with increased shortness of breath, weight gain, and bilateral lower leg swelling. Patient's physical exam was as noted in the physical exam portion of this note. Patient's blood work showed a slightly elevated CR of 1.52 and BUN of 28 but were otherwise unremarkable. Patient's chest x-ray showed prominence of the pulmonary vasculature. Patient was initially hypoxic at 86% on RA and was placed on 2 liters of oxygen via nasal cannula which brought him up to the mid 90s. Patient was placed on CPAP at his baseline settings. I spoke to the hospitalist team who agreed to admission. I explained my physical exam findings as well as all test results to the patient and the patient's daughter in law. I answered all questions asked by the patient and the patient's daughter in law. Patient and the patient's daughter in law verbalized agreement and understanding with this treatment plan and admission. Differential Diagnosis Differential Diagnoses: The differential diagnosis associated with the presentation includes CHF Diastolic failure Shortness of breath Hypoxia Admission/Observation Consideration of admission/observation: Escalation of care including admission/observation considered Patient admitted Consult Healthcare Provider Management of the patient was discussed with: Hospitalist (agreed to admission.) Lab Data [facility] Lab Attestation statement: I reviewed the patient's lab results. My interpretation of these results are in the MDM Rationale portion of this note. 04/03/23 10:14 04/03/23 10:14 Labs: Lab Results 04/03/23 04/03/23 Range/Units 10:14 10:20 WBC 10.5 (4.8-10.8) X10*3/uL RBC 6.62 H D (4.60-5.80) X10*6/uL Hgb 16.9 (14.0-18.0) g/dl Hct 54.2 H (42.0-52.0) % MCV 81.9 (80.0-98.0) fL MCH 25.5 L (27.0-33.0) pg MCHC 31.2 (31.0-36.0) g/dl RDW 18.0 H (11.0-16.0) % Plt Count 219 (160-400) X10*3/uL MPV 10.6 (9.4-12.4) fL Immature Gran % (Auto) 0.5 H (0.0-0.4) % Neut % (Auto) 75.9 H (45-73) % Lymph % (Auto) 12.9 L (20-40) % Ashe % (Auto) 7.5 (2-11) % Eos % (Auto) 2.5 (0-4) % Baso % (Auto) 0.7 (0-2) % Lymph # (Auto) 1.4 (1.2-4.9) X10*3/uL Ashe # (Auto) 0.8 (0.1-1.2) X10*3/uL Eos # (Auto) 0.3 (0.0-0.4) X10*3/uL Baso # (Auto) 0.1 (0.0-0.2) X10*3/uL Abs Immat Gran (auto) 0.05 H (0.00-0.03) X10*3/uL Absolute Neuts (auto) 8.0 (2.0-8.3) x10*3/uL Absolute Nucleated RBC 0.000 (0.0-0.012) X10*3/uL Nucleated RBC % (auto) 0.0 (0.0-0.2) /100WBC PT 15.8 H (11.1-13.3) SEC INR 1.3 H (0.9-1.1) APTT 41.1 H (26.0-36.4) SEC VBG pH 7.42 (7.32-7.43) VBG pCO2 43 mmHg VBG pO2 72 mmHg VBG HCO3 28 H (22-26) mmol/L VBG O2 Saturation 95.0 % VBG Base Excess 3.2 mmol/L Sodium 140 (135-145) mmol/L Potassium 4.1 (3.3-5.1) mmol/L Chloride 98 (96-108) mmol/L Carbon Dioxide 27 (22-29) mmol/L Anion Gap 19 (12-20) BUN 28 H (9-16) mg/dL Creatinine 1.52 H (0.5-1.4) mg/dL Estim Creat Clear Calc 56.3 Estimated GFR 44 Random Glucose 135 H (60-115) mg/dL Calcium 10.0 (8.4-10.2) mg/dL Magnesium 1.6 (1.6-2.6) mg/dL Total Bilirubin 0.7 (0.0-1.0) mg/dL AST 10 (5-37) U/L ALT 8 (0-40) U/L Alkaline Phosphatase 82 (39-117) U/L Troponin I High Sens 9.5 D (<3.5-35.0) ng/L B-Natriuretic Peptide 88 (<100) pg/mL Total Protein 7.4 (6.5-8.0) g/dL Albumin 4.0 (3.5-5.0) g/dL COVID-19 (SILVIA) Negative (Negative) COVID-19 Clin Com See Note Influenza Type A (ZACKARY) Negative (Negative) Influenza Type B (ZACKARY) Negative (Negative) Influenza A & B Note See Note Independent Interpretation I performed an independent interpretation of an: EKG and Plain X-Ray Interpretation: My interpretation is in agreement with the radiologist's impression of this imaging study. - EXAMINATION: XR CHEST CLINICAL INFORMATION: Shortness of breath COMPARISON: CT angiogram chest from 10/24/2022, chest radiograph from 10/22/2022 TECHNIQUE: Frontal view of the chest was obtained. FINDINGS: Bilateral low lung volumes. Elevation the right hemidiaphragm, stable. Prominence of the pulmonary vasculature. Bibasilar atelectasis, right greater than left. No pneumothorax. Trachea is midline. Cardiac mediastinal silhouette is stable. Aorta demonstrates atherosclerotic calcifications. No large pleural effusion. Degenerative changes of the thoracolumbar spine and bilateral glenohumeral joints. Soft tissues are unremarkable. XR/XR chest 1V IMPRESSION: 1. Bilateral low lung volumes. 2. Elevation the right hemidiaphragm, stable. 3. Prominence of the pulmonary vasculature. 4. Bibasilar atelectasis, right greater than left. Dictated By: Samantha Mckay MD Signed By: Electronically signed by Samantha Mckay MD 04/03/23 1128 - Vent. Rate: 102 BPM Atrial Rate: 097 BPM P-R Int: 000 ms QRS Dur: 152 ms QT Int: 392 ms P-R-T Axes: 000 -65 030 degrees QTc Int: 510 ms Undetermined rhythm Left axis deviation Right bundle branch block Inferior infarct (cited on or before 01-DEC-2019) Anterolateral infarct (cited on or before 16-OCT-2022) Abnormal ECG When compared with ECG of 22-OCT-2022 14:41, Significant changes have occurred DD/ [id number] Radiology Impression Discussion of test interpretation with radiology: I have reviewed the radiologist's reading. Independent Historian Clinical information obtained from an independent historian. History obtained from or confirmed by: Other (patient's daughter in law provided additional history and confirmed the history provided by the patient.) Critical Care Time Critical Care Time Critical Care Time: Yes Total Critical Care Time: 45 Attestation: I spent 45 minutes of Critical Care Time with this patient. This does not include time spent on separately reported billable procedures. Discharge Plan Discharge Clinical Impression: CHF exacerbation, COLETTE (acute kidney injury) Patient Disposition: Admitted As Inpatient Prescriptions: No Action furosemide 40 mg tablet 40 mg PO BID metformin 500 mg tablet 500 mg PO BID acetaminophen 325 mg Tablet 650 mg PO Q6H PRN (Reason: Pain) pravastatin 40 mg tablet 40 mg PO DAILY isosorbide mononitrate 30 mg tablet extended release 24 hr 30 mg PO QAM doxazosin 8 mg tablet 8 mg PO DAILY Eliquis 5 mg Tablet 10 mg PO BID Qty: 0 0RF
[2023-04-03 10:20] LABS: MANUAL DIFF FLAG NO
[2023-04-03 10:22] LABS: Basophils Absolute Auto 0.1 X10*3/uL (0.0-0.2); Basophils Percent Auto 0.7 % (0-2); Eosinophils Absolute Auto 0.3 X10*3/uL (0.0-0.4); Eosinophils Percent Auto 2.5 % (0-4); Hematocrit 54.2 % (42.0-52.0); Hemoglobin 16.9 g/dl (14.0-18.0); Imm Gran Abs Auto 0.05 X10*3/uL (0.00-0.03); Imm Gran Pct Auto 0.5 % (0.0-0.4); Lymphocytes Absolute Auto 1.4 X10*3/uL (1.2-4.9); Lymphocytes Percent Auto 12.9 % (20-40); Mean Corpuscular HGB Conc 31.2 g/dl (31.0-36.0); Mean Corpuscular Hemoglobin 25.5 pg (27.0-33.0); Mean Corpuscular Volume 81.9 fL (80.0-98.0); Mean Platelet Volume 10.6 fL (9.4-12.4); Monocytes Absolute Auto 0.8 X10*3/uL (0.1-1.2); Monocytes Percent Auto 7.5 % (2-11); Neutrophils Percent Auto 75.9 % (45-73); Platelet Count 219 X10*3/uL (160-400); Red Blood Count 6.62 X10*6/uL (4.60-5.80); White Blood Count 10.5 X10*3/uL (4.8-10.8)
[2023-04-03 10:27] LABS: Venous Blood Gas Refer to POC result
[2023-04-03 10:27] LABS: VBG Base Excess 3.2 mmol/L; VBG HCO3 28 mmol/L (22-26); VBG pCO2 43 mmHg; VBG pH 7.42 (7.32-7.43); VBG pO2 72 mmHg
[2023-04-03 10:28] LABS: INTERNATIONAL NORM RATIO 1.3 (0.9-1.1); Prothrombin Time 15.8 SEC (11.1-13.3)
[2023-04-03 10:30] LABS: Partial Thromboplastin Time 41.1 SEC (26.0-36.4)
[2023-04-03 10:39] LABS: IDNOW Serial# 08D9AD1C; Influenza A Negative (Negative); Influenza B2 Negative (Negative)
[2023-04-03 10:40] LABS: COVID-19 Test Negative (Negative); IDNOW Serial# 152EDE1D
[2023-04-03 10:47] LABS: Alanine Aminotransferase 8 U/L (0-40); Alkaline Phosphatase 82 U/L (39-117); Anion Gap 19 (12-20); Aspartate Amino Transferase 10 U/L (5-37); Bilirubin Total 0.7 mg/dL (0.0-1.0); Blood Urea Nitrogen 28 mg/dL (9-16); Carbon Dioxide 27 mmol/L (22-29); Chloride 98 mmol/L (96-108); Creatinine Clr Calc Pharmacy 56.3; Estimated Glomerular Filt Rate 44; Glucose Random 135 mg/dL (60-115); Magnesium 1.6 mg/dL (1.6-2.6); Potassium 4.1 mmol/L (3.3-5.1); Sodium 140 mmol/L (135-145); Total Protein 7.4 g/dL (6.5-8.0)
[2023-04-03 10:53] LABS: B Type Natriuretic Peptide 88 pg/mL (<100)
[2023-04-03 10:55] LABS: Troponin-I High Sensitivity 9.5 ng/L (<3.5-35.0)
[2023-04-03] MEDS: Albuterol Sulfate 2.5 MG, Albuterol/Iprat 2.5/0.5MG 3 ML 3 ML INHALE (10:55)
--- NOTE | 2023-04-03 13:12 | PHA.MEDREC ---
Pharmacy Consult ? Medication Reconciliation Pharmacy has completed the medication reconciliation. Spoke to patient's daughter to confirm meds which had med list on phone.
--- NOTE | 2023-04-03 13:34 | P.HPHOSP_ITS ---
History of Present Illness Date of Service: 04/03/23 <Cyn Bird - Last Filed: 04/03/23 14:24> Chief Complaint: Sent in by PCP secondary to renal lab results <Cyn Bird - Last Filed: 04/03/23 14:24> Quentin is an 82 yo M with past medical history of CHF, COPD, DVT, DMII, and HLD presents today with his daughter in law after being instructed to do so by PCP who was concerned about patient's fluid and renal function. Patient states that he has suffered from shortness of breath for several months to years. He also states that he has had lower extremity edema for an extended period of time. He reports that he uses a CPAP at home to good effect. Patient and [id number] endorse that current SOB as presenting today in the hospital is baseline for the patient and has not acutely worsened. Medication regimen was changed 5 days ago by PCP to change Lasix to Bumex 2mg BID. Puqhqysu-jv-yfo states that the patient has gained 20lbs over the past month or so. ED Course: Patient was evaluated in the ED and found to have hypoxia with ambulation. CXR showed no pulmonary edema or infiltrates. BNP is 88 today improved from 494 in October 2022 WBC 10.5 Creatinine 1.52 BUN 28 Covid, influenza, RSV, and HS troponin were negative. <Cyn Bird - Last Filed: 04/03/23 14:24> Quentin is an 82 yo M with past medical history of CHF, COPD, DVT, DMII, and HLD presents today with his daughter in law after being instructed to do so by PCP who was concerned about patient's fluid and renal function. Patient states that he has suffered from shortness of breath for several months to years. He also states that he has had lower extremity edema for an extended period of time. He reports that he uses a CPAP at home to good effect. Patient and [id number] endorse that current SOB as presenting today in the hospital is baseline for the patient and has not acutely worsened. Medication regimen was changed 5 days ago by PCP to change Lasix to Bumex 2mg BID. Hahifzco-ar-tna states that the patient has gained 20lbs over the past month or so, however our recoreds show that patient has not gained weight, infact since last October she was lost 3 kilo per our record--his weight ranges from 140 to 143 kilo, today 140. Patient feels comfortable otherwise, upon ambulation,however O2 droped t 85%. ED Course: Patient was evaluated in the ED and found to have hypoxia with ambulation. CXR showed no pulmonary edema or infiltrates. BNP is 88 today improved from 494 in October 2022 WBC 10.5 Creatinine 1.52 which is well within his baseline of CKD 3a Covid, influenza, RSV, and HS troponin were negative. Given bronchodilator by Neb He otherwise comfortable and asked when can I go home <Aidan Corbin MD - Last Filed: 04/04/23 08:41> Review of Systems 2 Review of Systems: Constitutional: No fever, chills, malaise, unintentional weight loss CVS: No chest pain, palpitations, syncope Resp: As per HPI GI/: No abdominal pain, flank pain, changes in urination <Cyn Bird - Last Filed: 04/03/23 14:24> Yes all other systems are reviewed and are negative <Aidan Corbin MD - Last Filed: 04/04/23 08:41> [facility] Medical History: Medical History (Updated 04/04/23 @ 01:56 by Emilee Vidal RN) Diabetes mellitus, type 2 DVT (deep venous thrombosis) ANDRES on CPAP Chronic respiratory failure Morbid obesity Congestive heart failure <Cyn Bird - Last Filed: 04/03/23 14:24> Family History: Family History Unknown No problems noted. <Cyn Bird - Last Filed: 04/03/23 14:24> Surgical History: Surgical History (Updated 04/04/23 @ 01:56 by Emilee Vidal RN) H/O prostatectomy <Cyn Bird - Last Filed: 04/03/23 14:24> Social History: Social History Household Members: Family Household Members Other:: 3 Housing: House Do you presently have visiting nurse or other home services: No (Daughter In Law provides care) Alcohol intake: never Patient Tobacco Use Status: Former Tobacco user Tobacco use type: Cigarette Smoked in Last 30 Days: No Patient Interested in Nicotine Replacement: No Patient Given Instructions on How to Stop Smoking: No Second Hand Smoke Exposure: No Use of substances other than those prescribed or required for medical reasons: No Currently Displaying Signs/Symptoms of Drug Intoxication Withdrawal: No Have you been hit, kicked, punched, or otherwise hurt by someone within the past year? If so, by whom?: No Do you feel safe in your current relationship?: Yes Is there a partner from a previous relationship who is making you feel unsafe now?: No Are you made to feel afraid or neglected: No Advance Directives: No Advance Directives Information Provided: Yes Do you have thoughts of harming others: None Do you have a plan to hurt others: No Plan Recently lost weight without trying: No Eating poorly because of decreased appetite: No Nutrition Risks: No Nutritional Risk Poor oral hygiene: No service: No <Cyn Bird - Last Filed: 04/03/23 14:24> Meds Allergies/Adverse reactions: Allergies Allergy/AdvReac Type Severity Reaction Status Date / Time No Known Allergies Allergy Verified 04/03/23 09:27 [No Known Allergies*] <Cny Bird - Last Filed: 04/03/23 14:24> Active Medications: Current Medications Sodium Chloride (0.9 % Sodium Chloride Flush 3 Ml Syringe) 3 ml IVFSH [facility] <Cyn Bird - Last Filed: 04/03/23 14:24> Home medications: Home Medications Medication Instructions Recorded Confirmed Last Taken Type acetaminophen 325 mg tablet 650 mg PO Q6H PRN Pain 10/22/22 04/03/23 04/03/23 09:00 History doxazosin 8 mg tablet 8 mg PO DAILY 10/22/22 04/03/23 04/03/23 09:00 History isosorbide mononitrate 30 mg 30 mg PO DAILY 10/22/22 04/03/23 04/03/23 09:00 History tablet,extended release 24 hr pravastatin 40 mg tablet 40 mg PO DAILY 10/22/22 04/03/23 04/03/23 09:00 History albuterol sulfate 90 mcg/actuation 2 puff inhalation Q6H PRN 04/03/23 04/03/23 Unknown History aerosol inhaler Shortness Of Breath Or Wheezing apixaban 5 mg tablet (Eliquis) 5 mg PO BID 04/03/23 04/03/23 04/03/23 09:00 History bumetanide 2 mg tablet 2 mg PO BID 04/03/23 04/03/23 04/03/23 09:00 History cholecalciferol (vitamin D3) 125 125 mcg PO DAILY 04/03/23 04/03/23 04/03/23 09:00 History mcg (5,000 unit) tablet (Vitamin D3) diclofenac sodium 1 % topical gel 2 g topical TID PRN Pain 04/03/23 04/03/23 Unknown History fluticasone fur. 200 mcg-umeclid 1 ea inhalation DAILY 04/03/23 04/03/23 04/03/23 09:00 History 62.5 mcg-vilant 25 mcg inhalat.powder (Trelegy Ellipta) loratadine 10 mg tablet (Claritin) 10 mg PO DAILY 04/03/23 04/03/23 04/03/23 09:00 History metformin 1,000 mg tablet 1,000 mg PO BID 04/03/23 04/03/23 04/03/23 09:00 History miconazole nitrate 2 % topical 1 appl topical DAILY 04/03/23 04/03/23 04/03/23 09:00 History powder polyethylene glycol 3350 17 gram 17 g PO DAILY PRN Constipation 04/03/23 04/03/23 04/03/23 09:00 History oral powder packet (Miralax) pregabalin 75 mg capsule 75 mg PO BID 04/03/23 04/03/23 04/03/23 09:00 History spironolactone 25 mg tablet 25 mg PO BID 04/03/23 04/03/23 04/03/23 09:00 History <Cyn Bird - Last Filed: 04/03/23 14:24> Physical Exam 2 Vital Signs and Narrative: Vital Signs: Last Vital Signs Temp 97.7 F 04/03/23 12:46 Pulse 88 04/03/23 12:46 Resp 20 04/03/23 12:46 BP 141/65 H 04/03/23 12:46 Pulse Ox 85 L 04/03/23 13:20 O2 Del Method Room Air 04/03/23 13:20 BMI result Body Mass Index 42.0 <Cyn Kuamadenise - Last Filed: 04/03/23 14:24> Constitutional : Awake, interactive, no acute distress Cardiovascular : RRR, no JVD, non-pitting dependent edema of lower extremities Respiratory : no wheezes, rhonchi, or rales. No cyanosis. Mild clubbing of digits noted Gastrointestinal: Soft, non-tender Skin : Warm, Dry Neurological : Alert & oriented x3, No focal deficit <Cyn Kukatja - Last Filed: 04/03/23 14:24> Constitutional : Awake, interactive, no acute distress, [place] Cardiovascular : RRR, no JVD, non-pitting dependent edema of lower extremities Respiratory : no wheezes, rhonchi, or rales. No cyanosis. Mild clubbing of digits noted Gastrointestinal: Soft, non-tender Skin : Warm, Dry Neurological : Alert & oriented x3, No focal deficit <Aidanhenry Corbin MD - Last Filed: 04/04/23 08:41> Results Labs CBC and Chem 7: 04/03/23 10:14 04/04/23 06:52 <Cyn Taclint Bird - Last Filed: 04/03/23 14:24> Labs: Laboratory Results - last 24 hr 04/03/23 04/03/23 10:14 10:20 MCV 81.9 MCH 25.5 L MCHC 31.2 RDW 18.0 H Plt Count 219 MPV 10.6 Immature Gran % (Auto) 0.5 H Neut % (Auto) 75.9 H Lymph % (Auto) 12.9 L [place] % (Auto) 7.5 Eos % (Auto) 2.5 Baso % (Auto) 0.7 Lymph # (Auto) 1.4 [place] # (Auto) 0.8 Eos # (Auto) 0.3 Baso # (Auto) 0.1 Abs Immat Gran (auto) 0.05 H Absolute Neuts (auto) 8.0 Absolute Nucleated RBC 0.000 Nucleated RBC % (auto) 0.0 PT 15.8 H INR 1.3 H APTT 41.1 H VBG pH 7.42 VBG pCO2 43 VBG pO2 72 VBG HCO3 28 H VBG O2 Saturation 95.0 VBG Base Excess 3.2 Anion Gap 19 Estim Creat Clear Calc 56.3 Estimated GFR 44 Random Glucose 135 H Calcium 10.0 Magnesium 1.6 Total Bilirubin 0.7 AST 10 ALT 8 Alkaline Phosphatase 82 B-Natriuretic Peptide 88 Total Protein 7.4 Albumin 4.0 COVID-19 (SILVIA) Negative COVID-19 Clin Com See Note Influenza Type A (ZACKARY) Negative Influenza Type B (ZACKARY) Negative Influenza A & B Note See Note <Cyn Bird - Last Filed: 04/03/23 14:24> Imaging Radiologist's Impressions: Impressions Chest X-Ray 04/03/23 11:00 IMPRESSION: 1. Bilateral low lung volumes. 2. Elevation the right hemidiaphragm, stable. 3. Prominence of the pulmonary vasculature. 4. Bibasilar atelectasis, right greater than left. <Cyn Bird - Last Filed: 04/03/23 14:24> Assessment and Plan (1) Acute on chronic respiratory failure with hypoxemia: Status: Acute <Cyn Bird - Last Filed: 04/03/23 14:24> 82 yo M with history of CHF, COPD, DVT, DMII, and HLD presents to hospital at request of PCP for fluid and renal test concerns. Subsequently hypoxic at 85% in ED after ambulating. Acute on chronic hypoxic respiratory failure: - Weights reviewed and per record weight has remained stable since October 2022 with no significant weight gain. Patient SPO2 at 95% on room air during interview and showed no apparent distress while at rest. Lower extremity edema is non-pitting and likely dependent. Patient found to be afebrile with a normal WBC. BNP has significantly improved to 88 today from historic BNP of 523 and 494 in October of 2022. - With no apparent acute cause, hypoxia likely due to deconditioned state. - Evaluation by PT prior to discharge for possible admission to rehab. - Supplemental O2 as needed. Elevated Creatinine and BUN: - Historic creatinine and BUN were reviewed and showed creatine to range from 1.2-1.97 in 2022 and BUN to range from 23-45 in 2022 with no acute change at present time. - Likely due to CKD secondary to DM and HTN. - Continue to monitor with PCP COPD -- continue home Trelegy Elipta and albuterol DM -- continue home metformin HLD -- continue home pravastatin CHF -- continue home spironolactone, bumex and isosorbide mononitrate, BPH -- continue home doxazosin Constipation -- continue home miralax Diabetic neuropathy -- continue home pregabalin DVT PPx -- anticoagulated on Eliquis -- continue home dosage <Cyn Bird - Last Filed: 04/03/23 14:24> 82 yo M with history of CHF, COPD, DVT, DMII, and HLD presents to hospital at request of PCP for fluid and renal test concerns. Subsequently hypoxic at 85% in ED after ambulating. Acute on chronic hypoxic respiratory failure: - Weights reviewed and per record weight has remained stable since October 2022 with no significant weight gain. Patient SPO2 at 95% on room air during interview and showed no apparent distress while at rest. Lower extremity edema is non-pitting and likely dependent. Patient found to be afebrile with a normal WBC. BNP has significantly improved to 88 today from historic BNP of 523 and 494 in October of 2022. - With no apparent acute cause, hypoxia likely due to deconditioned state. - Evaluation by PT prior to discharge for possible admission to rehab. - Supplemental O2 as needed, home O2 eval Chronic diastolic CHF -- no apparent decompensation, continue home spironolactone, bumex and isosorbide mononitrate, CKD3 A, stable , Baseline Cr 1.5, 1.52 COPD -- No acute exacerbation, continue home Trelegy Elipta and albuterol DM -- continue home metformin, SSI diabetic diet HLD -- continue home pravastatin BPH -- continue home doxazosin Constipation -- continue home miralax Diabetic neuropathy -- continue home pregabalin DVT PPx -- anticoagulated on Eliquis -- continue home dosage Full code PT eval <Aidan Corbin MD - Last Filed: 04/04/23 08:41> Quality Stroke Does the patient have a stroke diagnosis?: No <Aidan Corbin MD - Last Filed: 04/04/23 08:41> VTE Prior VTE?: Yes <Aidan Corbin MD - Last Filed: 04/04/23 08:41> VTE Risk Level:: Medical - moderate - high <Cyn Bird - Last Filed: 04/03/23 14:24> VTE Device Contraindication: N/A - Device Ordered <Cyn Bird - Last Filed: 04/03/23 14:24> VTE Drug Contraindication: Treatment Not Indicated <Cyn Bird - Last Filed: 04/03/23 14:24>
[2023-04-03 14:26] LABS: Appearance Urine Cloudy; Color Urine Yellow; Glucose Urine UA Negative (Negative); Leukocyte Esterase Urine Trace (Negative); Nitrite Urine Negative (Negative); PH 5.5 (5.0-9.0); UMIC TRIGGER UACC YES; Urine Blood Large (3+) (Negative); Urine Ketones Negative (Negative); Urine Protein Negative (Neg-Trace)
[2023-04-03 14:41] LABS: Bacteria Urine None Seen (None Seen); RBC Urine >20 /HPF (0-2); Squamous Epithelial Cell Urine 0-2 /HPF (0-2); WBC Urine 0-5 /HPF (0-5)
--- NOTE | 2023-04-03 16:13 | PC.NURSE ---
assumed care of pt at 1500. pt a&o x4, pleasant, calm, and cooperative. pt with son at bedside, asking for coffee. provided with one cup of black coffee per diet order. pt on fluid restrictions due to CHF, pt aware and compliant. significant 3+ pitting edema to pt BL feet. pt has urinal at bedside for voiding. pt resting comfortable in bed, on 2L O2 via NC sating mid 90s. tv on, call dick within reach. plan of care ongoing. awaiting bed assignment.
--- NOTE | 2023-04-03 17:57 | PC.NURSE ---
pt transferred 3 assist and slide board from stretcher to hospital bed for comfort. poc taken, no insulin coverage. dinner at bedside.
[2023-04-03 17:58] LABS: Glucose, Whole Blood 126 mg/dL (60-115)
[2023-04-03] MEDS: Pregabalin 75 MG CAPSULE PO (21:09)
[2023-04-03] MEDS: Apixaban 5 MG TABLET PO (21:09)
[2023-04-03] MEDS: metFORMIN HCl 1,000 MG TABLET 1000 MG PO (21:09)
[2023-04-03] MEDS: Spironolactone 25 MG TABLET PO (21:09)
[2023-04-03] MEDS: Bumetanide 1 MG TABLET 2 MG PO (21:12)
--- NOTE | 2023-04-03 21:21 | PC.NURSE ---
pt poc 188. when told t/w will be back with 2 units of insulin, pt refused. pt sts he doesn't take insulin at home and does not want insulin here. pt medicated with all other nighttime meds including metformin. documented per may.
[2023-04-03 21:22] LABS: Glucose, Whole Blood 188 mg/dL (60-115)
[2023-04-03] MEDS: 0.9 % Sodium Chloride Flush 3 ML SYRINGE IVFLUSH (23:19)
[2023-04-04 04:00] VITALS: BP 153/77; PULSE 78; RESP 20; TEMP 36.4; O2SAT 95
[2023-04-04 07:07] VITALS: BMI 41.9
[2023-04-04 07:37] LABS: Anion Gap 16 (12-20); Blood Urea Nitrogen 30 mg/dL (9-16); Calcium 9.9 mg/dL (8.4-10.2); Carbon Dioxide 31 mmol/L (22-29); Chloride 96 mmol/L (96-108); Creatinine Clr Calc Pharmacy 60.1; Estimated Glomerular Filt Rate 48; Glucose Random 135 mg/dL (60-115); Potassium 4.3 mmol/L (3.3-5.1); Sodium 139 mmol/L (135-145)
[2023-04-04 08:00] VITALS: BP 170/74; PULSE 79; RESP 18; TEMP 36.7; O2SAT 92
--- NOTE | 2023-04-04 08:29 | HO.PM.IMPN ---
Subjective Subjective Date of Service: 04/04/23 Interval History: Patient reports he is feeling well. Slept most of the night and states he would like to go home. Review of Systems No SOB, CP, chills, fever, palpitations Review of Systems: Yes all other systems are reviewed and are negative Physical Exam Vital Signs: Vital Signs: Last Vital Signs Temp 98.1 F 04/04/23 08:00 Pulse 79 04/04/23 08:00 Resp 18 04/04/23 08:00 BP 170/74 H 04/04/23 08:00 Pulse Ox 92 04/04/23 08:00 O2 Del Method CPAP 04/04/23 08:00 O2 Flow Rate 4.5 04/04/23 04:00 BMI result Body Mass Index 41.9 Const: Other: Constitutional : Awake, interactive, no acute distress Cardiovascular : RRR, no JVD, non-pitting dependent edema of lower extremities Respiratory : no wheezes, rhonchi, or rales. Gastrointestinal: Soft, non-tender Neurological : Alert & oriented x3 Objective Data Active Medications Albuterol Sulfate (Albuterol Sulfate 90 Mcg 8 Gm Inhaler) 2 puff INHALE Q6H PRN PRN Reason: Shortness Of Breath Or Wheezing Apixaban (Apixaban 5 Mg Tablet) 5 mg PO BID [facility] Last Admin: 04/03/23 21:09 Dose: 5 mg Documented By: JORGE Bumetanide (Bumetanide 1 Mg Tablet) 2 mg PO BID [facility]; Protocol Last Admin: 04/03/23 21:12 Dose: 2 mg Documented By: JORGE Dextrose (Dextrose 50 % 25 Gm/50 Ml Syringe) 25 gm IVPUSH Q15M PRN; Protocol PRN Reason: per Hypoglycemia Standing Ord. Doxazosin Mesylate (Doxazosin Mesylate 2 Mg Tablet) 8 mg PO DAILY [facility]; Protocol Fluticasone/Umeclidinium/Vilanterol (Fluticasone/Umeclidinium/Vilanterol 200/62.5/25 Blst.W.Dev) 1 puff INHALE RDAILY [facility] Glucose (Glucose Gel 15 Gm Gel..Gram.) 15 gm PO Q15M PRN; Protocol PRN Reason: per Hypoglycemia Standing Ord. Insulin Human Lispro (Insulin Lispro 100 Unit/Ml 3 Ml Vial) 0 unit SUBCUT QIDACHS [facility]; Protocol Last Admin: 04/03/23 21:20 Dose: Not Given Documented By: JORGE Non-Admin Reason: Patient Refused Isosorbide Mononitrate (Isosorbide Mononitrate 30 Mg Tab.Er.24h) 30 mg PO DAILY [facility]; Protocol Loratadine (Loratadine 10 Mg Tablet) 10 mg PO DAILY [facility] Metformin HCl (Metformin Hcl 1,000 Mg Tablet) 1,000 mg PO BID [facility] Last Admin: 04/03/23 21:09 Dose: 1,000 mg Documented By: JORGE Miconazole Nitrate (Miconazole Nitrate 2% Powder 85 Gm Bottle) 1 appl TOPICAL DAILY [facility]; Protocol Polyethylene Glycol (Polyethylene Glycol 3350 17 Gm Powd.Pack) 17 gm PO DAILY PRN PRN Reason: Constipation Pravastatin Sodium (Pravastatin Sodium 40 Mg Tablet) 40 mg PO DAILY [facility] Pregabalin (Pregabalin 75 Mg Capsule) 75 mg PO BID [facility] Last Admin: 04/03/23 21:09 Dose: 75 mg Documented By: JORGE Sodium Chloride (0.9 % Sodium Chloride Flush 3 Ml Syringe) [facility] Last Admin: 04/03/23 23:19 Dose: 3 ml Documented By: GAIL Spironolactone (Spironolactone 25 Mg Tablet) 25 mg PO BID [facility]; Protocol Last Admin: 04/03/23 21:09 Dose: 25 mg Documented By: JORGE Vitamin D (Cholecalciferol (Vitamin D3) 25 Mcg Tablet) 125 mcg PO DAILY [facility] Labs 04/03/23 10:14 04/04/23 06:52 Labs: Laboratory Results - last 24 hr 04/03/23 04/03/23 04/03/23 10:14 10:20 14:19 MCV 81.9 MCH 25.5 L MCHC 31.2 RDW 18.0 H Plt Count 219 MPV 10.6 Immature Gran % (Auto) 0.5 H Neut % (Auto) 75.9 H Lymph % (Auto) 12.9 L [place] % (Auto) 7.5 Eos % (Auto) 2.5 Baso % (Auto) 0.7 Lymph # (Auto) 1.4 [place] # (Auto) 0.8 Eos # (Auto) 0.3 Baso # (Auto) 0.1 Abs Immat Gran (auto) 0.05 H Absolute Neuts (auto) 8.0 Absolute Nucleated RBC 0.000 Nucleated RBC % (auto) 0.0 Hold Purple Top PT 15.8 H INR 1.3 H APTT 41.1 H VBG pH 7.42 VBG pCO2 43 VBG pO2 72 VBG HCO3 28 H VBG O2 Saturation 95.0 VBG Base Excess 3.2 Anion Gap 19 Estim Creat Clear Calc 56.3 Estimated GFR 44 POC Glucose Random Glucose 135 H Calcium 10.0 Magnesium 1.6 Total Bilirubin 0.7 AST 10 ALT 8 Alkaline Phosphatase 82 B-Natriuretic Peptide 88 Total Protein 7.4 Albumin 4.0 Urine Color Yellow Urine Appearance Cloudy Urine pH 5.5 Ur Specific [place] 1.010 Urine Protein Negative Urine Glucose (UA) Negative Urine Ketones Negative Urine Blood Large (3+) H Urine Nitrite Negative Ur Leukocyte Esterase Trace H Urine RBC >20 H Urine WBC 0-5 Ur Squamous Epith Cells 0-2 Urine Bacteria None Seen Hyaline Casts 3-5 COVID-19 (SILVIA) Negative COVID-19 Clin Com See Note Influenza Type A (ZACKARY) Negative Influenza Type B (ZACKARY) Negative Influenza A & B Note See Note 04/03/23 04/03/23 04/04/23 17:54 21:18 06:52 MCV MCH MCHC RDW Plt Count MPV Immature Gran % (Auto) Neut % (Auto) Lymph % (Auto) [place] % (Auto) Eos % (Auto) Baso % (Auto) Lymph # (Auto) [place] # (Auto) Eos # (Auto) Baso # (Auto) Abs Immat Gran (auto) Absolute Neuts (auto) Absolute Nucleated RBC Nucleated RBC % (auto) Hold Purple Top SEE NOTE PT INR APTT VBG pH VBG pCO2 VBG pO2 VBG HCO3 VBG O2 Saturation VBG Base Excess Anion Gap 16 Estim Creat Clear Calc 60.1 Estimated GFR 48 POC Glucose 126 H 188 H Random Glucose 135 H Calcium 9.9 Magnesium Total Bilirubin AST ALT Alkaline Phosphatase B-Natriuretic Peptide Total Protein Albumin Urine Color Urine Appearance Urine pH Ur Specific [place] Urine Protein Urine Glucose (UA) Urine Ketones Urine Blood Urine Nitrite Ur Leukocyte Esterase Urine RBC Urine WBC Ur Squamous Epith Cells Urine Bacteria Hyaline Casts COVID-19 (SILVIA) COVID-19 Clin Com Influenza Type A (ZACKARY) Influenza Type B (ZACKARY) Influenza A & B Note Assessment and Plan (1) Acute on chronic respiratory failure with hypoxemia: Status: Acute Plan 82 yo M with history of CHF, COPD, DVT, DMII, and HLD presents to hospital at request of PCP for fluid and renal test concerns. Subsequently hypoxic at 85% in ED after ambulating. Acute on chronic hypoxic respiratory failure: - Patient stable and comfortable and states he is ready for discharge. - SPO2 stable throughout duration of hospital stay. - Plan to d/c after PT eval - Continue supplemental oxygen as needed Dependent Edema -- follow up with PCP. Chronic diastolic CHF -- no apparent decompensation, continue home spironolactone, bumex and isosorbide mononitrate, CKD3 A -- stable , Baseline Cr 1.5; improved to 1.42 04/04/23 COPD -- No acute exacerbation, continue home Trelegy Elipta and albuterol DM -- continue home metformin, SSI, diabetic diet HLD -- continue home pravastatin BPH -- continue home doxazosin Constipation -- continue home miralax Diabetic neuropathy -- continue home pregabalin DVT prophylaxis -- continue home eliquis PT eval Quality Stroke Does the patient have a stroke diagnosis?: No VTE Prior VTE?: Yes VTE Risk Level:: Medical - moderate - high VTE Device Contraindication: N/A - Device Ordered VTE Drug Contraindication: Treatment Not Indicated
[2023-04-04 08:32] LABS: Glucose, Whole Blood 191 mg/dL (60-115)
[2023-04-04] MEDS: metFORMIN HCl 1,000 MG TABLET 1000 MG PO (08:32)
[2023-04-04] MEDS: Doxazosin Mesylate 2 MG TABLET 8 MG PO (08:32)
[2023-04-04] MEDS: Pravastatin Sodium 40 MG TABLET PO (08:32)
[2023-04-04] MEDS: Isosorbide Mononitrate 30 MG TAB.ER.24H PO (08:32)
[2023-04-04] MEDS: Pregabalin 75 MG CAPSULE PO (08:32)
[2023-04-04] MEDS: Bumetanide 1 MG TABLET 2 MG PO (08:32)
[2023-04-04] MEDS: Spironolactone 25 MG TABLET PO (08:32)
[2023-04-04] MEDS: Apixaban 5 MG TABLET PO (08:32)
[2023-04-04] MEDS: Cholecalciferol (Vitamin D3) 25 MCG TABLET 125 MCG PO (08:32)
[2023-04-04] MEDS: Loratadine 10 MG TABLET PO (08:32)
--- NOTE | 2023-04-04 08:32 | MHC.CM.PN ---
CM met with Patient at bedside and addressed SIMMONS with him, providing Patient with the original and a copy has been placed on the chart. Patient lives in a house with his Granddaughter and her and he uses a walker to assist with mobility. Patient states that he has a weekly RN visit; CM spoke with Patient's PCP's office ([facility] @ [phone]) who noted communication with Elissa SWEET). Home/resume said services is the goal and CM has initiated and will follow for dc planning. Patient's Son/Edward is the HCP.
[2023-04-04] MEDS: 0.9 % Sodium Chloride Flush 3 ML SYRINGE IVFLUSH (08:33)
--- NOTE | 2023-04-04 08:41 | P.DS_ITS ---
DS: Providers Provider Date of Service: 04/04/23 <Aidan Corbin MD - Last Filed: 04/26/23 18:01> Date of admission: 04/03/23 13:25 <Cyn Bird - Last Filed: 04/04/23 09:11> Primary care physician: Unknown Physician <Cyn Bird - Last Filed: 04/04/23 09:11> DS: Diagnosis Discharge Diagnosis (1) Acute on chronic respiratory failure with hypoxemia: Start date: 04/03/23 <Cyn Bird - Last Filed: 04/04/23 09:11> Status: Resolved <Cyn Bird - Last Filed: 04/04/23 09:11> DS: Summary Hospital Course Hospital Course: Admitting HPI: Quentin is an 82 yo M with past medical history of CHF, COPD, DVT, DMII, and HLD presents today with his daughter in law after being instructed to do so by PCP who was concerned about patient's fluid and renal function. Patient states that he has suffered from shortness of breath for several months to years. He also states that he has had lower extremity edema for an extended period of time . He reports that he uses a CPAP at home to good effect. Patient and [id number] endorse that current SOB as presenting today in the hospital is baseline for the patient and has not acutely worsened. Medication regimen was changed 5 days ago by PCP to change Lasix to Bumex 2mg BID. Pmyffroj-zf-diu states that the patient has gained 20lbs over the past month or so, however our recoreds show that patient has not gained weight, infact since last October she was lost 3 kilo per our record--his weight ranges from 140 to 143 kilo, today 140. Patient feels comfortable otherwise, upon ambulation,however O2 droped t 85%. ED Course: Patient was evaluated in the ED and found to have hypoxia with ambulation. CXR showed no pulmonary edema or infiltrates. BNP is 88 today improved from 494 in October 2022 WBC 10.5 Creatinine 1.52 which is well within his baseline of CKD 3a Covid, influenza, RSV, and HS troponin were negative. Given bronchodilator by Neb He otherwise comfortable and asked when can I go home Hospital Course: This 82 yo M was seen in the ED with his [id number] after being instructed to present by his PCP who was concerned about the patient's fluids and renal function after reviewing lab results. This patient reports he has suffered from shortness of breath for several years and has had lower extremity edema for many weeks to months as well. He also uses supplemental O2 and CPAP at home. While being evaluated in the ED, he was subsequently found to be hypoxic after ambulating on room air, it is of note that he is on chronic oxygen at 2 liter by nasal canula. ED workup benign CXR, no elevated WBC, negative for RSV/COVID/influenza, and negative troponin. and normal BNP of 88 (much improved from historic 494 in 10/2022) and creatinine was 1.52 (historic Cr shows baseline of 1.5 with pt hx of CKD 3a). He was administered a bronchodilator via neb and put on cpap because ED said he uses it at home. Patient was seen by hospitalist team at which time he had SPO2 of 95% while on room air and conversing. Patient appeared comfortable and asked when can I go home? Physical exam showed non- pitting edema which daughter in law states is chronic, likely from dependent edema. He was observed overnight, and needed no specific work and was continued on his usual medications including diuretics which was recently changed from Lasix to Bumex at higher dose. He remains asymptomatic, with oxygen saturation in the high 90s. This morning he feels well and desires to go home. Elevated Creatinine c/w CKD 3A -- Stable. Physical therapy recommended short term rehab but patient declined in favor of going home with V COPD -- continue home Trelegy Elipta and albuterol, CPAP DM -- continue metformin HLD -- continue pravastatin CHF -- continue spironolactone, bumex and isosorbide mononitrate, BPH -- continue doxazosin Constipation -- continue miralax Diabetic neuropathy -- continue pregabalin h/o DVT--continue Eliquis <Cyn Bird - Last Filed: 04/04/23 09:11> Status at Discharge Overall status at discharge: patient is back to baseline <Cyn Bird - Last Filed: 04/04/23 09:11> Time Attestation Discharge coordination time: Greater than 30 minutes <Cyn Bird - Last Filed: 04/04/23 09:11> Quality: Safe Use of Opioids Does Pt have an Active Cancer Diagnosis on the Problem List?: No <Cyn Bird - Last Filed: 04/04/23 09:11> Quality: Stroke Does the patient have a stroke diagnosis?: No <Cyn Bird - Last Filed: 04/04/23 09:11> Physical Exam Vital Signs: Vital Signs: Last Vital Signs Temp 98.1 F 04/04/23 08:00 Pulse 79 04/04/23 08:00 Resp 18 04/04/23 08:00 BP 170/74 H 04/04/23 08:00 Pulse Ox 92 04/04/23 08:00 O2 Del Method CPAP 04/04/23 08:00 O2 Flow Rate 4.5 04/04/23 04:00 BMI result Body Mass Index 41.9 <Cyn Bird - Last Filed: 04/04/23 09:11> Const: Other: Constitutional : Awake, interactive, no acute distress, obese Cardiovascular : RRR, no JVD, non-pitting dependent edema of lower extremities Respiratory : no wheezes, rhonchi, or rales. Gastrointestinal: Soft, non-tender Skin : Warm, Dry Neurological : Alert & oriented x3 <Cyn Bird - Last Filed: 04/04/23 09:11> DS: Data Data Completed and Pending Completed studies during hospitalization [Text1]: Procedures Assistance with Respiratory Ventilation, Less than 24 Consecutive Hours, Continuous Positive Airway Pressure (10/22/22) <Cyn Bird - Last Filed: 04/04/23 09:11> Labs on day of discharge: Laboratory Results - last 24 hr 04/03/23 04/03/23 04/03/23 10:14 10:20 14:19 WBC 10.5 RBC 6.62 H D Hgb 16.9 Hct 54.2 H MCV 81.9 MCH 25.5 L MCHC 31.2 RDW 18.0 H Plt Count 219 MPV 10.6 Immature Gran % (Auto) 0.5 H Neut % (Auto) 75.9 H Lymph % (Auto) 12.9 L [place] % (Auto) 7.5 Eos % (Auto) 2.5 Baso % (Auto) 0.7 Lymph # (Auto) 1.4 [place] # (Auto) 0.8 Eos # (Auto) 0.3 Baso # (Auto) 0.1 Abs Immat Gran (auto) 0.05 H Absolute Neuts (auto) 8.0 Absolute Nucleated RBC 0.000 Nucleated RBC % (auto) 0.0 Hold Purple Top PT 15.8 H INR 1.3 H APTT 41.1 H VBG pH 7.42 VBG pCO2 43 VBG pO2 72 VBG HCO3 28 H VBG O2 Saturation 95.0 VBG Base Excess 3.2 Sodium 140 Potassium 4.1 Chloride 98 Carbon Dioxide 27 Anion Gap 19 BUN 28 H Creatinine 1.52 H Estim Creat Clear Calc 56.3 Estimated GFR 44 POC Glucose Random Glucose 135 H Calcium 10.0 Magnesium 1.6 Total Bilirubin 0.7 AST 10 ALT 8 Alkaline Phosphatase 82 Troponin I High Sens 9.5 D B-Natriuretic Peptide 88 Total Protein 7.4 Albumin 4.0 Urine Color Yellow Urine Appearance Cloudy Urine pH 5.5 Ur Specific [place] 1.010 Urine Protein Negative Urine Glucose (UA) Negative Urine Ketones Negative Urine Blood Large (3+) H Urine Nitrite Negative Ur Leukocyte Esterase Trace H Urine RBC >20 H Urine WBC 0-5 Ur Squamous Epith Cells 0-2 Urine Bacteria None Seen Hyaline Casts 3-5 COVID-19 (SILVIA) Negative COVID-19 Clin Com See Note Influenza Type A (ZACKARY) Negative Influenza Type B (ZACKARY) Negative Influenza A & B Note See Note 04/03/23 04/03/23 04/04/23 17:54 21:18 06:52 WBC RBC Hgb Hct MCV MCH MCHC RDW Plt Count MPV Immature Gran % (Auto) Neut % (Auto) Lymph % (Auto) [place] % (Auto) Eos % (Auto) Baso % (Auto) Lymph # (Auto) [place] # (Auto) Eos # (Auto) Baso # (Auto) Abs Immat Gran (auto) Absolute Neuts (auto) Absolute Nucleated RBC Nucleated RBC % (auto) Hold Purple Top SEE NOTE PT INR APTT VBG pH VBG pCO2 VBG pO2 VBG HCO3 VBG O2 Saturation VBG Base Excess Sodium 139 Potassium 4.3 Chloride 96 Carbon Dioxide 31 H Anion Gap 16 BUN 30 H Creatinine 1.42 H Estim Creat Clear Calc 60.1 Estimated GFR 48 POC Glucose 126 H 188 H Random Glucose 135 H Calcium 9.9 Magnesium Total Bilirubin AST ALT Alkaline Phosphatase Troponin I High Sens B-Natriuretic Peptide Total Protein Albumin Urine Color Urine Appearance Urine pH Ur Specific [place] Urine Protein Urine Glucose (UA) Urine Ketones Urine Blood Urine Nitrite Ur Leukocyte Esterase Urine RBC Urine WBC Ur Squamous Epith Cells Urine Bacteria Hyaline Casts COVID-19 (SILVIA) COVID-19 Clin Com Influenza Type A (ZACKARY) Influenza Type B (ZACKARY) Influenza A & B Note 04/04/23 08:28 WBC RBC Hgb Hct MCV MCH MCHC RDW Plt Count MPV Immature Gran % (Auto) Neut % (Auto) Lymph % (Auto) [place] % (Auto) Eos % (Auto) Baso % (Auto) Lymph # (Auto) [place] # (Auto) Eos # (Auto) Baso # (Auto) Abs Immat Gran (auto) Absolute Neuts (auto) Absolute Nucleated RBC Nucleated RBC % (auto) Hold Purple Top PT INR APTT VBG pH VBG pCO2 VBG pO2 VBG HCO3 VBG O2 Saturation VBG Base Excess Sodium Potassium Chloride Carbon Dioxide Anion Gap BUN Creatinine Estim Creat Clear Calc Estimated GFR POC Glucose 191 H Random Glucose Calcium Magnesium Total Bilirubin AST ALT Alkaline Phosphatase Troponin I High Sens B-Natriuretic Peptide Total Protein Albumin Urine Color Urine Appearance Urine pH Ur Specific [place] Urine Protein Urine Glucose (UA) Urine Ketones Urine Blood Urine Nitrite Ur Leukocyte Esterase Urine RBC Urine WBC Ur Squamous Epith Cells Urine Bacteria Hyaline Casts COVID-19 (SILVIA) COVID-19 Clin Com Influenza Type A (ZACKARY) Influenza Type B (ZACKARY) Influenza A & B Note <Cyn Bird - Last Filed: 04/04/23 09:11> Discharge Plan Discharge Anticipated Discharge Date/Time: 04/04/23 12:33 <Cyn Bird - Last Filed: 04/04/23 09:11> Patient Disposition: Home Health Service <Cyn Bird - Last Filed: 04/04/23 09:11> Discharge Diagnosis: Acute on chronic respiratory failure <Cyn Bird - Last Filed: 04/04/23 09:11> Acute on chronic respiratory failure <Aidan Corbin MD - Last Filed: 04/26/23 18:01> Referrals: Elissa [Outside] - 1 Week Physician,Unknown J [Physician] - 1 Week <Cyn Bird - Last Filed: 04/04/23 09:11> Discharge Medications: Continued bumetanide 2 mg tablet 2 mg PO BID spironolactone 25 mg tablet 25 mg PO BID metformin 1,000 mg tablet 1,000 mg PO BID pregabalin 75 mg capsule 75 mg PO BID diclofenac sodium 1 % gel 2 g topical TID PRN (Reason: Pain) Trelegy Ellipta 200-62.5-25 mcg blister with device 1 ea inhalation DAILY polyethylene glycol 3350 [Miralax] 17 gram Powder In Packet 17 g PO DAILY PRN (Reason: Constipation) miconazole nitrate 2 % Powder 1 appl TOPICAL DAILY albuterol sulfate 90 mcg/actuation Hfa Aerosol Inhaler 2 puff INHALATION Q6H PRN (Reason: Shortness Of Breath Or Wheezing) loratadine [Claritin] 10 mg Tablet 10 mg PO DAILY cholecalciferol (vitamin D3) [Vitamin D3] 125 mcg (5,000 unit) Tablet 125 mcg PO DAILY Eliquis 5 mg tablet 5 mg PO BID acetaminophen 325 mg Tablet 650 mg PO Q6H PRN (Reason: Pain) pravastatin 40 mg tablet 40 mg PO DAILY isosorbide mononitrate 30 mg tablet extended release 24 hr 30 mg PO DAILY doxazosin 8 mg tablet 8 mg PO DAILY <Cyn Bird - Last Filed: 04/04/23 09:11> Discharge Orders: Discharge Order (Routine); Ordered 04/04/23 Ordered By: Aidan Corbin <Cyn Bird - Last Filed: 04/04/23 09:11> Diet: Diabetic diet <Cyn Bird - Last Filed: 04/04/23 09:11> Diabetic diet <Aidan Corbin MD - Last Filed: 04/26/23 18:01> Activity on Discharge: As tolerated <Cyn Bird - Last Filed: 04/04/23 09:11> As tolerated <Aidan Corbin MD - Last Filed: 04/26/23 18:01> Stand Alone Forms: Patient Portal Discharge page <Cyn Bird - Last Filed: 04/04/23 09:11> Care Plan Goals: Recover from hypoxic episode <Cyn Bird - Last Filed: 04/04/23 09:11> Health Concerns: CHF, COPD, CKD <Cyn Bird - Last Filed: 04/04/23 09:11> Plan of Treatment: Continue home medications and home supplemental O2. <Cyn Bird - Last Filed: 04/04/23 09:11> Assessment: As above <Cyn Bird - Last Filed: 04/04/23 09:11> Patient Instructions: Heart Failure (DC) <Cyn Bird - Last Filed: 04/04/23 09:11> Discharge Date/Time: 04/04/23 15:06 <Cyn Bird - Last Filed: 04/04/23 09:11>
[2023-04-04] MEDS: Fluticasone/Umeclidinium/Vilanterol 200/62.5/25 BLST.W.DEV 1 PUFF INHALE (09:01)
[2023-04-04 09:02] VITALS: PULSE 86; RESP 18; O2SAT 92
[2023-04-04 11:40] VITALS: PULSE 86
[2023-04-04 12:00] VITALS: BP 143/65; PULSE 89; RESP 17; O2SAT 91
--- NOTE | 2023-04-04 12:12 | MHC.CM.PN ---
CM met with Patient to discuss dc planning. Patient does not want to go to [facility] but he is agreeable to receive [facility] services. CM will follow.
[2023-04-04 12:15] LABS: Glucose, Whole Blood 123 mg/dL (60-115)
[2023-04-04] MEDS: Miconazole Nitrate 2% Powder 85 GM Bottle 1 APPL TOPICAL (12:23)
--- NOTE | 2023-04-04 12:58 | P.F2F_ITS ---
Service Date Service Date: 04/04/23 Encounter Date of encounter: 04/04/23 Reasons for Services Signs and symptoms assessed: weakness, short of breath easily Reason for halfway: medication management and teach disease management Reason for physical therapy: home safety and mobility, therapeutic exercises and restore joint function Homebound: Leaving the home is medically contraindicated at this time without the asist of a device and/or another person due th the listed conditions above and below. Reason homebound: unsteady gait / fall risk and shortness of breath with minimal effort Homebound supporting statement: homebound due to easily short of breath with minimal effor, obes Certification: Based on the above findings, I certify that this patient is confined to the home and needs intermittent halfway care, physical therapy and/or speech therapy, or continues to need occupational therapy. The patient is under my care, and I have initiated the establishment of the plan of care. The patient will be followed by a physician who will periodically review the plan of care. Time Spent With Patient Time: Total time managing care of this patient today ____ minutes.
--- NOTE | 2023-04-04 13:44 | MHC.CM.PN ---
Patient has been medically cleared for dc to home today with josey SWEET, who has been notified of today's dc.
== END 2023-04-04 15:06 | disposition home health service (06) ==
LOC: HO.ED 11:39 → HO.EDOVER 13:38 → HO.IMC 21:47
PROVIDERS: Physician Assistant Medical; Admitting Provider Internal Medicine; Emergency Provider Emergency Medicine; PCP Family Medicine; Visit Provider Internal Medicine
DX: J96.21 Acute and chronic respiratory failure with hypoxia (principal); N17.9 Acute kidney failure, unspecified; E11.22 Type 2 diabetes mellitus with diabetic chronic kidney disease; I13.0 Hypertensive heart and chronic kidney disease with heart failure and stage 1 through stage 4 chronic kidney disease, or unspecified chronic kidney disease; N18.31 Chronic kidney disease, stage 3a; I50.32 Chronic diastolic (congestive) heart failure; G47.33 Obstructive sleep apnea (adult) (pediatric); M79.89 Other specified soft tissue disorders; R94.31 Abnormal electrocardiogram [ECG] [EKG]; J44.9 Chronic obstructive pulmonary disease, unspecified; E78.5 Hyperlipidemia, unspecified; I82.409 Acute embolism and thrombosis of unspecified deep veins of unspecified lower extremity; E11.40 Type 2 diabetes mellitus with diabetic neuropathy, unspecified; N40.0 Benign prostatic hyperplasia without lower urinary tract symptoms; K59.00 Constipation, unspecified; E66.01 Morbid (severe) obesity due to excess calories; Z68.41 Body mass index [BMI] 40.0-44.9, adult; Z79.899 Other long term (current) drug therapy; Z79.84 Long term (current) use of oral hypoglycemic drugs; Z79.01 Long term (current) use of anticoagulants; Z11.52 Encounter for screening for COVID-19
CPT/HCPCS: 36415; 71045; 80048; 80053; 81001; 82803; 82947; 83735; 83880; 84484; 85025; 85610; 85730; 87502; 87635; 93005; 94640; 97162; 99222; 99285

== ENCOUNTER → 2023-04-03 09:36 | Outpatient (BNV) | payer MEDICARE, MEDICAID, SELFPAY | PROVIDERS: Admitting Provider Internal Medicine; Emergency Provider Emergency Medicine; Visit Provider Internal Medicine Cardiovascular Disease | DX: R06.02 Shortness of breath (principal); I45.10 Unspecified right bundle-branch block | CPT/HCPCS: 93010 ==

== ENCOUNTER → 2023-04-03 13:25 | Outpatient (BNV) | payer MEDICARE, MEDICAID, SELFPAY | PROVIDERS: Admitting Provider Internal Medicine; Emergency Provider Emergency Medicine; Visit Provider Internal Medicine | DX: J96.21 Acute and chronic respiratory failure with hypoxia (principal) | CPT/HCPCS: 99223; 99239; G0180 ==

== ENCOUNTER 2023-05-03 11:35 | Inpatient (IN) | payer MEDICARE, MEDICAID, SELFPAY ==
[2023-05-03] VITALS (11 sets, daily range): BP systolic 108–139; BP diastolic 64–105; PULSE 84–105; RESP 16–22; TEMP 36.1–36.4; O2SAT 90–95; BMI 40.7
--- NOTE | ~2023-05-03 | XR_ITS ---
EXAMINATION: XR CHEST CLINICAL INFORMATION: Cough and weakness. COMPARISON: 12/01/2019 and 04/03/2023 TECHNIQUE: Frontal view of the chest was obtained. FINDINGS: The right hemidiaphragm is chronically elevated. This could be a manifestation of chronic diaphragmatic dysfunction/paralysis. The lower lobes are suboptimally evaluated on this AP portable chest radiograph. There is no overt consolidation. Minimal atelectasis of the inferior ligula suspected. There are no convincing acute pulmonary abnormalities compared to 04/03/2023. Cardiac silhouette is normal in size. There is atherosclerotic calcification of the aorta. Pulmonary vascular pattern is normal. Severe osteoarthritis of glenohumeral joints. XR/XR chest 1V IMPRESSION: * No acute findings. No radiographic evidence of pneumonia. * The right diaphragm is chronically elevated and lower lobes suboptimally evaluated.
--- NOTE | 2023-05-03 12:04 | ED.GENADULT ---
HPI - General Adult General Chief complaint: General Medical Stated complaint: ,WEAK,KNEE PAIN,93% RA PER EMS Source: patient and old records reviewed Mode of arrival: EMS Limitations: no limitations History of Present Illness HPI narrative: 82 yo male with PMH of DVT on eliquis, HLD, CHF, COPD on 2L NC at home states he has been weak and not feeling well with L knee pain (compliant with eliquis) and has cough and runny nose for a few days. He thinks someone has the flu at home. He states he feels weak and isn't eating well. Knee pain is chronic states he has bone on bone MD complaint: weakness, cough, URI Onset (ago): day(s) (few) Location: lower extremity Radiation: non-radiation Severity: moderate Quality: aching Pain Consistency: constant Relieving factors: rest Exacerbating factors: movement Associated symptoms: loss of appetite, malaise and weakness Treatments prior to arrival: none Related Data Home Medications Medication Instructions Recorded Confirmed acetaminophen 325 mg tablet 650 mg PO Q6H PRN Pain 10/22/22 04/03/23 doxazosin 8 mg tablet 8 mg PO DAILY 10/22/22 04/03/23 isosorbide mononitrate 30 mg 30 mg PO DAILY 10/22/22 04/03/23 tablet,extended release 24 hr pravastatin 40 mg tablet 40 mg PO DAILY 10/22/22 04/03/23 albuterol sulfate 90 mcg/actuation 2 puff inhalation Q6H PRN 04/03/23 04/03/23 aerosol inhaler Shortness Of Breath Or Wheezing apixaban 5 mg tablet (Eliquis) 5 mg PO BID 04/03/23 04/03/23 bumetanide 2 mg tablet 2 mg PO BID 04/03/23 04/03/23 cholecalciferol (vitamin D3) 125 125 mcg PO DAILY 04/03/23 04/03/23 mcg (5,000 unit) tablet (Vitamin D3) diclofenac sodium 1 % topical gel 2 g topical TID PRN Pain 04/03/23 04/03/23 fluticasone fur. 200 mcg-umeclid 1 ea inhalation DAILY 04/03/23 04/03/23 62.5 mcg-vilant 25 mcg inhalat.powder (Trelegy Ellipta) loratadine 10 mg tablet (Claritin) 10 mg PO DAILY 04/03/23 04/03/23 metformin 1,000 mg tablet 1,000 mg PO BID 04/03/23 04/03/23 miconazole nitrate 2 % topical 1 appl topical DAILY 04/03/23 04/03/23 powder polyethylene glycol 3350 17 gram 17 g PO DAILY PRN Constipation 04/03/23 04/03/23 oral powder packet (Miralax) pregabalin 75 mg capsule 75 mg PO BID 04/03/23 04/03/23 spironolactone 25 mg tablet 25 mg PO BID 04/03/23 04/03/23 Allergies Allergy/AdvReac Type Severity Reaction Status Date / Time No Known Allergies Allergy Verified 05/03/23 11:45 [No Known Allergies*] Review of Systems Review of Systems: Constitutional : No Fever, No Chills, pos fatigue ENT/Mouth : No Ear Pain, No Hoarseness, No sore throat, pos runny nose Eyes: No Eye Pain, No Swelling, No Redness, No Foreign Body Cardiovascular : No Chest Pain, No SOB Respiratory : pos Cough, No Dyspnea Gastrointestinal : No Nausea, No Vomiting, No Diarrhea, No abdominal Pain Genitourinary : No Dysuria, No Hematuria Musculoskeletal : positive joint pain, No Myalgias, no Joint Swelling Skin : No Skin lacerations, No rash Neuro : No Weakness, No Numbness, No Loss of Consciousness, No Dizziness, No Headache Psych : No Anxiety/Panic, No Depression All other systems reviewed and are negative PMFSH Past Medical History Attestation statement: The following information was validated with the patient. Source: old records reviewed Medical History Diabetes mellitus, type 2 DVT (deep venous thrombosis) ANDRES on CPAP Chronic respiratory failure Morbid obesity Congestive heart failure Surgical History H/O prostatectomy Family History Family History Unknown No problems noted. Social History Social History Household Members: Family Household Members Other:: 3 Housing: House Do you presently have visiting nurse or other home services: No (Daughter In Law provides care) Alcohol intake: never Patient Tobacco Use Status: Former Tobacco user Tobacco use type: Cigarette Smoked in Last 30 Days: No Second Hand Smoke Exposure: No Use of substances other than those prescribed or required for medical reasons: No Advance Directives: No Advance Directives Information Provided: No service: No Physical Exam ED Vital Signs: Vital Signs - 24 hr 05/03/23 11:46 05/03/23 12:44 05/03/23 13:33 Temperature 97.6 F 97.6 F Pulse Rate 103 H 101 H Respiratory Rate 18 20 22 H Blood Pressure 139/78 133/80 Pulse Oximetry 91 L 90 L Oxygen Delivery Method Nasal Cannula Room Air Oxygen Flow Rate 4 05/03/23 13:41 05/03/23 14:52 05/03/23 15:47 Temperature Pulse Rate 102 H 98 96 Respiratory Rate 16 16 22 H Blood Pressure 127/105 H 134/81 Pulse Oximetry 91 L 93 Oxygen Delivery Method Nasal Cannula Nasal Cannula Oxygen Flow Rate 4 4 BMI result Body Mass Index 40.7 Appearance: Alert. Oriented X3. No acute distress. Eyes: Pupils equal, round and reactive to light. ENT: Pharynx normal. bilateral nasal congestion Neck: Normal inspection. Neck supple. CVS: Normal heart rate and rhythm. Pulses normal. Respiratory: No respiratory distress. Breath sounds diminished throughout Abdomen: Soft and nontender. Obese Skin: Skin warm and dry. Normal skin color. Normal skin turgor. Extremities: 2+ pitting lower extremity edema. No calf ttp L knee is wrapped but no redness, warmth or signs of infection Neuro: Oriented X 3. No motor deficit. No sensory deficit. Course Course Course Narrative: infection suspected 105pm Reevaluation(s) Reevaluation #1: focused exam for sepsis performed at 414pm Medications Administered Discontinued Medications Generic Name Dose Route Start Last Admin Trade Name Freq PRN Reason Stop Dose Admin Albuterol Sulfate 2.5 mg/ 0 mg 05/03/23 13:37 05/03/23 13:40 Albuterol/Ipratropium 3 ml INHALE 05/03/23 13:38 5 dose ONCE ONE Administration Sodium Chloride 500 mls @ 500 mls/hr 05/03/23 13:15 05/03/23 15:45 Ns IV 05/03/23 14:14 Infused .Q1H WILBERTO Infusion Ceftriaxone Sodium 1 gm/ 50 mls @ 100 mls/hr 05/03/23 13:04 05/03/23 14:22 Sodium Chloride IV 05/03/23 13:33 Infused ONCE ONE Infusion Albumin Human 100 mls @ 100 mls/hr 05/03/23 14:00 05/03/23 15:59 Kedbumin 25 % IV 05/03/23 15:59 Infused Q1H WILBERTO Infusion Methylprednisolone Sodium Succinate 60 mg 05/03/23 13:08 05/03/23 13:29 Methylprednisolone Sod Succ 125 Mg/2 Ml Vial IVPUSH 05/03/23 13:09 60 mg ONCE ONE Administration Medical Decision Making Medical Decision Making MDM Narrative: 82 yo male with PMH of DVT on eliquis, HLD, CHF, COPD on 2L NC here with c/o weakness, URI symptoms, cough, fatigue, poor PO intake and chronic L knee pain no new trauma at this time labs, CXR, viral panel, bronch protocol, gentle hydration, IV steroids, start on empiric antibiotics given increased cough and dyspnea/sputum. Possible viral infection, pneumonia, COPD. Knee pain seems chronic no signs of infection - distal foot is warm and well perfused. Doubt DVT given chronic AC. Differential Diagnosis Differential Diagnoses: The differential diagnosis associated with the presentation includes URI, pneumonia, COPD, viral synrome Admission/Observation Consideration of admission/observation: Escalation of care including admission/observation considered admit for further management given labs, increased weakness, concern for COPD exacerbation Consult Healthcare Provider Management of the patient was discussed with: Hospitalist (will admit) Lab Data [facility] Lab Attestation statement: I reviewed the patient's lab results. 05/03/23 12:35 05/03/23 12:35 Labs: Lab Results 05/03/23 05/03/23 05/03/23 Range/Units 12:33 12:35 12:41 WBC 12.3 H (4.8-10.8) X10*3/uL RBC 6.22 H (4.60-5.80) X10*6/uL Hgb 16.1 (14.0-18.0) g/dl Hct 49.8 (42.0-52.0) % MCV 80.1 (80.0-98.0) fL MCH 25.9 L (27.0-33.0) pg MCHC 32.3 (31.0-36.0) g/dl RDW 18.6 H (11.0-16.0) % Plt Count 207 (160-400) X10*3/uL MPV 11.3 (9.4-12.4) fL Immature Gran % (Auto) 0.2 (0.0-0.4) % Neut % (Auto) 80.7 H (45-73) % Lymph % (Auto) 9.7 L (20-40) % [place] % (Auto) 8.5 (2-11) % Eos % (Auto) 0.7 (0-4) % Baso % (Auto) 0.2 (0-2) % Lymph # (Auto) 1.2 (1.2-4.9) X10*3/uL [place] # (Auto) 1.1 (0.1-1.2) X10*3/uL Eos # (Auto) 0.1 (0.0-0.4) X10*3/uL Baso # (Auto) 0.0 (0.0-0.2) X10*3/uL Abs Immat Gran (auto) 0.03 (0.00-0.03) X10*3/uL Absolute Neuts (auto) 9.9 H (2.0-8.3) x10*3/uL Absolute Nucleated RBC 0.000 (0.0-0.012) X10*3/uL Nucleated RBC % (auto) 0.0 (0.0-0.2) /100WBC VBG pH 7.41 (7.32-7.43) VBG pCO2 38 mmHg VBG pO2 74 mmHg VBG HCO3 24 (22-26) mmol/L VBG O2 Saturation 94.0 % VBG Base Excess 0.5 mmol/L Sodium 136 (135-145) mmol/L Potassium 4.6 (3.3-5.1) mmol/L Chloride 97 (96-108) mmol/L Carbon Dioxide 23 (22-29) mmol/L Anion Gap 21 H (12-20) BUN 53 H (9-16) mg/dL Creatinine 1.83 H (0.5-1.4) mg/dL Estim Creat Clear Calc 45.9 Estimated GFR 36 Random Glucose 166 H (60-115) mg/dL Lactic Acid 4.8 H* (0.5-2.0) mmol/L Lactic Acid F/U @ 2Hr (0.5-2.0) mmol/L Calcium 9.9 (8.4-10.2) mg/dL Total Bilirubin 0.8 (0.0-1.0) mg/dL AST 15 (5-37) U/L ALT 9 (0-40) U/L Alkaline Phosphatase 76 (39-117) U/L Troponin I High Sens 11.0 (<3.5-35.0) ng/L B-Natriuretic Peptide 213 H (<100) pg/mL Total Protein 7.3 (6.5-8.0) g/dL Albumin 3.6 (3.5-5.0) g/dL COVID-19 (SILVIA) Negative (Negative) COVID-19 Clin Com See Note Influenza Type A (ZACKARY) Negative (Negative) Influenza Type B (ZACKARY) Negative (Negative) Influenza A & B Note See Note 05/03/23 Range/Units 14:57 WBC (4.8-10.8) X10*3/uL RBC (4.60-5.80) X10*6/uL Hgb (14.0-18.0) g/dl Hct (42.0-52.0) % MCV (80.0-98.0) fL MCH (27.0-33.0) pg MCHC (31.0-36.0) g/dl RDW (11.0-16.0) % Plt Count (160-400) X10*3/uL MPV (9.4-12.4) fL Immature Gran % (Auto) (0.0-0.4) % Neut % (Auto) (45-73) % Lymph % (Auto) (20-40) % [place] % (Auto) (2-11) % Eos % (Auto) (0-4) % Baso % (Auto) (0-2) % Lymph # (Auto) (1.2-4.9) X10*3/uL [place] # (Auto) (0.1-1.2) X10*3/uL Eos # (Auto) (0.0-0.4) X10*3/uL Baso # (Auto) (0.0-0.2) X10*3/uL Abs Immat Gran (auto) (0.00-0.03) X10*3/uL Absolute Neuts (auto) (2.0-8.3) x10*3/uL Absolute Nucleated RBC (0.0-0.012) X10*3/uL Nucleated RBC % (auto) (0.0-0.2) /100WBC VBG pH (7.32-7.43) VBG pCO2 mmHg VBG pO2 mmHg VBG HCO3 (22-26) mmol/L VBG O2 Saturation % VBG Base Excess mmol/L Sodium (135-145) mmol/L Potassium (3.3-5.1) mmol/L Chloride (96-108) mmol/L Carbon Dioxide (22-29) mmol/L Anion Gap (12-20) BUN (9-16) mg/dL Creatinine (0.5-1.4) mg/dL Estim Creat Clear Calc Estimated GFR Random Glucose (60-115) mg/dL Lactic Acid (0.5-2.0) mmol/L Lactic Acid F/U @ 2Hr 3.6 H* (0.5-2.0) mmol/L Calcium (8.4-10.2) mg/dL Total Bilirubin (0.0-1.0) mg/dL AST (5-37) U/L ALT (0-40) U/L Alkaline Phosphatase (39-117) U/L Troponin I High Sens (<3.5-35.0) ng/L B-Natriuretic Peptide (<100) pg/mL Total Protein (6.5-8.0) g/dL Albumin (3.5-5.0) g/dL COVID-19 (SILVIA) (Negative) COVID-19 Clin Com Influenza Type A (ZACKARY) (Negative) Influenza Type B (ZACKARY) (Negative) Influenza A & B Note Independent Interpretation I performed an independent interpretation of an: EKG and Plain X-Ray (LL opacity) Interpretation: Rate: 92 Rhythm: wide irregular Sesser: left RBBB ST T wave : invrated V1 and V2 - RBBB patterrn, I and AvL no change, no KAIDEN qTC: 479 prior studies: no change from priors which was read as NSR with lane The study has been interpreted contemporaneously by me. . Radiology Impression Discussion of test interpretation with radiology: I have reviewed the radiologist's reading. Independent Historian Clinical information obtained from an independent historian. History obtained from or confirmed by: EMS External Record Review External record reviewed: Inpatient record Discharge Plan Discharge Clinical Impression: COLETTE (acute kidney injury), Acidosis, lactic, Acute exacerbation of chronic obstructive pulmonary disease Patient Disposition: Admitted As Inpatient Sepsis Bolus Exclusion Sepsis Bolus Exclusion CHF/Renal Failure This patient met severe sepsis criteria due to the following condition(s):: Lactate>=4mmol/L In my clinical judgement the administration of 30 ml/kg of crystalloid would be detrimental to this patient due to the patient's following conditions:: Concern for fluid overload Replace the 30 mls/kg with (*zero amount not acceptable): Crystalloids amount given in mls: (rate must be at least 150cc/hr): 500 Colloids amount given in mls:: 200
[2023-05-03 12:43] LABS: MANUAL DIFF FLAG NO
[2023-05-03 12:45] LABS: Basophils Percent Auto 0.2 % (0-2); Eosinophils Absolute Auto 0.1 X10*3/uL (0.0-0.4); Eosinophils Percent Auto 0.7 % (0-4); Hematocrit 49.8 % (42.0-52.0); Hemoglobin 16.1 g/dl (14.0-18.0); Imm Gran Abs Auto 0.03 X10*3/uL (0.00-0.03); Imm Gran Pct Auto 0.2 % (0.0-0.4); Lymphocytes Absolute Auto 1.2 X10*3/uL (1.2-4.9); Lymphocytes Percent Auto 9.7 % (20-40); Mean Corpuscular HGB Conc 32.3 g/dl (31.0-36.0); Mean Corpuscular Hemoglobin 25.9 pg (27.0-33.0); Mean Corpuscular Volume 80.1 fL (80.0-98.0); Mean Platelet Volume 11.3 fL (9.4-12.4); Monocytes Absolute Auto 1.1 X10*3/uL (0.1-1.2); Monocytes Percent Auto 8.5 % (2-11); Neutrophils Absolute Auto 9.9 x10*3/uL (2.0-8.3); Neutrophils Percent Auto 80.7 % (45-73); Platelet Count 207 X10*3/uL (160-400); Red Blood Count 6.22 X10*6/uL (4.60-5.80); Red Cell Distribution Width 18.6 % (11.0-16.0); White Blood Count 12.3 X10*3/uL (4.8-10.8)
[2023-05-03 12:48] LABS: VBG Base Excess 0.5 mmol/L; VBG HCO3 24 mmol/L (22-26); VBG pCO2 38 mmHg; VBG pH 7.41 (7.32-7.43); VBG pO2 74 mmHg
[2023-05-03 12:48] LABS: Venous Blood Gas Refer to POC result
[2023-05-03 12:58] LABS: COVID-19 Test Negative (Negative); IDNOW Serial# 08D9AD1C
[2023-05-03 13:00] LABS: IDNOW Serial# 152EDE1D; Influenza A Negative (Negative); Influenza B2 Negative (Negative)
[2023-05-03 13:04] LABS: Lactic Acid 4.8 mmol/L (0.5-2.0)
--- NOTE | 2023-05-03 13:06 | ECG_ITS ---
Test Reason : WEAKNESS Blood Pressure : / mmHG Vent. Rate : 092 BPM Atrial Rate : 000 BPM P-R Int : 000 ms QRS Dur : 134 ms QT Int : 388 ms P-R-T Axes : 000 -61 011 degrees QTc Int : 479 ms Wide QRS rhythm with occasional Premature ventricular complexes Left axis deviation Right bundle branch block Inferior infarct , age undetermined Abnormal ECG When compared with ECG of 03-APR-2023 09:50, Wide QRS rhythm has replaced Ectopic atrial rhythm Referred By: Liya Moran Electronically Signed By:BARI PARTIDA
[2023-05-03 13:11] LABS: B Type Natriuretic Peptide 213 pg/mL (<100)
[2023-05-03 13:12] LABS: Alanine Aminotransferase 9 U/L (0-40); Albumin Level 3.6 g/dL (3.5-5.0); Alkaline Phosphatase 76 U/L (39-117); Anion Gap 21 (12-20); Aspartate Amino Transferase 15 U/L (5-37); Bilirubin Total 0.8 mg/dL (0.0-1.0); Blood Urea Nitrogen 53 mg/dL (9-16); Calcium 9.9 mg/dL (8.4-10.2); Carbon Dioxide 23 mmol/L (22-29); Chloride 97 mmol/L (96-108); Creatinine Clr Calc Pharmacy 45.9; Estimated Glomerular Filt Rate 36; Glucose Random 166 mg/dL (60-115); Potassium 4.6 mmol/L (3.3-5.1); Sodium 136 mmol/L (135-145); Total Protein 7.3 g/dL (6.5-8.0)
[2023-05-03] MEDS: 0.9 % Sodium Chloride 500 ML IV (13:29)
[2023-05-03] MEDS: cefTRIAXone sodium 1 GM in 0.9 % Sodium Chloride 50 ML IV (13:29)
[2023-05-03] MEDS: methylPREDNISolone Sod Succ 125 MG/2 ML VIAL 60 MG IVPUSH (13:29)
[2023-05-03] MEDS: Albuterol Sulfate 2.5 MG, Albuterol/Iprat 2.5/0.5MG 3 ML 3 ML INHALE (13:40)
[2023-05-03 14:42] LABS: Reflex Lactate? Lactic Acid Added
[2023-05-03] MEDS: Albumin Human 25 % 100 ML IV ×2 (14:45→16:10)
[2023-05-03 15:20] LABS: ~Lactic Acid-LAB USE ONLY 3.6 mmol/L (0.5-2.0)
--- NOTE | 2023-05-03 15:57 | P.HPHOSP_ITS ---
History of Present Illness Date of Service: 05/03/23 Attending physician on admission: Dalia Rowell Chief Complaint: weakness This is an 82 yo M with past medical history of CHF, COPD n 2-4 L o2, DVT on Eliquis, DMII, and HLD presents today with weakness. history primarily obtained from his son and [id number] at the bedside. They report increasing generalized weakness over the past 2 days. Multiple family members have been sick with respiratory illnesses and the patient has had congestion and cough for the past few days. He denies any associated fever or chills. He denies any abdominal pain, nausea, vomiting. In the emergency department he was noted to have leukocytosis of 12,000. He tested negative for COVID-19, influenza. Chest x-ray showed no evidence of pneumonia. He received treatment for possible pneumonia with ceftriaxone and azithromycin. He received 500 cc of fluid due to elevated lactic acid. He also received steroids and will be admitted for further management. Review of Systems 2 Review of Systems: Yes all other systems are reviewed and are negative Constitutional: Constitutional: Denies chills and Denies fever(s) Cardiovascular: Cardiovascular: Denies chest pain and Denies palpitations Respiratory: Respiratory: Reports chest congestion, Reports cough and Reports wheezing Gastrointestinal: Gastrointestinal: Denies abdominal pain, Denies nausea and Denies vomiting Endocrine: Endocrine: Denies palpitations Allergic/Immunologic: Allergic/Immunologic: Reports wheezing COUNT INCLUDES THE [facility] Medical History Diabetes mellitus, type 2 DVT (deep venous thrombosis) ANDRES on CPAP Chronic respiratory failure Morbid obesity Congestive heart failure Functional capacity: uses cane/walker Family History Unknown No problems noted. Surgical History H/O prostatectomy Social History Household Members: Family Household Members Other:: 3 Housing: House Do you presently have visiting nurse or other home services: No (Daughter In Law provides care) Alcohol intake: never Patient Tobacco Use Status: Former Tobacco user Tobacco use type: Cigarette Smoked in Last 30 Days: No Second Hand Smoke Exposure: No Use of substances other than those prescribed or required for medical reasons: No Advance Directives: No Advance Directives Information Provided: No service: No Meds Allergies Allergy/AdvReac Type Severity Reaction Status Date / Time No Known Allergies Allergy Verified 05/03/23 11:45 [No Known Allergies*] Active Medications: Current Medications Albumin Human (Kedbumin 25 %) 100 mls @ 100 mls/hr IV Q1H WILBERTO Stop: 05/03/23 15:59 Last Admin: 05/03/23 14:45 Dose: 100 mls/hr Azithromycin 500 mg/ Sodium (Chloride) 250 mls @ 125 mls/hr IV ONCE ONE Stop: 05/03/23 17:21 Home Medications Medication Instructions Recorded Confirmed Last Taken Type acetaminophen 325 mg tablet 650 mg PO Q6H PRN Pain 10/22/22 04/03/23 04/03/23 09:00 History doxazosin 8 mg tablet 8 mg PO DAILY 10/22/22 04/03/23 04/03/23 09:00 History isosorbide mononitrate 30 mg 30 mg PO DAILY 10/22/22 04/03/23 04/03/23 09:00 History tablet,extended release 24 hr pravastatin 40 mg tablet 40 mg PO DAILY 10/22/22 04/03/23 04/03/23 09:00 History albuterol sulfate 90 mcg/actuation 2 puff inhalation Q6H PRN 04/03/23 04/03/23 Unknown History aerosol inhaler Shortness Of Breath Or Wheezing apixaban 5 mg tablet (Eliquis) 5 mg PO BID 04/03/23 04/03/23 04/03/23 09:00 History bumetanide 2 mg tablet 2 mg PO BID 04/03/23 04/03/23 04/03/23 09:00 History cholecalciferol (vitamin D3) 125 125 mcg PO DAILY 04/03/23 04/03/23 04/03/23 09:00 History mcg (5,000 unit) tablet (Vitamin D3) diclofenac sodium 1 % topical gel 2 g topical TID PRN Pain 04/03/23 04/03/23 Unknown History fluticasone fur. 200 mcg-umeclid 1 ea inhalation DAILY 04/03/23 04/03/23 04/03/23 09:00 History 62.5 mcg-vilant 25 mcg inhalat.powder (Trelegy Ellipta) loratadine 10 mg tablet (Claritin) 10 mg PO DAILY 04/03/23 04/03/23 04/03/23 09:00 History metformin 1,000 mg tablet 1,000 mg PO BID 04/03/23 04/03/23 04/03/23 09:00 History miconazole nitrate 2 % topical 1 appl topical DAILY 04/03/23 04/03/23 04/03/23 09:00 History powder polyethylene glycol 3350 17 gram 17 g PO DAILY PRN Constipation 04/03/23 04/03/23 04/03/23 09:00 History oral powder packet (Miralax) pregabalin 75 mg capsule 75 mg PO BID 04/03/23 04/03/23 04/03/23 09:00 History spironolactone 25 mg tablet 25 mg PO BID 04/03/23 04/03/23 04/03/23 09:00 History Physical Exam 2 Vital Signs and Narrative: Vital Signs: Last Vital Signs Temp 97.6 F 05/03/23 13:33 Pulse 98 05/03/23 14:52 Resp 16 05/03/23 14:52 BP 127/105 H 05/03/23 14:52 Pulse Ox 91 L 05/03/23 14:52 O2 Del Method Nasal Cannula 05/03/23 14:52 O2 Flow Rate 4 05/03/23 14:52 Oxygen Flow Rate 3.5 05/03/23 11:46 BMI result Body Mass Index 40.7 Const: General: cooperative, comfortable, no acute distress, alert and awake Nutritional Appearance: obese Orientation/consciousness: patient oriented x3 Resp: Other: b/l expiratory wheezing Effort & Inspection: normal respiratory effort, able to speak in complete sentences, no respiratory distress and no use of accessory muscles Cardio: Rate: regular rate GI: Inspection: No distended and Yes obesity Palpation (GI): Soft to palpation and nontender Neuro: General: patient oriented x3, moves all extremities and CN's II-XI intact bilaterally Extrem: Other: trace b/l leg edema; b/l pedal edema Results Labs 05/03/23 12:35 05/03/23 12:35 Labs: Laboratory Results - last 24 hr 05/03/23 05/03/23 05/03/23 12:33 12:35 12:41 MCV 80.1 MCH 25.9 L MCHC 32.3 RDW 18.6 H Plt Count 207 MPV 11.3 Immature Gran % (Auto) 0.2 Neut % (Auto) 80.7 H Lymph % (Auto) 9.7 L [place] % (Auto) 8.5 Eos % (Auto) 0.7 Baso % (Auto) 0.2 Lymph # (Auto) 1.2 [place] # (Auto) 1.1 Eos # (Auto) 0.1 Baso # (Auto) 0.0 Abs Immat Gran (auto) 0.03 Absolute Neuts (auto) 9.9 H Absolute Nucleated RBC 0.000 Nucleated RBC % (auto) 0.0 VBG pH 7.41 VBG pCO2 38 VBG pO2 74 VBG HCO3 24 VBG O2 Saturation 94.0 VBG Base Excess 0.5 Anion Gap 21 H Estim Creat Clear Calc 45.9 Estimated GFR 36 Random Glucose 166 H Lactic Acid 4.8 H* Lactic Acid F/U @ 2Hr Calcium 9.9 Total Bilirubin 0.8 AST 15 ALT 9 Alkaline Phosphatase 76 B-Natriuretic Peptide 213 H Total Protein 7.3 Albumin 3.6 COVID-19 (SILVIA) Negative COVID-[employer] Com See Note Influenza Type A (ZACKARY) Negative Influenza Type B (ZACKARY) Negative Influenza A & B Note See Note 05/03/23 14:57 MCV MCH MCHC RDW Plt Count MPV Immature Gran % (Auto) Neut % (Auto) Lymph % (Auto) [place] % (Auto) Eos % (Auto) Baso % (Auto) Lymph # (Auto) [place] # (Auto) Eos # (Auto) Baso # (Auto) Abs Immat Gran (auto) Absolute Neuts (auto) Absolute Nucleated RBC Nucleated RBC % (auto) VBG pH VBG pCO2 VBG pO2 VBG HCO3 VBG O2 Saturation VBG Base Excess Anion Gap Estim Creat Clear Calc Estimated GFR Random Glucose Lactic Acid Lactic Acid F/U @ 2Hr 3.6 H* Calcium Total Bilirubin AST ALT Alkaline Phosphatase B-Natriuretic Peptide Total Protein Albumin COVID-19 (SILVIA) COVID-19 [employer] Com Influenza Type A (ZACKARY) Influenza Type B (ZACKARY) Influenza A & B Note Imaging Radiologist's Impressions: Impressions Chest X-Ray 05/03/23 13:06 IMPRESSION: * No acute findings. No radiographic evidence of pneumonia. * The right diaphragm is chronically elevated and lower lobes suboptimally evaluated. Assessment and Plan (1) Acute exacerbation of chronic obstructive pulmonary disease: Status: Acute (2) Acidosis, lactic: Status: Acute (3) COLETTE (acute kidney injury): Status: Acute Plan This is an 82M PMH of chronic resp failure on 2-4L O2, ANDRES on CPAP, DM, 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, chronic CHF with preserved EF, presented with weakness Acute COPD exacerbation steroids, breathing treatments continue supplemental oxygen will check full RPP COLETTE on CKD III likely due to decreased po intake and diuretics hold diuretics got some fluid in ED, will hold off on further fluid follow renal function h/o DVT/PE resume AC when med rec completed acute Lactic acidosis likely 2/2 Metformin, no sepsis DM SSI, POCs, ADA diet BPH Doxazosin ANDRES cpap at night orbid obesity weight loss generalized weakness - PT evaluation med rec pending at the time of admission dvt ppx - eliquis when med rec done code status - full code HCP son ED Quality Stroke Does the patient have a stroke diagnosis?: No VTE Prior VTE?: Yes VTE Risk Level:: Medical - moderate - high VTE Device Contraindication: Treatment Not Indicated VTE Drug Contraindication: N/A - Med Ordered
--- NOTE | 2023-05-03 16:09 | PC.NURSE ---
delay in sepsis fld administration d/t pt arm bent, reeducated on straightening arm. fld finished, vital signs documented.
[2023-05-03] MEDS: 0.9 % Sodium Chloride Flush 3 ML SYRINGE IVFLUSH ×2 (16:13→22:33)
[2023-05-03] MEDS: Azithromycin 500 MG in 0.9 % Sodium Chloride 250 ML 125 MG IV (16:15)
[2023-05-03 16:46] LABS: Appearance Urine Turbid; Glucose Urine UA Negative (Negative); Leukocyte Esterase Urine Small (1+) (Negative); Nitrite Urine Negative (Negative); UMIC TRIGGER UACC YES; Urine Blood Large (3+) (Negative); Urine Ketones Negative (Negative); Urine Protein 30 (1+) mg/dL (Neg-Trace)
[2023-05-03 16:47] LABS: Color Urine Dark Yellow
[2023-05-03 16:53] LABS: Procalcitonin 0.18 ng/mL
[2023-05-03 17:05] LABS: Bacteria Urine None Seen (None Seen); Granular Casts Urine Present; RBC Urine >20 /HPF (0-2); UACC Culture Trigger YES
--- NOTE | 2023-05-03 17:30 | PHA.MEDREC ---
Pharmacy Consult ? Medication Reconciliation Pharmacy has completed the medication reconciliation. Spoke to patient's family to confirm meds.
[2023-05-03 18:48] LABS: Glucose, Whole Blood 169 mg/dL (60-115)
[2023-05-03] MEDS: Albuterol/Iprat 2.5/0.5MG 3 ML AMPUL.NEB INHALE (20:16)
[2023-05-03 22:06] LABS: Glucose, Whole Blood 270 mg/dL (60-115)
[2023-05-03] MEDS: Apixaban 5 MG TABLET PO (22:32)
[2023-05-03] MEDS: Insulin Lispro 100 UNIT/ML 3 ML VIAL SUBCUT (22:32)
[2023-05-03] MEDS: Pregabalin 100 MG CAPSULE PO (22:32)
[2023-05-03] MEDS: methylPREDNISolone Sod Succ 40 MG/ML VIAL IVPUSH (23:57)
[2023-05-04] VITALS (9 sets, daily range): BP systolic 128–138; BP diastolic 64–76; PULSE 78–86; RESP 16–20; TEMP 36.1–36.5; O2SAT 92–94
[2023-05-04] MEDS: Docusate Sodium 100 MG CAPSULE PO (02:06)
[2023-05-04 06:31] LABS: Hematocrit 45.5 % (42.0-52.0); Hemoglobin 15.1 g/dl (14.0-18.0); Mean Corpuscular HGB Conc 33.2 g/dl (31.0-36.0); Mean Corpuscular Hemoglobin 26.7 pg (27.0-33.0); Mean Corpuscular Volume 80.4 fL (80.0-98.0); Mean Platelet Volume 11.4 fL (9.4-12.4); Platelet Count 196 X10*3/uL (160-400); Red Blood Count 5.66 X10*6/uL (4.60-5.80); Red Cell Distribution Width 18.4 % (11.0-16.0); White Blood Count 9.2 X10*3/uL (4.8-10.8)
[2023-05-04 06:40] LABS: Anion Gap 16 (12-20); Blood Urea Nitrogen 51 mg/dL (9-16); Calcium 9.9 mg/dL (8.4-10.2); Carbon Dioxide 25 mmol/L (22-29); Chloride 102 mmol/L (96-108); Creatinine Clr Calc Pharmacy 49.7; Estimated Glomerular Filt Rate 39; Glucose Random 181 mg/dL (60-115); Potassium 4.7 mmol/L (3.3-5.1); Sodium 138 mmol/L (135-145)
[2023-05-04 07:02] LABS: Glucose, Whole Blood 172 mg/dL (60-115)
[2023-05-04] MEDS: Loratadine 10 MG TABLET PO (08:01)
[2023-05-04] MEDS: Doxazosin Mesylate 2 MG TABLET 8 MG PO (08:01)
[2023-05-04] MEDS: Apixaban 5 MG TABLET PO ×2 (08:01→20:16)
[2023-05-04] MEDS: Pravastatin Sodium 40 MG TABLET PO (08:01)
[2023-05-04] MEDS: Isosorbide Mononitrate 30 MG TAB.ER.24H PO (08:01)
[2023-05-04] MEDS: Insulin Lispro 100 UNIT/ML 3 ML VIAL SUBCUT ×4 (08:06→20:16)
[2023-05-04] MEDS: 0.9 % Sodium Chloride Flush 3 ML SYRINGE IVFLUSH ×2 (08:07→16:41)
[2023-05-04] MEDS: Albuterol/Iprat 2.5/0.5MG 3 ML AMPUL.NEB INHALE ×2 (08:36→15:08)
[2023-05-04] MEDS: Fluticasone/Umeclidinium/Vilanterol 200/62.5/25 BLST.W.DEV 1 PUFF INHALE (08:40)
[2023-05-04 09:25] LABS: Adenovirus PCR Not Detected (Not Detect.); Bordetella parapertussis PCR Not Detected (Not Detect.); Bordetella pertussis PCR Not Detected (Not Detect.); Chlamydia pneumoniae PCR Not Detected (Not Detect.); Coronavirus 229E PCR Not Detected (Not Detect.); Coronavirus HKU1 PCR Detected (Not Detect.); Coronavirus NL63 PCR Not Detected (Not Detect.); Coronavirus OC43 PCR Not Detected (Not Detect.); Human metapneumovirus PCR Not Detected (Not Detect.); Influenza A PCR Not Detected (Not Detect.); Influenza B PCR Not Detected (Not Detect.); Mycoplasma pneumoniae PCR Not Detected (Not Detect.); Parainfluenza 1 PCR Not Detected (Not Detect.); Parainfluenza 2 PCR Not Detected (Not Detect.); Parainfluenza 3 PCR Not Detected (Not Detect.); Parainfluenza 4 PCR Not Detected (Not Detect.); RSV PCR Not Detected (Not Detect.); Rhino/Enterovirus PCR Not Detected (Not Detect.)
[2023-05-04 09:27] LABS: SARS-CoV-2 PCR Not Detected (Not Detect.)
--- NOTE | 2023-05-04 09:47 | P.PNIM_ITS ---
Subjective Subjective Date of Service: 05/04/23 Interval History: seen and examined this morning follow up for copd exacerbation, COLETTE feeling well this am denies shortness of breath Review of Systems Review of Systems: Yes all other systems are reviewed and are negative Constitutional Constitutional: Denies chills and Denies fever(s) Physical Exam 2 Vital Signs: Vital Signs: Last Vital Signs Temp 97.3 F 05/04/23 07:09 Pulse 81 05/04/23 08:41 Resp 18 05/04/23 08:41 BP 136/69 05/04/23 07:09 Pulse Ox 92 05/04/23 07:09 O2 Del Method CPAP 05/04/23 07:09 O2 Flow Rate 2 05/03/23 23:14 Oxygen Flow Rate 3.5 05/03/23 11:46 BMI result Body Mass Index 40.7 Const: General: cooperative, comfortable, no acute distress, alert and awake Nutritional Appearance: obese Orientation/consciousness: patient oriented x3 Resp: Other: b/l expiratory wheezing; no rales Effort & Inspection: normal respiratory effort, able to speak in complete sentences, no respiratory distress and no use of accessory muscles Cardio: Rate: regular rate GI: Inspection: No distended and Yes obesity Palpation (GI): Soft to palpation and nontender Neuro: General: patient oriented x3, moves all extremities and CN's II-XI intact bilaterally Extrem: Other: trace b/l leg edema; b/l pedal edema Objective Data Active Medications Acetaminophen (Acetaminophen 325 Mg Tablet) 650 mg PO Q6H PRN PRN Reason: Pain, Mild (Pain Scale 1-3) Albuterol Sulfate (Albuterol Sulfate (0.083%) 2.5 Mg/3 Ml Vial.Neb) 2.5 mg INHALE Q6H PRN PRN Reason: Shortness of Breath/Wheezing Albuterol Sulfate (Albuterol Sulfate 90 Mcg 8 Gm Inhaler) 2 puff INHALE Q6H PRN PRN Reason: Shortness Of Breath Or Wheezing Albuterol/Ipratropium (Albuterol/Iprat 2.5/0.5mg 3 Ml Ampul.Neb) 3 ml INHALE RQ6H WHILE AWAKE [facility] Last Admin: 05/04/23 08:36 Dose: 3 ml Documented By: MADELEINE Apixaban (Apixaban 5 Mg Tablet) 5 mg PO BID [facility] Last Admin: 05/04/23 08:01 Dose: 5 mg Documented By: FUAD Dextrose (Dextrose 50 % 25 Gm/50 Ml Syringe) 25 gm IVPUSH Q15M PRN; Protocol PRN Reason: per Hypoglycemia Standing Ord. Docusate Sodium (Docusate Sodium 100 Mg Capsule) 100 mg PO DAILY PRN PRN Reason: Constipation Last Admin: 05/04/23 02:06 Dose: 100 mg Documented By: ANNAMARIE Doxazosin Mesylate (Doxazosin Mesylate 2 Mg Tablet) 8 mg PO DAILY [facility]; Protocol Last Admin: 05/04/23 08:01 Dose: 8 mg Documented By: FUAD Fluticasone/Umeclidinium/Vilanterol (Fluticasone/Umeclidinium/Vilanterol 200/62.5/25 Blst.W.Dev) 1 puff INHALE RDAILY [facility] Last Admin: 05/04/23 08:40 Dose: 1 puff Documented By: MADELEINE Glucose (Glucose Gel 15 Gm Gel..Gram.) 15 gm PO Q15M PRN; Protocol PRN Reason: per Hypoglycemia Standing Ord. Azithromycin 500 mg/ Sodium (Chloride) 250 mls @ 125 mls/hr IV Q24H [facility] Insulin Human Lispro (Insulin Lispro 100 Unit/Ml 3 Ml Vial) 0 unit SUBCUT QIDACHS [facility]; Protocol Last Admin: 05/04/23 08:06 Dose: 2 unit Documented By: FUAD Isosorbide Mononitrate (Isosorbide Mononitrate 30 Mg Tab.Er.24h) 30 mg PO DAILY [facility]; Protocol Last Admin: 05/04/23 08:01 Dose: 30 mg Documented By: FUAD Loratadine (Loratadine 10 Mg Tablet) 10 mg PO DAILY [facility] Last Admin: 05/04/23 08:01 Dose: 10 mg Documented By: FUAD Methylprednisolone Sodium Succinate (Methylprednisolone Sod Succ 40 Mg/Ml Vial) 40 mg IVPUSH Q12H [facility] Last Admin: 05/03/23 23:57 Dose: 40 mg Documented By: ANNAMARIE Polyethylene Glycol (Polyethylene Glycol 3350 17 Gm Powd.Pack) 17 gm PO DAILY PRN PRN Reason: Constipation Pravastatin Sodium (Pravastatin Sodium 40 Mg Tablet) 40 mg PO DAILY [facility] Last Admin: 05/04/23 08:01 Dose: 40 mg Documented By: FUAD Pregabalin (Pregabalin 100 Mg Capsule) 100 mg PO BID [facility] Last Admin: 05/03/23 22:32 Dose: 100 mg Documented By: ANNAMARIE Sodium Chloride (0.9 % Sodium Chloride Flush 3 Ml Syringe) 3 ml IVFLUSH QSHIFT [facility] Last Admin: 05/04/23 08:07 Dose: 3 ml Documented By: FUAD Labs 05/04/23 05:55 05/04/23 05:55 Labs: Laboratory Results - last 24 hr 05/03/23 05/03/23 05/03/23 12:33 12:35 12:41 MCV 80.1 MCH 25.9 L MCHC 32.3 RDW 18.6 H Plt Count 207 MPV 11.3 Immature Gran % (Auto) 0.2 Neut % (Auto) 80.7 H Lymph % (Auto) 9.7 L [place] % (Auto) 8.5 Eos % (Auto) 0.7 Baso % (Auto) 0.2 Lymph # (Auto) 1.2 [place] # (Auto) 1.1 Eos # (Auto) 0.1 Baso # (Auto) 0.0 Abs Immat Gran (auto) 0.03 Absolute Neuts (auto) 9.9 H Absolute Nucleated RBC 0.000 Nucleated RBC % (auto) 0.0 VBG pH 7.41 VBG pCO2 38 VBG pO2 74 VBG HCO3 24 VBG O2 Saturation 94.0 VBG Base Excess 0.5 Anion Gap 21 H Estim Creat Clear Calc 45.9 Estimated GFR 36 POC Glucose Random Glucose 166 H Lactic Acid 4.8 H* Lactic Acid F/U @ 2Hr Calcium 9.9 Total Bilirubin 0.8 AST 15 ALT 9 Alkaline Phosphatase 76 B-Natriuretic Peptide 213 H Total Protein 7.3 Albumin 3.6 Procalcitonin 0.18 Urine Color Urine Appearance Urine pH Ur Specific [place] Urine Protein Urine Glucose (UA) Urine Ketones Urine Blood Urine Nitrite Ur Leukocyte Esterase Urine RBC Urine WBC Ur Squamous Epith Cells Urine Bacteria Hyaline Casts Granular Casts Respiratory Panel [place] Adenovirus (Rapid PCR) B.pert (TEM-PCR) B.parapertussis DNA PCR C. pneumoniae DNA (PCR) Coronavirus OC43 (PCR) Coronavirus HKU1 (PCR) Coronavirus 229E (PCR) COVID-19 (SILVIA) Negative COVID-19 Clin Com See Note Coronavirus NL63 (PCR) Human Metapneumovir PCR Influenza Type A (ZACKARY) Negative Influenza A (RT-PCR) Influenza Type B (ZACKARY) Negative Influenza B (RT-PCR) Influenza A & B Note See Note M. pneumoniae (PCR) Parainfluenza 1 (PCR) Parainfluenza 2 (PCR) Parainfluenza 3 (PCR) Parainfluenza 4 (PCR) RSV (PCR) Entero/Rhino (PCR) SARS-CoV-2 RNA (RT-PCR) 05/03/23 05/03/23 05/03/23 13:35 14:57 16:38 MCV MCH MCHC RDW Plt Count MPV Immature Gran % (Auto) Neut % (Auto) Lymph % (Auto) [place] % (Auto) Eos % (Auto) Baso % (Auto) Lymph # (Auto) [place] # (Auto) Eos # (Auto) Baso # (Auto) Abs Immat Gran (auto) Absolute Neuts (auto) Absolute Nucleated RBC Nucleated RBC % (auto) VBG pH VBG pCO2 VBG pO2 VBG HCO3 VBG O2 Saturation VBG Base Excess Anion Gap Estim Creat Clear Calc Estimated GFR POC Glucose 169 H Random Glucose Lactic Acid Lactic Acid F/U @ 2Hr 3.6 H* Calcium Total Bilirubin AST ALT Alkaline Phosphatase B-Natriuretic Peptide Total Protein Albumin Procalcitonin Urine Color Dark Yellow Urine Appearance Turbid Urine pH 5.0 Ur Specific [place] 1.010 Urine Protein 30 (1+) H Urine Glucose (UA) Negative Urine Ketones Negative Urine Blood Large (3+) H Urine Nitrite Negative Ur Leukocyte Esterase Small (1+) H Urine RBC >20 H Urine WBC 6-10 H Ur Squamous Epith Cells 6-10 Urine Bacteria None Seen Hyaline Casts 6-10 Granular Casts Present Respiratory Panel [place] Adenovirus (Rapid PCR) B.pert (TEM-PCR) B.parapertussis DNA PCR C. pneumoniae DNA (PCR) Coronavirus OC43 (PCR) Coronavirus HKU1 (PCR) Coronavirus 229E (PCR) COVID-19 (SILVIA) COVID-19 Clin Com Coronavirus NL63 (PCR) Human Metapneumovir PCR Influenza Type A (ZACKARY) Influenza A (RT-PCR) Influenza Type B (ZACKARY) Influenza B (RT-PCR) Influenza A & B Note M. pneumoniae (PCR) Parainfluenza 1 (PCR) Parainfluenza 2 (PCR) Parainfluenza 3 (PCR) Parainfluenza 4 (PCR) RSV (PCR) Entero/Rhino (PCR) SARS-CoV-2 RNA (RT-PCR) 05/03/23 05/03/23 05/04/23 16:40 22:03 05:55 MCV 80.4 MCH 26.7 L MCHC 33.2 RDW 18.4 H Plt Count 196 MPV 11.4 Immature Gran % (Auto) Neut % (Auto) Lymph % (Auto) [place] % (Auto) Eos % (Auto) Baso % (Auto) Lymph # (Auto) [place] # (Auto) Eos # (Auto) Baso # (Auto) Abs Immat Gran (auto) Absolute Neuts (auto) Absolute Nucleated RBC 0.000 Nucleated RBC % (auto) 0.0 VBG pH VBG pCO2 VBG pO2 VBG HCO3 VBG O2 Saturation VBG Base Excess Anion Gap 16 Estim Creat Clear Calc 49.7 Estimated GFR 39 POC Glucose 270 H Random Glucose 181 H Lactic Acid Lactic Acid F/U @ 2Hr Calcium 9.9 Total Bilirubin AST ALT Alkaline Phosphatase B-Natriuretic Peptide Total Protein Albumin Procalcitonin Urine Color Urine Appearance Urine pH Ur Specific [place] Urine Protein Urine Glucose (UA) Urine Ketones Urine Blood Urine Nitrite Ur Leukocyte Esterase Urine RBC Urine WBC Ur Squamous Epith Cells Urine Bacteria Hyaline Casts Granular Casts Respiratory Panel [place] See Note Adenovirus (Rapid PCR) Not Detected B.pert (TEM-PCR) Not Detected B.parapertussis DNA PCR Not Detected C. pneumoniae DNA (PCR) Not Detected Coronavirus OC43 (PCR) Not Detected Coronavirus HKU1 (PCR) Detected A Coronavirus 229E (PCR) Not Detected COVID-19 (SILVIA) COVID-19 Clin Com Coronavirus NL63 (PCR) Not Detected Human Metapneumovir PCR Not Detected Influenza Type A (ZACKARY) Influenza A (RT-PCR) Not Detected Influenza Type B (ZACKARY) Influenza B (RT-PCR) Not Detected Influenza A & B Note M. pneumoniae (PCR) Not Detected Parainfluenza 1 (PCR) Not Detected Parainfluenza 2 (PCR) Not Detected Parainfluenza 3 (PCR) Not Detected Parainfluenza 4 (PCR) Not Detected RSV (PCR) Not Detected Entero/Rhino (PCR) Not Detected SARS-CoV-2 RNA (RT-PCR) Not Detected 05/04/23 06:58 MCV MCH MCHC RDW Plt Count MPV Immature Gran % (Auto) Neut % (Auto) Lymph % (Auto) [place] % (Auto) Eos % (Auto) Baso % (Auto) Lymph # (Auto) [place] # (Auto) Eos # (Auto) Baso # (Auto) Abs Immat Gran (auto) Absolute Neuts (auto) Absolute Nucleated RBC Nucleated RBC % (auto) VBG pH VBG pCO2 VBG pO2 VBG HCO3 VBG O2 Saturation VBG Base Excess Anion Gap Estim Creat Clear Calc Estimated GFR POC Glucose 172 H Random Glucose Lactic Acid Lactic Acid F/U @ 2Hr Calcium Total Bilirubin AST ALT Alkaline Phosphatase B-Natriuretic Peptide Total Protein Albumin Procalcitonin Urine Color Urine Appearance Urine pH Ur Specific [place] Urine Protein Urine Glucose (UA) Urine Ketones Urine Blood Urine Nitrite Ur Leukocyte Esterase Urine RBC Urine WBC Ur Squamous Epith Cells Urine Bacteria Hyaline Casts Granular Casts Respiratory Panel [place] Adenovirus (Rapid PCR) B.pert (TEM-PCR) B.parapertussis DNA PCR C. pneumoniae DNA (PCR) Coronavirus OC43 (PCR) Coronavirus HKU1 (PCR) Coronavirus 229E (PCR) COVID-19 (SILVIA) COVID-19 Clin Com Coronavirus NL63 (PCR) Human Metapneumovir PCR Influenza Type A (ZACKARY) Influenza A (RT-PCR) Influenza Type B (ZACKARY) Influenza B (RT-PCR) Influenza A & B Note M. pneumoniae (PCR) Parainfluenza 1 (PCR) Parainfluenza 2 (PCR) Parainfluenza 3 (PCR) Parainfluenza 4 (PCR) RSV (PCR) Entero/Rhino (PCR) SARS-CoV-2 RNA (RT-PCR) Assessment and Plan (1) Acute exacerbation of chronic obstructive pulmonary disease: Status: Acute (2) COLETTE (acute kidney injury): Status: Acute Plan This is an 82M PMH of chronic resp failure on 2-4L O2, ANDRES on CPAP, DM, 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, chronic CHF with preserved EF, presented with weakness Acute COPD exacerbation due to caronavirus HKU1 white count resolved, tachycardia and tachypnea resolved treated with pneumonia in ED, but CXR negative and procalcitonin under .2 will continue azithromycin, started 05/04 continue IV steroids and breathing treatments continue supplemental oxygen (on 2-4L NC at baseline) currently on 4L RPP + for caronavirus HKU1 probable viral sepsis/acute lactic acidosis cxr negative for pneumonia, +for caronavirus HKU1 and low procalcitonin. less likely bacterial met criteria with tachycardia, tachypnea and leukocytosis although lactic acid was elevated, likely due to metformin use rather then severe sepsis LA trending down with gentle fluid in ED Blood cultures pending urine culture pending, although no urinary symptoms, less likely UTI COLETTE on CKD III likely due to decreased po intake and diuretics SCr trending down to 1.69. baseline seems to be around 1.4-1.5 hold bumex got some fluid in ED, will hold off on further fluid follow renal function h/o DVT/PE continue Eliquis DM hold metformin SSI, POCs, ADA diet HFpEF hold bumex HLD continue statin BPH Doxazosin ANDRES cpap at night orbid obesity weight loss generalized weakness - PT evaluation pending dvt ppx - eliquis code status - full code HCP son ED Patient requires ongoing inpatient stay for management of COPD exacerbation, close monitoring of respiratory status and PT evaluation for safe disposition Quality Stroke Does the patient have a stroke diagnosis?: No VTE Prior VTE?: Yes VTE Risk Level:: Medical - moderate - high VTE Device Contraindication: Treatment Not Indicated VTE Drug Contraindication: N/A - Med Ordered
[2023-05-04 11:01] LABS: Glucose, Whole Blood 214 mg/dL (60-115)
[2023-05-04] MEDS: Pregabalin 100 MG CAPSULE PO ×2 (11:05→20:16)
[2023-05-04] MEDS: methylPREDNISolone Sod Succ 40 MG/ML VIAL IVPUSH (11:53)
--- NOTE | 2023-05-04 12:22 | MHC.CM.PN ---
IMM 05/04. Pt lives at home with his granddaughter and her family, and his son/POA/HCP lives right across the street. Pt has strong family support. Pt was recently active with [facility] but was D/C from their service on 04/16. Pt states he gets a nurse visit from the [facility]. Pt uses a walker, stair lift, power wheelchair, has a CPAP machine, and uses home O2 from [employer]. Pts family can transport him home if D/C home, vs BLS transport if D/C to [facility]. Pt agreeable to [facility] if it is recommended, [facility], and he would not like to go to [facility] as he reported a bad experience there. Pts son Donavon present at bedside states he is HCP and POA and will bring in copy of both later today or tomorrow. PCP: Nelly WELDON at [facility]
[2023-05-04 14:02] LABS: Alanine Aminotransferase 8 U/L (0-40); Albumin Level 3.8 g/dL (3.5-5.0); Alkaline Phosphatase 59 U/L (39-117); Aspartate Amino Transferase 10 U/L (5-37); Bilirubin Direct 0.3 mg/dL (0.0-0.5); Bilirubin Total 0.6 mg/dL (0.0-1.0); Total Protein 6.8 g/dL (6.5-8.0)
[2023-05-04 16:01] LABS: Glucose, Whole Blood 225 mg/dL (60-115)
[2023-05-04] MEDS: Azithromycin 500 MG in 0.9 % Sodium Chloride 250 ML 125 MG IV (18:00)
[2023-05-04 19:46] LABS: Glucose, Whole Blood 248 mg/dL (60-115)
[2023-05-04] MEDS: Erythromycin Base 0.5% Oph Oin 1 GM TUBE 1 CM EYE-LEFT (20:16)
[2023-05-04] MEDS: polyethylene glycoL 3350 17 GM POWD.PACK PO (20:27)
[2023-05-04] MEDS: Lactated Ringers 500 ML 80 ML IVCONT (21:41)
[2023-05-05] VITALS (9 sets, daily range): BP systolic 137–186; BP diastolic 69–82; PULSE 67–97; RESP 16–20; TEMP 36–36.4; O2SAT 91–97
[2023-05-05] MEDS: methylPREDNISolone Sod Succ 40 MG/ML VIAL IVPUSH ×2 (00:11→12:40)
[2023-05-05 06:41] LABS: Anion Gap 15 (12-20); Blood Urea Nitrogen 50 mg/dL (9-16); Carbon Dioxide 28 mmol/L (22-29); Chloride 101 mmol/L (96-108); Estimated Glomerular Filt Rate 44; Glucose Random 185 mg/dL (60-115); Potassium 4.9 mmol/L (3.3-5.1); Sodium 139 mmol/L (135-145)
[2023-05-05] MEDS: Insulin Lispro 100 UNIT/ML 3 ML VIAL SUBCUT ×4 (08:16→21:44)
[2023-05-05] MEDS: Pravastatin Sodium 40 MG TABLET PO (08:17)
[2023-05-05] MEDS: 0.9 % Sodium Chloride Flush 3 ML SYRINGE IVFLUSH ×3 (08:17→20:56)
[2023-05-05] MEDS: Pregabalin 100 MG CAPSULE PO ×2 (08:17→20:56)
[2023-05-05] MEDS: Loratadine 10 MG TABLET PO (08:17)
[2023-05-05] MEDS: Erythromycin Base 0.5% Oph Oin 1 GM TUBE 1 CM EYE-LEFT ×4 (08:17→20:56)
[2023-05-05] MEDS: Doxazosin Mesylate 2 MG TABLET 8 MG PO (08:17)
[2023-05-05] MEDS: Apixaban 5 MG TABLET PO ×2 (08:17→20:56)
[2023-05-05] MEDS: Isosorbide Mononitrate 30 MG TAB.ER.24H PO (08:25)
[2023-05-05] MEDS: Albuterol/Iprat 2.5/0.5MG 3 ML AMPUL.NEB INHALE ×3 (08:25→20:09)
[2023-05-05] MEDS: Fluticasone/Umeclidinium/Vilanterol 200/62.5/25 BLST.W.DEV 1 PUFF INHALE (08:25)
[2023-05-05 09:01] LABS: Glucose, Whole Blood 183 mg/dL (60-115)
--- NOTE | 2023-05-05 09:29 | MHC.IC ---
Pt has coronavirus HKU1. This is not COVID 19. Follow standard precautions per Appendix A.
--- NOTE | 2023-05-05 11:37 | MHC.CM.PN ---
EMR REVIEWED, P.T. RECOMMENDING STR, PT PREFERS [facility], REFERRAL PLACED AND CM AWAITING RESPONSE, ANTIC PT WILL BE READY TOMORROW 05/06, CM WILL CONT TO FOLLOW.
[2023-05-05 11:40] LABS: Glucose, Whole Blood 264 mg/dL (60-115)
[2023-05-05] MEDS: polyethylene glycoL 3350 17 GM POWD.PACK PO (12:40)
[2023-05-05] MEDS: Docusate Sodium 100 MG CAPSULE PO (12:40)
--- NOTE | 2023-05-05 12:54 | P.PNIM_ITS ---
Subjective Subjective Date of Service: 05/05/23 Interval History: seen and examined this morning follow up for copd exacerbation, COLETTE feeling well this am denies shortness of breath Review of Systems Review of Systems: Yes all other systems are reviewed and are negative Constitutional Constitutional: Denies chills and Denies fever(s) Physical Exam 2 Vital Signs: Vital Signs: Last Vital Signs Temp 97 F 05/05/23 11:29 Pulse 84 05/05/23 11:29 Resp 16 05/05/23 11:29 BP 149/69 H 05/05/23 11:29 Pulse Ox 92 05/05/23 11:29 O2 Del Method Nasal Cannula 05/05/23 11:29 O2 Flow Rate 2 05/05/23 11:29 Oxygen Flow Rate 3.5 05/03/23 11:46 BMI result Body Mass Index 40.7 Appearing in no acute distress lung sounds are clear to auscultation heart regular rate rhythm, clear S1, S2 positive bowel sounds, abdomen is soft, nontender neuro patient is alert x3, no focal deficits Objective Data Active Medications Acetaminophen (Acetaminophen 325 Mg Tablet) 650 mg PO Q6H PRN PRN Reason: Pain, Mild (Pain Scale 1-3) Albuterol Sulfate (Albuterol Sulfate (0.083%) 2.5 Mg/3 Ml Vial.Neb) 2.5 mg INHALE Q6H PRN PRN Reason: Shortness of Breath/Wheezing Albuterol/Ipratropium (Albuterol/Iprat 2.5/0.5mg 3 Ml Ampul.Neb) 3 ml INHALE RQ6H WHILE AWAKE [facility] Last Admin: 05/05/23 08:25 Dose: 3 ml Documented By: KARRI Apixaban (Apixaban 5 Mg Tablet) 5 mg PO BID [facility] Last Admin: 05/05/23 08:17 Dose: 5 mg Documented By: JENS Dextrose (Dextrose 50 % 25 Gm/50 Ml Syringe) 25 gm IVPUSH Q15M PRN; Protocol PRN Reason: per Hypoglycemia Standing Ord. Docusate Sodium (Docusate Sodium 100 Mg Capsule) 100 mg PO DAILY PRN PRN Reason: Constipation Last Admin: 05/05/23 12:40 Dose: 100 mg Documented By: JENS Doxazosin Mesylate (Doxazosin Mesylate 2 Mg Tablet) 8 mg PO DAILY [facility]; Protocol Last Admin: 05/05/23 08:17 Dose: 8 mg Documented By: JENS Erythromycin (Erythromycin Base 0.5% Oph Oin 1 Gm Tube) 1 cm EYE-LEFT QID [facility] Last Admin: 05/05/23 12:40 Dose: 1 cm Documented By: JENS Fluticasone/Umeclidinium/Vilanterol (Fluticasone/Umeclidinium/Vilanterol 200/62.5/25 Blst.W.Dev) 1 puff INHALE RDAILY [facility] Last Admin: 05/05/23 08:25 Dose: 1 puff Documented By: KARRI Glucose (Glucose Gel 15 Gm Gel..Gram.) 15 gm PO Q15M PRN; Protocol PRN Reason: per Hypoglycemia Standing Ord. Azithromycin 500 mg/ Sodium (Chloride) 250 mls @ 125 mls/hr IV Q24H [facility] Last Infusion: 05/04/23 22:35 Dose: Infused Documented By: VANDANA Insulin Human Lispro (Insulin Lispro 100 Unit/Ml 3 Ml Vial) 0 unit SUBCUT QIDACHS [facility]; Protocol Last Admin: 05/05/23 12:40 Dose: 6 unit Documented By: JENS Isosorbide Mononitrate (Isosorbide Mononitrate 30 Mg Tab.Er.24h) 30 mg PO DAILY [facility]; Protocol Last Admin: 05/05/23 08:25 Dose: 30 mg Documented By: JENS Loratadine (Loratadine 10 Mg Tablet) 10 mg PO DAILY [facility] Last Admin: 05/05/23 08:17 Dose: 10 mg Documented By: JENS Methylprednisolone Sodium Succinate (Methylprednisolone Sod Succ 40 Mg/Ml Vial) 40 mg IVPUSH Q12H [facility] Last Admin: 05/05/23 12:40 Dose: 40 mg Documented By: JENS Polyethylene Glycol (Polyethylene Glycol 3350 17 Gm Powd.Pack) 17 gm PO DAILY PRN PRN Reason: Constipation Last Admin: 05/05/23 12:40 Dose: 17 gm Documented By: JENS Pravastatin Sodium (Pravastatin Sodium 40 Mg Tablet) 40 mg PO DAILY [facility] Last Admin: 05/05/23 08:17 Dose: 40 mg Documented By: JENS Pregabalin (Pregabalin 100 Mg Capsule) 100 mg PO BID [facility] Last Admin: 05/05/23 08:17 Dose: 100 mg Documented By: JENS Sodium Chloride (0.9 % Sodium Chloride Flush 3 Ml Syringe) 3 ml IVFLUSH QSHIFT [facility] Last Admin: 05/05/23 12:41 Dose: 3 ml Documented By: JENS Labs 05/04/23 05:55 05/05/23 05:49 Labs: Laboratory Results - last 24 hr 05/04/23 05/04/23 05/04/23 05:55 15:57 19:43 Anion Gap Estim Creat Clear Calc Estimated GFR POC Glucose 225 H 248 H Random Glucose Calcium Total Bilirubin 0.6 Direct Bilirubin 0.3 AST 10 ALT 8 Alkaline Phosphatase 59 Total Creatine Kinase 19 L Total Protein 6.8 Albumin 3.8 05/05/23 05/05/23 05/05/23 05:49 07:55 11:33 Anion Gap 15 Estim Creat Clear Calc 55.0 Estimated GFR 44 POC Glucose 183 H 264 H Random Glucose 185 H Calcium 10.0 Total Bilirubin Direct Bilirubin AST ALT Alkaline Phosphatase Total Creatine Kinase Total Protein Albumin Microbiology Microbiology Results: Microbiology 05/03/23 Unknown Urine Culture - Final Urine clean catch - Urine okeefe top 05/03/23 12:47 Blood Culture - Preliminary Blood - Venous No growth after 24 hours. 05/03/23 12:33 Blood Culture - Preliminary Blood - Venous No growth after 24 hours. Assessment and Plan (1) Acute exacerbation of chronic obstructive pulmonary disease: Status: Acute (2) COLETTE (acute kidney injury): Status: Acute Plan This is an 82M PMH of chronic resp failure on 2-4L O2, ANDRES on CPAP, DM, 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, chronic CHF with preserved EF, presented with weakness Acute COPD exacerbation due to coronavirus HKU1 CXR negative for consolidation or effusion continue azithromycin, started 05/04 continue IV steroids and breathing treatments continue supplemental oxygen (on 2-4L NC at baseline) currently on 4L RPP + for coronavirus HKU1 viral sepsis cxr negative for pneumonia, +for caronavirus HKU1 and low procalcitonin. less likely bacterial Blood cultures neg urine culture pending COLETTE on CKD III likely due to decreased po intake and diuretics SCr trending down to 1.53. baseline seems to be around 1.4-1.5 hold bumex follow renal function h/o DVT/PE continue Eliquis DM2 hold metformin SSI, POCs, ADA diet HFpEF hold bumex HLD continue statin BPH Doxazosin ANDRES cpap at night 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.BMI 40.7 weight loss enouraged generalized weakness - PT evaluation pending dvt ppx - eliquis code status - full code Attending Dr. Dao DISPO PT rec [facility] Patient requires ongoing inpatient stay for management of COPD exacerbation, close monitoring of respiratory status and PT evaluation for safe disposition Quality Stroke Does the patient have a stroke diagnosis?: No VTE Prior VTE?: Yes VTE Risk Level:: Medical - moderate - high VTE Device Contraindication: Treatment Not Indicated VTE Drug Contraindication: N/A - Med Ordered
[2023-05-05 16:33] LABS: Glucose, Whole Blood 175 mg/dL (60-115)
[2023-05-05] MEDS: Azithromycin 500 MG in 0.9 % Sodium Chloride 250 ML 125 MG IV (17:05)
[2023-05-05 21:08] LABS: Glucose, Whole Blood 283 mg/dL (60-115)
--- NOTE | 2023-05-06 | ECG_ITS ---
Test Reason : rhythm Blood Pressure : / mmHG Vent. Rate : 071 BPM Atrial Rate : 071 BPM P-R Int : 496 ms QRS Dur : 160 ms QT Int : 422 ms P-R-T Axes : 054 -64 -10 degrees QTc Int : 458 ms Sinus rhythm with 1st degree A-V block with Premature supraventricular complexes and with occasional Premature ventricular complexes Left axis deviation Right bundle branch block Septal infarct , age undetermined Inferior infarct , age undetermined T wave abnormality, consider lateral ischemia Abnormal ECG When compared with ECG of 03-MAY-2023 14:44, Sinus rhythm has replaced Wide QRS rhythm Referred By: Zina Amanda Electronically Signed By:Glen Moeller
[2023-05-06] MEDS: methylPREDNISolone Sod Succ 40 MG/ML VIAL IVPUSH (00:46)
[2023-05-06 03:09] VITALS: BP 122/75; PULSE 65; RESP 20; TEMP 36.1; O2SAT 94
[2023-05-06 07:19] LABS: Glucose, Whole Blood 182 mg/dL (60-115)
[2023-05-06 07:28] VITALS: BP 137/72; PULSE 59; RESP 17; TEMP 36.3; O2SAT 95
[2023-05-06] MEDS: Insulin Lispro 100 UNIT/ML 3 ML VIAL SUBCUT (07:57)
[2023-05-06] MEDS: Pregabalin 100 MG CAPSULE PO (07:58)
[2023-05-06] MEDS: Isosorbide Mononitrate 30 MG TAB.ER.24H PO (07:58)
[2023-05-06] MEDS: Doxazosin Mesylate 2 MG TABLET 8 MG PO (07:58)
[2023-05-06] MEDS: Erythromycin Base 0.5% Oph Oin 1 GM TUBE 1 CM EYE-LEFT (07:58)
[2023-05-06] MEDS: Loratadine 10 MG TABLET PO (07:59)
[2023-05-06] MEDS: 0.9 % Sodium Chloride Flush 3 ML SYRINGE IVFLUSH (07:59)
[2023-05-06] MEDS: Apixaban 5 MG TABLET PO (07:59)
[2023-05-06] MEDS: Albuterol/Iprat 2.5/0.5MG 3 ML AMPUL.NEB INHALE (07:59)
[2023-05-06] MEDS: Pravastatin Sodium 40 MG TABLET PO (07:59)
[2023-05-06 08:00] VITALS: PULSE 62; RESP 18; O2SAT 93
[2023-05-06] MEDS: Fluticasone/Umeclidinium/Vilanterol 200/62.5/25 BLST.W.DEV 1 PUFF INHALE (08:00)
--- NOTE | 2023-05-06 11:28 | MHC.CM.PN ---
Pt has been medically cleared for DC, he will go to [facility] today via ambulance to [facility], family notified.
[2023-05-06 11:33] LABS: Glucose, Whole Blood 249 mg/dL (60-115)
[2023-05-06 11:34] VITALS: BP 127/70; PULSE 75; RESP 18; TEMP 36.4; O2SAT 95
--- NOTE | 2023-05-06 12:06 | PM.DS ---
DS: Providers Provider Date of Service: 05/06/23 Date of admission: 05/03/23 15:53 Primary care physician: SHIRAZ Tierney DS: Diagnosis Discharge Diagnosis (1) Acute exacerbation of chronic obstructive pulmonary disease: Status: Acute (2) COLETTE (acute kidney injury): Status: Acute DS: Summary Hospital Course Hospital Course: History and physical as per admitting provider. This is an 82 yo M with past medical history of CHF, COPD n 2-4 L o2, DVT on Eliquis, DMII, and HLD presents today with weakness. history primarily obtained from his son and [id number] at the bedside. They report increasing generalized weakness over the past 2 days. Multiple family members have been sick with respiratory illnesses and the patient has had congestion and cough for the past few days. He denies any associated fever or chills. He denies any abdominal pain, nausea, vomiting. In the emergency department he was noted to have leukocytosis of 12,000. He tested negative for COVID-19, influenza. Chest x-ray showed no evidence of pneumonia. He received treatment for possible pneumonia with ceftriaxone and azithromycin. He received 500 cc of fluid due to elevated lactic acid. He also received steroids and will be admitted for further management 82-year-old man treated for acute COPD exacerbation secondary to coronavirus HKU1. Chest x-ray negative for consolidation or effusion. Treated with azithromycin, IV Solu-Medrol and scheduled DuoNebs. Patient had baseline oxygen at home 2-4 L. plan is for patient to continue azithromycin for 3 more days and prednisone for 5 more days. He did develop COLETTE on CKD stage 3 likely due to decreased p.o. intake and diuretics. Serum creatinine now at baseline, Bumex was held initially but may be resumed. Plan is for patient to transfer to short-term rehab for physical therapy. History of DVT. Continue Eliquis Diabetes mellitus type 2. Continue home medications Heart failure with preserved ejection fraction. Continue Bumex Hyperlipidemia. Continue statin BPH. Continue doxazosin ANDRES. CPAP at night Morbid obesity. BMI 40.7. Weight loss encouraged Time Attestation Discharge coordination time: Greater than 30 minutes Quality: Safe Use of Opioids Does Pt have an Active Cancer Diagnosis on the Problem List?: No Quality: Stroke Does the patient have a stroke diagnosis?: No Physical Exam Vital Signs: Vital Signs: Last Vital Signs Temp 97.6 F 05/06/23 11:34 Pulse 75 05/06/23 11:34 Resp 18 05/06/23 11:34 BP 127/70 05/06/23 11:34 Pulse Ox 95 05/06/23 11:34 O2 Del Method Nasal Cannula 05/06/23 11:34 O2 Flow Rate 2 05/06/23 11:34 Oxygen Flow Rate 3.5 05/03/23 11:46 BMI result Body Mass Index 40.7 Appearing in no acute distress head is normocephalic atraumatic eyes pupils are PERRLA sclera is anicteric mouth throat mucous membranes are intact and moist neck is supple no lymphadenopathy, no JVD noted lung sounds are clear to auscultation heart regular rate rhythm, clear S1, S2 positive bowel sounds, abdomen is soft, nontender neuro patient is alert x3, no focal deficits DS: Data Data Completed and Pending Completed studies during hospitalization [Text1]: Procedures Assistance with Respiratory Ventilation, Less than 24 Consecutive Hours, Continuous Positive Airway Pressure (10/22/22) Labs on day of discharge: Laboratory Results - last 24 hr 05/05/23 05/05/23 05/06/23 16:29 21:03 07:13 POC Glucose 175 H 283 H 182 H 05/06/23 11:29 POC Glucose 249 H Preliminary micro results at discharge 05/03/23 12:47 Blood Culture - Preliminary Blood - Venous No growth after 48 hours. 05/03/23 12:33 Blood Culture - Preliminary Blood - Venous No growth after 48 hours. Discharge Plan Discharge Anticipated Discharge Date/Time: 05/06/23 12:02 Patient Disposition: Xfer SNF Discharge Diagnosis: Acute COPD exacerbation Coronavirus HKU1 COLETTE on CKD stage 3 Referrals: [facility] [Outside] - 1 Week Nelly Washburn PA [Primary Care Provider] - 1 Week Discharge Medications: New prednisone 10 mg tablet 40 mg PO DIRECTED Qty: 20 0RF Rx Instructions: see taper instructions azithromycin 250 mg tablet 250 mg PO DAILY 3 Days Qty: 3 0RF Rx Instructions: start on day 2 of therapy Continued bumetanide 2 mg tablet 2 mg PO BID metformin 1,000 mg tablet 1,000 mg PO BID diclofenac sodium 1 % gel 2 g topical TID PRN (Reason: Pain) Trelegy Ellipta 200-62.5-25 mcg blister with device 1 ea inhalation DAILY polyethylene glycol 3350 [Miralax] 17 gram Powder In Packet 17 g PO DAILY PRN (Reason: Constipation) miconazole nitrate 2 % Powder 1 appl TOPICAL DAILY albuterol sulfate 90 mcg/actuation Hfa Aerosol Inhaler 2 puff INHALATION Q6H PRN (Reason: Shortness Of Breath Or Wheezing) loratadine [Claritin] 10 mg Tablet 10 mg PO DAILY Eliquis 5 mg tablet 5 mg PO BID acetaminophen 325 mg Tablet 650 mg PO Q6H PRN (Reason: Pain) pravastatin 40 mg tablet 40 mg PO DAILY isosorbide mononitrate 30 mg tablet extended release 24 hr 30 mg PO DAILY doxazosin 8 mg tablet 8 mg PO DAILY pregabalin 100 mg capsule 100 mg PO BID Discharge Orders: Discharge Order (Routine); Ordered 05/06/23 Ordered By: Valentina Singh Diet: Advance to usual diet Activity on Discharge: As tolerated Stand Alone Forms: Patient Portal Discharge page Care Plan Goals: Complete resolution of symptoms Health Concerns: Acute COPD exacerbation Coronavirus HKU1 COLETTE on CKD stage 3 Plan of Treatment: Follow-up with primary care provider as needed Take all medications as prescribed Assessment: See discharge summary
== END 2023-05-06 12:34 | disposition skilled nursing facility (03) | DRG 872 ==
LOC: HO.ED 13:49 → HO.EDOVER 16:09 → HO.IMC 19:35
PROVIDERS: Admitting Provider Physician Assistant Medical; Emergency Provider Emergency Medicine; PCP Physician Assistant; Visit Provider Nurse Practitioner Acute Care
DX: A41.89 Other specified sepsis (principal); I13.0 Hypertensive heart and chronic kidney disease with heart failure and stage 1 through stage 4 chronic kidney disease, or unspecified chronic kidney disease; E87.21 Acute metabolic acidosis; I50.32 Chronic diastolic (congestive) heart failure; Z68.41 Body mass index [BMI] 40.0-44.9, adult; J44.1 Chronic obstructive pulmonary disease with (acute) exacerbation; N17.9 Acute kidney failure, unspecified; B97.29 Other coronavirus as the cause of diseases classified elsewhere; N18.30 Chronic kidney disease, stage 3 unspecified; N40.0 Benign prostatic hyperplasia without lower urinary tract symptoms; E11.22 Type 2 diabetes mellitus with diabetic chronic kidney disease; E66.01 Morbid (severe) obesity due to excess calories; G47.33 Obstructive sleep apnea (adult) (pediatric); Z20.822 Contact with and (suspected) exposure to COVID-19; Z87.891 Personal history of nicotine dependence; Z99.81 Dependence on supplemental oxygen; Z86.718 Personal history of other venous thrombosis and embolism; Z79.01 Long term (current) use of anticoagulants; Z79.899 Other long term (current) drug therapy
CPT/HCPCS: 36415; 71045; 80048; 80053; 80076; 81001; 82550; 82803; 82947; 83605; 83880; 84145; 84484; 85025; 85027; 87040; 87086; 87502; 87633; 87635; 93005; 94640; 97162; 99285; J0456; J0696; J2920; J2930; J7120; P9047

== ENCOUNTER → 2023-05-03 13:06 | Outpatient (BNV) | payer MEDICARE, MEDICAID, SELFPAY | PROVIDERS: Admitting Provider Physician Assistant Medical; Emergency Provider Emergency Medicine; Visit Provider Internal Medicine | DX: R53.1 Weakness (principal); I45.10 Unspecified right bundle-branch block; I44.4 Left anterior fascicular block | CPT/HCPCS: 93010 ==

== ENCOUNTER 2023-05-03 15:53 | Outpatient (BNV) | payer MEDICARE, OTHER, MEDICAID, SELFPAY | END 2023-05-06 03:29 | PROVIDERS: Admitting Provider Physician Assistant Medical; Emergency Provider Emergency Medicine; PCP Physician Assistant; Visit Provider Internal Medicine Cardiovascular Disease | DX: I44.2 Atrioventricular block, complete (principal); I49.1 Atrial premature depolarization | CPT/HCPCS: 93010 ==

== ENCOUNTER → 2023-05-03 15:53 | Outpatient (BNV) | payer MEDICARE, OTHER, MEDICAID, SELFPAY | PROVIDERS: Admitting Provider Physician Assistant Medical; Emergency Provider Emergency Medicine; Visit Provider Physician Assistant Medical | DX: J44.1 Chronic obstructive pulmonary disease with (acute) exacerbation (principal); N17.9 Acute kidney failure, unspecified; N18.30 Chronic kidney disease, stage 3 unspecified; E66.01 Morbid (severe) obesity due to excess calories | CPT/HCPCS: 99223; 99232; 99238 ==